=== PATIENT | female | born 1945 | race Caucasian/White ===

== ENCOUNTER 2019-11-26 12:44 | Outpatient (CLI) | payer MEDICARE, SELFPAY ==
[2019-11-26 12:55] LABS: Basophils Absolute Auto 0.02 K/mm3 (0.00-0.10); Basophils Percent Auto 0.5 % (0.0-1.0); Eosinophils Absolute Auto 0.19 K/mm3 (0.02-0.50); Eosinophils Percent Auto 4.6 % (1.0-6.0); Hemoglobin 10.9 g/dL (11.7-13.8); Immature Granulocyte Absolute 0.02 K/mm3 (0.00-0.00); Immature Granulocyte Percent A 0.5 % (0.0-0.0); Lymphocytes Absolute Auto 0.89 K/mm3 (1.10-4.50); Lymphocytes Percent Auto 21.4 % (18.0-42.0); Mean Corpuscular HGB Conc 30.3 g/dL (32.0-36.0); Mean Corpuscular Hemoglobin 26.6 pg (27.0-31.0); Mean Corpuscular Volume 87.8 fL (78.0-102.0); Mean Platelet Volume 9.8 fl (9.2-11.8); Monocytes Absolute Auto 0.41 K/mm3 (0.10-0.90); Monocytes Percent Auto 9.9 % (2.0-11.0); Neutrophils Absolute Auto 2.6 K/mm3 (1.7-7.2); Neutrophils Percent Auto 63.1 % (50.0-70.0); Platelet Count Result 186 K/mm3 (150-420); Red Cell Distribution Width 14.7 % (11.6-14.4); White Blood Count 4.2 K/mm3 (4.8-10.8)
[2019-11-26 13:52] LABS: Alanine Aminotransferase 17 U/L (14-59); Albumin Level 3.4 g/dL (3.4-5.0); Alkaline Phosphatase 107 U/L (46-116); Anion Gap 10.3 mmol/L (7-16); Aspartate Amino Transferase 23 U/L (15-37); Bilirubin,Total 0.3 mg/dL (0.00-1.00); Blood Urea Nitrogen 14 mg/dL (7-18); Calcium 8.9 mg/dL (8.5-10.1); Carbon Dioxide 30 mmol/L (21-32); Chloride 105 mmol/L (98-108); Estimated Glomerular Filt Rate 42; Glucose 80 mg/dL (70-99); Osmolality Calculated 291 mOsm/kg (285-295); Potassium 4.3 mmol/L (3.5-5.1); Sodium 141 mmol/L (136-145); Thyroid Stimulating Hormone 0.48 uIU/mL (0.36-3.74); Total Protein 5.9 g/dL (6.4-8.2)
[2019-11-30 11:15] LABS: Ferritin 8 ng/mL (8-252); Iron 54 ug/dL (50-170); Percent Iron Saturation 14 % (12-57)
== END 2019-11-26 12:45 | disposition home or self-care (01) ==
LOC: CHSLAB 12:46
PROVIDERS: PCP Family Medicine; Visit Provider Family Medicine
DX: E03.8 Other specified hypothyroidism (principal); I10 Essential (primary) hypertension; D64.9 Anemia, unspecified
CPT/HCPCS: 36415; 80053; 82728; 83540; 83550; 84443; 85025

== ENCOUNTER 2019-12-31 14:04 | Outpatient (CLI) | payer MEDICARE, SELFPAY ==
[2019-12-31 14:46] LABS: Cholesterol 155 mg/dL (0-200); HDL Direct 61 mg/dL (40-60); LDL Cholesterol Calculated 78 mg/dL (<130); Triglycerides 81 mg/dL (0-150)
== END 2019-12-31 14:05 | disposition home or self-care (01) ==
LOC: CHSLAB 14:07
PROVIDERS: PCP Family Medicine; Visit Provider Internal Medicine Cardiovascular Disease
DX: I10 Essential (primary) hypertension (principal)
CPT/HCPCS: 36415; 80061

== ENCOUNTER 2020-01-08 13:42 | Outpatient (CLI) | payer MEDICARE, SELFPAY ==
[2020-01-08 13:58] LABS: Basophils Absolute Auto 0.03 K/mm3 (0.00-0.10); Basophils Percent Auto 0.7 % (0.0-1.0); Eosinophils Absolute Auto 0.17 K/mm3 (0.02-0.50); Eosinophils Percent Auto 4.2 % (1.0-6.0); Hematocrit 35.9 % (35.0-42.0); Hemoglobin 10.9 g/dL (11.7-13.8); Immature Granulocyte Absolute 0.01 K/mm3 (0.00-0.00); Immature Granulocyte Percent A 0.2 % (0.0-0.0); Lymphocytes Absolute Auto 1.28 K/mm3 (1.10-4.50); Lymphocytes Percent Auto 31.8 % (18.0-42.0); Mean Corpuscular HGB Conc 30.4 g/dL (32.0-36.0); Mean Corpuscular Volume 88.9 fL (78.0-102.0); Monocytes Absolute Auto 0.24 K/mm3 (0.10-0.90); Neutrophils Absolute Auto 2.3 K/mm3 (1.7-7.2); Neutrophils Percent Auto 57.1 % (50.0-70.0); Platelet Count Result 205 K/mm3 (150-420); Red Blood Count 4.04 M/mm3 (4.20-5.40); Red Cell Distribution Width 14.1 % (11.6-14.4)
[2020-01-09 12:41] LABS: Ferritin 7 ng/mL (8-252); Iron 33 ug/dL (50-170); Percent Iron Saturation 10 % (12-57)
== END 2020-01-08 13:43 | disposition home or self-care (01) ==
LOC: CHSLAB 13:44
PROVIDERS: PCP Family Medicine; Visit Provider Family Medicine
DX: D64.9 Anemia, unspecified (principal)
CPT/HCPCS: 36415; 82728; 83540; 83550; 85025

== ENCOUNTER 2020-02-26 13:03 | Outpatient (CLI) | payer MEDICARE, SELFPAY ==
[2020-02-26 16:13] LABS: Basophils Absolute Auto 0.03 K/mm3 (0.00-0.10); Basophils Percent Auto 0.7 % (0.0-1.0); Eosinophils Absolute Auto 0.16 K/mm3 (0.02-0.50); Eosinophils Percent Auto 3.6 % (1.0-6.0); Hematocrit 37.4 % (35.0-42.0); Hemoglobin 11.2 g/dL (11.7-13.8); Lymphocytes Absolute Auto 1.39 K/mm3 (1.10-4.50); Lymphocytes Percent Auto 31.1 % (18.0-42.0); Mean Corpuscular HGB Conc 29.9 g/dL (32.0-36.0); Mean Corpuscular Hemoglobin 26.7 pg (27.0-31.0); Mean Platelet Volume 10.6 fl (9.2-11.8); Monocytes Absolute Auto 0.34 K/mm3 (0.10-0.90); Monocytes Percent Auto 7.6 % (2.0-11.0); Neutrophils Absolute Auto 2.6 K/mm3 (1.7-7.2); Platelet Count Result 226 K/mm3 (150-420); Red Cell Distribution Width 13.7 % (11.6-14.4); White Blood Count 4.5 K/mm3 (4.8-10.8)
[2020-02-26 16:21] LABS: Creatinine Urine 38.31 mg/dL (40-278); MALB Creatinine Ratio 33.9 mg/g (0-30); Microalbumin Urine Random < 13.0 mg/L
[2020-02-26 16:28] LABS: Alanine Aminotransferase 18 U/L (14-59); Albumin Level 3.7 g/dL (3.4-5.0); Alkaline Phosphatase 106 U/L (46-116); Anion Gap 7 mmol/L (8-16); Aspartate Amino Transferase 16 U/L (15-37); Bilirubin,Total 0.4 mg/dL (0.00-1.00); Blood Urea Nitrogen 12 mg/dL (7-18); Calcium 9.3 mg/dL (8.5-10.1); Carbon Dioxide 29 mmol/L (21-32); Chloride 104 mmol/L (98-108); Estimated Glomerular Filt Rate 44; Glucose 97 mg/dL (70-99); Osmolality Calculated 289 mOsm/kg (285-295); Potassium 4.3 mmol/L (3.5-5.1); Sodium 140 mmol/L (136-145); Total Protein 6.3 g/dL (6.4-8.2)
[2020-02-26 16:48] LABS: Thyroid Stimulating Hormone 0.38 uIU/mL (0.36-3.74)
[2020-02-26 17:36] LABS: Immature Reticulocyte Fraction 13.2 % (2.0-16.52); Reticulocyte Hemoglobin Conten 28.8 pg (28.0-35.0); Reticulocyte Percent 1.05 % (0.50-1.50); Reticulocytes Absolute 0.04 M/mm3 (0.02-0.1)
[2020-02-26 18:57] LABS: Iron 47 ug/dL (50-170); Percent Iron Saturation 13 % (12-57)
== END 2020-02-26 13:04 | disposition home or self-care (01) ==
LOC: CHSLAB 13:05
PROVIDERS: PCP Family Medicine; Visit Provider Family Medicine
DX: E03.8 Other specified hypothyroidism (principal); I10 Essential (primary) hypertension; D64.9 Anemia, unspecified
CPT/HCPCS: 36415; 80053; 82043; 83540; 83550; 84443; 85025; 85046

== ENCOUNTER 2020-03-05 01:12 | Outpatient (CLI) | payer MEDICARE, SELFPAY ==
[2020-03-05 18:29] LABS: SARS-CoV-2 RNA PCR Negative
== END 2020-03-05 01:13 | disposition home or self-care (01) ==
LOC: ANHCOVIDDT 01:13
PROVIDERS: PCP Family Medicine; Visit Provider Internal Medicine Gastroenterology
DX: Z01.812 Encounter for preprocedural laboratory examination (principal); Z11.59 Encounter for screening for other viral diseases
CPT/HCPCS: 87635; C9803; U0003

== ENCOUNTER 2020-03-07 03:53 | Day surgery (SDC) | payer MEDICARE, SELFPAY ==
[2020-03-03 14:36] VITALS: BMI 29.3
[2020-03-07 09:45] VITALS: BP 138/58; PULSE 64; RESP 22; O2SAT 100; BMI 30.2
[2020-03-07] MEDS: LACTATED RINGERS 1,000 ML 150 ML IV CONT (09:53)
--- NOTE | 2020-03-07 10:24 | PM.HPGS ---
History of Present Illness History of Present Illness Consent: Risks, benefits, and alternatives have been discussed and questions answered. Patient agrees to proceed with procedure. Chief complaint: Peptic Ulcer Disease Narrative: Catie Painter is a 74 year old female for has been found to have blood in her stools. She does take Excedrin regularly for migraine headaches. She has a history of ulcers. She had had a gastric bypass several years ago and had an anastomotic ulcer about 5 years ago. [facility] Past Medical History Medical History Acute upper respiratory infections of unspecified site (10/07/16) CKD (chronic kidney disease) stage 3, GFR 30-59 ml/min Cough (10/07/16) Depression (09/02/15) Dizziness (11/23/16) Dysuria (03/05/16) Essential hypertension GERD (gastroesophageal reflux disease) (09/02/15) FLACO on CPAP Type 2 diabetes mellitus (05/18/16) Surgical History Surgical History History of cholecystectomy History of gastric bypass History of hysterectomy Family History Family History Mother Carcinoma of colon Family history of Alzheimer's disease Sibling Carcinoma of colon Family history of malignant neoplasm of uterus Father Patient's father is Other Diabetes mellitus Family history of malignant neoplasm Family history of sleep apnea Family history of thyroid disease Hypertension Social History Social History Smoking status: Former smoker Smoking end date: 06/20/86 Alcohol intake: current Living arrangements: with family Meds Home Medications and Allergies Home Medications Medication Instructions Recorded Confirmed Type gufxzsc-lxsftnseiahqa-tkdypomi 250 1 tablet PO Q4-6H PRN 06/28/19 12/31/19 History mg-250 mg-65 mg tablet cyanocobalamin (vitamin B-12) 100 mcg SUB-Q MONTHLY 06/28/19 12/31/19 History 1,000 mcg/mL injection kit cyclobenzaprine 10 mg tablet 10 mg PO DAILY tablet 06/28/19 12/31/19 History duloxetine 30 mg capsule,delayed 30 mg PO DAILY 06/28/19 12/31/19 History release gabapentin 600 mg tablet 600 mg PO DAILY 06/28/19 12/31/19 History levothyroxine 50 mcg capsule 50 mcg PO DAILY 06/28/19 12/31/19 History omeprazole 20 mg tablet,delayed 20 mg PO DAILY 06/28/19 12/31/19 History release trazodone 50 mg tablet 50 mg PO DAILY tablet 06/28/19 12/31/19 History sumatriptan succinate 100 mg tablet 100 mg PO ONCE PRN 07/02/19 12/31/19 History metoprolol succinate 25 mg 25 mg PO DAILY #30 tablet 12/07/19 12/31/19 Rx tablet,extended release 24 hr cyanocobalamin (vitamin B-12) 03/03/20 History divalproex PO 03/03/20 History Allergies Allergy/AdvReac Type Severity Reaction Status Date / Time acetaminophen [Percocet] Allergy Intermediate Unknown Verified 03/07/20 09:43 oxycodone [Percocet] Allergy Intermediate Unknown Verified 03/07/20 09:43 butorphanol Allergy Unknown Dizziness Verified 03/07/20 09:43 BUTORPHANOL TARTRATE Allergy Unknown PARANOIA Uncoded 03/07/20 09:43 Vital Signs Vital Signs - 24 hr 03/07/20 09:45 Pulse Rate 64 Respiratory Rate 22 H Blood Pressure 138/58 L Pulse Oximetry 100 Exam Const: General: alert Orientation/consciousness: patient oriented x3 Resp: Auscultation: clear to auscultation bilaterally Cardio: Rhythm: regular rhythm GI: GI Palp: Yes Soft to palpation and No Tenderness to palpation present (GI) Neuro: General: patient oriented x3 Assessment and Plan Assessment and plan (1) Blood in stool: Code(s): K92.1 - Melena Status: Acute Assessment and Plan: EGD with possible biopsy or dilatation or cautery.
--- NOTE | 2020-03-07 10:27 | WPDANESEPPF ---
Anes - Initial Pre Proc Eval Procedure: Operation Date: 03/07/20 11:00 Proposed Procedures p Esophagogastroduodenoscopy - Sharath Cortes MD Date/Time: 03/07/20 10:27 Surgeon: Sharath Cortes MD Pre Op Diagnosis: Peptic Ulcer Disease Patient Data Age: 74 Gender: F Height: 5 ft 5 in Weight: 82.4 kg Last Vital Signs Pulse 64 03/07/20 09:45 Resp 22 H 03/07/20 09:45 BP 138/58 L 03/07/20 09:45 Pulse Ox 100 03/07/20 09:45 Allergies Allergy/AdvReac Type Severity Reaction Status Date / Time acetaminophen [Percocet] Allergy Intermediate Unknown Verified 03/07/20 09:43 oxycodone [Percocet] Allergy Intermediate Unknown Verified 03/07/20 09:43 butorphanol Allergy Unknown Dizziness Verified 03/07/20 09:43 BUTORPHANOL TARTRATE Allergy Unknown PARANOIA Uncoded 03/07/20 09:43 Home Medications Medication Instructions Recorded Confirmed Type yujpque-clsvvijboiydh-aoirgexb 250 1 tablet PO Q4-6H PRN 06/28/19 12/31/19 History mg-250 mg-65 mg tablet cyanocobalamin (vitamin B-12) 100 mcg SUB-Q MONTHLY 06/28/19 12/31/19 History 1,000 mcg/mL injection kit cyclobenzaprine 10 mg tablet 10 mg PO DAILY tablet 06/28/19 12/31/19 History duloxetine 30 mg capsule,delayed 30 mg PO DAILY 06/28/19 12/31/19 History release gabapentin 600 mg tablet 600 mg PO DAILY 06/28/19 12/31/19 History levothyroxine 50 mcg capsule 50 mcg PO DAILY 06/28/19 12/31/19 History omeprazole 20 mg tablet,delayed 20 mg PO DAILY 06/28/19 12/31/19 History release trazodone 50 mg tablet 50 mg PO DAILY tablet 06/28/19 12/31/19 History sumatriptan succinate 100 mg tablet 100 mg PO ONCE PRN 07/02/19 12/31/19 History metoprolol succinate 25 mg 25 mg PO DAILY #30 tablet 12/07/19 12/31/19 Rx tablet,extended release 24 hr cyanocobalamin (vitamin B-12) 03/03/20 History divalproex PO 03/03/20 History Patient hx anesthesia problems: none Family hx anesthesia problems: none PMFSH Past Medical History Medical History Acute upper respiratory infections of unspecified site (10/07/16) CKD (chronic kidney disease) stage 3, GFR 30-59 ml/min Cough (10/07/16) Depression (09/02/15) Dizziness (11/23/16) Dysuria (03/05/16) Essential hypertension GERD (gastroesophageal reflux disease) (09/02/15) FLACO on CPAP Type 2 diabetes mellitus (05/18/16) Surgical History Surgical History History of cholecystectomy History of gastric bypass History of hysterectomy Family History Family History Mother Carcinoma of colon Family history of Alzheimer's disease Sibling Carcinoma of colon Family history of malignant neoplasm of uterus Father Patient's father is Other Diabetes mellitus Family history of malignant neoplasm Family history of sleep apnea Family history of thyroid disease Hypertension Social History Social History Smoking status: Former smoker Smoking end date: 06/20/86 Alcohol intake: current Living arrangements: with family Diamond Curtis Final PreProcedure Day of Procedure 03/07/20 10:27 Patient weight: overweight Heart: regular rate and rhythm Lungs: clear to auscultation Airway: Mallampati scale class II Neurological: alert and oriented Last oral intake: >/= 8 hours ASA classification: III Emergent: no Anesthetic plan: proceed Anesthesia type and monitoring: general GIVS and standard monitoring Informed Consent: The patient's anesthetic plan and its attendant risks and benefits were discussed with the patient/family/POA. Questions were solicited and answers provided to the satisfaction of the patient/family/POA.
[2020-03-07 11:11] VITALS: BP 124/55; PULSE 67; RESP 22; O2SAT 98
[2020-03-07 11:21] VITALS: BP 114/59; PULSE 64; RESP 18; O2SAT 99
[2020-03-07 11:31] VITALS: BP 124/68; PULSE 66; RESP 20; O2SAT 100
== END 2020-03-07 11:49 | disposition home or self-care (01) ==
PROVIDERS: PCP Family Medicine; Visit Provider Internal Medicine Gastroenterology
PROC: 0DJ08ZZ Inspection of Upper Intestinal Tract, Via Natural or Artificial Opening Endoscopic (ICD-10-PCS; CPT 43235; principal; 2020-03-07 11:00)
DX: K22.2 Esophageal obstruction (principal); Z98.84 Bariatric surgery status; K92.1 Melena; K21.9 Gastro-esophageal reflux disease without esophagitis; Z87.11 Personal history of peptic ulcer disease; I12.9 Hypertensive chronic kidney disease with stage 1 through stage 4 chronic kidney disease, or unspecified chronic kidney disease; E11.22 Type 2 diabetes mellitus with diabetic chronic kidney disease; N18.3 Chronic kidney disease, stage 3 (moderate); G47.33 Obstructive sleep apnea (adult) (pediatric); F32.9 Major depressive disorder, single episode, unspecified; Z87.891 Personal history of nicotine dependence
CPT/HCPCS: 43249; 88305; C1726; J2704; J7120

== ENCOUNTER 2020-07-22 11:01 | Outpatient (CLI) | payer MEDICARE, SELFPAY ==
--- NOTE | ~2020-07-22 | XR_ITS ---
XR thoracic spine 3V DATE: 07/22/2020 11:32 INDICATION: Generalized back pain. Radiculopathy. No injury. TECHNIQUE: AP, lateral, swimmer views COMPARISON: None FINDINGS: Diffuse osteopenia. There is multilevel degenerative disease of the cervical spine. No fracture or dislocation of the thoracic spine. No bone destruction is evident. The thoracic pedicl es are intact. No paraspinal soft tissue thickening. There is degenerative spurring of the thoracic spine. IMPRESSION: Diffuse osteopenia Degenerative changes of the cervical and thoracic spine Reviewed, dictated and finalized at location A. FINISHER APPRENTICE
--- NOTE | ~2020-07-22 | XR_ITS ---
XR lumbar spine 2-3V DATE: 07/22/2020 11:32 INDICATION: Generalized back pain. Radiculopathy. TECHNIQUE: AP, lateral, coned lateral lumbosacral views COMPARISON: 01/24/2018 MRI lumbar spine FINDINGS: Diffuse osteopenia. There is moderately severe degenerative disc disease at L1-2 and L2-3 and L4-5. There is associated m inimal retrolisthesis at L2-3 and L4-5. No fracture or bone destruction is evident. The included lower thoracic and lumbar pedicles are intac t. The sacroiliac joints appear normal. There is extensive calcification of the abdominal aorta, without evidence of aneurysm. IMPRESSION: Diffuse osteopenia Multilevel degenerative disc disease, with associated minimal retrolisthesis at L2-3 and L4-5 Reviewed, dictated and finalized at location A. MILL OPERATOR
== END 2020-07-22 11:02 | disposition home or self-care (01) ==
LOC: CHSIMG 11:02
PROVIDERS: PCP Family Medicine; Visit Provider Family Medicine
DX: R25.1 Tremor, unspecified (principal); M54.16 Radiculopathy, lumbar region
CPT/HCPCS: 72072; 72100

== ENCOUNTER 2020-07-26 08:40 | Outpatient (CLI) | payer MEDICARE, SELFPAY ==
--- NOTE | ~2020-07-26 | MR_ITS ---
EXAMINATION: MR brain/brain stem wo/w con DATE: 07/26/2020 10:15 INDICATION: Tremor. TECHNIQUE: Magnetic resonance imaging (MRI) of the brain and brainstem was performed without and with 10 mL MultiHance intravenous contrast. Sequences included sagittal and axial T1-weighted FSE, axial diffusion-weighted FS EPI, axial T2*-weighted GRE, axial T2-weighted FLAIR Propeller, and axial T2-we ighted Propeller. Postcontrast sequences included axial and coronal T1-weighted FSE. Apparent diffusi on coefficient (ADC) maps were created. COMPARISON: Brain MRI 12/31/2015, head CT 05/04/2019 FINDINGS: There are scattered areas of nonspecific increased T2-weighted signal intensity in the cere bral white matter with worsening from 12/31/2015, which is within normal limits for the patient's age. There is no intracranial hemorrhage, acute infarction, or abnormal intracranial mass lesion. The danuta tricles are normal in size. There is mucosal thickening in the paranasal sinuses. There are likely ch anges of ocular lens replacement surgeries. The mastoid air cells are normal. IMPRESSION: 1. Normal aging brain. Reviewed, dictated and finalized at location A. LESOFT FUNCTIONAL ANALYST IMPRESSION: 1. Normal aging brain.
== END 2020-07-26 08:41 | disposition home or self-care (01) ==
LOC: CHSIMG 08:41
PROVIDERS: PCP Family Medicine; Visit Provider Family Medicine
DX: R25.1 Tremor, unspecified (principal); M54.16 Radiculopathy, lumbar region
CPT/HCPCS: 70553; A9577

== ENCOUNTER → 2020-10-07 10:15 | Outpatient (CLI) | payer MEDICARE, SELFPAY ==
--- NOTE | ~2020-10-07 | XR_ITS ---
EXAMINATION: XR knee RT min 4V DATE: 10/07/2020 10:43 INDICATION: Right knee pain. TECHNIQUE: 4 views of right knee were obtained. COMPARISON: Right knee radiographs 09/17/2015 FINDINGS: Bone alignment is normal. No fracture. There is moderate osteoarthritis of medial and miller lofemoral compartments and mild osteoarthritis of lateral compartment. No knee joint effusion. IMPRESSION: 1. Moderate right knee osteoarthritis. Reviewed, dictated and finalized at location B.
== END ==
PROVIDERS: PCP Family Medicine; Visit Provider Nurse Practitioner Adult Health
DX: M54.16 Radiculopathy, lumbar region (principal); M17.11 Unilateral primary osteoarthritis, right knee
CPT/HCPCS: 73564

== ENCOUNTER 2020-10-09 09:00 | Outpatient (RCR) | payer MEDICARE, SELFPAY | END 2020-10-16 13:52 | disposition home or self-care (01) | LOC: CHSPT 09:00 | PROVIDERS: Visit Provider Nurse Practitioner Adult Health | DX: M54.16 Radiculopathy, lumbar region (principal); M54.5 Low back pain; M25.562 Pain in left knee | CPT/HCPCS: 97014; 97110; 97161; G0283 ==

== ENCOUNTER 2021-01-23 09:02 | Outpatient (CLI) | payer MEDICARE, SELFPAY ==
--- NOTE | ~2021-01-23 | XR_ITS ---
XR knee RT 3V DATE: 01/23/2021 09:56 INDICATION: Chronic right knee pain. No injury. TECHNIQUE: [place] and weightbearing AP and lateral views COMPARISON: 10/07/2020 right knee FINDINGS: There is diffuse osteopenia. There is prominent periarticular spurring of the patellofemoral joint and particularly spurring at th e medial compartment. Probable old healed proximal fibular shaft fracture. No recent fracture, dislocation or joint effusio n. No periosteal reaction or bone destruction. No radiopaque intra-articular loose body or chondrocal cinosis is detected. IMPRESSION: Osteopenia Osteoarthritis involving particularly the patellofemoral and medial compartments Probable old healed proximal fibular shaft fracture Reviewed, dictated and finalized at location B. IMPRESSION: Osteopenia Osteoarthritis involving particularly the patellofemoral and medial compartment s Probable old healed proximal fibular shaft fracture
--- NOTE | ~2021-01-23 | XR_ITS ---
EXAMINATION: XR barium swallow modified DATE: 01/23/2021 09:54 INDICATION: Dysphagia. TECHNIQUE: The patient was given barium-containing material of multiple consistencies to swallow by jason hernandez speech pathologist while I performed fluoroscopy. Dose-area product was 1.19 Gy-cm2. 1.9 minutes fluoroscopy time FINDINGS: Oral Stage: Within functional limits Pharyngeal Phase: Reduced laryngeal elevation with liquids Follicular residue with all consistencies Laryngeal penetration with thin liquids No aspiration Cervical/Esophageal Stage: Within functional limits IMPRESSION: Modified esophagram findings as above. Please refer to the speech therapy report for spec ific recommendations. Reviewed, dictated and finalized at Location A. Reviewed, dictated and finalized at location B. IMPRESSION: Modified esophagram findings as above. Please refer to the speech t herapy report for specific recommendations.
--- NOTE | 2021-01-23 10:20 | STOPEVAL ---
Thank you for referring Catie Painter to [facility] [place] This was an evaluation only. Please review, sign, date and return this plan of care RANDY. I agree with and certify that the following plan of care is medically necessary. Referring Physician Date Admitting Provider: Attending Provider: Davonte Stock MD Referring Provider: PATRICIA Outpatient Evaluation Start: 01/23/21 09:51 Freq: Status: Active Protocol: Document 01/23/21 09:10 MJB (Rec: 01/23/21 10:20 THAD [id number]) Therapy Assessment Status Assessment Status Assessment Status Evaluation Outpatient Past Medical History Past Medical History Source of Past Medical History Patient Other Source of Past Medical History Patient reports she has had difficulty swallowing for 2-3 years Neurological History Hx Neurological Disorders No Significant History Cardiovascular History Hx Cardiomyopathy Yes: HOCM Hx Hypertension Yes Respiratory History Hx Sleep Apnea Yes Gastrointestinal History Hx Cholecystectomy Yes Hx Gastric Bypass Surgery Yes Hx Gastroesophageal Reflux Disease Yes Genitourinary History Hx Other Genitourinary Disorders Yes: CKD Musculoskeletal History Hx Arthritis Yes Hematological History Hx Hematological Disorders No Significant History Endocrine History Hx Hypothyroidism Yes Hx Other Endocrine Disorders Yes: H/O LOW BLOOD SUGAR AFTER GASTRIC BYPASS HEENT History Hx Cataracts Yes: REMOVED Integumentary History Hx Skin Disorders No Significant History Reproductive History Hx Hysterectomy Yes Psychosocial History Hx Depression Yes Anesthesia History Hx Anesthesia Reactions No Significant History Pain Assessment Timing of Pain Assessment Timing of Pain Assessment Assessment Self Report Self Report Pain Level 0 Pain Score Pain Score 0: Self Report Modified Barium Swallow Evaluation Recent Swallowing History Reports Dysphagia Yes Onset of Dysphagia 2-3 years ago History of Dysphagia Yes Duration of Dysphagia 2-3 years ongoing, choking episode at least 1x per day Other Related History GERD, sleep apnea, chronic congestion/drainage History of Pneumonia No Reported Difficult Consistencies Solids Intake Method Prior to Swallow Oral Evaluation Diet Prior to Swallow Evaluation Soft and Bite Size, Level 6 Liquid Consistency Prior to Swallow Thin (0) Evaluation Orthodontic/Dental Appliances
== END 2021-01-23 09:03 | disposition home or self-care (01) ==
PROVIDERS: PCP Family Medicine; Visit Provider Family Medicine
DX: R13.11 Dysphagia, oral phase (principal); M25.561 Pain in right knee
CPT/HCPCS: 73562; 92611

== ENCOUNTER 2021-04-07 12:54 | Outpatient (CLI) | payer MEDICARE, SELFPAY ==
[2021-04-07 14:26] LABS: SARS-CoV-2 RNA PCR Negative (Negative)
== END 2021-04-07 12:55 | disposition home or self-care (01) ==
LOC: CHSLAB 12:58
PROVIDERS: PCP Family Medicine; Visit Provider Nurse Practitioner Family
DX: R19.7 Diarrhea, unspecified (principal); R52 Pain, unspecified
CPT/HCPCS: C9803; U0003; U0005

== ENCOUNTER 2021-04-07 15:19 | Observation (INO) | payer MEDICARE, SELFPAY ==
[2021-04-07] VITALS (35 sets, daily range): BP systolic 100–139; BP diastolic 52–85; PULSE 82–141; RESP 11–24; TEMP 36.2–36.4; O2SAT 95–100; BMI 26.1
--- NOTE | ~2021-04-07 | CT_ITS ---
EXAMINATION: CT abdomen pelvis w con INDICATION: Diffuse abdominal pain TECHNIQUE: Computed tomographic images of the abdomen and pelvis were obtained after the administrati on of 100 cc of Omnipaque 350 intravenous contrast. The dose-length product (DLP) was 517.53 mGy-cm. Automated exposure control and iterative reconstruction technique were employed. COMPARISON: 06/17/2017 FINDINGS: Minimal dependent atelectasis is present in the lung bases. The heart size is normal. There is a small sliding hiatal hernia. Surgical changes are noted at the gastroesophageal junction. The g allbladder is surgically absent. There is chronic intrahepatic and extrahepatic biliary dilatation as well as dilation of the pancreatic duct. The liver, spleen, pancreas, and adrenal glands are normal. There is question of mild inflammatory change in the pancreaticoduodenal groove. There is a 6 mm cys t of the right kidney. The left kidney is unremarkable. There is calcified atherosclerosis of the aor ta and many of the other arteries. No pathologically enlarged abdominal or pelvic lymph nodes are isela ntified. There is no free intraperitoneal gas or evidence of bowel obstruction. There is moderate lum bar spondylosis. IMPRESSION: 1. Possible inflammatory change near the head of the pancreas. Recommend evaluation for right upper q uadrant tenderness and consider correlation with lipase. Reviewed, dictated and finalized at location A. IMPRESSION: 1. Possible inflammatory change near the head of the pancreas. Recommend evalua tion for right upper quadrant tenderness and consider correlation with lipase.
[2021-04-07 15:43] LABS: Basophils Percent Auto 0.3 % (0.2-1.2); Eosinophils Percent Auto 0.1 % (0-4.4); Hematocrit 35.7 % (37.0-47.0); Hemoglobin 11.3 g/dL (12.0-15.0); Immature Granulocyte Absolute 0.03 K/mm3 (0.00-0.031); Immature Granulocyte Percent A 0.3 % (0-0.5); Lymphocytes Absolute Auto 1.08 K/mm3 (0.9-3.2); Lymphocytes Percent Auto 12.3 % (18.3-44.2); Mean Corpuscular HGB Conc 31.7 g/dl (32-36); Mean Corpuscular Hemoglobin 30.2 pg (26-34); Mean Corpuscular Volume 95.5 fl (80-100); Mean Platelet Volume 9.7 fl (7.4-10.4); Monocytes Absolute Auto 0.4 K/mm3 (0.1-0.6); Monocytes Percent Auto 4.9 % (2.6-8.5); Neutrophils Absolute Auto 7.2 K/mm3 (1.3-6.7); Neutrophils Percent Auto 82.1 % (45.5-73.1); Platelet Count Result 192 k/mm3 (150-375); Red Blood Count 3.74 M/mm3 (4.2-5.4); Red Cell Distribution Width 13.4 % (11.5-14.5); White Blood Count 8.8 K/mm3 (4.5-10.0)
[2021-04-07 15:52] LABS: Prothrombin Time 13.5 Seconds (11.1-14.7)
[2021-04-07 15:53] LABS: Partial Thromboplastin Time 26.9 SECONDS (22.3-36.8)
[2021-04-07 15:55] LABS: Alanine Aminotransferase 12 U/L (4-35); Albumin Level 3.4 g/dL (3.5-5.1); Alkaline Phosphatase 56 U/L (38-126); Anion Gap 8 mmol/L (8-16); Aspartate Amino Transferase 19 U/L (14-36); Bilirubin,Total 0.5 mg/dL (0.2-1.3); Blood Urea Nitrogen 36 mg/dL (7-17); Calcium 9.2 mg/dL (8.4-10.2); Carbon Dioxide 25 mmol/L (22-30); Chloride 106 mmol/L (98-107); Estimated CRCL calculation 43 ml/min; Estimated Glomerular Filt Rate 54; Glucose 132 mg/dL (65-110); Potassium 4.5 mmol/L (3.4-5.0); Sodium 139 mmol/L (137-145)
[2021-04-07] MEDS: SODIUM CHLORIDE 0.9% IV 1,000 ML 999 ML IV CONT ×2 (18:55→20:38)
[2021-04-07] MEDS: PANTOPRAZOLE SODIUM IV 40 MG VIAL 80 MG IV PUSH (19:21)
--- NOTE | 2021-04-07 19:40 | ED.GIBLEED ---
HPI - GI Bleed General Chief complaint: GI Bleed Stated complaint: GI bleeding Time Seen by Provider: 04/07/21 17:20 History of Present Illness HPI Narrative: Patient is a 75-year-old female who presents to the ER with reports of hematemesis and bloody stools. Ongoing over the last day. Head to bloody stools this morning and one this evening. Reports weakness and dizziness. No loss of consciousness. She is not on blood thinners. She does take ibuprofen regularly for headaches. Has history of gastric bypass surgery. No history of GI bleeding. Related Data Home Medications Medication Instructions Recorded Confirmed icttrrv-nmopptftzyfty-smbjzbpw 250 1 tablet PO Q4-6H PRN 06/28/19 01/05/21 mg-250 mg-65 mg tablet cyanocobalamin (vitamin B-12) 100 mcg SUB-Q MONTHLY 06/28/19 01/05/21 1,000 mcg/mL injection kit cyclobenzaprine 10 mg tablet 10 mg PO DAILY tablet 06/28/19 01/05/21 duloxetine 30 mg capsule,delayed 30 mg PO DAILY 06/28/19 01/05/21 release gabapentin 600 mg tablet 600 mg PO DAILY 06/28/19 01/05/21 levothyroxine 50 mcg capsule 50 mcg PO DAILY 06/28/19 01/05/21 omeprazole 20 mg tablet,delayed 20 mg PO DAILY 06/28/19 01/05/21 release trazodone 50 mg tablet 50 mg PO DAILY tablet 06/28/19 01/05/21 sumatriptan succinate 100 mg tablet 100 mg PO ONCE PRN 07/02/19 01/05/21 cyanocobalamin (vitamin B-12) 03/03/20 01/05/21 divalproex PO 03/03/20 01/05/21 Allergies Allergy/AdvReac Type Severity Reaction Status Date / Time oxycodone [Percocet] Allergy Intermediate Unknown Verified 04/07/21 15:25 butorphanol Allergy Unknown Dizziness Verified 04/07/21 15:25 BUTORPHANOL TARTRATE Allergy Unknown PARANOIA Uncoded 04/07/21 15:25 Review of Systems Review of Systems: All systems reviewed & are unremarkable except as noted in HPI and below Constitutional: Constitutional: Denies chills, Reports fatigue, Denies fever(s) and Reports weakness ENT: Denies nasal congestion and Denies sore throat Cardiovascular: Cardiovascular: Denies chest pain, Denies rapid heart rate and Denies radiating jaw, neck or arm pain Respiratory: Respiratory: Denies cough, Denies dyspnea and Denies wheezing Gastrointestinal: Gastrointestinal: Denies abdominal pain, Reports diarrhea, Reports nausea and Reports vomiting Comments: Melena in stool and hematemesis reported Musculoskeletal: Musculoskeletal: Denies back pain and Denies muscle cramps Neurologic: Reports dizziness PMFSH Past Medical History Medical History (Updated 04/07/21 @ 20:41 by Isaak Gordon MD) Acute upper respiratory infections of unspecified site (10/07/16) CKD (chronic kidney disease) stage 3, GFR 30-59 ml/min Cough (10/07/16) Depression (09/02/15) Dizziness (11/23/16) Dysuria (03/05/16) Essential hypertension GERD (gastroesophageal reflux disease) (09/02/15) FLACO on CPAP Type 2 diabetes mellitus (05/18/16) Surgical History Surgical History History of cholecystectomy History of gastric bypass History of hysterectomy Family History Family History Mother Carcinoma of colon Family history of Alzheimer's disease Sibling Carcinoma of colon Family history of malignant neoplasm of uterus Father Patient's father is Other Diabetes mellitus Family history of malignant neoplasm Family history of sleep apnea Family history of thyroid disease Hypertension Social History Social History Smoking status: Former smoker Smoking end date: 06/20/86 Alcohol intake: current Exam Narrative: GENERAL: Unwell-appearing, well-nourished, and in no acute distress. HEAD: Normocephalic, atraumatic. EYES: PERRL and EOMI. CHEST: Clear to auscultation. No respiratory distress. HEART: Tachycardic and regular. Normal peripheral pulses. ABDOMEN: Soft, nontender, nondistended, nor
--- NOTE | 2021-04-07 19:45 | ECG_ITS ---
Measurements Intervals [place] Rate: 96 P: 75 [place]: 154 QRS: 43 QRSD: 86 T: -5 QT: 325 QTc: 411 Interpretive Statements SINUS RHYTHM BORDERLINE ST-T WAVE ABNORMALITY- ANTEROLAT/INF LEADS BASELINE ARTIFACT- I, II, AVR, V1-V6 BORDERLINE ECG Electronically Signed On 04-08-2021 6:45:28 CDT by Cristi Chao D.O.
[2021-04-07] MEDS: fentaNYL CITRATE INJ (*CRX) 100 MCG/2 ML VIAL 50 MCG IV PUSH (20:39)
[2021-04-07 21:10] LABS: Lipase 33 U/L (23-300)
--- NOTE | 2021-04-07 22:08 | PM.IMHP ---
H&P: HPI History of Present Illness Date/Time: 04/07/21 22:08 Chief Complaint: Hematemesis hematochezia Narrative: This is 75-year-old female who presents to the ER with reports of hematemesis and bloody stools that started since this morning. She reports that he has not been feeling well since past few days. She has been feeling tired nauseated now has also been having loose stools the past 3 days this morning he threw up dark blood around 11:00 a.m. she has not thrown up she does not. However she has been having dark blood mixed with fresh blood in her bowels. She also reports pain in her lower quadrant left side since past few days. Her appetite is down. She denies any fever or chills she reports weakness and dizziness no loss of consciousness. She denies being on any blood thinners however she does take Excedrin migraine for headache about 2-3 times every week. No prior history of GI bleed however she does have history of gastric bypass surgery done about 20 years ago. In the ER for evaluation she was normotensive however while sitting up her heart rate jumped to 140s. She received some fluid in the ER which improved this. Her hemoglobin came back stable at 11.3 which is very comparable to her previous levels. She has not had any bloody stool or hematemesis since this morning. She is admitted for further evaluation and management. Review of Systems Review of Systems: - CONSTITUTIONAL: Denies weight loss, fever and chills. Reports generalized weakness - HEENT: Denies changes in vision and hearing - RESPIRATORY: Denies SOB and cough. - CV: Denies palpitations and CP. - GI: Reports abdominal pain, nausea, vomiting and diarrhea. - : Denies dysuria and urinary frequency. - MSK: Denies myalgia and joint pain. - SKIN: Denies rash and pruritus. - NEUROLOGICAL: Denies headache and syncope. - PSYCHIATRIC: Denies recent changes in mood. Denies anxiety and depression. All systems reviewed & are unremarkable except as noted in HPI and below Constitutional: Constitutional: Reports fatigue and Reports weakness Neurologic: Reports weakness Endocrine: Endocrine: Reports fatigue PMFSH Past Medical History Medical History (Updated 04/07/21 @ 20:41 by Isaak Gordon MD) Acute upper respiratory infections of unspecified site (10/07/16) CKD (chronic kidney disease) stage 3, GFR 30-59 ml/min Cough (10/07/16) Depression (09/02/15) Dizziness (11/23/16) Dysuria (03/05/16) Essential hypertension GERD (gastroesophageal reflux disease) (09/02/15) FLACO on CPAP Type 2 diabetes mellitus (05/18/16) Surgical History Surgical History History of cholecystectomy History of gastric bypass History of hysterectomy Family History Family History Mother Carcinoma of colon Family history of Alzheimer's disease Sibling Carcinoma of colon Family history of malignant neoplasm of uterus Father Patient's father is Other Diabetes mellitus Family history of malignant neoplasm Family history of sleep apnea Family history of thyroid disease Hypertension Social History Social History Smoking status: Never smoker Smoking end date: 06/20/86 Alcohol intake: never Substance use: never Substance use type: does not use Spiritual care concerns: No Meds Home Medications and Allergies Home Medications Medication Instructions Recorded Confirmed Type hxiammp-xcstlvvflxdyg-lnosnmkc 250 1 tablet PO Q4-6H PRN 06/28/19 01/05/21 History mg-250 mg-65 mg tablet cyanocobalamin (vitamin B-12) 100 mcg SUB-Q MONTHLY 06/28/19 01/05/21 History 1,000 mcg/mL injection kit cyclobenzaprine 10 mg tablet 10 mg PO DAILY tablet 06/28/19 01/05/21 History duloxetine 30 mg capsule,delayed 30 mg PO DAILY 06/28/19 01/05/21 History release
[2021-04-07] MEDS: SODIUM CHLORIDE 0.9% IV 1,000 ML 125 ML IV CONT (22:19)
--- NOTE | 2021-04-07 23:31 | ADMGEN ---
This patient, Catie Painter, was admitted to IMU Room 203-01. Patient/family oriented to hospital policies and general routines including ID bracelet, bed and alarms, visiting hours, pain management, procedures, bathroom and other care routines, personal items, smoking policy, room service/diet, and visiting hours. Information on how to activate the Rapid Response Team has been discussed. Patient/Family are encouraged to report perceived risks to care and to ask questions if they do not understand what they are told or what they should do.
[2021-04-07 23:56] LABS: Lipase 22 U/L (23-300)
[2021-04-08] VITALS (26 sets, daily range): BP systolic 120–196; BP diastolic 46–112; PULSE 65–108; RESP 13–24; TEMP 35.7–36.5; O2SAT 93–100; BMI 27.3
[2021-04-08 00:25] LABS: Hematocrit 27.6 % (37.0-47.0); Hemoglobin 8.6 g/dL (12.0-15.0)
[2021-04-08] MEDS: SODIUM CHLORIDE 0.9% IV 250 ML 30 ML IV CONT (03:45)
--- NOTE | 2021-04-08 06:28 | WPDGICN ---
Assessment and Plan Assessment and plan (1) Acute upper GI bleed: Code(s): K92.2 - Gastrointestinal hemorrhage, unspecified Status: Acute Assessment and Plan: I suspect ulcer disease due to use of NSAIDs. I will schedule her for an EGD to be done today. I do not think this is a lower gastrointestinal bleed but if the endoscopy is negative we would then need to consider colonoscopy. Because of her elevated BUN I suspect this is upper GI bleed (2) CKD (chronic kidney disease) stage 3, GFR 30-59 ml/min: Code(s): N18.3 - Chronic kidney disease, stage 3 (moderate) Status: Acute Assessment and Plan: she is stage III BUN was 12 last year in is over 30 now although her creatinine actually has not increased (3) Dizziness: Onset Date: 11/23/16 Code(s): R42 - Dizziness and giddiness Status: Acute Assessment and Plan: she states that she will know if she is dizzy until she tries to get out of bed. If the symptoms persist we need to investigate. (4) FLACO on CPAP: Code(s): G47.33 - Obstructive sleep apnea (adult) (pediatric); Z99.89 - Dependence on other enabling machines and devices Status: Acute Assessment and Plan: She was using her CPAP as I interviewed her. She denies any increased shortness of breath. GI Consult Note Consult date/time: 04/08/21 06:28 HPI: Catie Painter is a 75 year old female who came to the emergency room yesterday because she had an episode of hematemesis of red blood and also was passing dark blood per rectum. She began feeling ill about 3 days ago having gotten dizzy and could not get out of bed without becoming while bleed and nauseated. She had not eaten much to last few days. She thought she may have COVID and went to get a test done which was negative. Was not having fever chills or cough. She had been using some anti-inflammatories, mostly ibuprofen lately for headaches and other symptoms. She has history of an esophageal stricture that I dilated last year. She also has had a previous gastric bypass. A colonoscopy 2 years ago for a family history of colon cancer was negative, though she has had some polyps removed in the past. She has lost about 20 lb in last few months because she simply feels that she cannot eat or does not feel like eating. Until yesterday however she had not been vomiting in the emergency room she was found have a elevation of her heart rate when she sat up. Her hemoglobin was 11.3 yesterday but now is 8.6. She has had no stools during the night. Review of Systems Review of Systems: All systems reviewed & are unremarkable except as noted in HPI and below PMFSH Past Medical History Medical History Acute upper respiratory infections of unspecified site (10/07/16) CKD (chronic kidney disease) stage 3, GFR 30-59 ml/min Cough (10/07/16) Depression (09/02/15) Dizziness (11/23/16) Dysuria (03/05/16) Essential hypertension GERD (gastroesophageal reflux disease) (09/02/15) FLACO on CPAP Type 2 diabetes mellitus (05/18/16) Surgical History Surgical History History of cholecystectomy History of gastric bypass History of hysterectomy Family History Family History Mother Carcinoma of colon Family history of Alzheimer's disease Sibling Carcinoma of colon Family history of malignant neoplasm of uterus Father Patient's father is Other Diabetes mellitus Family history of malignant neoplasm Family history of sleep apnea Family history of thyroid disease Hypertension Social History Social History Smoking status: Never smoker Smoking end date: 06/20/86 Alcohol intake: never Substance use: never Substance use type: does not use Spiritual care co
--- NOTE | 2021-04-08 08:06 | PM.IMPN ---
Progress Note: A&P Assessment and Plan (1) Acute upper GI bleed: Code(s): K92.2 - Gastrointestinal hemorrhage, unspecified Status: Acute Assessment and Plan: Acute GI bleed with hematochezia/hematemesis. Hemoglobin and hematocrit 10.1/32 and 11.4/34.4 respectively. There is no indication for a blood transfusion. Currently the patient is hemodynamically stable with the following vital signs blood pressure 153/72, pulse 74, respiration 24, temperature 90? 7.4598, saturation 100% on room air. She has experienced elevated blood pressure in the [address]89 systolic earlier. We will resume home blood pressure medications. The EGD report reads nonideal was E reflux disease, previous gastric surgery, intestinal ulcers. A biopsy was taken from the body for a rapid urease test. (2) Blood in stool: Code(s): K92.1 - Melena Status: Acute Assessment and Plan: Her likely related to a single crater ulcer measuring 30 mm that was visualized in the proximal jejunum. The ulcer was oozing blood. An injection of 5 mL of epinephrine was administered to control the bleeding successfully. The lesion was cauterized. (3) CKD (chronic kidney disease) stage 3, GFR 30-59 ml/min: Code(s): N18.3 - Chronic kidney disease, stage 3 (moderate) Status: Acute Assessment and Plan: An unknown baseline kidney function. Elevated BUN on admission at 36 likely reflecting GI bleeding. Creatinine has improved from 1-0.9. This likely represents her baseline. (4) Dizziness: Onset Date: 11/23/16 Code(s): R42 - Dizziness and giddiness Status: Acute Assessment and Plan: Likely related to GI bleed. Maintain fall precautions. Will monitor serial vital signs. Patient will be monitored on telemetry. (5) HOCM (hypertrophic obstructive cardiomyopathy): Code(s): I42.1 - Obstructive hypertrophic cardiomyopathy Status: Acute Assessment and Plan: History of HOCM no LVOT obstruction (6) FLACO on CPAP: Code(s): G47.33 - Obstructive sleep apnea (adult) (pediatric); Z99.89 - Dependence on other enabling machines and devices Status: Acute Assessment and Plan: CONTINUE BIPAP (7) Essential hypertension: Code(s): I10 - Essential (primary) hypertension Status: Acute Assessment and Plan: RESUME HOME BLOOD PRESSURE medications NEXT METOPROLOL SUCCINATE 25 MG P.O. DAILY. Additional Plan # DVT prophylaxis SCDs Subjective Date/time seen: Narrative: This is 75-year-old female who presents to the ER with reports of hematemesis and bloody stools that started since this on 04/07/2021. She has been having dark blood mixed with fresh blood in her bowels. She also reports pain in her lower quadrant left side since past few days. No prior history of GI bleed however she does have history of gastric bypass surgery done about 20 years ago. In the ER for evaluation she was normotensive however while sitting up her heart rate jumped to 140s. She received some fluid in the ER which improved this. Her hemoglobin came back stable at 11.3 which is very comparable to her previous levels. She has not had any bloody stool or hematemesis since this morning. She is admitted for further evaluation and management 04/08/21 08:06 S: Patient is examined at the bedside. She reports chronic back pain and fatigue. Review of Systems Review of Systems: All systems reviewed & are unremarkable except as noted in HPI and below Constitutional: Constitutional: Reports fatigue and Reports weakness Neurologic: Reports weakness Endocrine: Endocrine: Reports fatigue Exam Const: General: comfortable and no acute distress HENMT: Mouth: Yes moist mucous membranes Eyes: Sclera: sclerae normal Pupils: Equal, round and reactive pupils present EOM: EOMs intact bilaterally Neck: Neck: no JVD Resp: Effort & Inspection: normal respiratory effort Auscultation: clear to auscul
[2021-04-08 08:35] LABS: Hemoglobin 10.1 g/dL (12.0-15.0); Mean Corpuscular HGB Conc 31.6 g/dl (32-36); Mean Platelet Volume 9.7 fl (7.4-10.4); Platelet Count Result 151 k/mm3 (150-375); Red Blood Count 3.37 M/mm3 (4.2-5.4); White Blood Count 5.1 K/mm3 (4.5-10.0)
--- NOTE | 2021-04-08 09:21 | WPDANESEPPF ---
Anes - Initial Pre Proc Eval Procedure: Operation Date: 04/08/21 13:30 Proposed Procedures p Esophagogastroduodenoscopy - Sharath Cortes MD Date/Time: 04/08/21 09:21 Surgeon: Morales Rodgers MD Pre Op Diagnosis: Upper Gi Bleed Patient Data Age: 75 Gender: F Height: 1.65 m Weight: 74.5 kg Last Vital Signs Temp 36.1 C L 04/08/21 07:00 Pulse 94 04/08/21 07:00 Resp 20 04/08/21 07:00 BP 120/60 04/08/21 07:00 Pulse Ox 98 04/08/21 07:00 Allergies Allergy/AdvReac Type Severity Reaction Status Date / Time oxycodone [Percocet] Allergy Intermediate Unknown Verified 04/08/21 10:55 butorphanol Allergy Unknown Dizziness Verified 04/08/21 10:55 BUTORPHANOL TARTRATE Allergy Unknown PARANOIA Uncoded 04/08/21 10:55 Home Medications Medication Instructions Recorded Confirmed Type duloxetine 30 mg capsule,delayed 30 mg PO BID 06/28/19 04/08/21 History release gabapentin 600 mg tablet 600 mg PO DAILY 06/28/19 04/08/21 History levothyroxine 50 mcg capsule 50 mcg PO DAILY 06/28/19 04/08/21 History omeprazole 20 mg tablet,delayed 20 mg PO DAILY 06/28/19 04/08/21 History release trazodone 50 mg tablet 50 mg PO DAILY tablet 06/28/19 04/08/21 History divalproex 250 mg PO BID 03/03/20 04/08/21 History metoprolol succinate 25 mg PO DAILY 04/08/21 04/08/21 History Laboratory Tests 04/07/21 04/07/21 04/07/21 15:31 15:32 15:32 WBC 8.8 K/mm3 K/mm3 (4.5-10.0) RBC 3.74 M/mm3 L M/mm3 (4.2-5.4) Hgb 11.3 g/dL L g/dL (12.0-15.0) Hct 35.7 % L % (37.0-47.0) MCV 95.5 fl fl (80-100) MCH 30.2 pg pg (26-34) MCHC 31.7 g/dl L g/dl (32-36) RDW 13.4 % % (11.5-14.5) Plt Count 192 k/mm3 k/mm3 (150-375) MPV 9.7 fl fl (7.4-10.4) Immature Gran % (Auto) 0.3 % % (0-0.5) Neut % (Auto) 82.1 % H % (45.5-73.1) Lymph % (Auto) 12.3 % L % (18.3-44.2) Dixie % (Auto) 4.9 % % (2.6-8.5) Eos % (Auto) 0.1 % % (0-4.4) Baso % (Auto) 0.3 % % (0.2-1.2) Lymph # (Auto) 1.08 K/mm3 K/mm3 (0.9-3.2) Dixie # (Auto) 0.4 K/mm3 K/mm3 (0.1-0.6) Eos # (Auto) 0.0 K/mm3 K/mm3 (0-0.3) Baso # (Auto) 0.0 K/mm3 K/mm3 (0.0-0.1) Abs Immat Gran (auto) 0.03 K/mm3 K/mm3 (0.00-0.031) Absolute Neuts (auto) 7.2 K/mm3 H K/mm3 (1.3-6.7) Absolute Nucleated RBC 0.0 K/mm3 K/mm3 (0.0-0.012) Nucleated RBC % 0.0 % % (0.0-0.2) PT 13.5 Seconds Seconds (11.1-14.7) INR 1.0 APTT 26.9 SECONDS SECONDS (22.3-36.8) Sodium Potassium Chloride Carbon Dioxide Anion Gap BUN Creatinine Estim Creat Clear Calc Estimated GFR Glucose Calcium Total Bilirubin AST ALT Alkaline Phosphatase Total Protein Albumin Lipase 33 U/L U/L (23-300) Blood Type Antibody Screen Crossmatch 04/07/21 04/07/21 04/07/21 15:32 15:34 23:37 WBC RBC Hgb 8.6 g/dL L g/dL (12.0-15.0) Hct 27.6 % L % (37.0-47.0) MCV MCH MCHC RDW Plt Count MPV Immature Gran % (Auto) Neut % (Auto) Lymph % (Auto) Dixie % (Auto) Eos % (Auto) Baso % (Auto) Lymph # (Auto) Dixie # (Auto) Eos # (Auto) Baso # (Auto) Abs Immat Gran (auto) Absolute Neuts (auto) Absolute Nucleated RBC Nucleated RBC % PT INR APTT Sodium 139 mmol/L mmol/L
[2021-04-08 09:49] LABS: Anion Gap 6 mmol/L (8-16); Blood Urea Nitrogen 23 mg/dL (7-17); Calcium 8.3 mg/dL (8.4-10.2); Carbon Dioxide 23 mmol/L (22-30); Chloride 111 mmol/L (98-107); Estimated CRCL calculation 48 ml/min; Estimated Glomerular Filt Rate > 60; Glucose 92 mg/dL (65-110); Potassium 3.8 mmol/L (3.4-5.0); Sodium 140 mmol/L (137-145)
[2021-04-08] MEDS: TUBING, BLOOD PLUM PUMP TUBING 1 EACH XX (09:54)
[2021-04-08] MEDS: SODIUM CHLORIDE 0.9% IV 250 ML 30 ML (09:55)
[2021-04-08] MEDS: EPINEPHrine INJ 1 MG/10 ML SYRINGE XX (11:50)
[2021-04-08] MEDS: LACTATED RINGERS 1,000 ML 150 ML IV CONT (11:55)
--- NOTE | 2021-04-08 12:08 | SUR.OPER ---
Gold Probe Lot: [id number] Exp: 2023-01-01
[2021-04-08] MEDS: fentaNYL CITRATE INJ (*CRX) 100 MCG/2 ML VIAL 50 MCG IV PUSH ×2 (12:59→20:08)
[2021-04-08 14:40] LABS: Hematocrit 34.4 % (37.0-47.0); Hemoglobin 11.4 g/dL (12.0-15.0)
[2021-04-08] MEDS: SODIUM CHLORIDE 0.9% IV 1,000 ML 125 ML IV CONT ×2 (14:45→23:04)
[2021-04-08 17:18] LABS: Hematocrit 33.1 % (37.0-47.0); Hemoglobin 10.9 g/dL (12.0-15.0)
[2021-04-08] MEDS: METOPROLOL SUCCINATE EXT REL 25 MG TABCR PO (17:28)
[2021-04-08] MEDS: DULoxetine HCL 30 MG CAPSULE.DR PO (17:28)
[2021-04-08] MEDS: DIVALPROEX SODIUM DR 250 MG TABEC PO (20:08)
[2021-04-08] MEDS: PANTOPRAZOLE 40 MG TABLET PO (20:08)
[2021-04-09] VITALS (12 sets, daily range): BP systolic 119–147; BP diastolic 56–62; PULSE 56–66; RESP 16–20; TEMP 36.5–36.8; O2SAT 97–100
[2021-04-09 05:06] LABS: Hematocrit 31.2 % (37.0-47.0); Hemoglobin 10.2 g/dL (12.0-15.0); Mean Corpuscular HGB Conc 32.7 g/dl (32-36); Mean Corpuscular Hemoglobin 30.4 pg (26-34); Mean Corpuscular Volume 93.1 fl (80-100); Mean Platelet Volume 9.9 fl (7.4-10.4); Platelet Count Result 123 k/mm3 (150-375); Red Blood Count 3.35 M/mm3 (4.2-5.4); Red Cell Distribution Width 14.6 % (11.5-14.5); White Blood Count 3.9 K/mm3 (4.5-10.0)
[2021-04-09 05:39] LABS: Anion Gap 6 mmol/L (8-16); Blood Urea Nitrogen 14 mg/dL (7-17); Calcium 8.2 mg/dL (8.4-10.2); Carbon Dioxide 23 mmol/L (22-30); Chloride 110 mmol/L (98-107); Estimated CRCL calculation 48 ml/min; Estimated Glomerular Filt Rate > 60; Glucose 85 mg/dL (65-110); Potassium 3.9 mmol/L (3.4-5.0); Sodium 139 mmol/L (137-145)
[2021-04-09] MEDS: SODIUM CHLORIDE 0.9% IV 1,000 ML 125 ML IV CONT (05:45)
[2021-04-09] MEDS: LEVOTHYROXINE SODIUM 50 MCG TABLET PO (05:51)
--- NOTE | 2021-04-09 06:55 | WPDGIPROGNO ---
Progress Note: A&P Assessment and Plan (1) Acute upper GI bleed: Code(s): K92.2 - Gastrointestinal hemorrhage, unspecified Status: Acute Assessment and Plan: 04/08 I suspect ulcer disease due to use of NSAIDs. I will schedule her for an EGD to be done today. I do not think this is a lower gastrointestinal bleed but if the endoscopy is negative we would then need to consider colonoscopy. Because of her elevated BUN I suspect this is upper GI bleed 04/09 I discussed with her the size of her ulcer. She has been using quite a bit of ibuprofen and Excedrin lately for her migraine headaches. The medication her primary care physician has ordered is not sufficient. I told her that she needs to stay away from NSAIDs completely. The location of her ulcer and prior subtotal gastrectomy would make any surgical revision nearly impossible. The plan is we will have her on pantoprazole 40 mg daily and sucralfate 1 g 4 times a day until I performed repeat EGD in 8 weeks. I told her that the type of ulcer she has, and anastomotic ulcer, often take much longer to heal. H&H is stable. If she tolerates eating then from my perspective she can be discharged today (2) CKD (chronic kidney disease) stage 3, GFR 30-59 ml/min: Code(s): N18.3 - Chronic kidney disease, stage 3 (moderate) Status: Acute Assessment and Plan: she is stage III BUN was 12 last year in is over 30 now although her creatinine actually has not increased (3) Dizziness: Onset Date: 11/23/16 Code(s): R42 - Dizziness and giddiness Status: Acute Assessment and Plan: he states that she will know if she is dizzy until she tries to get out of bed. If the symptoms persist we need to investigate. 04/09 Today she does not feel dizzy has she had been (4) FLACO on CPAP: Code(s): G47.33 - Obstructive sleep apnea (adult) (pediatric); Z99.89 - Dependence on other enabling machines and devices Status: Acute Assessment and Plan: She was using her CPAP as I interviewed her. She denies any increased shortness of breath. Subjective Date/time seen: 04/09/21 06:55 She had a fair bit of pain after her procedure yesterday, most likely due to the injection of epinephrine and cautery used to deal with her bleeding ulcer. Today she has no significant pain. She is hungry. No bowel movements during the night Review of Systems Review of Systems: All systems reviewed & are unremarkable except as noted in HPI and below Exam Const: General: alert Orientation/consciousness: patient oriented x3 Resp: Auscultation: clear to auscultation bilaterally Cardio: Rhythm: regular rhythm GI: GI Palp: Yes Soft to palpation and No Tenderness to palpation present (GI) Auscultation: normal bowel sounds Neuro: General: patient oriented x3 Objective Data Vital Signs Vital Signs: Vital Signs - 24 hr 04/08/21 07:00 04/08/21 08:00 04/08/21 09:39 Temperature 36.1 C L 36.3 C L 35.9 C L Pulse Rate 94 84 83 Respiratory Rate 20 24 H 18 Blood Pressure 120/60 128/84 139/46 L Pulse Oximetry 98 95 99 04/08/21 09:54 04/08/21 10:00 04/08/21 10:57 Temperature 35.7 C L 36.2 C L Pulse Rate 70 85 85 Respiratory Rate 16 18 Blood Pressure 139/52 L 139/72 Pulse Oximetry 99 04/08/21 11:57 04/08/21 12:07 04/08/21 12:17 Temperature Pulse Rate 90 84 73 Respiratory Rate 19 23 H 19 Blood Pressure 196/97 H 195/112 H 188/90 H Pulse Oximetry 96 100 100 04/08/21 13:00 04/08/21 14:00 04/08/21 16:00 Temperature 36.3 C L 36.4 C Pulse Rate 74 72 86 Respiratory Rate 24 H 20 Blood Pressure 153/72 H 150/67 H Pulse Oximetry 100 100 04/08/21 17:28 04/08/21 18:00 04/08/21 20:00 Temperature Pulse Rate 94 72 66 Respiratory Rate 18 Blood Pressure Pulse Oximetry 100 04/08/21 20:58 04/08/21 22:00 04/08/21 22:35 Temperature 36.5 C Pulse Rate 88 68 Respiratory Rate 18 Blood Pressure 142/61 H Pul
[2021-04-09] MEDS: DULoxetine HCL 30 MG CAPSULE.DR PO (08:19)
[2021-04-09] MEDS: DIVALPROEX SODIUM DR 250 MG TABEC PO (08:19)
[2021-04-09] MEDS: GABAPENTIN 300 MG CAPSULE 600 MG PO (08:19)
[2021-04-09] MEDS: PANTOPRAZOLE 40 MG TABLET PO (08:19)
[2021-04-09] MEDS: METOPROLOL SUCCINATE EXT REL 25 MG TABCR PO (08:19)
[2021-04-09] MEDS: traZODone HCL 50 MG TABLET PO (08:19)
[2021-04-09] MEDS: SUCRALFATE 1 GM TABLET PO ×2 (08:24→12:04)
--- NOTE | 2021-04-09 08:59 | WPDANESPN ---
Anes - Prog Note Post-Op Date/Time: 04/09/21 08:59 Cardiovascular status: normal Respiratory status: normal Airway patency: baseline Mental status: baseline Post-Op hydration status: normal Vital Signs: Last Vital Signs Temp 98.3 F 04/09/21 07:30 Pulse 56 L 04/09/21 08:19 Resp 16 04/09/21 07:30 BP 147/62 H 04/09/21 07:30 Pulse Ox 100 04/09/21 07:30 Pain Score (VAS): 0/10 I/O: Intake & Output 04/08/21 04/09/21 04/09/21 23:59 07:59 15:59 Intake Total 1400 1000 344.7 Output Total 1300 700 Balance 100 300 344.7 Laboratory Tests 04/09/21 04:23 04/09/21 04:23 04/07/21 04/08/21 04/08/21 15:34 08:20 14:24 WBC RBC Hgb 11.4 L Hct 34.4 L MCV MCH MCHC RDW Plt Count MPV Sodium 140 Potassium 3.8 Chloride 111 H Carbon Dioxide 23 Anion Gap 6 L BUN 23 H D Creatinine 0.90 Estim Creat Clear Calc 48 Estimated GFR > 60 Glucose 92 Calcium 8.3 L Blood Type O Positive Antibody Screen Negative Crossmatch See Detail 04/08/21 04/09/21 04/09/21 16:47 04:23 04:23 WBC 3.9 L RBC 3.35 L Hgb 10.9 L 10.2 L Hct 33.1 L 31.2 L MCV 93.1 MCH 30.4 MCHC 32.7 RDW 14.6 H Plt Count 123 L MPV 9.9 Sodium 139 Potassium 3.9 Chloride 110 H Carbon Dioxide 23 Anion Gap 6 L BUN 14 D Creatinine 0.80 Estim Creat Clear Calc 48 Estimated GFR > 60 Glucose 85 Calcium 8.2 L Blood Type Antibody Screen Crossmatch Post-procedural complaints: none Patient Feedback: Patient satisfied with anesthetic care.
--- NOTE | 2021-04-09 09:31 | PM.IMPN ---
Progress Note: A&P Assessment and Plan (1) Acute upper GI bleed: Code(s): K92.2 - Gastrointestinal hemorrhage, unspecified Status: Acute Assessment and Plan: Acute GI bleed with hematochezia/hematemesis. Hemoglobin and hematocrit stable at 10.2/31.2 today. There is no indication for a blood transfusion. Currently the patient is hemodynamically stable with the following vital signs blood pressure 147/62, pulse 56, respiration 16, temperature 98.3F, saturation 97-100% on room air. She has experienced elevated blood pressure in the 125/56 systolic earlier. We will continue home blood pressure medications. The EGD report reads nonideal was E reflux disease, previous gastric surgery, intestinal ulcers. A biopsy was taken from the body for a rapid urease test. Discharge today after food is tolerated. (2) Blood in stool: Code(s): K92.1 - Melena Status: Acute Assessment and Plan: Her likely related to a single crater ulcer measuring 30 mm that was visualized in the proximal jejunum. The ulcer was oozing blood. An injection of 5 mL of epinephrine was administered to control the bleeding successfully. The lesion was cauterized. (3) CKD (chronic kidney disease) stage 3, GFR 30-59 ml/min: Code(s): N18.3 - Chronic kidney disease, stage 3 (moderate) Status: Acute Assessment and Plan: An unknown baseline kidney function. Elevated BUN on admission at 36 likely reflecting GI bleeding. Creatinine has improved from 1-0.9. This likely represents her baseline. (4) Dizziness: Onset Date: 11/23/16 Code(s): R42 - Dizziness and giddiness Status: Acute Assessment and Plan: Likely related to GI bleed. Maintain fall precautions. Will monitor serial vital signs. Patient will be monitored on telemetry. (5) HOCM (hypertrophic obstructive cardiomyopathy): Code(s): I42.1 - Obstructive hypertrophic cardiomyopathy Status: Acute Assessment and Plan: History of HOCM no LVOT obstruction (6) FLACO on CPAP: Code(s): G47.33 - Obstructive sleep apnea (adult) (pediatric); Z99.89 - Dependence on other enabling machines and devices Status: Acute Assessment and Plan: CONTINUE BIPAP (7) Essential hypertension: Code(s): I10 - Essential (primary) hypertension Status: Acute Assessment and Plan: RESUME HOME BLOOD PRESSURE medications NEXT METOPROLOL SUCCINATE 25 MG P.O. DAILY. Additional Plan # DVT prophylaxis SCDs Subjective Date/time seen: 04/09/21 09:31 S: Patient is examined at the bedside. She reports recurrent falls. No other compplaints. Review of Systems Review of Systems: All systems reviewed & are unremarkable except as noted in HPI and below Constitutional: Constitutional: Reports fatigue and Reports weakness Neurologic: Reports weakness Endocrine: Endocrine: Reports fatigue Exam Narrative: GENERAL: No acute distress. HEAD: Normocephalic, atraumatic. EYES: PERRL and EOMI. CHEST: Clear to auscultation. No respiratory distress. HEART: Mildly tachycardic and regular. Normal peripheral pulses. ABDOMEN: Soft, nontender, nondistended, normal active bowel sounds. EXTREMITIES: Normal range of motion. No edema. SKIN: Warm, dry, pale, no rash. NEURO: Alert and oriented x3. PSYCH: Normal mood and affect. Const: General: comfortable and no acute distress HENMT: Mouth: Yes moist mucous membranes Eyes: Sclera: sclerae normal Pupils: Equal, round and reactive pupils present EOM: EOMs intact bilaterally Neck: Neck: no JVD Resp: Effort & Inspection: normal respiratory effort Auscultation: clear to auscultation bilaterally Cardio: Rate: regular rate Rhythm: regular rhythm Heart sounds: no gallops, no murmurs and no rubs GI: Inspection: non-distended Skin: General skin exam: normal color and no rashes or lesions noted Neuro: Cranial nerves: Yes Equal, round and reactive pupils present [employer]ognit
--- NOTE | 2021-04-09 11:05 | PCDIET ---
Nutrition Follow-Up Complete: Nutrition Diagnosis: Inadequate oral intake related to GI bleed as evidenced by NPO status. Nutrition Goal: Patient to meet estimated nutritional needs. Goal not met. Patient has advanced to regular diet with recorded intake of 50%. Ate about 1/2 of breakfast or less (tray in room) but patient sleeping soundly and did not awaken to verbal cues on my entry into room. Recommend adding Ensure Compact (220kcal, 9g protein) BID. Last recorded weight is 73.2 kg which is down from last review, despite +I/O. Bowel Motility: Small BM documented on 04/08/21. Labs Reviewed: WBC (3.9), RBC (3.35), Hgb (10.2), Hct (31.2), Ca (8.2) Meds Noted: Depakote, Synthroid, Toprol XL, Protonix, Carafate Additional Notes: No documented skin breakdown. Will continue to monitor with same goal. Nutrition Monitoring and Evaluation: Follow up every 5 days.
--- NOTE | 2021-04-09 11:30 | PC.NURSE ---
On 04/09/21, the student, [Mady Schwarz], provided care and completed [facility] documentation on this patient. I have reviewed the student's documentation and agree with the findings.
--- NOTE | 2021-04-09 15:32 | PCPTNOTE ---
On 04/09/21, the student, Jamie Cameron, provided care and completed [facility] documentation on this patient. I have reviewed the student's documentation and agree with the findings.
--- NOTE | 2021-04-09 18:59 | PM.DS ---
DS: Admitting Diagnosis Discharge Date 04/09/21 Admitting Diagnosis # Acute GI bleed with hematochezia/hematemesis DS: Discharge Diagnosis Discharge Diagnosis (1) Acute upper GI bleed: Code(s): K92.2 - Gastrointestinal hemorrhage, unspecified Status: Acute Assessment and Plan: Acute GI bleed with hematochezia/hematemesis. Hemoglobin and hematocrit stable at 10.2/31.2 today. There is no indication for a blood transfusion. Currently the patient is hemodynamically stable with the following vital signs blood pressure 147/62, pulse 56, respiration 16, temperature 98.3F, saturation 97-100% on room air. She has experienced elevated blood pressure in the 125/56 systolic earlier. We will continue home blood pressure medications. The EGD report reads nonideal was E reflux disease, previous gastric surgery, intestinal ulcers. A biopsy was taken from the body for a rapid urease test. Discharge today after food is tolerated. (2) Blood in stool: Code(s): K92.1 - Melena Status: Acute Assessment and Plan: Her likely related to a single crater ulcer measuring 30 mm that was visualized in the proximal jejunum. The ulcer was oozing blood. An injection of 5 mL of epinephrine was administered to control the bleeding successfully. The lesion was cauterized. (3) CKD (chronic kidney disease) stage 3, GFR 30-59 ml/min: Code(s): N18.3 - Chronic kidney disease, stage 3 (moderate) Status: Acute Assessment and Plan: An unknown baseline kidney function. Elevated BUN on admission at 36 likely reflecting GI bleeding. Creatinine has improved from 1-0.9. This likely represents her baseline. (4) Dizziness: Onset Date: 11/23/16 Code(s): R42 - Dizziness and giddiness Status: Acute Assessment and Plan: Likely related to GI bleed. Maintain fall precautions. Will monitor serial vital signs. Patient will be monitored on telemetry. (5) HOCM (hypertrophic obstructive cardiomyopathy): Code(s): I42.1 - Obstructive hypertrophic cardiomyopathy Status: Acute Assessment and Plan: History of HOCM no LVOT obstruction (6) FLACO on CPAP: Code(s): G47.33 - Obstructive sleep apnea (adult) (pediatric); Z99.89 - Dependence on other enabling machines and devices Status: Acute Assessment and Plan: CONTINUE BIPAP (7) Essential hypertension: Code(s): I10 - Essential (primary) hypertension Status: Acute Assessment and Plan: RESUME HOME BLOOD PRESSURE medications NEXT METOPROLOL SUCCINATE 25 MG P.O. DAILY. DS: Summary Hospital Course Reason for hospitalization: hematemesis, hematochezia Hospital Course: This is a 75-year-old female who presents to the ER with reports of hematemesis and bloody stools that started since this morning of admission. She reports that he has not been feeling well since past few days. She has been feeling tired nauseated now has also been having loose stools the past 3 days this morning he threw up dark blood around 11:00 a.m. she has not thrown up she does not. However she has been having dark blood mixed with fresh blood in her bowels. She also reports pain in her lower quadrant left side since past few days. Her appetite is down. She denies any fever or chills she reports weakness and dizziness no loss of consciousness. She denies being on any blood thinners however she does take Excedrin migraine for headache about 2-3 times every week. No prior history of GI bleed however she does have history of gastric bypass surgery done about 20 years ago. In the ER on evaluation she was normotensive however while sitting up her heart rate jumped to 140s. She received some fluid in the ER which improved this. Her hemoglobin came back stable at 11.3 which is very comparable to her previous levels. She has not had any bloody stool or hematemesis since this morning. She is admitted for further evaluation and management.
== END 2021-04-09 16:23 | disposition home or self-care (01) ==
LOC: ANHED 20:41 → ANHIMU 04-08 07:31
PROVIDERS: Internal Medicine Gastroenterology; Admitting Provider Internal Medicine; Emergency Provider Emergency Medicine; PCP Family Medicine; Visit Provider Internal Medicine
PROC: 0DJ08ZZ Inspection of Upper Intestinal Tract, Via Natural or Artificial Opening Endoscopic (ICD-10-PCS; CPT 43235; principal; 2021-04-08 13:30)
DX: K92.2 Gastrointestinal hemorrhage, unspecified (principal); K63.3 Ulcer of intestine; K92.0 Hematemesis; K92.1 Melena; I12.9 Hypertensive chronic kidney disease with stage 1 through stage 4 chronic kidney disease, or unspecified chronic kidney disease; E11.22 Type 2 diabetes mellitus with diabetic chronic kidney disease; N18.30 Chronic kidney disease, stage 3 unspecified; R42 Dizziness and giddiness; I42.1 Obstructive hypertrophic cardiomyopathy; G47.33 Obstructive sleep apnea (adult) (pediatric); Z98.84 Bariatric surgery status; Z99.89 Dependence on other enabling machines and devices; Z79.82 Long term (current) use of aspirin
CPT/HCPCS: 43239; 43236; 36415; 36430; 74177; 80048; 80053; 83690; 85014; 85018; 85025; 85027; 85610; 85730; 86850; 86900; 86901; 86920; 87081; 93005; 94660; 96361; 96374; 96375; 96376; 97161; 99285; A9270; C9113; G0378; J0171; J2704; J3010; J7030; J7050; J7060; J7120; P9016; Q9967

== ENCOUNTER 2021-04-22 18:10 | Emergency (ER) | payer MEDICARE, SELFPAY ==
[2021-04-22 18:47] VITALS: BP 156/64; PULSE 70; RESP 16; TEMP 36.5; O2SAT 100
--- NOTE | 2021-04-22 22:01 | PC.NURSE ---
pt called to go to room. No answer x 1. patient not in waiting room
== END 2021-04-22 22:01 | disposition left against medical advice (07) ==
PROVIDERS: PCP Family Medicine
DX: Z53.21 Procedure and treatment not carried out due to patient leaving prior to being seen by health care provider (principal)
CPT/HCPCS: 99199

== ENCOUNTER 2021-05-18 15:20 | Outpatient (CLI) | payer MEDICARE, SELFPAY ==
[2021-05-18 16:06] LABS: Basophils Percent Auto 0.5 % (0.2-1.2); Eosinophils Absolute Auto 0.1 K/mm3 (0-0.3); Eosinophils Percent Auto 2.5 % (0-4.4); Hemoglobin 10.9 g/dL (12.0-15.0); Immature Granulocyte Absolute 0.01 K/mm3 (0.00-0.031); Immature Granulocyte Percent A 0.2 % (0-0.5); Lymphocytes Percent Auto 31.9 % (18.3-44.2); Mean Corpuscular HGB Conc 31.1 g/dl (32-36); Mean Corpuscular Hemoglobin 29.9 pg (26-34); Mean Corpuscular Volume 95.9 fl (80-100); Mean Platelet Volume 9.9 fl (7.4-10.4); Monocytes Absolute Auto 0.4 K/mm3 (0.1-0.6); Monocytes Percent Auto 10.5 % (2.6-8.5); Neutrophils Absolute Auto 2.2 K/mm3 (1.3-6.7); Neutrophils Percent Auto 54.4 % (45.5-73.1); Platelet Count Result 153 k/mm3 (150-375); Red Blood Count 3.65 M/mm3 (4.2-5.4); Red Cell Distribution Width 13.3 % (11.5-14.5); White Blood Count 4.1 K/mm3 (4.5-10.0)
== END 2021-05-18 15:21 | disposition home or self-care (01) ==
PROVIDERS: PCP Family Medicine; Visit Provider Internal Medicine Gastroenterology
DX: D50.0 Iron deficiency anemia secondary to blood loss (chronic) (principal)
CPT/HCPCS: 36415; 85025

== ENCOUNTER 2021-05-22 13:30 | Outpatient (CLI) | payer MEDICARE, SELFPAY ==
--- NOTE | 2021-05-22 13:39 | ECHO_ITS ---
Patient Info Name: Catie Painter Age: 75 years : 1945 Gender: Female Ht: 65 in Wt: 155 lbs BSA: 1.81 m2 HR: 52 bpm BP: 123 / 49 mmHg Exam Date: 05/22/2021 2:29 PM Exam Location: [facility] Patient Status: Outpatient Admit Date: 05/22/2021 Staff Ordering Physician: Cristi Chao DO Clinical Administrative Coordinator: Ivette Narvaez Attending Provider: Cristi Chao DO Referring Physician: Jeremie CHOW; Exam Type: CA echo doppler color flow Study Info Indications I42.1 - Obstructive hypertrophic cardiomyopathy Complete two-dimensional, color flow and Doppler transthoracic echocardiogram is performed. Strain analysis performed. History/Risk Factors Congenital Heart Disease (CHD): No Peripheral Arterial Disease (PAD): No Myocardial Infarction (CO): No Chronic Lung Disease: No Obesity: No Renal Disease: No Congestive Heart Failure (CHF): No Cardiomyopathy/LV Systolic Dysfunction: Yes Diabetes Mellitus: No COPD: No Tobacco Use: Never Cerebrovascular Disease: No Family History: Diabetes Mellitus Deep Vein Thrombosis (DVT): None Frailty Scale (CSHA): 3: Managing Well Cardiac Arrest: No Prior Interventions Pacemaker: No PCI: No CABG: No Valve Surgery: No ICD: No Heart Transplant: No Summary 1. Complete two-dimensional, color flow and Doppler transthoracic echocardiogram is performed. 2. Left ventricular chamber dimension is normal. 3. Left ventricular systolic function is normal, estimated at 60-65%. 4. No obvious sigmoid septum. No LVOT obstruction. 5. The left ventricular diastolic function is grade I diastolic dysfunction. 6. E/e' 13 is mildly elevated. 7. Global longitudinal strain is normal at -18.2%. 8. There is mild aortic valve regurgitation. 9. The mitral valve has moderately calcified annulus. 10. There is mild mitral valve regurgitation. 11. No pulmonary hypertension, estimated pulmonary arterial systolic pressure is 33 mmHg. 12. Dilated inferior vena cava with >50% collapse upon inspiration consistent with elevated right atrial pressure, 10 mmHg. Left Ventricle E/e' 13 is mildly elevated. Global longitudinal strain is normal at -18.2%. No obvious sigmoid septum. No LVOT obstruction. Left ventricular chamber dimension is normal. Left ventricular systolic function is normal, estimated at 60-65%. The left ventricular diastolic function is grade I diastolic dysfunction. Right Ventricle Right ventricular chamber dimension is normal. Right ventricular systolic function is normal. Left Atria Left atrial chamber dimension is normal. Right Atria Right atrial chamber dimension is normal. Aortic Valve The aortic valve is trileaflet. There is no aortic valve stenosis. There is mild aortic valve regurgitation. Pulmonic Valve There is no pulmonic regurgitation. Mitral Valve The mitral valve has moderately calcified annulus. There is no mitral valve stenosis. There is mild mitral valve regurgitation. Tricuspid Valve There is no tricuspid valve regurgitation. No pulmonary hypertension, estimated pulmonary arterial systolic pressure is 33 mmHg. Pericardium/Pleural There is no pericardial effusion. Inferior Vena Cava Dilated inferior vena cava with >50% collapse upon inspiration consistent with elevated right atrial pressure, 10 mmHg. Aorta The aortic root size at the sinus of Valsalva is normal. Left Ventricular Outf
== END 2021-05-22 13:31 | disposition home or self-care (01) ==
LOC: CHSIMG 13:31
PROVIDERS: PCP Family Medicine; Visit Provider Internal Medicine Cardiovascular Disease
DX: I42.1 Obstructive hypertrophic cardiomyopathy (principal)
CPT/HCPCS: 93306

== ENCOUNTER 2021-06-08 16:31 | Outpatient (CLI) | payer MEDICARE, SELFPAY ==
[2021-06-08 18:01] LABS: SARS-CoV-2 RNA PCR Negative (Negative)
== END 2021-06-08 16:32 | disposition home or self-care (01) ==
LOC: CHSLAB 16:33
PROVIDERS: PCP Family Medicine; Visit Provider Nurse Practitioner Family
DX: Z20.822 Contact with and (suspected) exposure to COVID-19 (principal)
CPT/HCPCS: C9803; U0003; U0005

== ENCOUNTER 2021-07-17 12:30 | Emergency (ER) | payer MEDICARE, SELFPAY ==
[2021-07-17 12:41] VITALS: BP 142/63; PULSE 61; RESP 16; TEMP 36.8; O2SAT 100
[2021-07-17] MEDS: BELLADONNA ALK/PHENOB ELIX 10 ML, MAG HYDROX/ALUMINUM HYD/SIMETH 30 ML, LIDOCAINE HCL 2... PO (15:10)
[2021-07-17 15:15] LABS: Basophils Percent Auto 0.6 % (0.2-1.2); Eosinophils Absolute Auto 0.1 K/mm3 (0-0.3); Eosinophils Percent Auto 2.1 % (0-4.4); Hematocrit 35.3 % (37.0-47.0); Hemoglobin 11.2 g/dL (12.0-15.0); Lymphocytes Absolute Auto 1.19 K/mm3 (0.9-3.2); Lymphocytes Percent Auto 35.1 % (18.3-44.2); Mean Corpuscular HGB Conc 31.7 g/dl (32-36); Mean Corpuscular Hemoglobin 28.9 pg (26-34); Mean Corpuscular Volume 91.2 fl (80-100); Mean Platelet Volume 9.7 fl (7.4-10.4); Monocytes Absolute Auto 0.3 K/mm3 (0.1-0.6); Monocytes Percent Auto 9.4 % (2.6-8.5); Neutrophils Absolute Auto 1.8 K/mm3 (1.3-6.7); Neutrophils Percent Auto 52.8 % (45.5-73.1); Platelet Count Result 133 k/mm3 (150-375); Red Blood Count 3.87 M/mm3 (4.2-5.4); Red Cell Distribution Width 14.4 % (11.5-14.5); White Blood Count 3.4 K/mm3 (4.5-10.0)
[2021-07-17 15:25] LABS: Alanine Aminotransferase 16 U/L (4-35); Albumin Level 3.3 g/dL (3.5-5.1); Alkaline Phosphatase 59 U/L (38-126); Anion Gap 1 mmol/L (8-16); Aspartate Amino Transferase 24 U/L (14-36); Bilirubin,Total 0.5 mg/dL (0.2-1.3); Blood Urea Nitrogen 15 mg/dL (7-17); Calcium 8.8 mg/dL (8.4-10.2); Carbon Dioxide 31 mmol/L (22-30); Chloride 107 mmol/L (98-107); Estimated Glomerular Filt Rate > 60; Glucose 101 mg/dL (65-110); Lipase 65 U/L (23-300); Potassium 3.3 mmol/L (3.4-5.0); Sodium 139 mmol/L (137-145)
[2021-07-17 16:58] LABS: Add Urine Microscopic? YES; Appearance Urine Clear (Clear); Bilirubin Urine Negative (Negative); Blood Urine Negative (Negative); Color Urine Amber (Yellow); Glucose Urine UA Negative (Negative); Ketones Urine Trace mg/dL (Negative); Leukocyte Esterase Ur 3+ LEU/UL (Negative); Mucus Urine Few /lpf; Nitrate Urine Negative (Negative); Protein Urine 1+ mg/dL (Negative); Specific Grav Ur 1.023 (1.001-1.035); Squamous Epithelial Cell Urine Many /hpf (Few); WBC Urine 31-50 /hpf
--- NOTE | 2021-07-17 17:42 | ED.GENADULT ---
HPI - General Adult General Chief complaint: Abdominal Pain Stated complaint: Abdominal pain Time Seen by Provider: 07/17/21 14:43 History of Present Illness HPI narrative: Patient is a 76-year-old female who presents ER with epigastric pain. Has history of bleeding ulcers that required epinephrine injection. She was discharged with Protonix as well as sucralfate. She has been taking Protonix. Denies taking any anti-inflammatories. No blood in stool or dark black stools. No vomitus. Reports symptoms feel similar to her previous hospitalization. Pain is worsened with eating. Related Data Home Medications Medication Instructions Recorded Confirmed duloxetine 30 mg capsule,delayed 30 mg PO BID 06/28/19 05/18/21 release gabapentin 600 mg tablet 600 mg PO DAILY 06/28/19 05/18/21 levothyroxine 50 mcg capsule 50 mcg PO DAILY 06/28/19 05/18/21 trazodone 50 mg tablet 50 mg PO DAILY tablet 06/28/19 05/18/21 divalproex 250 mg PO BID 03/03/20 05/18/21 metoprolol succinate 25 mg PO DAILY 04/08/21 05/18/21 donepezil 10 mg tablet 10 mg PO QHS 05/18/21 05/18/21 sulfamethoxazole 200 5 ml PO DAILY 05/18/21 05/18/21 mg-trimethoprim 40 mg/5 mL oral suspension Allergies Allergy/AdvReac Type Severity Reaction Status Date / Time oxycodone [Percocet] Allergy Intermediate Unknown Verified 05/18/21 14:32 butorphanol Allergy Unknown Dizziness, Verified 07/17/21 14:59 Paranoia Review of Systems Review of Systems: All systems reviewed & are unremarkable except as noted in HPI and below Constitutional: Constitutional: Denies chills, Denies fever(s) and Denies weakness ENT: Denies nasal congestion and Denies sore throat Cardiovascular: Cardiovascular: Denies chest pain, Denies rapid heart rate and Denies radiating jaw, neck or arm pain Respiratory: Respiratory: Denies cough, Denies dyspnea and Denies wheezing Gastrointestinal: Gastrointestinal: Reports abdominal pain, Reports heartburn, Denies nausea and Denies vomiting Genitourinary: Genitourinary: Denies nocturia, Denies dysuria and Denies flank pain PMFSH Past Medical History Medical History Acute upper respiratory infections of unspecified site (10/07/16) CKD (chronic kidney disease) stage 3, GFR 30-59 ml/min Cough (10/07/16) Depression (09/02/15) Dizziness (11/23/16) Dysuria (03/05/16) Essential hypertension GERD (gastroesophageal reflux disease) (09/02/15) HOCM (hypertrophic obstructive cardiomyopathy) FLACO on CPAP Type 2 diabetes mellitus (05/18/16) Surgical History Surgical History History of cholecystectomy History of gastric bypass History of hysterectomy Family History Family History Mother Carcinoma of colon Family history of Alzheimer's disease Sibling Carcinoma of colon Family history of malignant neoplasm of uterus Father Patient's father is Other Diabetes mellitus Family history of malignant neoplasm Family history of sleep apnea Family history of thyroid disease Hypertension Social History Social History Smoking status: Never smoker Smoking end date: 06/20/86 Alcohol intake: never Substance use: never Substance use type: does not use Spiritual care concerns: No Exam Narrative: GENERAL: Well-appearing, well-nourished, and in no acute distress. HEAD: Normocephalic, atraumatic. EYES: PERRL and EOMI. CHEST: Clear to auscultation. No respiratory distress. HEART: Regular rate and rhythm. Normal peripheral pulses. ABDOMEN: Soft, mild epigastric discomfort without guarding, nondistended. EXTREMITIES: Normal range of motion. No edema. SKIN: Warm, dry, no rash. NEURO: Alert and oriented x3. PSYCH: Normal mood and affect. Course Course Emergency Course: Patient in x3 but does have m
[2021-07-17 18:03] VITALS: BP 124/56; PULSE 55; RESP 16; O2SAT 100
== END 2021-07-17 18:05 | disposition home or self-care (01) ==
PROVIDERS: Emergency Provider Emergency Medicine; PCP Family Medicine
DX: N39.0 Urinary tract infection, site not specified (principal); K21.9 Gastro-esophageal reflux disease without esophagitis; R10.13 Epigastric pain; E11.22 Type 2 diabetes mellitus with diabetic chronic kidney disease; I12.9 Hypertensive chronic kidney disease with stage 1 through stage 4 chronic kidney disease, or unspecified chronic kidney disease; N18.30 Chronic kidney disease, stage 3 unspecified; I42.1 Obstructive hypertrophic cardiomyopathy; G47.33 Obstructive sleep apnea (adult) (pediatric); F32.A Depression, unspecified; Z98.84 Bariatric surgery status
CPT/HCPCS: 36415; 80053; 81001; 83690; 85025; 87086; 87088; 99283; A9270

== ENCOUNTER 2021-08-07 10:00 | Outpatient (CLI) | payer MEDICARE, SELFPAY ==
[2021-08-07 10:22] LABS: Basophils Absolute Auto 0.02 K/mm3 (0.00-0.10); Basophils Percent Auto 0.5 % (0.0-1.0); Eosinophils Absolute Auto 0.12 K/mm3 (0.02-0.50); Eosinophils Percent Auto 2.8 % (1.0-6.0); Hematocrit 38.4 % (35.0-42.0); Hemoglobin 11.5 g/dL (11.7-13.8); Immature Granulocyte Absolute 0.01 K/mm3 (0.00-0.00); Immature Granulocyte Percent A 0.2 % (0.0-0.0); Lymphocytes Absolute Auto 0.82 K/mm3 (1.10-4.50); Lymphocytes Percent Auto 19.3 % (18.0-42.0); Mean Corpuscular HGB Conc 29.9 g/dL (32.0-36.0); Mean Corpuscular Hemoglobin 28.3 pg (27.0-31.0); Mean Corpuscular Volume 94.3 fL (78.0-102.0); Mean Platelet Volume 9.4 fl (9.2-11.8); Monocytes Absolute Auto 0.39 K/mm3 (0.10-0.90); Monocytes Percent Auto 9.2 % (2.0-11.0); Neutrophils Absolute Auto 2.9 K/mm3 (1.7-7.2); Platelet Count Result 119 K/mm3 (150-420); Red Blood Count 4.07 M/mm3 (4.20-5.40); Red Cell Distribution Width 14.6 % (11.6-14.4); White Blood Count 4.3 K/mm3 (4.8-10.8)
[2021-08-07 10:49] LABS: Alanine Aminotransferase 17 U/L (14-59); Albumin Level 2.9 g/dL (3.4-5.0); Alkaline Phosphatase 65 U/L (46-116); Anion Gap 7 mmol/L (8-16); Aspartate Amino Transferase 16 U/L (15-37); Bilirubin,Total 0.5 mg/dL (0.00-1.00); Blood Urea Nitrogen 12 mg/dL (7-18); Calcium 8.5 mg/dL (8.5-10.1); Carbon Dioxide 30 mmol/L (21-32); Chloride 104 mmol/L (98-108); Estimated Glomerular Filt Rate > 60; Glucose 81 mg/dL (70-99); Osmolality Calculated 290 mOsm/kg (285-295); Sodium 141 mmol/L (136-145); Total Protein 5.7 g/dL (6.4-8.2)
[2021-08-07 10:50] LABS: SARS-CoV-2 RNA PCR Negative (Negative)
== END 2021-08-07 10:01 | disposition home or self-care (01) ==
LOC: CHSLAB 10:01
PROVIDERS: PCP Family Medicine; Visit Provider Family Medicine
DX: R05.1 Acute cough (principal); I10 Essential (primary) hypertension; Z20.822 Contact with and (suspected) exposure to COVID-19; D61.818 Other pancytopenia
CPT/HCPCS: 36415; 80053; 85025; C9803; U0003; U0005

== ENCOUNTER 2021-08-27 09:46 | Outpatient (CLI) | payer MEDICARE, SELFPAY ==
--- NOTE | ~2021-08-27 | US_ITS ---
EXAMINATION: US abdomen complete EXAM DATE: 08/27/2021 10:51 INDICATION: Chronic anemia. TECHNIQUE: Multiple grayscale and Doppler images of the complete abdomen were obtained (by a technolo gist who performed the scan) and subsequently reviewed. Comparison is made to prior examination from 10/03/2014. FINDINGS: The abdominal aorta is normal in caliber with scattered mild arteriosclerosis. Visualized portion I VC is patent. The pancreatic head and body are normal in appearance. The pancreatic tail is not vi sualized. The liver has normal echogenicity and contour. There are no focal liver lesions identified. There is no evidence of intrahepatic biliary duct dilation. Portal venous flow was seen in the hepatopedal , normal direction and has normal Doppler waveform. Common bile duct measures 12 mm which is dilated but that is common following cholecystectomy. The ga llbladder fossa is unremarkable. Right kidney: There is normal contour and echogenicity. It measures 9.7 x 4.8 x 5.1 centimeters. T here are no focal renal lesions identified. There is no hydronephrosis. Left kidney: There is normal contour and echogenicity. It measures 10.1 x 5.0 x 4.9 centimeters. T here are no focal renal lesions identified. There is no hydronephrosis. The spleen measures 2.3 centimeters and is morphologically normal. IMPRESSION: Unremarkable complete abdominal ultrasound exam. Reviewed, dictated and finalized at [facility]
== END 2021-08-27 09:47 | disposition home or self-care (01) ==
PROVIDERS: PCP Family Medicine; Visit Provider Internal Medicine Hematology & Oncology
DX: D64.9 Anemia, unspecified (principal)
CPT/HCPCS: 76700

== ENCOUNTER 2021-09-14 01:22 | Day surgery (SDC) | payer MEDICARE, SELFPAY ==
[2021-09-07 13:13] VITALS: BMI 22.8
--- NOTE | 2021-09-13 14:26 | PM.HPGS ---
History of Present Illness History of Present Illness Consent: Risks, benefits, and alternatives have been discussed and questions answered. Patient agrees to proceed with procedure. Chief complaint: gastric ulcer Narrative: Catie Painter is a 76 year old female who last March was hospitalized with hematemesis and found to have a large, 3 cm diameter ulcer at the gastrojejunostomy. The bleeding was controlled and she was discharged on sucralfate and pantoprazole. I had seen her in follow-up in late April. At some point after that she apparently got off of her pantoprazole and sucralfate. She was in the emergency room a few weeks ago complaining of epigastric pain that began a couple weeks ago. It seems to be present most of the time but is worse after a meal. She denies vomiting. Her appetite is not good. Her added that she only eats about once a day. Consequently, she was only taking the Carafate once a day because the instructions were for her to take it before meals Review of Systems Review of Systems: All systems reviewed & are unremarkable except as noted in HPI and below PMFSH Past Medical History Medical History Acute upper respiratory infections of unspecified site (10/07/16) CKD (chronic kidney disease) stage 3, GFR 30-59 ml/min Cough (10/07/16) Depression (09/02/15) Dizziness (11/23/16) Dysuria (03/05/16) Essential hypertension GERD (gastroesophageal reflux disease) (09/02/15) HOCM (hypertrophic obstructive cardiomyopathy) FLACO on CPAP Type 2 diabetes mellitus (05/18/16) Surgical History Surgical History History of cholecystectomy History of gastric bypass History of hysterectomy Family History Family History Mother Carcinoma of colon Family history of Alzheimer's disease Sibling Carcinoma of colon Family history of malignant neoplasm of uterus Father Patient's father is Other Diabetes mellitus Family history of malignant neoplasm Family history of sleep apnea Family history of thyroid disease Hypertension Social History Social History Smoking packs per day: 0.5 Smoking cigarettes per day: 10.0 Years smoked: 15 Smoking pack-years: 7.50 Smoking status: Former smoker Tobacco type: cigarettes Smoking end date: 06/20/86 Alcohol intake: current Alcohol use details: has not been drinking lately due to abdominal pain Substance use: never Substance use type: does not use Living arrangements: with family Spiritual care concerns: No Meds Home Medications and Allergies Home Medications Medication Instructions Recorded Confirmed Type duloxetine 30 mg capsule,delayed 30 mg PO BID 06/28/19 09/14/21 History release gabapentin 600 mg tablet 600 mg PO DAILY 06/28/19 09/14/21 History levothyroxine 50 mcg capsule 50 mcg PO DAILY 06/28/19 09/14/21 History trazodone 50 mg tablet 50 mg PO DAILY tablet 06/28/19 09/14/21 History divalproex 250 mg PO BID 03/03/20 09/14/21 History donepezil 10 mg tablet 10 mg PO QHS 05/18/21 09/14/21 History sucralfate 1 g PO AC #30 tablet 07/17/21 09/14/21 Rx pantoprazole 40 mg tablet,delayed 40 mg PO DAILY #30 tablet 07/21/21 09/14/21 Rx release metoprolol succinate 25 mg 12.5 mg PO DAILY #30 tablet 07/24/21 09/14/21 Rx tablet,extended release 24 hr loperamide 2 mg PO Q4H PRN 09/07/21 09/14/21 History Allergies Allergy/AdvReac Type Severity Reaction Status Date / Time butorphanol Allergy Intermediate Dizziness, Verified 09/14/21 08:03 Paranoia oxycodone [Percocet] Allergy Intermediate Itching Verified 09/14/21 08:03 Exam Resp: Auscultation: clear to auscultation bilaterally Cardio: Rate: regular rate Rhythm: regular rhythm GI: GI Palp: Yes Soft to palpation
[2021-09-14 07:55] VITALS: BMI 22.5
[2021-09-14 08:07] VITALS: BP 133/55; PULSE 63; RESP 16; TEMP 36.7; O2SAT 100
[2021-09-14] MEDS: LACTATED RINGERS 1,000 ML 150 ML IV CONT (08:18)
--- NOTE | 2021-09-14 08:34 | WPDANESEPPF ---
Anes - Initial Pre Proc Eval Procedure: Operation Date: 09/14/21 09:00 Proposed Procedures p Esophagogastroduodenoscopy - Sharath Cortes MD Date/Time: 09/14/21 08:34 Surgeon: Sharath Cortes MD Pre Op Diagnosis: gastric ulcer Patient Data Age: 76 Gender: F Height: 1.65 m Weight: 61.5 kg Last Vital Signs Temp 36.7 C 09/14/21 08:07 Pulse 63 09/14/21 08:07 Resp 16 09/14/21 08:07 BP 133/55 L 09/14/21 08:07 Pulse Ox 100 09/14/21 08:07 Allergies Allergy/AdvReac Type Severity Reaction Status Date / Time butorphanol Allergy Intermediate Dizziness, Verified 09/14/21 08:03 Paranoia oxycodone [Percocet] Allergy Intermediate Itching Verified 09/14/21 08:03 Home Medications Medication Instructions Recorded Confirmed Type duloxetine 30 mg capsule,delayed 30 mg PO BID 06/28/19 09/14/21 History release gabapentin 600 mg tablet 600 mg PO DAILY 06/28/19 09/14/21 History levothyroxine 50 mcg capsule 50 mcg PO DAILY 06/28/19 09/14/21 History trazodone 50 mg tablet 50 mg PO DAILY tablet 06/28/19 09/14/21 History divalproex 250 mg PO BID 03/03/20 09/14/21 History donepezil 10 mg tablet 10 mg PO QHS 05/18/21 09/14/21 History sucralfate 1 g PO AC #30 tablet 07/17/21 09/14/21 Rx pantoprazole 40 mg tablet,delayed 40 mg PO DAILY #30 tablet 07/21/21 09/14/21 Rx release metoprolol succinate 25 mg 12.5 mg PO DAILY #30 tablet 07/24/21 09/14/21 Rx tablet,extended release 24 hr loperamide 2 mg PO Q4H PRN 09/07/21 09/14/21 History Patient hx anesthesia problems: none Family hx anesthesia problems: none Results Review: All pre-operative results and documents have been reviewed as part of the pre-operative evaluation. [facility] Past Medical History Medical History Acute upper respiratory infections of unspecified site (10/07/16) CKD (chronic kidney disease) stage 3, GFR 30-59 ml/min Cough (10/07/16) Depression (09/02/15) Dizziness (11/23/16) Dysuria (03/05/16) Essential hypertension GERD (gastroesophageal reflux disease) (09/02/15) HOCM (hypertrophic obstructive cardiomyopathy) FLACO on CPAP Type 2 diabetes mellitus (05/18/16) Surgical History Surgical History History of cholecystectomy History of gastric bypass History of hysterectomy Family History Family History Mother Carcinoma of colon Family history of Alzheimer's disease Sibling Carcinoma of colon Family history of malignant neoplasm of uterus Father Patient's father is Other Diabetes mellitus Family history of malignant neoplasm Family history of sleep apnea Family history of thyroid disease Hypertension Social History Social History Smoking packs per day: 0.5 Smoking cigarettes per day: 10.0 Years smoked: 15 Smoking pack-years: 7.50 Smoking status: Former smoker Tobacco type: cigarettes Smoking end date: 06/20/86 Alcohol intake: current Alcohol use details: has not been drinking lately due to abdominal pain Substance use: never Substance use type: does not use Living arrangements: with family Spiritual care concerns: No Anes - Eval Final PreProcedure Day of Procedure 09/14/21 08:34 Patient weight: normal Heart: regular rate and rhythm Lungs: clear to auscultation and normal air movement Airway: Mallampati scale class II Neurological: alert and oriented Last oral intake: >/= 8 hours ASA classification: III Emergent: no Anesthetic plan: proceed Anesthesia type and monitoring: general GIVS Results Review: All pre-operative results and documents have been reviewed as part of the pre-operative evaluation. Informed Consent: The patient's anesthetic plan and its attendant risks and benefits were discussed with the patient/family/POA. Questions were s
[2021-09-14] MEDS: SIMETHICONE ORAL SUSPENSION 20 MG/0.3 ML 30 ML BOTTLE 0.6 ML IRRIGATION (08:53)
[2021-09-14 08:56] VITALS: BP 155/71; PULSE 62; RESP 23; O2SAT 100
[2021-09-14 09:06] VITALS: BP 133/62; PULSE 63; RESP 18; O2SAT 99
[2021-09-14 09:16] VITALS: BP 140/71; PULSE 61; RESP 22; O2SAT 100
== END 2021-09-14 09:32 | disposition home or self-care (01) ==
PROVIDERS: PCP Family Medicine; Visit Provider Internal Medicine Gastroenterology
PROC: 0DJ08ZZ Inspection of Upper Intestinal Tract, Via Natural or Artificial Opening Endoscopic (ICD-10-PCS; CPT 43235; principal; 2021-09-14 09:00)
DX: R10.13 Epigastric pain (principal); K63.3 Ulcer of intestine; K31.89 Other diseases of stomach and duodenum; Z87.891 Personal history of nicotine dependence; Z90.49 Acquired absence of other specified parts of digestive tract; K21.9 Gastro-esophageal reflux disease without esophagitis; R30.0 Dysuria; F32.9 Major depressive disorder, single episode, unspecified; I12.9 Hypertensive chronic kidney disease with stage 1 through stage 4 chronic kidney disease, or unspecified chronic kidney disease; N18.30 Chronic kidney disease, stage 3 unspecified; E11.22 Type 2 diabetes mellitus with diabetic chronic kidney disease; G47.33 Obstructive sleep apnea (adult) (pediatric); Z98.84 Bariatric surgery status; I42.1 Obstructive hypertrophic cardiomyopathy
CPT/HCPCS: 43235; 87081; J2704; J7120

== ENCOUNTER 2021-09-15 09:38 | Observation (INO) | payer MEDICARE, SELFPAY ==
[2021-09-15] VITALS (39 sets, daily range): BP systolic 142–195; BP diastolic 58–185; PULSE 59–80; RESP 13–96; TEMP 36.4; O2SAT 93–100
--- NOTE | ~2021-09-15 | CT_ITS ---
EXAMINATION: CT abdomen pelvis w con DATE: 09/15/2021 13:33 INDICATION: Low abdominal pain. Blood in stool. TECHNIQUE: Computed tomography (CT) of the abdomen and pelvis was performed with 100 mL Omnipaque 350 intravenous contrast. Automated exposure control and iterative reconstruction technique were employe d. The dose-length product was 337.99 mGy-cm. COMPARISON: CT abdomen and pelvis 04/07/2021, 10/21/14, 04/22/15 FINDINGS: The visualized portions of the lung bases demonstrate mild atelectasis. Calcified bilateral pulmonary nodules are consistent with old granulomatous disease. There is a small left pleural effus ion. The heart size is normal. No pericardial effusion. There is a small sliding hiatal hernia. There are surgical changes of the stomach. There is chronic mild intrahepatic biliary duct dilatation. The re are changes of cholecystectomy. The spleen is normal. The pancreatic duct is dilated to 10 mm in t he head of the pancreas, stable from 10/21/14, consistent with chronic pancreatitis. The adrenal glands are normal. There is cortical thinning of the kidneys. The appendix is not visualized. There are no pathologically enlarged lymph nodes. There is trace pelvic ascites. There is moderate lumbar spondylo sis. There is a chronic compression fracture of L1. IMPRESSION: 1. Small left pleural effusion. Reviewed, dictated and finalized at location A.
[2021-09-15 10:28] LABS: Basophils Percent Auto 0.2 % (0.2-1.2); Eosinophils Percent Auto 0.3 % (0-4.4); Hemoglobin 11.5 g/dL (12.0-15.0); Immature Granulocyte Absolute 0.03 K/mm3 (0.00-0.031); Immature Granulocyte Percent A 0.5 % (0-0.5); Lymphocytes Absolute Auto 1.22 K/mm3 (0.9-3.2); Mean Corpuscular HGB Conc 31.9 g/dl (32-36); Mean Corpuscular Hemoglobin 29.3 pg (26-34); Mean Corpuscular Volume 91.6 fl (80-100); Mean Platelet Volume 9.9 fl (7.4-10.4); Monocytes Absolute Auto 0.4 K/mm3 (0.1-0.6); Monocytes Percent Auto 6.4 % (2.6-8.5); Neutrophils Absolute Auto 4.2 K/mm3 (1.3-6.7); Neutrophils Percent Auto 71.6 % (45.5-73.1); Platelet Count Result 154 k/mm3 (150-375); Red Blood Count 3.93 M/mm3 (4.2-5.4); White Blood Count 5.8 K/mm3 (4.5-10.0)
[2021-09-15 10:37] LABS: Alanine Aminotransferase 12 U/L (4-35); Albumin Level 3.4 g/dL (3.5-5.1); Alkaline Phosphatase 53 U/L (38-126); Anion Gap 6 mmol/L (8-16); Aspartate Amino Transferase 23 U/L (14-36); Bilirubin,Total 0.8 mg/dL (0.2-1.3); Blood Urea Nitrogen 26 mg/dL (7-17); Calcium 8.7 mg/dL (8.4-10.2); Carbon Dioxide 27 mmol/L (22-30); Chloride 105 mmol/L (98-107); Estimated CRCL calculation 47 ml/min; Estimated Glomerular Filt Rate > 60; Glucose 110 mg/dL (65-110); Potassium 3.9 mmol/L (3.4-5.0); Sodium 138 mmol/L (137-145)
[2021-09-15 10:38] LABS: INR 1.1; Prothrombin Time 14.1 Seconds (11.1-14.7)
[2021-09-15 10:39] LABS: Partial Thromboplastin Time 30.3 SECONDS (22.3-36.8)
--- NOTE | 2021-09-15 11:46 | ED.GIBLEED ---
HPI - GI Bleed General Chief complaint: GI Bleed Stated complaint: rectal bleeding post EGD yesterday Time Seen by Provider: 09/15/21 11:45 Source: patient Mode of arrival: ambulatory Limitations: no limitations History of Present Illness HPI Narrative: Patient is a 76-year-old female complaining of black tarry stools accompanied by mid abdominal pain, 6 out of 10, dull, nonradiating, that started yesterday after having an EGD procedure done by Dr. Cortes. Patient was diagnosed with gastric and intestinal ulcer. Patient denies any hematemesis, hemoptysis, or hematochezia. Patient denies any chest pain, shortness of breath, nausea, vomiting, diarrhea, fever or chills. Related Data Home Medications Medication Instructions Recorded Confirmed duloxetine 30 mg capsule,delayed 30 mg PO BID 06/28/19 09/14/21 release gabapentin 600 mg tablet 600 mg PO DAILY 06/28/19 09/14/21 levothyroxine 50 mcg capsule 50 mcg PO DAILY 06/28/19 09/14/21 trazodone 50 mg tablet 50 mg PO DAILY tablet 06/28/19 09/14/21 divalproex 250 mg PO BID 03/03/20 09/14/21 donepezil 10 mg tablet 10 mg PO QHS 05/18/21 09/14/21 loperamide 2 mg PO Q4H PRN 09/07/21 09/14/21 Allergies Allergy/AdvReac Type Severity Reaction Status Date / Time butorphanol Allergy Intermediate Dizziness, Verified 09/14/21 08:03 Paranoia oxycodone [Percocet] Allergy Intermediate Itching Verified 09/14/21 08:03 Review of Systems Review of Systems: All systems reviewed & are unremarkable except as noted in HPI and below Constitutional: Constitutional: Denies body ache(s), Denies chills, Denies excessive sweating, Denies fatigue, Denies fever(s), Denies headache(s), Denies lethargy, Denies malaise, Denies weakness and Denies weight loss Eyes: Eyes: Denies blurry vision, Denies change in vision and Denies loss of vision ENT: Denies dizziness, Denies ear discharge, Denies headache(s), Denies lip swelling, Denies epistaxis, Denies nasal congestion, Denies neck pain, Denies throat swelling and Denies tongue swelling Cardiovascular: Cardiovascular: Denies chest pain, Denies chest pain at rest, Denies chest pain with activity, Denies diaphoresis, Denies rapid heart rate, Denies edema, Denies irregular heart rhythm, Denies lightheadedness, Denies palpitations, Denies dyspnea and Denies dyspnea on exertion Respiratory: Respiratory: Denies chest congestion, Denies cough, Denies hemoptysis, Denies dyspnea and Denies dyspnea on exertion Gastrointestinal: Gastrointestinal: Denies hematochezia, Denies diarrhea, Denies nausea, Denies vomiting and Denies hematemesis Musculoskeletal: Musculoskeletal: Denies abnormal gait, Denies deformity, Denies joint swelling, Denies limited range of motion, Denies neck pain and Denies numbness Neurologic: Denies Abnormal speech present, Denies abnormal gait, Denies confusion, Denies dizziness, Denies headache(s), Denies focal weakness, Denies loss of vision, Denies numbness, Denies Other visual disturbances, Denies Sensory deficit (Neuro) and Denies weakness Psychiatric: Psychiatric: Denies confusion, Denies depression, Denies auditory hallucinations, Denies homicidal ideation and Denies suicidal ideation Endocrine: Endocrine: Denies cold intolerance, Denies excessive sweating, Denies fatigue, Denies heat intolerance and Denies palpitations Hematologic/Lymphatic: Hematologic/Lymphatic: Denies easy bleeding and Denies easy bruising Allergic/Immunologic: Allergic/Immunologic: Denies lip swelling, Denies throat swelling and Denies tongue swelling PMFSH Past Medical History Medical History Acute upper respiratory infections of unspecified site (10/07/16) CKD (chronic kidney disease) stage 3, GFR 30-59 ml/min Cough (10/07/16) Depression (09/02/15) Dizziness (11/23/16) Dysuria (03/05/16) Essential hypertension GERD (gastroesophageal reflux disease) (09/02/15) HOCM (hypertrophic obstructive cardiomyopathy) FLACO on
[2021-09-15] MEDS: LACTATED RINGERS 1,000 ML 999 ML IV CONT (12:45)
[2021-09-15] MEDS: PANTOPRAZOLE SODIUM IV 40 MG VIAL 80 MG IV PUSH (13:20)
[2021-09-15 16:07] LABS: SARS-CoV-2 RNA PCR Negative
[2021-09-15] MEDS: HYDROmorphone HCL INJ (*CRX) 1 MG/ML SYR 0.5 MG IV PUSH (16:10)
--- NOTE | 2021-09-15 16:32 | WPDGICN ---
Assessment and Plan Assessment and plan (1) Jejunal ulcer: Code(s): K28.9 - Gastrojejunal ulcer, unspecified as acute or chronic, without hemorrhage or perforation Status: Acute Assessment and Plan: this is a basically chronic ulcer that has been present since last fall. Her forgetfulness to take her medication is probably a factor. This is a jejunal ulcer just beyond her gastroenterostomy which is the result of her gastric bypass. (2) Anemia due to blood loss: Code(s): D50.0 - Iron deficiency anemia secondary to blood loss (chronic) Status: Acute Assessment and Plan: she states that she began having dark stools yesterday afternoon and became somewhat sweaty as well. She will be admitted and blood counts followed. Transfusion if necessary. Endoscopy in the morning for control of bleeding (3) Epigastric pain: Code(s): R10.13 - Epigastric pain Status: Acute Assessment and Plan: she has had epigastric pain on and off since last fall and states that it is worse today, because of the bleeding GI Consult Note Consult date/time: 09/15/21 16:32 HPI: Catie Painter is a 76 year old female who is known to have chronic jejunal ulcer. She had a gastric bypass procedure which later had to be revised. Any rate she has a chronic jejunal ulcer just beyond the anastomosis. I had seen this about 5 years ago, but it was gone when she had an EGD for dysphagia about 18 months ago. When she had EGD i last March, when she was admitted with hematemesis, I found a 3 cm diameter ulcer. I then started her on Carafate 1 g 4 times a day. She had already been taking Omeprazole 20 mg per day. I then placed on pantoprazole and sucralfate . She went to the emergency room in June complaining of abdominal pain and they noted that she was not on either drug. She came in yesterday for follow-up EGD and unfortunately she has still the 3 cm diameter ulcer as well as another smaller ulcer across from it. I queried her about her Carafate. In the office she had told me that she did take it before eating but her then had interjected that she only eats once a day and therefore was only taking it once a day. I noted yesterday that she had had her refill for 30 tablets about 2 months ago. She clearly is taking less than 1 tablet per day. I suspect she gets confused with her medication. She is she is not taking any anti-inflammatory medication but does use Tylenol for her headaches. At the time of her endoscopy yesterday there was no evidence of any bleeding. Did take a gastric biopsy to check for H pylori. She states that later yesterday she began to feel lightheaded and has had many black stools since then. She added that she has not slept for 3 days. Master which 3 days she is talking about she said since yesterday evening I suspect that she is suffering from some mental status changes and confusion and consequently this may explain the reason that she has not been taking her medication as directed. Her hemoglobin here is 11.5 but I suspect that her counts will be lower after she is rehydrated. She had that she is having abdominal pain and she also said that she has not been able to eat anything because it will not go down, since her endoscopy. I am not sure how to interpret this. Review of Systems Review of Systems: All systems reviewed & are unremarkable except as noted in HPI and below PMFSH Past Medical History Medical History Acute upper respiratory infections of unspecified site (10/07/16) CKD (chronic kidney disease) stage 3, GFR 30-59 ml/min Cough (10/07/16) Depression (09/02/15) Dizziness (11/23/16) Dysuria (03/05/16) Essential hypertension GERD (gastroesophageal reflux disease) (09/02/15) HOCM (hypertrophic obstructive cardiomyopathy) FLACO on CPAP Type 2 diabetes mellitus (05/18/16) Surgical History Surgical
--- NOTE | 2021-09-15 18:51 | ADMGEN ---
This patient, Catie Painter, was admitted to [facility] Surg Room 307-01. Patient/family oriented to hospital policies and general routines including ID bracelet, bed and alarms, visiting hours, pain management, procedures, bathroom and other care routines, personal items, smoking policy, room service/diet, and visiting hours. Information on how to activate the Rapid Response Team has been discussed. Patient/Family are encouraged to report perceived risks to care and to ask questions if they do not understand what they are told or what they should do.
[2021-09-15] MEDS: LACTATED RINGERS 1,000 ML 90 ML IV CONT (20:11)
--- NOTE | 2021-09-15 20:49 | PM.IMHP ---
H&P: HPI History of Present Illness Date/Time: Patient was placed observation status for expected length of stay less than 23 hours for management, will plan to re-evaluate tomorrow for improvement. 09/15/21 20:49 Chief Complaint: Dark stools Narrative: Ms. Painter is a 76-year-old female who presented to the emergency room with complaints of dark tarry stools. Patient underwent EGD yesterday by Dr. Cortes. Patient had undergone EGD for hematemesis. After her EGD patient was placed on pantoprazole and Carafate. Patient states that she went home and was feeling fine and then began having dark diarrhea stools and had a total of 5 of them. Patient states she has been nauseated but had no vomiting. Patient states she is able to sip on water. Patient denies any chest pain, shortness a breath, lightheadedness or dizziness. Patient states she did have some mild sweating at 1 point. Patient states she does have abdominal pain in the umbilical area. Patient denies any further hematemesis. Per Gastroenterology patient does have a history of noncompliance and forgetfulness with her ulcer medication. Patient does have a known history of a gastrojejunal ulcer just beyond her gastroenterostomy which is a result of her gastric bypass. Patient also has a known history of obstructive sleep apnea with CPAP usage, hypertension, chronic kidney disease, diabetes mellitus, and per previous medical records patient does have a history of HOCM. Review of Systems Review of Systems: A 12 point review of systems was completed patient all pertinent positive and negative per HPI the remainder are unremarkable. [facility] Past Medical History Medical History Acute upper respiratory infections of unspecified site (10/07/16) CKD (chronic kidney disease) stage 3, GFR 30-59 ml/min Cough (10/07/16) Depression (09/02/15) Dizziness (11/23/16) Dysuria (03/05/16) Essential hypertension GERD (gastroesophageal reflux disease) (09/02/15) HOCM (hypertrophic obstructive cardiomyopathy) FLACO on CPAP Type 2 diabetes mellitus (05/18/16) Surgical History Surgical History History of cholecystectomy History of gastric bypass History of hysterectomy Family History Family History Mother Carcinoma of colon Family history of Alzheimer's disease Sibling Carcinoma of colon Family history of malignant neoplasm of uterus Father Patient's father is Other Diabetes mellitus Family history of malignant neoplasm Family history of sleep apnea Family history of thyroid disease Hypertension Social History Social History Smoking packs per day: 0.5 Smoking cigarettes per day: 10.0 Years smoked: 15 Smoking pack-years: 7.50 Smoking status: Former smoker Alcohol intake: never Alcohol use details: has not been drinking lately due to abdominal pain Substance use: never Substance use type: does not use Spiritual care concerns: No Meds Home Medications and Allergies Home Medications Medication Instructions Recorded Confirmed Type duloxetine 30 mg capsule,delayed 30 mg PO BID 06/28/19 09/15/21 History release gabapentin 600 mg tablet 600 mg PO HS 06/28/19 09/15/21 History levothyroxine 50 mcg capsule 50 mcg PO DAILY 06/28/19 09/15/21 History trazodone 50 mg tablet 50 mg PO HS tablet 06/28/19 09/15/21 History divalproex 500 mg PO BID 03/03/20 09/15/21 History donepezil 10 mg tablet 10 mg PO QHS 05/18/21 09/15/21 History metoprolol succinate 25 mg 12.5 mg PO DAILY #30 tablet 07/24/21 09/15/21 Rx tablet,extended release 24 hr sucralfate 1 gram tablet 1 g PO ACHS #120 tablet 09/14/21 09/15/21 Rx metformin 500 mg PO DAILY 09/15/21 09/15/21 History pantoprazole 40 mg PO DAILY 09/15/21 09/15/21 History Allergies
[2021-09-15 21:26] LABS: Hematocrit 31.1 % (37.0-47.0); Hemoglobin 9.9 g/dL (12.0-15.0)
[2021-09-15] MEDS: DIVALPROEX SODIUM DR 250 MG TABEC 500 MG PO (23:06)
[2021-09-15] MEDS: SUCRALFATE 1 GM TABLET PO (23:07)
[2021-09-15] MEDS: traZODone HCL 50 MG TABLET PO (23:07)
[2021-09-15] MEDS: GABAPENTIN 300 MG CAPSULE 600 MG PO (23:07)
[2021-09-15] MEDS: DONEPEZIL HCL 10 MG TABLET PO (23:07)
[2021-09-15] MEDS: DULoxetine HCL 30 MG CAPSULE.DR PO (23:07)
[2021-09-16] VITALS (12 sets, daily range): BP systolic 119–199; BP diastolic 48–97; PULSE 76–100; RESP 13–26; TEMP 36.1–36.5; O2SAT 94–100; BMI 22.4
--- NOTE | 2021-09-16 06:42 | PC.NURSE ---
x5 small blackish liquid stools tonight.
[2021-09-16] MEDS: LEVOTHYROXINE SODIUM 50 MCG TABLET PO (06:45)
[2021-09-16 06:48] LABS: Alanine Aminotransferase 9 U/L (4-35); Albumin Level 2.9 g/dL (3.5-5.1); Alkaline Phosphatase 44 U/L (38-126); Anion Gap 4 mmol/L (8-16); Aspartate Amino Transferase 16 U/L (14-36); Bilirubin,Total 0.6 mg/dL (0.2-1.3); Blood Urea Nitrogen 29 mg/dL (7-17); Calcium 8.4 mg/dL (8.4-10.2); Carbon Dioxide 26 mmol/L (22-30); Chloride 105 mmol/L (98-107); Estimated CRCL calculation 47 ml/min; Estimated Glomerular Filt Rate > 60; Glucose 95 mg/dL (65-110); Potassium 3.6 mmol/L (3.4-5.0); Sodium 135 mmol/L (137-145)
[2021-09-16 06:51] LABS: Hematocrit 30.1 % (37.0-47.0); Hemoglobin 9.6 g/dL (12.0-15.0)
[2021-09-16] MEDS: LACTATED RINGERS 1,000 ML 90 ML IV CONT ×2 (07:04→21:02)
--- NOTE | 2021-09-16 10:40 | WPDANESEPPF ---
Anes - Initial Pre Proc Eval Procedure: Operation Date: 09/16/21 14:15 Proposed Procedures p Esophagogastroduodenoscopy - Sharath Cortes MD Date/Time: 09/16/21 10:40 Surgeon: Bryanna Haines PA-C Pre Op Diagnosis: Upper GI Bleed Patient Data Age: 76 Gender: F Height: 1.65 m Weight: 61.3 kg Last Vital Signs Temp 36.2 C L 09/16/21 05:45 Pulse 85 09/16/21 05:45 Resp 18 09/16/21 05:45 BP 119/63 09/16/21 05:50 Pulse Ox 94 09/16/21 08:49 Allergies Allergy/AdvReac Type Severity Reaction Status Date / Time butorphanol Allergy Intermediate Dizziness, Verified 09/15/21 18:54 Paranoia oxycodone [Percocet] Allergy Intermediate Itching Verified 09/15/21 18:54 Home Medications Medication Instructions Recorded Confirmed Type duloxetine 30 mg capsule,delayed 30 mg PO BID 06/28/19 09/15/21 History release gabapentin 600 mg tablet 600 mg PO HS 06/28/19 09/15/21 History levothyroxine 50 mcg capsule 50 mcg PO DAILY 06/28/19 09/15/21 History trazodone 50 mg tablet 50 mg PO HS tablet 06/28/19 09/15/21 History divalproex 500 mg PO BID 03/03/20 09/15/21 History donepezil 10 mg tablet 10 mg PO QHS 05/18/21 09/15/21 History metoprolol succinate 25 mg 12.5 mg PO DAILY #30 tablet 07/24/21 09/15/21 Rx tablet,extended release 24 hr sucralfate 1 gram tablet 1 g PO ACHS #120 tablet 09/14/21 09/15/21 Rx metformin 500 mg PO DAILY 09/15/21 09/15/21 History pantoprazole 40 mg PO DAILY 09/15/21 09/15/21 History Laboratory Tests 09/15/21 09/15/21 09/15/21 10:19 10:19 15:24 Hgb Hct PT 14.1 Seconds Seconds (11.1-14.7) INR 1.1 APTT 30.3 SECONDS SECONDS (22.3-36.8) Sodium Potassium Chloride Carbon Dioxide Anion Gap BUN Creatinine Estim Creat Clear Calc Estimated GFR Glucose Calcium Total Bilirubin AST ALT Alkaline Phosphatase Total Protein Albumin SARS-CoV-2 RNA (RT-PCR) Negative Blood Type O Positive Antibody Screen Negative 09/15/21 09/16/21 09/16/21 20:55 06:11 06:11 Hgb 9.9 g/dL L g/dL 9.6 g/dL L g/dL (12.0-15.0) (12.0-15.0) Hct 31.1 % L % 30.1 % L % (37.0-47.0) (37.0-47.0) PT INR APTT Sodium 135 mmol/L L mmol/L (137-145) Potassium 3.6 mmol/L mmol/L (3.4-5.0) Chloride 105 mmol/L mmol/L (98-107) Carbon Dioxide 26 mmol/L mmol/L (22-30) Anion Gap 4 mmol/L L mmol/L (8-16) BUN 29 mg/dL H mg/dL (7-17) Creatinine 0.80 mg/dL mg/dL (0.7-1.0) Estim Creat Clear Calc 47 ml/min ml/min Estimated GFR > 60 (59 - ) Glucose 95 mg/dL mg/dL (65-110) Calcium 8.4 mg/dL mg/dL (8.4-10.2) Total Bilirubin 0.6 mg/dL mg/dL (0.2-1.3) AST 16 U/L U/L (14-36) ALT 9 U/L U/L (4-35) Alkaline Phosphatase 44 U/L U/L (38-126) Total Protein 5.0 g/dL L g/dL (6.3-8.2) Albumin 2.9 g/dL L g/dL (3.5-5.1) SARS-CoV-2 RNA (RT-PCR) Blood Type Antibody Screen Patient hx anesthesia problems: none Family hx anesthesia problems: none Results Review: All pre-operative results and documents have been reviewed as part of the pre-operative evaluation. [facility] Past Medical History Medical History Acute upper respiratory infections of unspecified site (10/07/16) CKD (chronic kidney disease) stage 3, GFR 30-59 ml/min Cough (10/07/16) Depression (09/02/15) Dizziness (11/23/16) Dysuria (03/05/16) Essential hypertension GERD (gastroesophageal reflux disease) (09/02/15) HOCM (hypertrophic obstruct
--- NOTE | 2021-09-16 10:57 | PM.IMPN ---
Progress Note: A&P Assessment and Plan (1) Acute upper gastrointestinal bleeding: Code(s): K92.2 - Gastrointestinal hemorrhage, unspecified <Bryanna Haines PA-C - Last Filed: 09/16/21 16:39> Status: Acute <Bryanna Krissy AKIRA Haines - Last Filed: 09/16/21 16:39> Assessment and Plan: Patient is currently hemodynamically stable. She states she continues to have black stools today per patient report. EGD today showed gastritis without mucosal bleeding, and a single cratered chronic ulcer 35mm in the proximal jejunum. Ulcer dale a visible non bleeding vessel. Lesion was cauterized and 3ml of epinephrine was administered. . Orthostatic BP was within normal limits. Hgb has been downtrending from 11.5-> 9.9 -> 9.6 as of 0500 this AM - H&H- every 6 hrs. - advance to full liquid diet - Start pantoprazole <Bryanna Haines PA-C - Last Filed: 09/16/21 16:39> (2) Anemia due to blood loss: Code(s): D50.0 - Iron deficiency anemia secondary to blood loss (chronic) <Bryanna Haines PA-C - Last Filed: 09/16/21 16:39> Status: Acute <Bryanna Haines PA-C - Last Filed: 09/16/21 16:39> Assessment and Plan: Patient reports 5 black stools at home. Patient is currently hemodynamically stable. EGD today showed gastritis without mucosal bleeding, and a single cratered chronic ulcer 35mm in the proximal jejunum. Ulcer had a visible non bleeding vessel. Lesion was cauterized and 3ml of epinephrine was administered. GI advised to continue current meds, proceed to full liquid diet. Orthostatic BP was normal. Hgb has been downtrending from 11.5-> 9.9 -> 9.6 -> 8.9 as of 14:48. - H&H- every 6 hrs - Transfuse 2 units PRBC for hgb below 7. - EGD today, will follow for GI recs. - Liquid diet. <Bryanna Haines PA-C - Last Filed: 09/16/21 16:39> (3) Jejunal ulcer: Code(s): K28.9 - Gastrojejunal ulcer, unspecified as acute or chronic, without hemorrhage or perforation <MUKESH Menjivar-C - Last Filed: 09/16/21 16:39> Status: Acute <Bryanna Haines PA-C - Last Filed: 09/16/21 16:39> Assessment and Plan: 09/14 EGD visualized a 3cm jejunal ulcer with no active bleeding at the time. Patient was prescribed carafate 4x daily, to which patient admitted taking only 1 x daily. She appears to be in poor compliance with her medications due to confusion and mental status changes. EGD today showed gastritis without mucosal bleeding, and a single cratered chronic ulcer 35mm in the proximal jejunum. Ulcer dale a visible non bleeding vessel. Lesion was cauterized and 3ml of epinephrine was administered. GI advised to continue current meds, proceed to full liquid diet. <MARY MenjivarC - Last Filed: 09/16/21 16:39> (4) HOCM (hypertrophic obstructive cardiomyopathy): Code(s): I42.1 - Obstructive hypertrophic cardiomyopathy <Bryanna Haines PA-C - Last Filed: 09/16/21 16:39> Status: Acute <MUKESH Menjivar-C - Last Filed: 09/16/21 16:39> Assessment and Plan: Patient has history of HOCM, stable, and murmur appreciated on physical exam today. - Will continue to monitor for any hemodynamic instability. <MARY MenjivarC - Last Filed: 09/16/21 16:39> (5) CKD (chronic kidney disease) stage 3, GFR 30-59 ml/min: Qualifiers: Chronic kidney disease stage 3 subtype: unspecified whether 3a or 3b Qualified Code(s): N18.30 - Chronic kidney disease, stage 3 unspecified <MUKESH Menjivar-C - Last Filed: 09/16/21 16:39> Code(s): N18.3 - Chronic kidney disease, stage 3 (moderate) <MUKESH Menjivar-C - Last Filed: 09/16/21 16:39> Status: Acute <MUKESH Menjivar-C - Last Filed: 09/16/21 16:39> Assessment and Plan: Patient has been stable with Cr of 0.80 during this admission. - Continue to monitor. <Bryanna Haines PA-C - Last Filed: 09/16/21 16:39> (6) FLACO on CPAP: Code(s):
[2021-09-16] MEDS: LACTATED RINGERS 1,000 ML 150 ML IV CONT (11:08)
[2021-09-16] MEDS: EPINEPHrine INJ 1 MG/10 ML SYRINGE 0.25 MG XX (12:40)
--- NOTE | 2021-09-16 12:47 | SUR.OPER ---
Report given to Petra SARMIENTO on medical floor.
[2021-09-16] MEDS: fentaNYL CITRATE INJ (*CRX) 100 MCG/2 ML VIAL 25 MCG IV PUSH (13:11)
[2021-09-16 14:58] LABS: Hematocrit 28.4 % (37.0-47.0); Hemoglobin 8.9 g/dL (12.0-15.0)
[2021-09-16] MEDS: DULoxetine HCL 30 MG CAPSULE.DR PO ×2 (17:33→20:54)
[2021-09-16] MEDS: SUCRALFATE 1 GM TABLET PO ×2 (17:34→20:55)
[2021-09-16] MEDS: METOPROLOL SUCCINATE EXT REL 12.5 MG TABCR PO (17:34)
[2021-09-16] MEDS: DIVALPROEX SODIUM DR 250 MG TABEC 500 MG PO (17:35)
[2021-09-16] MEDS: GABAPENTIN 300 MG CAPSULE 600 MG PO (20:54)
[2021-09-16] MEDS: traZODone HCL 50 MG TABLET PO (20:55)
[2021-09-16] MEDS: DONEPEZIL HCL 10 MG TABLET PO (20:55)
[2021-09-16] MEDS: PANTOPRAZOLE 40 MG TABLET PO (20:55)
[2021-09-17 00:42] VITALS: O2SAT 94
[2021-09-17] MEDS: SUCRALFATE 1 GM TABLET PO ×2 (05:55→11:43)
[2021-09-17] MEDS: LEVOTHYROXINE SODIUM 50 MCG TABLET PO (05:55)
[2021-09-17 06:00] VITALS: BP 120/48; PULSE 105; RESP 16; TEMP 36.4; O2SAT 100
--- NOTE | 2021-09-17 06:52 | WPDGIPROGNO ---
Progress Note: A&P Assessment and Plan (1) Jejunal ulcer: Code(s): K28.9 - Gastrojejunal ulcer, unspecified as acute or chronic, without hemorrhage or perforation Status: Acute Assessment and Plan: this is a basically chronic ulcer that has been present since last fall. Her forgetfulness to take her medication is probably a factor. This is a jejunal ulcer just beyond her gastroenterostomy which is the result of her gastric bypass. EGD yesterday revealed no change in appearance of the ulcer. There was a protruding black spot in the distal end of the larger also were consistent with a visible vessel. I injected this with epinephrine and cauterized it with the gold probe. There was no active bleeding. The site where had taken a gastric biopsy for H pylori was erythematous. There was a tiny droplet of blood in the crease there which I then cauterized with the gold probe. 09/17 Patient her and daughter and I had a long discussion about how important it is for her to take her medication daily. Although she had claimed she was taking at least 1 Carafate a day, I saw that the last prescription was from emergency room physician in June for 30 tablets. That was over 2 months ago, and she apparently still has some left. Her daughter is going to take over management of her medications, as the patient denying her had discussed this several times in the past, the fact that she must take her Carafate 3 or 4 times a day . PPI will not be necessary because she only has her gastric cardia fundus, none of the parietal cell bearing portion of her stomach remains (2) Anemia due to blood loss: Code(s): D50.0 - Iron deficiency anemia secondary to blood loss (chronic) Status: Acute Assessment and Plan: she states that she began having dark stools yesterday afternoon and became somewhat sweaty as well. She will be admitted and blood counts followed. Transfusion if necessary. Endoscopy in the morning for control of bleeding 09/17 If no significant drop during this morning's H&H, she could be discharged. (3) Epigastric pain: Code(s): R10.13 - Epigastric pain Status: Acute Assessment and Plan: she has had epigastric pain on and off since last fall and states that it is worse today, because of the bleeding Subjective Date/time seen: 09/17/21 06:52 the patient states that she has not had any stools during the night. The pain that she had following endoscopy has subsided. She is hoping to go home today. Review of Systems Review of Systems: All systems reviewed & are unremarkable except as noted in HPI and below Exam Const: General: alert and tired appearing Orientation/consciousness: patient oriented x3 Resp: Auscultation: clear to auscultation bilaterally Cardio: Rhythm: regular rhythm GI: Inspection: scar ( post surgery) Neuro: General: patient oriented x3 Objective Data Vital Signs Vital Signs: Vital Signs - 24 hr 09/16/21 08:00 09/16/21 08:49 09/16/21 11:05 Temperature 36.1 C L Pulse Rate 76 84 Respiratory Rate 23 H 18 Blood Pressure 146/65 H Pulse Oximetry 100 94 100 09/16/21 12:42 09/16/21 12:52 09/16/21 13:02 Temperature Pulse Rate 88 86 76 Respiratory Rate 13 26 H 23 H Blood Pressure 157/77 H 199/97 H 189/92 H Pulse Oximetry 100 100 100 09/16/21 14:00 09/16/21 22:00 09/17/21 00:42 Temperature 36.5 C 36.3 C L Pulse Rate 79 100 Respiratory Rate 14 16 Blood Pressure 142/51 H 147/48 H Pulse Oximetry 99 100 94 09/17/21 06:00 Temperature 36.4 C Pulse Rate 105 H Respiratory Rate 16 Blood Pressure 120/48 L Pulse Oximetry 100 Intake/Output Intake/Output: Intake & Output 09/14/21 09/15/21 09/16/21 09/17/21 23:59 23:59 23:59 23:59 Intake Total 1265 3455 Balance 1265 3455 Meds/Results Medications: Active Medications Generic Name Dose Route Start Last Admin Trade Name Freq PRN Reason Stop Dose Admin
[2021-09-17 08:00] VITALS: PULSE 101; RESP 18; O2SAT 98
[2021-09-17] MEDS: DIVALPROEX SODIUM DR 250 MG TABEC 500 MG PO (08:18)
[2021-09-17 09:47] LABS: Hemoglobin 8.2 g/dL (12.0-15.0)
--- NOTE | 2021-09-17 10:30 | WPDANESPN ---
Anes - Prog Note Post-Op Date/Time: 09/17/21 10:30 Cardiovascular status: normal Respiratory status: normal Airway patency: baseline Mental status: baseline Post-Op hydration status: normal Vital Signs: Last Vital Signs Temp 97.6 F 09/17/21 06:00 Pulse 105 H 09/17/21 06:00 Resp 16 09/17/21 06:00 BP 120/48 L 09/17/21 06:00 Pulse Ox 100 09/17/21 06:00 Pain Score (VAS): 06/29 I/O: Intake & Output 09/16/21 09/17/21 09/17/21 23:59 07:59 15:59 Intake Total 1855 50 Balance 1855 50 Laboratory Tests 09/17/21 09:39 09/16/21 06:11 09/16/21 09/16/21 09/17/21 06:09 14:48 09:39 Hgb 8.9 L 8.2 L Hct 28.4 L 26.0 L Vitamin B12 845.0 Folate 5.0 Post-procedural complaints: none Patient Feedback: Patient satisfied with anesthetic care.
[2021-09-17 11:40] VITALS: PULSE 83
[2021-09-17] MEDS: METOPROLOL SUCCINATE EXT REL 12.5 MG TABCR PO (11:40)
[2021-09-17] MEDS: DULoxetine HCL 30 MG CAPSULE.DR PO (11:43)
[2021-09-17] MEDS: PANTOPRAZOLE 40 MG TABLET PO (11:43)
[2021-09-17 13:04] LABS: Hematocrit 26.2 % (37.0-47.0); Hemoglobin 8.2 g/dL (12.0-15.0)
--- NOTE | 2021-09-17 14:03 | PM.DS ---
DS: Admitting Diagnosis Discharge Date 09/17/21 Admitting Diagnosis Dark stools DS: Discharge Diagnosis Discharge Diagnosis (1) Acute upper gastrointestinal bleeding: Code(s): K92.2 - Gastrointestinal hemorrhage, unspecified Status: Acute Assessment and Plan: Patient had a recent EGD showing intestinal ulcer. She developed dark stools after the EGD prompting this admission. She was seen by GI and appreciate their input. Repeat EGD showed gastritis without mucosal bleeding, and a single cratered chronic ulcer 35mm in the proximal jejunum. Ulcer has a visible non bleeding vessel. Lesion was cauterized and 3ml of epinephrine was administered. Hgb was 11.5 but dropped to 8.2 before stabilizing. Diet started and advanced as tolerated. Plan discharge home. Discussed with GI. (2) Anemia due to blood loss: Code(s): D50.0 - Iron deficiency anemia secondary to blood loss (chronic) Status: Acute Assessment and Plan: Hgb 11.5 but dropped to 8.2. The etiology of the blood loss is known ans was treated. Hgb on repeat showing stability. Some of this drop may be related to dilution from the IV fluids. She is not on ASA or anticoagulation. (3) Jejunal ulcer: Code(s): K28.9 - Gastrojejunal ulcer, unspecified as acute or chronic, without hemorrhage or perforation Status: Acute Assessment and Plan: 09/14 EGD visualized a 3cm jejunal ulcer with no active bleeding at the time. Patient was prescribed carafate 4x daily but she admitted to taking only 1 x daily. She appears to be in poor compliance with her medications due to confusion and mental status changes and family is agreeable to help manage her medications. EGD 09/16 showing gastritis without mucosal bleeding, and a single cratered chronic ulcer 35mm in the proximal jejunum. Ulcer has a visible non bleeding vessel. Lesion was cauterized and injected. Advance diet as toelrated (4) HOCM (hypertrophic obstructive cardiomyopathy): Code(s): I42.1 - Obstructive hypertrophic cardiomyopathy Status: Acute Assessment and Plan: Patient has history of HOCM. Murmur appreciated on exam and probably more prominent related to the blood loss. (5) CKD (chronic kidney disease) stage 3, GFR 30-59 ml/min: Qualifiers: Chronic kidney disease stage 3 subtype: unspecified whether 3a or 3b Qualified Code(s): N18.30 - Chronic kidney disease, stage 3 unspecified Code(s): N18.3 - Chronic kidney disease, stage 3 (moderate) Status: Acute Assessment and Plan: Patient with presumed CKD. Creatinine normal on admission and remained normal with estimated GFR greater than 60. (6) FLACO on CPAP: Code(s): G47.33 - Obstructive sleep apnea (adult) (pediatric); Z99.89 - Dependence on other enabling machines and devices Status: Acute Assessment and Plan: Encouraged CPAP use as tolerated (7) Essential hypertension: Code(s): I10 - Essential (primary) hypertension Status: Acute Assessment and Plan: Blood pressure was elevated at times. We resumed her metoprolol and other medications. Blood pressure has become better controlled. DS: Summary Hospital Course Reason for hospitalization: 76yo female with hx of gastric bypass, FLACO, HTN, DM and CKD here for dark stools. Please see H&P for details Hospital Course: Please see above for details hospital course. Status at Discharge Cognitive/behavioral status at discharge: Stable Time Spent with Patient Time attestation: Total time spent providing and/or coordinating discharge services: 38 minutes Time spent: Greater than 30 minutes Exam Narrative: AF 97.6 120/48 83 16 100% ra Gen - NARD Chest -few basilar crackles otherwise clear. CV - RRR S1/S2 with a II/ systolic murmur heard loudest along sternal border. Abd - Soft, NT/ND, Positive BS Ext - No pedal edema Psych - Nml mood and affect Skin - Warm and
[2021-09-17 14:17] VITALS: BP 133/52; PULSE 101; RESP 18; TEMP 36.7; O2SAT 98
[2021-09-17] MEDS: ACETAMINOPHEN 325 MG TABLET 650 MG PO (14:35)
== END 2021-09-17 16:26 | disposition home or self-care (01) ==
LOC: ANHED 14:06 → ANH3MEDSUR 09-16 06:45
PROVIDERS: Internal Medicine; Internal Medicine Gastroenterology; Nurse Practitioner Adult Health; Admitting Provider Internal Medicine; Emergency Provider Emergency Medicine; PCP Family Medicine; Visit Provider Student in an Organized Health Care Education/Training Program
PROC: 0DJ08ZZ Inspection of Upper Intestinal Tract, Via Natural or Artificial Opening Endoscopic (ICD-10-PCS; CPT 43235; principal; 2021-09-16 14:15)
DX: K29.70 Gastritis, unspecified, without bleeding (principal); K28.9 Gastrojejunal ulcer, unspecified as acute or chronic, without hemorrhage or perforation; K92.1 Melena; K92.0 Hematemesis; R10.9 Unspecified abdominal pain; D50.0 Iron deficiency anemia secondary to blood loss (chronic); E11.22 Type 2 diabetes mellitus with diabetic chronic kidney disease; G47.33 Obstructive sleep apnea (adult) (pediatric); I42.1 Obstructive hypertrophic cardiomyopathy; I12.9 Hypertensive chronic kidney disease with stage 1 through stage 4 chronic kidney disease, or unspecified chronic kidney disease; N18.30 Chronic kidney disease, stage 3 unspecified; K21.9 Gastro-esophageal reflux disease without esophagitis; Z98.84 Bariatric surgery status; Z99.89 Dependence on other enabling machines and devices; Z90.49 Acquired absence of other specified parts of digestive tract; Z90.710 Acquired absence of both cervix and uterus; Z87.891 Personal history of nicotine dependence; Z20.822 Contact with and (suspected) exposure to COVID-19; Z91.14 Patient's other noncompliance with medication regimen; Z79.84 Long term (current) use of oral hypoglycemic drugs
CPT/HCPCS: 43255; 36415; 74177; 80053; 82607; 82746; 85014; 85018; 85025; 85610; 85730; 86850; 86900; 86901; 94660; 96361; 96365; 96366; 96375; 96376; 97161; 97165; 99285; A9270; C9113; C9803; G0378; J0131; J0171; J1170; J2704; J3010; J7060; J7120; Q9967; U0003; U0005

== ENCOUNTER 2021-09-24 11:06 | Outpatient (CLI) | payer MEDICARE, SELFPAY ==
[2021-09-24 11:36] LABS: Basophils Absolute Auto 0.01 K/mm3 (0.00-0.10); Basophils Percent Auto 0.3 % (0.0-1.0); Eosinophils Absolute Auto 0.06 K/mm3 (0.02-0.50); Eosinophils Percent Auto 1.8 % (1.0-6.0); Hematocrit 28.1 % (35.0-42.0); Hemoglobin 8.6 g/dL (11.7-13.8); Immature Granulocyte Absolute 0.01 K/mm3 (0.00-0.00); Immature Granulocyte Percent A 0.3 % (0.0-0.0); Lymphocytes Absolute Auto 1.18 K/mm3 (1.10-4.50); Lymphocytes Percent Auto 34.9 % (18.0-42.0); Mean Corpuscular HGB Conc 30.6 g/dL (32.0-36.0); Mean Corpuscular Hemoglobin 29.4 pg (27.0-31.0); Mean Corpuscular Volume 95.9 fL (78.0-102.0); Mean Platelet Volume 9.4 fl (9.2-11.8); Monocytes Absolute Auto 0.39 K/mm3 (0.10-0.90); Monocytes Percent Auto 11.5 % (2.0-11.0); Neutrophils Absolute Auto 1.7 K/mm3 (1.7-7.2); Neutrophils Percent Auto 51.2 % (50.0-70.0); Platelet Count Result 220 K/mm3 (150-420); Red Blood Count 2.93 M/mm3 (4.20-5.40); Red Cell Distribution Width 14.1 % (11.6-14.4); White Blood Count 3.4 K/mm3 (4.8-10.8)
[2021-09-24 12:12] LABS: Anion Gap 6 mmol/L (8-16); Blood Urea Nitrogen 15 mg/dL (7-18); Calcium 8.3 mg/dL (8.5-10.1); Carbon Dioxide 30 mmol/L (21-32); Chloride 106 mmol/L (98-108); Estimated Glomerular Filt Rate > 60; Ferritin 28 ng/mL (8-252); Glucose 81 mg/dL (70-99); Iron 21 ug/dL (50-170); Osmolality Calculated 293 mOsm/kg (285-295); Percent Iron Saturation 9 % (12-57); Potassium 3.4 mmol/L (3.5-5.1); Sodium 142 mmol/L (136-145)
== END 2021-09-24 11:07 | disposition home or self-care (01) ==
LOC: CHSLAB 11:08
PROVIDERS: PCP Family Medicine; Visit Provider Family Medicine
DX: K28.9 Gastrojejunal ulcer, unspecified as acute or chronic, without hemorrhage or perforation (principal); D64.9 Anemia, unspecified; D72.819 Decreased white blood cell count, unspecified
CPT/HCPCS: 36415; 80048; 82728; 83540; 83550; 85025

== ENCOUNTER 2021-10-30 13:57 | Outpatient (CLI) | payer MEDICARE, SELFPAY ==
[2021-10-30 14:58] LABS: Hematocrit 27.5 % (35.0-42.0); Hemoglobin 8.1 g/dL (11.7-13.8); Immature Reticulocyte Fraction 13.3 % (2.0-16.52); Mean Corpuscular HGB Conc 29.5 g/dL (32.0-36.0); Mean Corpuscular Hemoglobin 26.9 pg (27.0-31.0); Mean Corpuscular Volume 91.4 fL (78.0-102.0); Mean Platelet Volume 10.4 fl (9.2-11.8); Platelet Count Result 167 K/mm3 (150-420); Red Blood Count 3.01 M/mm3 (4.20-5.40); Red Cell Distribution Width 13.7 % (11.6-14.4); Reticulocyte Hemoglobin Conten 21.5 pg (28.0-35.0); Reticulocyte Percent 1.25 % (0.50-1.50); Reticulocytes Absolute 0.04 M/mm3 (0.02-0.1); White Blood Count 3.3 K/mm3 (4.8-10.8)
[2021-10-30 15:48] LABS: Band Neutrophils Percent 0 % (0-6); Basophils Percent Manual 0 % (0-1); Eosinophils Absolute Manual 0.06 K/mm3 (0.02-0.5); Eosinophils Percent Manual 2 % (1-6); Lymphocytes Absolute Manual 1.08 K/mm3 (1.1-4.5); Lymphocytes Percent Manual 33 % (18-44); Monocytes Absolute Manual 0.09 K/mm3 (0.1-0.90); Monocytes Percent Manual 3 % (3-9); Neutrophils Absolute Manual 2.04 K/mm3 (1.7-7.2); Neutrophils Percent Manual 62 % (46-73); Total Cells Counted 100
[2021-10-30 15:49] LABS: Platelet Estimate Adequate (Adequate)
[2021-10-30 16:11] LABS: Albumin Level 2.9 g/dL (3.4-5.0); Alkaline Phosphatase 59 U/L (46-116); Anion Gap 4 mmol/L (8-16); Aspartate Amino Transferase 13 U/L (15-37); Bilirubin,Total 0.3 mg/dL (0.00-1.00); Blood Urea Nitrogen 19 mg/dL (7-18); Calcium 8.1 mg/dL (8.5-10.1); Carbon Dioxide 30 mmol/L (21-32); Chloride 109 mmol/L (98-108); Estimated Glomerular Filt Rate 55; Ferritin 8 ng/mL (8-252); Iron 32 ug/dL (50-170); Osmolality Calculated 295 mOsm/kg (285-295); Percent Iron Saturation 11 % (12-57); Sodium 143 mmol/L (136-145); Thyroid Stimulating Hormone 0.65 uIU/mL (0.36-3.74); Total Protein 5.1 g/dL (6.4-8.2)
[2021-10-30 16:16] LABS: Alanine Aminotransferase < 6 U/L (14-59); Glucose 48 mg/dL (70-99)
[2021-11-02 07:41] LABS: Insulin Level Total 1.4 uIU/mL (<=19.6)
[2021-11-03 23:59] LABS: Gastrin 86 pg/mL (<=100)
== END 2021-10-30 13:58 | disposition home or self-care (01) ==
LOC: CHSLAB 13:59
PROVIDERS: PCP Family Medicine; Visit Provider Family Medicine
DX: D64.9 Anemia, unspecified (principal); E16.2 Hypoglycemia, unspecified; R60.9 Edema, unspecified
CPT/HCPCS: 36415; 80053; 82728; 82941; 83525; 83540; 83550; 84443; 85025; 85046

== ENCOUNTER 2021-11-05 11:41 | Outpatient (CLI) | payer MEDICARE, SELFPAY ==
[2021-11-05 12:05] LABS: Hematocrit 30.6 % (35.0-42.0); Hemoglobin 9.1 g/dL (11.7-13.8); Mean Corpuscular HGB Conc 29.7 g/dL (32.0-36.0); Mean Corpuscular Hemoglobin 26.3 pg (27.0-31.0); Mean Corpuscular Volume 88.4 fL (78.0-102.0); Mean Platelet Volume 9.3 fl (9.2-11.8); Platelet Count Result 156 K/mm3 (150-420); Red Blood Count 3.46 M/mm3 (4.20-5.40); Red Cell Distribution Width 13.7 % (11.6-14.4); White Blood Count 3.4 K/mm3 (4.8-10.8)
[2021-11-05 12:35] LABS: Neutrophils Percent Manual 55 % (46-73); Total Cells Counted 100
[2021-11-05 12:36] LABS: Band Neutrophils Percent 0 % (0-6); Basophils Absolute Manual 0.03 K/mm3 (0-0.1); Basophils Percent Manual 1 % (0-1); Eosinophils Absolute Manual 0.03 K/mm3 (0.02-0.5); Eosinophils Percent Manual 1 % (1-6); Lymphocytes Absolute Manual 1.32 K/mm3 (1.1-4.5); Lymphocytes Percent Manual 39 % (18-44); Monocytes Absolute Manual 0.17 K/mm3 (0.1-0.90); Monocytes Percent Manual 5 % (3-9); Neutrophils Absolute Manual 1.87 K/mm3 (1.7-7.2)
[2021-11-05 12:37] LABS: Hyperchromasia 1+ (NORMAL); Platelet Estimate Adequate (Adequate)
[2021-11-06 19:34] LABS: Alanine Aminotransferase 14 U/L (14-59); Alkaline Phosphatase 63 U/L (46-116); Anion Gap 5 mmol/L (8-16); Aspartate Amino Transferase 14 U/L (15-37); Bilirubin,Total 0.4 mg/dL (0.00-1.00); Blood Urea Nitrogen 16 mg/dL (7-18); Calcium 8.5 mg/dL (8.5-10.1); Carbon Dioxide 30 mmol/L (21-32); Chloride 103 mmol/L (98-108); Estimated Glomerular Filt Rate 53; Glucose 70 mg/dL (70-99); Osmolality Calculated 285 mOsm/kg (285-295); Potassium 4.1 mmol/L (3.5-5.1); Sodium 138 mmol/L (136-145)
== END 2021-11-05 11:42 | disposition home or self-care (01) ==
LOC: CHSLAB 11:43
PROVIDERS: PCP Family Medicine; Visit Provider Family Medicine
DX: R60.9 Edema, unspecified (principal); D72.819 Decreased white blood cell count, unspecified
CPT/HCPCS: 36415; 80053; 85025

== ENCOUNTER 2021-11-26 11:22 | Emergency (ER) | payer MEDICARE, SELFPAY ==
[2021-11-26 11:30] VITALS: BP 149/68; PULSE 64; RESP 18; TEMP 36.2; O2SAT 99
--- NOTE | 2021-11-26 11:33 | ED.ABDPAIN ---
HPI - Abdominal Pain General Chief Complaint: Abdominal Pain Stated Complaint: SEVERE STOMACH PAINS Time Seen by Provider: 11/26/21 11:33 Source: patient Mode of arrival: ambulatory History of Present Illness HPI narrative: 36-year-old female with a history of Alzheimer's dementia, diabetes mellitus, hypothyroidism, depression / anxiety, hypertension, HOCM, FLACO, status post gastric bypass with gastric ulcers, jejunal ulcer, upper GI bleeding presents to the ER with a 3 day history of -- abdominal pain. She has chronic epigastric pain off and on since last year. She has nausea without any vomiting or diarrhea. No hematemesis or melena. She was admitted last month in [facility] for upper GI bleeding secondary to a jejunal ulcer which was cauterized. The patient has black stools. She is oral iron supplementation -- depression with suicidal ideation. Her was placed in Hospice last week. MD elicited complaint: abdominal pain Pertinent past history: gastritis and gastrointestinal bleeding Onset (ago): day(s) ( pain has been present for the past 3 days) Location: epigastric Severity: moderate Quality: aching Radiation: none Migration to: no migration Exacerbating factors: nothing Relieving factors: nothing Associated symptoms: nausea Treatments prior to arrival: other ( Carafate, Protonix) Related Data Home Medications Medication Instructions Recorded Confirmed duloxetine 30 mg capsule,delayed 30 mg PO BID 06/28/19 11/26/21 release gabapentin 600 mg tablet 600 mg PO HS 06/28/19 11/26/21 levothyroxine 50 mcg capsule 50 mcg PO DAILY 06/28/19 11/26/21 (Tirosint) trazodone 50 mg tablet 50 mg PO HS 06/28/19 11/26/21 divalproex 250 mg tablet,delayed 500 mg PO BID 03/03/20 11/26/21 release donepezil 10 mg tablet 10 mg PO QHS 05/18/21 11/26/21 metformin 500 mg tablet 500 mg PO DAILY 09/15/21 11/26/21 pantoprazole 40 mg tablet,delayed 40 mg PO DAILY 09/15/21 11/26/21 release Allergies Allergy/AdvReac Type Severity Reaction Status Date / Time butorphanol Allergy Intermediate Dizziness, Verified 11/26/21 11:43 Paranoia oxycodone [Percocet] Allergy Intermediate Itching Verified 11/26/21 11:43 Review of Systems Review of Systems: All systems reviewed & are unremarkable except as noted in HPI and below Constitutional: Constitutional: Reports as per HPI and Reports no additional constitutional complaints Eyes: Eyes: Reports as per HPI and Reports no additional eye complaints ENT: Reports system reviewed and no additional complaints, except as documented and Reports as per HPI Cardiovascular: Cardiovascular: Reports as per HPI and Reports no additional cardiovascular complaints Respiratory: Respiratory: Reports as per HPI and Reports no additional respiratory complaints Gastrointestinal: Gastrointestinal: Reports as per HPI, Reports abdominal pain and Reports nausea Genitourinary: Genitourinary: Reports no additional female genitourinary complaints and Reports as per HPI Musculoskeletal: Musculoskeletal: Reports no additional musculoskeletal complaints and Reports as per HPI Integumentary/Breasts: Skin/Breast: Reports system reviewed and no additional complaints, except as docu and Reports as per HPI Neurologic: Reports system reviewed and no additional complaints, except as documented and Reports as per HPI Psychiatric: Psychiatric: Reports no additional psychiatric complaints and Reports as per HPI Endocrine: Endocrine: Reports no additional endocrine complaints and Reports as per HPI Hematologic/Lymphatic: Hematologic/Lymphatic: Reports no additional hematologic/lymphatic complaints and Reports as per HPI Allergic/Immunologic: Allergic/Immunologic: Reports no additional allergic/immunologic complaints and Reports as per HPI [facility] Past Medical History Medical History Acute upper respiratory infections of unspecified site (10/07/16)
--- NOTE | 2021-11-26 11:52 | ECG_ITS ---
Measurements Intervals [place] Rate: 51 P: 58 TN: 126 QRS: 63 QRSD: 86 T: 50 QT: 478 QTc: 442 Interpretive Statements SINUS BRADYCARDIA LEFT VENTRICULAR HYPERTROPHY AND ST-T CHANGE [VOLTAGE CRITERIA PLUS ST/T ABNORMALITY] COMPARED TO ECG 04/07/2021 20:48:55 SINUS BRADYCARDIA NOW PRESENT LEFT VENTRICULAR HYPERTROPHY NOW PRESENT THERE IS ALSO A U WAVE PRESENT; CONSIDER HYPOKALEMIA Electronically Signed On 11-26-2021 20:30:50 CDT by Leandra Ewing M.D.
[2021-11-26 12:14] LABS: Hematocrit 28.7 % (35.0-42.0); Hemoglobin 8.7 g/dL (11.7-13.8); Mean Corpuscular HGB Conc 30.3 g/dL (32.0-36.0); Mean Corpuscular Hemoglobin 25.7 pg (27.0-31.0); Mean Corpuscular Volume 84.7 fL (78.0-102.0); Mean Platelet Volume 10.3 fl (9.2-11.8); Platelet Count Result 184 K/mm3 (150-420); Red Blood Count 3.39 M/mm3 (4.20-5.40); Red Cell Distribution Width 14.5 % (11.6-14.4); White Blood Count 3.5 K/mm3 (4.8-10.8)
[2021-11-26 12:20] LABS: Appearance Urine Clear (Clear); Bilirubin Urine Negative (Negative); Color Urine Yellow (Yellow); Glucose Urine UA Negative (Negative); Ketones Urine Trace (Negative); Leukocyte Esterase Ur Trace (Negative); Nitrate Urine Negative (Negative); Protein Urine Negative (Negative); pH Urine 6.5 (5.0-8.0)
[2021-11-26 12:29] LABS: Partial Thromboplastin Time 24.5 SEC (23.90-30.70); Prothrombin Time 10.9 Seconds (9.50-12.10)
[2021-11-26 12:31] LABS: Amphetamine Screen Urine Negative (Negative); Barbiturate Screen Urine Negative (Negative); Benzodiazepines Screen Urine Positive (Negative); Cannabinoid Screen Urine Negative (Negative); Cocaine Screen Urine Negative (Negative); Methadone Screen Urine Negative (Negative); Opiate Screen Urine Negative (Negative); Phencyclidine Screen Urine Negative (Negative)
[2021-11-26 12:33] LABS: Add Urine Microscopic? YES; Bacteria Urine Trace /hpf; Blood Urine Trace-Intact (Negative); RBC Urine 0-2 /hpf (0-2); Squamous Epithelial Cell Urine Few /hpf (Few); WBC Urine 0-3 /hpf (0-3)
[2021-11-26 12:36] LABS: Band Neutrophils Percent 0 % (0-6); Eosinophils Absolute Manual 0.07 K/mm3 (0.02-0.5); Eosinophils Percent Manual 2 % (1-6); Lymphocytes Percent Manual 23 % (18-44); Monocytes Absolute Manual 0.28 K/mm3 (0.1-0.90); Monocytes Percent Manual 8 % (3-9); Neutrophils Absolute Manual 2.34 K/mm3 (1.7-7.2); Neutrophils Percent Manual 67 % (46-73); Platelet Estimate Adequate (Adequate); Total Cells Counted 100
[2021-11-26 12:37] LABS: SARS-CoV-2 Ag Negative (Negative)
[2021-11-26 12:38] LABS: Lactic Acid Reflex 0.5 mmol/L (0.4-2.0)
[2021-11-26 12:46] LABS: Acetaminophen 2 ug/mL (10-30); Alanine Aminotransferase 15 U/L (14-59); Albumin Level 2.7 g/dL (3.4-5.0); Alkaline Phosphatase 69 U/L (46-116); Anion Gap 8 mmol/L (8-16); Aspartate Amino Transferase 17 U/L (15-37); Bilirubin,Total 0.5 mg/dL (0.00-1.00); Blood Urea Nitrogen 12 mg/dL (7-18); Calcium 8.5 mg/dL (8.5-10.1); Carbon Dioxide 31 mmol/L (21-32); Chloride 105 mmol/L (98-108); Estimated CRCL calculation 52 ml/min; Estimated Glomerular Filt Rate > 60; Glucose 93 mg/dL (70-99); Lipase 49 U/L (73-393); NT Pro B Type Natriuretic Pept 1446 pg/mL (0-450); Osmolality Calculated 297 mOsm/kg (285-295); Salicylate 0.7 mg/dL (2.8-20.0); Sodium 144 mmol/L (136-145); Thyroid Stimulating Hormone 2.19 uIU/mL (0.36-3.74); Total Protein 5.8 g/dL (6.4-8.2); Troponin I 11.1 ng/L (0.00-60.4)
[2021-11-26 12:47] LABS: Ethanol < 3 mg/dL (0-6)
[2021-11-26 13:00] VITALS: BP 168/58; PULSE 83; O2SAT 97
--- NOTE | 2021-11-26 13:23 | PC.NURSE ---
charity ohara contacted to come evaluate pt for suicidal ideation. erp at bedside discussing care plan with pt and daughter.
[2021-11-26] MEDS: POTASSIUM CHLORIDE 20 MEQ TABLET PO (13:34)
[2021-11-26 14:30] VITALS: BP 132/60; PULSE 72; RESP 16; TEMP 36.2; O2SAT 98
== END 2021-11-26 14:52 | disposition home or self-care (01) ==
PROVIDERS: Emergency Provider Internal Medicine Critical Care Medicine; PCP Family Medicine
DX: D64.9 Anemia, unspecified (principal); D70.9 Neutropenia, unspecified; K27.9 Peptic ulcer, site unspecified, unspecified as acute or chronic, without hemorrhage or perforation; R10.13 Epigastric pain; F32.A Depression, unspecified; R45.851 Suicidal ideations; E11.9 Type 2 diabetes mellitus without complications; E03.9 Hypothyroidism, unspecified; I10 Essential (primary) hypertension; F41.9 Anxiety disorder, unspecified; Z20.822 Contact with and (suspected) exposure to COVID-19; Z79.899 Other long term (current) drug therapy
CPT/HCPCS: 36415; 80053; 80307; 81001; 83605; 83690; 83880; 84443; 84484; 85025; 85610; 85730; 87426; 93005; 99284; A9270; C9803

== ENCOUNTER 2021-12-04 12:09 | Outpatient (CLI) | payer MEDICARE, SELFPAY ==
[2021-12-04 12:34] LABS: Hematocrit 27.5 % (35.0-42.0); Mean Corpuscular HGB Conc 29.1 g/dL (32.0-36.0); Mean Corpuscular Hemoglobin 24.8 pg (27.0-31.0); Mean Corpuscular Volume 85.4 fL (78.0-102.0); Mean Platelet Volume 9.1 fl (9.2-11.8); Platelet Count Result 209 K/mm3 (150-420); Red Blood Count 3.22 M/mm3 (4.20-5.40); Red Cell Distribution Width 14.5 % (11.6-14.4); White Blood Count 3.2 K/mm3 (4.8-10.8)
[2021-12-04 12:52] LABS: Alanine Aminotransferase 16 U/L (14-59); Albumin Level 2.9 g/dL (3.4-5.0); Alkaline Phosphatase 98 U/L (46-116); Anion Gap 4 mmol/L (8-16); Aspartate Amino Transferase 14 U/L (15-37); Bilirubin,Total 0.3 mg/dL (0.00-1.00); Blood Urea Nitrogen 14 mg/dL (7-18); Calcium 8.5 mg/dL (8.5-10.1); Carbon Dioxide 31 mmol/L (21-32); Chloride 104 mmol/L (98-108); Estimated Glomerular Filt Rate 60; Glucose 73 mg/dL (70-99); Osmolality Calculated 287 mOsm/kg (285-295); Potassium 3.7 mmol/L (3.5-5.1); Sodium 139 mmol/L (136-145); Total Protein 5.9 g/dL (6.4-8.2)
[2021-12-04 13:28] LABS: Total Cells Counted 100
[2021-12-04 13:29] LABS: Band Neutrophils Percent 0 % (0-6); Basophils Absolute Manual 0.03 K/mm3 (0-0.1); Basophils Percent Manual 1 % (0-1); Eosinophils Absolute Manual 0.03 K/mm3 (0.02-0.5); Eosinophils Percent Manual 1 % (1-6); Lymphocytes Absolute Manual 1.15 K/mm3 (1.1-4.5); Lymphocytes Percent Manual 36 % (18-44); Monocytes Absolute Manual 0.19 K/mm3 (0.1-0.90); Monocytes Percent Manual 6 % (3-9); Neutrophils Absolute Manual 1.79 K/mm3 (1.7-7.2); Neutrophils Percent Manual 56 % (46-73)
[2021-12-04 13:30] LABS: Hypochromasia 1+ (NORMAL); Platelet Estimate Adequate (Adequate)
== END 2021-12-04 12:10 | disposition home or self-care (01) ==
LOC: CHSLAB 12:12
PROVIDERS: PCP Family Medicine; Visit Provider Family Medicine
DX: E87.6 Hypokalemia (principal)
CPT/HCPCS: 36415; 80053; 85025

== ENCOUNTER 2021-12-09 11:26 | Emergency (ER) | payer MEDICARE, SELFPAY ==
--- NOTE | ~2021-12-09 | CT_ITS ---
EXAMINATION: CT abdomen pelvis w con DATE: 12/09/2021 13:01 INDICATION: Abdominal pain. TECHNIQUE: Computed tomography (CT) of the abdomen and pelvis was performed without intravenous contr ast. Automated exposure control and iterative reconstruction technique were employed. The dose-length product was 263.97 mGy-cm. COMPARISON: CT dated 09/15/2021, and MRI/MRCP dated 04/23/2015 FINDINGS: Multiple calcified nodules in the bilateral lower lungs and calcified left hilar lymph nodes consiste nt with old granulomatous disease. Small left pleural effusion. Heart size is normal. Atherosclerotic coronary artery calcification and mitral annular calcific location. No pericardial effusion. Small s liding-type hiatal hernia unchanged of prior Matthias-en-Y gastric bypass procedure with anastomoses in t he left upper quadrant. Interval progression of now moderate chronic intrahepatic biliary ductal dila tion. There is also dilation of the common bile duct which measures up to 1.6 similar right main panc reatic duct which measures up to 1.4 cm in the pancreatic duct extending into the uncinate process wh ich measures up to 8 mm, all of which also appear mildly increased when compared with the prior study . No evident obstructing stones or masses. Gallbladder is not visualized and likely surgically absent . Spleen and bilateral adrenal glands are normal. Mild bilateral hydronephrosis, right greater than l eft. Bladder is normal. No bowel obstruction. The appendix is not visualized. No pericecal inflammato ry change to suggest acute appendicitis. The uterus is not identified and has likely been surgically resected. Small amount of ascites in the deep pelvis. Moderate to severe lumbar spondylosis. Small ri ght acetabular bone island. Chronic L1 compression fractures with slight depression of the right side of the superior endplate. IMPRESSION: 1. Moderate intra and extra hepatic biliary ductal dilation more prominent than on the most recent pr ior study but relatively similar in degree to an earlier MRI dated 04/23/2015 without evident obstruct ing stone or mass. Correlate with liver function tests and could consider further evaluation with [facility] P as clinically indicated. 2. Small left pleural effusion and small amount of ascites in the cul-de-sac. 3. Mild bilateral hydronephrosis without evident obstructing stone or mass most likely related to chr onic outlet obstruction or neurogenic bladder. 4. Small sliding-type hiatal hernia with change of Matthias-en-Y gastric bypass procedure. Reviewed, dictated and finalized at location B. IMPRESSION: 1. Moderate intra and extra hepatic biliary ductal dilation more prominent than on the most recent prior study but relatively similar in degree to an earlier MRI dated 04/23/2015 without evident obstructing stone or mass. Correlate with l iver function tests and could consider further evaluation with MRCP as clinical ly indicated. 2. Small left pleural effusion and small amount of ascites in the cul-de-sac. 3. Mild bilateral hydronephrosis without evident obstructing stone or mass most likely related to chronic outlet obstruction or neurogenic bladder. 4. Small sliding-type hiatal hernia with change of Matthias-en-Y gastric bypass pro cedure.
[2021-12-09 11:36] VITALS: BP 157/55; PULSE 58; RESP 24; TEMP 36.8; O2SAT 100
--- NOTE | 2021-12-09 11:48 | ED.ABDPAIN ---
HPI - Abdominal Pain General Chief Complaint: Abdominal Pain Stated Complaint: ABD Pain, from GI Doctor Office Time Seen by Provider: 12/09/21 11:48 History of Present Illness HPI narrative: Patient is a 76-year-old female with a history of stomach ulcerations, history of GI bleeding, presenting to the emergency department for evaluation of abdominal pain referred by nurse practitioner Dr. Cortes's office today. Patient has reported a 2-week history of worsening upper abdominal pain, nausea and vomiting. Patient has had difficulty tolerating oral intake. She denies any constipation or diarrhea. No dysuria, hematuria. She denies significant abdominal distention. Patient reports decreased oral intake secondary to her symptoms and in the past has been diagnosed with hypokalemia in the setting of dehydration. Patient reports aching pain in the upper part of her central abdomen without radiation to the chest, back, flank. No ripping or tearing sensation to the pain. Related Data Home Medications Medication Instructions Recorded Confirmed duloxetine 30 mg capsule,delayed 30 mg PO BID 06/28/19 12/09/21 release gabapentin 600 mg tablet 600 mg PO HS 06/28/19 12/09/21 levothyroxine 50 mcg capsule 50 mcg PO DAILY 06/28/19 12/09/21 (Tirosint) trazodone 50 mg tablet 50 mg PO HS 06/28/19 12/09/21 divalproex 250 mg tablet,delayed 500 mg PO BID 03/03/20 12/09/21 release donepezil 10 mg tablet 10 mg PO QHS 05/18/21 12/09/21 metformin 500 mg tablet 500 mg PO DAILY 09/15/21 12/09/21 pantoprazole 40 mg tablet,delayed 40 mg PO DAILY 09/15/21 12/09/21 release Allergies Allergy/AdvReac Type Severity Reaction Status Date / Time butorphanol Allergy Intermediate Dizziness, Verified 12/09/21 11:40 Paranoia oxycodone [Percocet] Allergy Intermediate Itching Verified 12/09/21 11:40 Review of Systems Review of Systems: CONSTITUTIONAL: Denies fever, chills, or sweats. EYES: Denies visual changes, redness, or discharge. ENT: Denies rhinorrhea, congestion, sore throat, or otalgia. CARDIOVASCULAR: Denies chest pain, palpitations, or edema. RESPIRATORY: Denies cough or dyspnea. GASTROINTESTINAL: Reports abdominal pain, nausea, vomiting GENITOURINARY: Denies dysuria or hematuria. SKIN: Denies rash or itching. MUSCULOSKELETAL: Denies back pain, joint pain, or myalgia. NEUROLOGIC: Denies headache, numbness, or weakness. [facility] Past Medical History Medical History Acute upper respiratory infections of unspecified site (10/07/16) CKD (chronic kidney disease) stage 3, GFR 30-59 ml/min Cough (10/07/16) Depression (09/02/15) Dizziness (11/23/16) Dysuria (03/05/16) Essential hypertension GERD (gastroesophageal reflux disease) (09/02/15) HOCM (hypertrophic obstructive cardiomyopathy) FLACO on CPAP Type 2 diabetes mellitus (05/18/16) Surgical History Surgical History History of cholecystectomy History of gastric bypass History of hysterectomy Family History Family History Mother Carcinoma of colon Family history of Alzheimer's disease Sibling Carcinoma of colon Family history of malignant neoplasm of uterus Father Patient's father is Other Diabetes mellitus Family history of malignant neoplasm Family history of sleep apnea Family history of thyroid disease Hypertension Social History Social History Smoking packs per day: 0.5 Smoking cigarettes per day: 10.0 Years smoked: 15 Smoking pack-years: 7.50 Smoking status: Former smoker Alcohol intake: never Alcohol use details: has not been drinking lately due to abdominal pain Substance use: never Substance use type: does not use Spiritual care concerns: No Exam Narrative: GENERAL: Awake, alert, conversant HEAD
[2021-12-09 11:53] LABS: Basophils Percent Auto 0.2 % (0.2-1.2); Eosinophils Percent Auto 0.9 % (0-4.4); Hematocrit 28.8 % (37.0-47.0); Hemoglobin 8.4 g/dL (12.0-15.0); Immature Granulocyte Absolute 0.01 K/mm3 (0.00-0.031); Immature Granulocyte Percent A 0.2 % (0-0.5); Lymphocytes Absolute Auto 1.02 K/mm3 (0.9-3.2); Lymphocytes Percent Auto 23.8 % (18.3-44.2); Mean Corpuscular HGB Conc 29.2 g/dl (32-36); Mean Corpuscular Volume 85.7 fl (80-100); Mean Platelet Volume 9.5 fl (7.4-10.4); Monocytes Absolute Auto 0.3 K/mm3 (0.1-0.6); Neutrophils Absolute Auto 2.9 K/mm3 (1.3-6.7); Neutrophils Percent Auto 67.9 % (45.5-73.1); Platelet Count Result 236 k/mm3 (150-375); Red Blood Count 3.36 M/mm3 (4.2-5.4); Red Cell Distribution Width 14.6 % (11.5-14.5); White Blood Count 4.3 K/mm3 (4.5-10.0)
[2021-12-09 12:05] LABS: Alanine Aminotransferase 10 U/L (6-35); Albumin Level 3.3 g/dL (3.5-5.1); Alkaline Phosphatase 80 U/L (38-126); Anion Gap 1 mmol/L (8-16); Aspartate Amino Transferase 23 U/L (14-36); Bilirubin,Total 0.3 mg/dL (0.2-1.3); Blood Urea Nitrogen 11 mg/dL (7-17); Calcium 8.4 mg/dL (8.4-10.2); Carbon Dioxide 29 mmol/L (22-30); Chloride 104 mmol/L (98-107); Estimated CRCL calculation 53 ml/min; Estimated Glomerular Filt Rate > 60; Glucose 83 mg/dL (65-110); Hypochromasia 1+ (NORMAL); Lipase 63 U/L (23-300); Platelet Estimate Adequate (Adequate); Potassium 4.4 mmol/L (3.4-5.0); Sodium 134 mmol/L (137-145)
[2021-12-09 12:06] LABS: Ovalocytes 1+ (NORMAL)
[2021-12-09] MEDS: MORPHINE SULFATE (*CRX) 4 MG/ML INJ IV PUSH (12:07)
[2021-12-09] MEDS: DICYCLOMINE HCL INJ 20 MG/2 ML VIAL IM (12:07)
[2021-12-09] MEDS: ONDANSETRON INJ 4 MG/2 ML VIAL IV PUSH (12:07)
[2021-12-09] MEDS: SODIUM CHLORIDE 0.9% IV 1,000 ML 999 ML IV CONT (12:08)
[2021-12-09 12:12] LABS: Appearance Urine Clear (Clear); Bilirubin Urine Negative (Negative); Blood Urine Negative (Negative); Color Urine Yellow (Yellow); Glucose Urine UA Negative (Negative); Ketones Urine Negative (Negative); Leukocyte Esterase Ur Negative LEU/UL (Negative); Nitrate Urine Negative (Negative); Protein Urine Negative (Negative); Specific Grav Ur 1.015 (1.001-1.035); Urobilinogen Urine 0.2 mg/dL (<2.0); pH Urine 8.5 (5.0-9.0)
[2021-12-09 12:20] LABS: Add Urine Microscopic? NO
[2021-12-09 13:30] VITALS: BP 157/61; PULSE 65
== END 2021-12-09 14:58 | disposition home or self-care (01) ==
PROVIDERS: Emergency Provider Emergency Medicine; PCP Family Medicine
DX: R10.10 Upper abdominal pain, unspecified (principal); I12.9 Hypertensive chronic kidney disease with stage 1 through stage 4 chronic kidney disease, or unspecified chronic kidney disease; E11.22 Type 2 diabetes mellitus with diabetic chronic kidney disease; N18.30 Chronic kidney disease, stage 3 unspecified; Z79.84 Long term (current) use of oral hypoglycemic drugs; K21.9 Gastro-esophageal reflux disease without esophagitis; G47.30 Sleep apnea, unspecified
CPT/HCPCS: 36415; 51701; 74177; 80053; 81003; 83690; 85025; 96365; 96372; 96375; 99284; J0131; J0500; J2270; J2405; J7030; Q9967

== ENCOUNTER 2021-12-18 12:48 | Outpatient (CLI) | payer MEDICARE, SELFPAY ==
--- NOTE | 2021-12-18 13:07 | PC.NURSE ---
Pt to room 227 amb. A&Ox3. Plan of care explained. Pt has no question or concerns. Oriented to room. Call colin in reach. Reminded to call with needs.
[2021-12-18] MEDS: IRON SUCROSE COMPLEX 200 MG in SODIUM CHLORIDE 0.9% IV 250 ML 250 MG IVPB (13:16)
[2021-12-18 13:20] VITALS: BP 99/44; PULSE 56; RESP 20; TEMP 35.9; O2SAT 99
--- NOTE | 2021-12-18 14:23 | PC.NURSE ---
Venofer infused as ordered. Pt tolerated well. Has no complaints. Discharged to home amb. per self.
== END 2021-12-18 12:49 | disposition home or self-care (01) ==
LOC: CHSTREATRM 12:51
PROVIDERS: PCP Family Medicine; Visit Provider Family Medicine
DX: E61.1 Iron deficiency (principal)
CPT/HCPCS: 96365; J1756; J7050

== ENCOUNTER 2022-01-13 11:31 | Outpatient (CLI) | payer MEDICARE, SELFPAY ==
--- NOTE | ~2022-01-13 | XR_ITS ---
XR thoracic spine 3V DATE: 01/13/2022 11:58 INDICATION: Mid to upper thoracic spine pain after a fall last year TECHNIQUE: AP, lateral, swimmer views COMPARISON: None FINDINGS: Osteopenia. Degenerative disc disease of the mid and lower cervical spine. No thoracic spine fracture or bone destruction is evident. The thoracic pedicles are intact. No viola ellen soft tissue thickening. There is mild to moderate degenerative spurring of the thoracic spine. IMPRESSION: Osteopenia Degenerative changes of the thoracic and lumbar spine Reviewed, dictated and finalized at location A.
[2022-01-13 11:51] LABS: Basophils Absolute Auto 0.01 K/mm3 (0.00-0.10); Basophils Percent Auto 0.2 % (0.0-1.0); Eosinophils Absolute Auto 0.02 K/mm3 (0.02-0.50); Eosinophils Percent Auto 0.5 % (1.0-6.0); Hematocrit 35.1 % (35.0-42.0); Hemoglobin 10.4 g/dL (11.7-13.8); Immature Granulocyte Absolute 0.01 K/mm3 (0.00-0.00); Immature Granulocyte Percent A 0.2 % (0.0-0.0); Immature Reticulocyte Fraction 11.5 % (2.0-16.52); Lymphocytes Absolute Auto 1.24 K/mm3 (1.10-4.50); Lymphocytes Percent Auto 29.5 % (18.0-42.0); Mean Corpuscular HGB Conc 29.6 g/dL (32.0-36.0); Mean Corpuscular Hemoglobin 24.8 pg (27.0-31.0); Mean Corpuscular Volume 83.6 fL (78.0-102.0); Mean Platelet Volume 8.9 fl (9.2-11.8); Monocytes Absolute Auto 0.29 K/mm3 (0.10-0.90); Monocytes Percent Auto 6.9 % (2.0-11.0); Neutrophils Absolute Auto 2.6 K/mm3 (1.7-7.2); Neutrophils Percent Auto 62.7 % (50.0-70.0); Platelet Count Result 273 K/mm3 (150-420); Red Cell Distribution Width 17.6 % (11.6-14.4); Reticulocyte Hemoglobin Conten 28.5 pg (28.0-35.0); Reticulocyte Percent 0.95 % (0.50-1.50); Reticulocytes Absolute 0.04 M/mm3 (0.02-0.1); White Blood Count 4.2 K/mm3 (4.8-10.8)
[2022-01-13 12:28] LABS: Ferritin 26 ng/mL (8-252); Iron 28 ug/dL (50-170); Percent Iron Saturation 10 % (12-57)
== END 2022-01-13 11:32 | disposition home or self-care (01) ==
LOC: CHSLAB 11:34
PROVIDERS: PCP Family Medicine; Visit Provider Family Medicine
DX: D50.0 Iron deficiency anemia secondary to blood loss (chronic) (principal); M54.9 Dorsalgia, unspecified
CPT/HCPCS: 36415; 72072; 82728; 83540; 83550; 85025; 85046

== ENCOUNTER 2022-01-26 09:26 | Outpatient (CLI) | payer MEDICARE, SELFPAY ==
--- NOTE | 2022-01-26 09:35 | PC.NURSE ---
Pt to room 202 amb per self. A&Ox3. Has no questions or concerns. Oriented to room. Call colin in reach. Reminded to call with needs.
[2022-01-26] MEDS: IRON SUCROSE COMPLEX 200 MG in SODIUM CHLORIDE 0.9% IV 250 ML 250 MG IVPB (09:53)
--- NOTE | 2022-01-26 09:54 | PC.NURSE ---
Medication would not scan due to wrinkle in the labor.
--- NOTE | 2022-01-26 11:01 | PC.NURSE ---
Medication infused. Pt tolerated well. Has no complaints. Discharged to home amb per self.
== END 2022-01-26 09:27 | disposition home or self-care (01) ==
LOC: CHSTREATRM 09:29
PROVIDERS: PCP Family Medicine; Visit Provider Family Medicine
DX: D50.9 Iron deficiency anemia, unspecified (principal)
CPT/HCPCS: 96365; J1756; J7050

== ENCOUNTER 2022-01-30 08:36 | Emergency (ER) | payer MEDICARE, SELFPAY ==
[2022-01-30 09:12] VITALS: BP 94/76; PULSE 85; RESP 16; TEMP 36.9; O2SAT 100
--- NOTE | 2022-01-30 09:20 | ED.ANIMALBIT ---
HPI - Animal Bite General Chief Complaint: Animal Bite Stated Complaint: dog bite on L hand Source: patient Mode of arrival: ambulatory Limitations: no limitations History of Present Illness HPI narrative: 76 year old female presents to the Emergency Department with a dog bite to the dorsal left hand. Patient states her dog bit her hand 01/26/22. States wound is getting worse. Has been keeping clean with soap and water. Dog has just had his immunizations. Patient does not know when her last tetanus was given but states more than 5 years. No fever, nausea, vomiting, numbness or tingling. MD complaint: animal bite (patient's dog) Onset (ago): day(s) (4) Animal: dog Description of animal: household pet Mechanism: bite Location: other (left hand) Location - Extremities: Left: hand Pain description: dull Context: unprovoked Associated symptoms: erythema Treatments prior to arrival: other (keeping clean with soap and water) Related Data Patient tetanus UTD: No Home Medications Medication Instructions Recorded Confirmed duloxetine 30 mg capsule,delayed 30 mg PO BID 06/28/19 12/09/21 release gabapentin 600 mg tablet 600 mg PO HS 06/28/19 12/09/21 levothyroxine 50 mcg capsule 50 mcg PO DAILY 06/28/19 12/09/21 (Tirosint) trazodone 50 mg tablet 50 mg PO HS 06/28/19 12/09/21 divalproex 250 mg tablet,delayed 500 mg PO BID 03/03/20 12/09/21 release donepezil 10 mg tablet 10 mg PO QHS 05/18/21 12/09/21 metformin 500 mg tablet 500 mg PO DAILY 09/15/21 12/09/21 pantoprazole 40 mg tablet,delayed 40 mg PO DAILY 09/15/21 12/09/21 release Allergies Allergy/AdvReac Type Severity Reaction Status Date / Time butorphanol Allergy Intermediate Dizziness, Verified 01/30/22 09:11 Paranoia oxycodone [Percocet] Allergy Intermediate Itching Verified 01/30/22 09:11 Review of Systems Review of Systems: All systems reviewed & are unremarkable except as noted in HPI and below Constitutional: Constitutional: Reports as per HPI, Reports no additional constitutional complaints, Denies chills, Denies fever(s), Denies malaise and Denies weakness Eyes: Eyes: Reports no additional eye complaints ENT: Reports system reviewed and no additional complaints, except as documented Cardiovascular: Cardiovascular: Reports no additional cardiovascular complaints Respiratory: Respiratory: Reports no additional respiratory complaints Gastrointestinal: Gastrointestinal: Reports no additional gastrointestinal complaints, Denies diarrhea, Denies nausea and Denies vomiting Genitourinary: Genitourinary: Reports no additional female genitourinary complaints Musculoskeletal: Musculoskeletal: Reports no additional musculoskeletal complaints, Reports as per HPI, Denies muscle weakness, Denies numbness and Denies tingling Integumentary/Breasts: Skin/Breast: Reports system reviewed and no additional complaints, except as docu, Reports as per HPI, Reports swelling and Reports erythema Neurologic: Reports system reviewed and no additional complaints, except as documented, Denies numbness and Denies tingling Psychiatric: Psychiatric: Reports no additional psychiatric complaints Endocrine: Endocrine: Reports no additional endocrine complaints Hematologic/Lymphatic: Hematologic/Lymphatic: Reports no additional hematologic/lymphatic complaints Allergic/Immunologic: Allergic/Immunologic: Reports no additional allergic/immunologic complaints PMFSH Past Medical History Medical History Acute upper respiratory infections of unspecified site (10/07/16) CKD (chronic kidney disease) stage 3, GFR 30-59 ml/min Cough (10/07/16) Depression (09/02/15) Dizziness (11/23/16) Dysuria (03/05/16) Essential hypertension GERD (gastroesophageal reflux disease) (09/02/15) HOCM (hypertrophic obstructive cardiomyopathy) FLACO on CPAP Type 2 diabetes mellitus (05/18/16) Surgical History Surgical History (Reviewed
[2022-01-30] MEDS: AMOXICILLIN/CLAVULANATE K 875-125 MG TAB 1 TABLET PO (09:52)
--- NOTE | 2022-01-30 10:16 | PC.NURSE ---
unable to give patient dt due to not available. Attempted to call [facility] and they did not have them available. Pt informed to follow up with PMD for tetanus. Pt verbalized understanding.
--- NOTE | 2022-01-30 10:18 | PC.NURSE ---
Rabied form completed and faxed to [facility] [employer].
== END 2022-01-30 10:18 | disposition home or self-care (01) ==
PROVIDERS: Emergency Provider Emergency Medicine; PCP Family Medicine
DX: S61.452A Open bite of left hand, initial encounter (principal); W54.0XXA Bitten by dog, initial encounter
CPT/HCPCS: 99283; A9270; J1670

== ENCOUNTER 2022-02-04 00:46 | Day surgery (SDC) | payer MEDICARE, SELFPAY ==
[2022-02-02 09:11] VITALS: BMI 20.2
--- NOTE | 2022-02-03 12:39 | PM.HPGS ---
History of Present Illness History of Present Illness Consent: Risks, benefits, and alternatives have been discussed and questions answered. Patient agrees to proceed with procedure. Chief complaint: gastric ulcer Narrative: Catie Painter is a 76 year old female With a chronic gastrojejunal ulcer, just beyond the anastomosis, which resulted in a gastrointestinal bleed 6 months ago. She apparently had for gotten to continue her medication, pantoprazole. She returns now for follow-up to assess healing Review of Systems Review of Systems: All systems reviewed & are unremarkable except as noted in HPI and below PMFSH Past Medical History Medical History Acute upper respiratory infections of unspecified site (10/07/16) CKD (chronic kidney disease) stage 3, GFR 30-59 ml/min Cough (10/07/16) Depression (09/02/15) Dizziness (11/23/16) Dysuria (03/05/16) Essential hypertension GERD (gastroesophageal reflux disease) (09/02/15) HOCM (hypertrophic obstructive cardiomyopathy) FLACO on CPAP Type 2 diabetes mellitus (05/18/16) Surgical History Surgical History History of cholecystectomy History of gastric bypass History of hysterectomy Family History Family History Mother Carcinoma of colon Family history of Alzheimer's disease Sibling Carcinoma of colon Family history of malignant neoplasm of uterus Father Patient's father is Other Diabetes mellitus Family history of malignant neoplasm Family history of sleep apnea Family history of thyroid disease Hypertension Social History Social History Smoking packs per day: 0.5 Smoking cigarettes per day: 10.0 Years smoked: 15 Smoking pack-years: 7.50 Smoking status: Former smoker Alcohol intake: never Alcohol use details: has not been drinking lately due to abdominal pain Substance use: never Substance use type: does not use Living arrangements: alone Spiritual care concerns: No Meds Home Medications and Allergies Home Medications Medication Instructions Recorded Confirmed Type duloxetine 30 mg capsule,delayed 30 mg PO BID 06/28/19 02/04/22 History release gabapentin 600 mg tablet 600 mg PO HS 06/28/19 02/04/22 History levothyroxine 50 mcg capsule 50 mcg PO DAILY 06/28/19 02/04/22 History (Tirosint) trazodone 50 mg tablet 50 mg PO HS 06/28/19 02/04/22 History divalproex 250 mg tablet,delayed 500 mg PO BID 03/03/20 02/04/22 History release donepezil 10 mg tablet 10 mg PO QHS 05/18/21 02/04/22 History metoprolol succinate 25 mg 12.5 mg PO DAILY #30 tabs 07/24/21 02/04/22 Rx tablet,extended release 24 hr metformin 500 mg tablet 500 mg PO DAILY 09/15/21 02/04/22 History pantoprazole 40 mg tablet,delayed 40 mg PO DAILY 09/15/21 02/04/22 History release dicyclomine 10 mg capsule 10 mg PO TID 5 days #15 caps 12/09/21 02/04/22 Rx sucralfate 1 gram tablet 1 g PO ACHS #120 tabs 12/09/21 02/04/22 Rx amoxicillin 875 mg-potassium 1 tablet PO Q12H dog bite #14 tabs 01/30/22 02/04/22 Rx clavulanate 125 mg tablet cyanocobalamin (vitamin B-12) 1,000 mcg IM MONTHLY 02/02/22 02/04/22 History 1,000 mcg/mL injection solution escitalopram oxalate 5 mg tablet 5 mg PO DAILY 02/02/22 02/04/22 History sumatriptan succinate 50 mg tablet 50 mg PO PRN PRN Migraine Headache 02/02/22 02/04/22 History Allergies Allergy/AdvReac Type Severity Reaction Status Date / Time butorphanol Allergy Severe Dizziness, Verified 02/04/22 06:22 Paranoia oxycodone [Percocet] Allergy Intermediate Itching Verified 02/04/22 06:22 Exam Const: General: alert Orientation/consciousness: patient oriented x3 Resp: Auscultation: clear to auscultation bilaterally Cardio: Rhythm: regular rhythm GI: GI Palp: Yes Soft t
[2022-02-04 06:25] VITALS: BP 145/47; PULSE 65; RESP 18; TEMP 36.6; O2SAT 99; BMI 20.6
[2022-02-04 06:34] LABS: Glucose Point of Care 48 mg/dl (65-105)
[2022-02-04] MEDS: LACTATED RINGERS 1,000 ML 150 ML IV CONT (06:43)
[2022-02-04] MEDS: DEXTROSE 50% 25 GM/50 ML SYRINGE IV PUSH (06:43)
[2022-02-04 07:10] LABS: Glucose Point of Care 98 mg/dl (65-105)
--- NOTE | 2022-02-04 07:20 | WPDANESEPPF ---
Anes - Initial Pre Proc Eval Procedure: Operation Date: 02/04/22 07:30 Proposed Procedures p Esophagogastroduodenoscopy - Sharath Cortes MD Date/Time: 02/04/22 07:20 Surgeon: Sharath Cortes MD Pre Op Diagnosis: gastric ulcer Patient Data Age: 76 Gender: F Height: 1.65 m Weight: 56.2 kg Last Vital Signs Temp 97.9 F 02/04/22 06:25 Pulse 65 02/04/22 06:25 Resp 18 02/04/22 06:25 BP 145/47 H 02/04/22 06:25 Pulse Ox 99 02/04/22 06:25 O2 Del Method Room Air 02/04/22 06:25 Allergies Allergy/AdvReac Type Severity Reaction Status Date / Time butorphanol Allergy Severe Dizziness, Verified 02/04/22 06:22 Paranoia oxycodone [Percocet] Allergy Intermediate Itching Verified 02/04/22 06:22 Home Medications Medication Instructions Recorded Confirmed Type duloxetine 30 mg capsule,delayed 30 mg PO BID 06/28/19 02/04/22 History release gabapentin 600 mg tablet 600 mg PO HS 06/28/19 02/04/22 History levothyroxine 50 mcg capsule 50 mcg PO DAILY 06/28/19 02/04/22 History (Tirosint) trazodone 50 mg tablet 50 mg PO HS 06/28/19 02/04/22 History divalproex 250 mg tablet,delayed 500 mg PO BID 03/03/20 02/04/22 History release donepezil 10 mg tablet 10 mg PO QHS 05/18/21 02/04/22 History metoprolol succinate 25 mg 12.5 mg PO DAILY #30 tabs 07/24/21 02/04/22 Rx tablet,extended release 24 hr metformin 500 mg tablet 500 mg PO DAILY 09/15/21 02/04/22 History pantoprazole 40 mg tablet,delayed 40 mg PO DAILY 09/15/21 02/04/22 History release dicyclomine 10 mg capsule 10 mg PO TID 5 days #15 caps 12/09/21 02/04/22 Rx sucralfate 1 gram tablet 1 g PO ACHS #120 tabs 12/09/21 02/04/22 Rx amoxicillin 875 mg-potassium 1 tablet PO Q12H dog bite #14 tabs 01/30/22 02/04/22 Rx clavulanate 125 mg tablet cyanocobalamin (vitamin B-12) 1,000 mcg IM MONTHLY 02/02/22 02/04/22 History 1,000 mcg/mL injection solution escitalopram oxalate 5 mg tablet 5 mg PO DAILY 02/02/22 02/04/22 History sumatriptan succinate 50 mg tablet 50 mg PO PRN PRN Migraine Headache 02/02/22 02/04/22 History Laboratory Tests 02/04/22 02/04/22 06:30 07:09 POC Capillary Glucose 48 mg/dl L* mg/dl 98 mg/dl mg/dl (65-105) (65-105) Patient hx anesthesia problems: none Family hx anesthesia problems: none Results Review: All pre-operative results and documents have been reviewed as part of the pre-operative evaluation. [facility] Past Medical History Medical History Acute upper respiratory infections of unspecified site (10/07/16) CKD (chronic kidney disease) stage 3, GFR 30-59 ml/min Cough (10/07/16) Depression (09/02/15) Dizziness (11/23/16) Dysuria (03/05/16) Essential hypertension GERD (gastroesophageal reflux disease) (09/02/15) HOCM (hypertrophic obstructive cardiomyopathy) FLACO on CPAP Type 2 diabetes mellitus (05/18/16) Surgical History Surgical History History of cholecystectomy History of gastric bypass History of hysterectomy Family History Family History Mother Carcinoma of colon Family history of Alzheimer's disease Sibling Carcinoma of colon Family history of malignant neoplasm of uterus Father Patient's father is Other Diabetes mellitus Family history of malignant neoplasm Family history of sleep apnea Family history of thyroid disease Hypertension Social History Social History Smoking packs per day: 0.5 Smoking cigarettes per day: 10.0 Years smoked: 15 Smoking pack-years: 7.50 Smoking status: Former smoker Alcohol intake: never Alcohol use details: has not been drinking lately due to abdominal pain Substance use: never Substance use type: does not use Living arrangements: alone Spiritual care concerns:
[2022-02-04 07:41] VITALS: BP 136/52; PULSE 59; RESP 28; O2SAT 100
[2022-02-04 07:51] VITALS: BP 139/54; PULSE 62; RESP 24; O2SAT 100
[2022-02-04 08:01] VITALS: BP 137/62; PULSE 64; RESP 19; O2SAT 100
== END 2022-02-04 08:08 | disposition home or self-care (01) ==
PROVIDERS: PCP Family Medicine; Visit Provider Internal Medicine Gastroenterology
PROC: 0DJ08ZZ Inspection of Upper Intestinal Tract, Via Natural or Artificial Opening Endoscopic (ICD-10-PCS; CPT 43235; principal; 2022-02-04 07:30)
DX: Z09 Encounter for follow-up examination after completed treatment for conditions other than malignant neoplasm (principal); K63.3 Ulcer of intestine; I12.9 Hypertensive chronic kidney disease with stage 1 through stage 4 chronic kidney disease, or unspecified chronic kidney disease; G47.33 Obstructive sleep apnea (adult) (pediatric); E11.22 Type 2 diabetes mellitus with diabetic chronic kidney disease; N18.30 Chronic kidney disease, stage 3 unspecified; T85.898A Other specified complication of other internal prosthetic devices, implants and grafts, initial encounter; K21.9 Gastro-esophageal reflux disease without esophagitis; Z90.49 Acquired absence of other specified parts of digestive tract; Z87.891 Personal history of nicotine dependence; E03.9 Hypothyroidism, unspecified; Z79.84 Long term (current) use of oral hypoglycemic drugs
CPT/HCPCS: 43235; 82948; J2704; J7120

== ENCOUNTER 2022-02-08 08:49 | Outpatient (RCR) | payer MEDICARE, SELFPAY ==
--- NOTE | 2022-02-08 10:13 | PTOPEVAL ---
Thank you for referring Catie Painter to [facility].? The patient is scheduled to be seen for therapy? 1-2x/week for 8 visits. Please review, sign, date and return this plan of care RANDY. I agree with and certify that the following plan of care is medically necessary. Referring Physician Date Admitting Provider: Attending Provider: Davonte Stock MD Referring Provider: *PT Outpatient Evaluation Start: 02/08/22 08:30 Freq: Status: Active Protocol: Document 02/08/22 08:56 [facility] (Rec: 02/08/22 10:12 [facility] [id number]) Therapy Assessment Status Assessment Status Assessment Status Evaluation Outpatient Past Medical History Neurological History Hx Migraine Yes Cardiovascular History Hx Cardiomyopathy Yes: echo done every 2 years/ sees Dr. Chao Hx Hypertension Yes Respiratory History Hx Sleep Apnea Yes: has CPAP but not currently using it Gastrointestinal History Hx Cholecystectomy Yes Hx Gastric Bypass Surgery Yes: 1999 Hx Gastroesophageal Reflux Disease Yes Hx Ulcer Yes: was hospitalized in April,, GASTRIC ULCER- 08/2021 Genitourinary History Hx Urinary Tract Infection Yes Hx Other Genitourinary Disorders Yes: CKD Musculoskeletal History Hx Arthritis Yes Hematological History Hx Hematological Disorders No Significant History Endocrine History Hx Hypothyroidism Yes Hx Other Endocrine Disorders Yes: hypoglycemia at times since gastric bypass HEENT History Hx Cataracts Yes: hx cataract surgeries Integumentary History Hx Other Skin Disorders Yes: dog bite on l- hand 01/26, infected now on antibiotics Reproductive History Hx Post Menopausal Yes Psychosocial History Hx Depression Yes: RECENTLY Pain History History of Any Previous or Ongoing No Significant History Instance of Pain Anesthesia History Hx Anesthesia Reactions No Significant History Evaluation Information Problem Diagnosis Back pain Onset 01/14/22 Subjective Information Pt reports thoracic-region Query Text:As Reported By Patient/ back pain over the last 2-3 Family years. She first noticed pain after she fell and hit her shoulder a few years ago and pain has generally not changed since then. Pain is really
== END 2022-02-25 16:44 | disposition home or self-care (01) ==
LOC: CHSPT 08:49
PROVIDERS: PCP Family Medicine; Visit Provider Family Medicine
DX: M54.9 Dorsalgia, unspecified (principal)
CPT/HCPCS: 97110; 97140; 97161

== ENCOUNTER 2022-02-16 08:29 | Outpatient (CLI) | payer MEDICARE, SELFPAY ==
--- NOTE | ~2022-02-16 | MR_ITS ---
EXAMINATION: MR thoracic spine wo con DATE: 02/16/2022 09:22 INDICATION: Mid back pain. TECHNIQUE: Magnetic resonance imaging (MRI) of the thoracic spine was performed without intravenous c ontrast. Sagittal localizer T1-weighted FSE of the cervical spine was obtained. Thoracic spine sequen jose luis included sagittal T2-weighted FSE, sagittal T1-weighted FSE, sagittal T2-weighted FS FSE, and axi al T2-weighted FSE. COMPARISON: Thoracic spine radiographs 01/13/2022 FINDINGS: There is 3 degrees dextrocurvature of thoracic spine. There is moderate cervical spondylosi s. There is a Schmorl's node of inferior endplate of T11. There is a benign bone island in T8 vertebr al body. In the thoracic spine, intervertebral disc heights are normal. There is multilevel facet remdeios nt osteoarthritis, severe at a few levels. On the left, there is mild neural foraminal stenosis at T9 -T10. At T11-T12, there is a right central protrusion with mild central canal stenosis. The spinal co rd signal intensity is normal. The conus medullaris is at T12-L1. IMPRESSION: 1. Mild thoracic spondylosis. Reviewed, dictated and finalized at location A.
[2022-02-16 09:37] VITALS: BMI 20.5
[2022-02-16] MEDS: IRON SUCROSE COMPLEX 200 MG in SODIUM CHLORIDE 0.9% IV 250 ML 250 MG IVPB (09:40)
[2022-02-16 10:13] VITALS: BP 140/64; PULSE 72; RESP 14; TEMP 36.4; O2SAT 98
--- NOTE | 2022-02-16 11:12 | PC.NURSE ---
Patient here for IV Venofer. Education given. Only concerns was last time hurt at the IV site. Will run it over 90 minutes instead of 60 minutes. IV Venofer administered. SEE MAR. Tolerated well. Safe exit hospital.
== END 2022-02-16 08:30 | disposition home or self-care (01) ==
PROVIDERS: PCP Family Medicine; Visit Provider Family Medicine
DX: D50.0 Iron deficiency anemia secondary to blood loss (chronic) (principal); M54.6 Pain in thoracic spine
CPT/HCPCS: 72146; 96365; 96366; J1756; J7050

== ENCOUNTER 2022-03-16 09:09 | Emergency (ER) | payer MEDICARE, SELFPAY ==
[2022-03-16] VITALS (8 sets, daily range): BP systolic 123–194; BP diastolic 83–108; PULSE 75–87; RESP 12–22; TEMP 36.4; O2SAT 95–100
--- NOTE | ~2022-03-16 | CT_ITS ---
EXAMINATION: CT abdomen pelvis w con DATE: 03/16/2022 10:09 INDICATION: Abdomen pain. History of hysterectomy. TECHNIQUE: Computed tomography (CT) of the abdomen and pelvis was performed with 100 cc Omnipaque 350 intravenous contrast. The dose-length product was 208.67 mGy-cm. Automated exposure control and iter ative reconstruction technique were employed. COMPARISON: CT dated 12/09/2021 FINDINGS: There are calcified granulomas in the lower lobes. Otherwise, the lung bases are unremarkab le. Heart size normal. There is a hiatal hernia with surgical changes of the stomach. There is improv ed intra and extrahepatic biliary dilatation. No obstructing stone or mass identified. There is per p ersistent pancreatic ductal dilation, also improved. The spleen, adrenal glands and left kidney are u nremarkable. There is a small subcentimeter cyst of the right kidney posteriorly. Nonobstructive deo l gas pattern. Bladder is decompressed. Colonic diverticulosis without evidence for diverticulitis. G allbladder not identified, likely surgically absent. No free air or free fluid. Moderate lumbar spond ylosis. There is atherosclerosis of the aorta without aneurysm. No lymphadenopathy. IMPRESSION: 1. Improved biliary and pancreatic ductal dilation. No obstructing stone or mass identified. 2: Small sliding hiatal hernia with gastric bypass surgical changes. Reviewed, dictated and finalized at location B. IMPRESSION: 1. Improved biliary and pancreatic ductal dilation. No obstructing stone or mas s identified. 2: Small sliding hiatal hernia with gastric bypass surgical changes.
[2022-03-16 09:29] LABS: Basophils Percent Auto 0.3 % (0.2-1.2); Eosinophils Percent Auto 0.3 % (0-4.4); Hematocrit 43.3 % (37.0-47.0); Hemoglobin 13.3 g/dL (12.0-15.0); Immature Granulocyte Absolute 0.03 K/mm3 (0.00-0.031); Immature Granulocyte Percent A 0.4 % (0-0.5); Lymphocytes Percent Auto 13.1 % (18.3-44.2); Mean Corpuscular HGB Conc 30.7 g/dl (32-36); Mean Corpuscular Hemoglobin 26.3 pg (26-34); Mean Corpuscular Volume 85.7 fl (80-100); Mean Platelet Volume 9.5 fl (7.4-10.4); Monocytes Absolute Auto 0.4 K/mm3 (0.1-0.6); Monocytes Percent Auto 5.4 % (2.6-8.5); Neutrophils Absolute Auto 6.2 K/mm3 (1.3-6.7); Neutrophils Percent Auto 80.5 % (45.5-73.1); Platelet Count Result 322 k/mm3 (150-375); Red Blood Count 5.05 M/mm3 (4.2-5.4); Red Cell Distribution Width 16.6 % (11.5-14.5); White Blood Count 7.7 K/mm3 (4.5-10.0)
[2022-03-16 09:38] LABS: Alanine Aminotransferase 21 U/L (6-35); Albumin Level 4.6 g/dL (3.5-5.1); Alkaline Phosphatase 114 U/L (38-126); Anion Gap 15 mmol/L (8-16); Aspartate Amino Transferase 29 U/L (14-36); Bilirubin,Total 0.7 mg/dL (0.2-1.3); Blood Urea Nitrogen 31 mg/dL (7-17); Calcium 10.4 mg/dL (8.4-10.2); Carbon Dioxide 30 mmol/L (22-30); Chloride 94 mmol/L (98-107); Estimated Glomerular Filt Rate > 60; Glucose 124 mg/dL (65-110); Lipase 72 U/L (23-300); Potassium 4.4 mmol/L (3.4-5.0); Sodium 139 mmol/L (137-145)
--- NOTE | 2022-03-16 09:51 | ED.ABDPAIN ---
HPI - Abdominal Pain General Chief Complaint: Abdominal Pain Stated Complaint: abd pain x 3-4 days, decrease po intake Time Seen by Provider: 03/16/22 09:32 History of Present Illness HPI narrative: 76-year-old female history of chronic gastrojejunal ulceration and recent GI bleed 6 months ago, who presents to the emergency room for evaluation of lower abdominal pain. Patient states the pain has been present for 3 days and describes it as a dull aching pain. States the pain does not radiate. Is associated with 1 episode of nonmelanotic diarrhea this morning. Patient denies any nausea or vomiting or fever. Patient admits to decreased p.o. intake since onset of her symptoms. Related Data Home Medications Medication Instructions Recorded Confirmed duloxetine 30 mg capsule,delayed 30 mg PO BID 06/28/19 02/16/22 release gabapentin 600 mg tablet 600 mg PO HS 06/28/19 02/16/22 levothyroxine 50 mcg capsule 50 mcg PO DAILY 06/28/19 02/16/22 (Tirosint) trazodone 50 mg tablet 50 mg PO HS 06/28/19 02/16/22 divalproex 250 mg tablet,delayed 500 mg PO BID 03/03/20 02/16/22 release donepezil 10 mg tablet 10 mg PO QHS 05/18/21 02/16/22 metformin 500 mg tablet 500 mg PO DAILY 09/15/21 02/16/22 pantoprazole 40 mg tablet,delayed 40 mg PO DAILY 09/15/21 02/16/22 release cyanocobalamin (vitamin B-12) 1,000 mcg IM MONTHLY 02/02/22 02/16/22 1,000 mcg/mL injection solution escitalopram oxalate 5 mg tablet 5 mg PO DAILY 02/02/22 02/16/22 sumatriptan succinate 50 mg tablet 50 mg PO PRN PRN Migraine Headache 02/02/22 02/16/22 Allergies Allergy/AdvReac Type Severity Reaction Status Date / Time butorphanol Allergy Severe Dizziness, Verified 03/16/22 09:17 Paranoia oxycodone [Percocet] Allergy Intermediate Itching Verified 03/16/22 09:17 Review of Systems Review of Systems: CONSTITUTIONAL: Denies fever, chills, or sweats. EYES: Denies visual changes, redness, or discharge. ENT: Denies rhinorrhea, congestion, sore throat, or otalgia. CARDIOVASCULAR: Denies chest pain, palpitations, or edema. RESPIRATORY: Denies cough or dyspnea. GASTROINTESTINAL: Reports abdominal pain, diarrhea GENITOURINARY: Denies dysuria or hematuria. SKIN: Denies rash or itching. MUSCULOSKELETAL: Denies back pain, joint pain, or myalgia. NEUROLOGIC: Denies headache, numbness, dizziness, or weakness. PSYCHIATRIC: Denies anxiety or depression. [facility] Past Medical History Medical History Acute upper respiratory infections of unspecified site (10/07/16) CKD (chronic kidney disease) stage 3, GFR 30-59 ml/min Cough (10/07/16) Depression (09/02/15) Dizziness (11/23/16) Dysuria (03/05/16) Essential hypertension GERD (gastroesophageal reflux disease) (09/02/15) HOCM (hypertrophic obstructive cardiomyopathy) FLACO on CPAP Type 2 diabetes mellitus (05/18/16) Surgical History Surgical History History of cholecystectomy History of gastric bypass History of hysterectomy Family History Family History Mother Carcinoma of colon Family history of Alzheimer's disease Sibling Carcinoma of colon Family history of malignant neoplasm of uterus Father Patient's father is Other Diabetes mellitus Family history of malignant neoplasm Family history of sleep apnea Family history of thyroid disease Hypertension Social History Social History Smoking packs per day: 0.5 Smoking cigarettes per day: 10.0 Years smoked: 15 Smoking pack-years: 7.50 Smoking status: Former smoker Alcohol intake: never Alcohol use details: has not been drinking lately due to abdominal pain Substance use: never Substance use type: does not use Spiritual care concerns: No Exam Narrative: GENERAL: Well-appearing, well-nourish
--- NOTE | 2022-03-16 09:58 | PC.NURSE ---
pt. to CT
[2022-03-16] MEDS: SODIUM CHLORIDE 0.9% IV 1,000 ML 999 ML IV CONT (10:28)
[2022-03-16] MEDS: ONDANSETRON INJ 4 MG/2 ML VIAL IV PUSH (10:28)
[2022-03-16] MEDS: MORPHINE SULFATE (*CRX) 2 MG/ML INJ IV PUSH (10:29)
[2022-03-16 11:06] LABS: Appearance Urine Clear (Clear); Bilirubin Urine Negative (Negative); Blood Urine 1+ (Negative); Color Urine Yellow (Yellow); Glucose Urine UA Negative (Negative); Ketones Urine 1+ mg/dL (Negative); Leukocyte Esterase Ur Negative LEU/UL (Negative); Nitrate Urine Negative (Negative); Protein Urine Negative (Negative); Urobilinogen Urine 0.2 mg/dL (<2.0)
[2022-03-16 11:11] LABS: Mucus Urine Rare /lpf; Squamous Epithelial Cell Urine Few /hpf (Few); WBC Urine 0-3 /hpf
[2022-03-16 11:23] LABS: Add Urine Microscopic? YES
== END 2022-03-16 12:10 | disposition home or self-care (01) ==
PROVIDERS: Emergency Medicine; Emergency Provider Nurse Practitioner Family; PCP Family Medicine
DX: R10.30 Lower abdominal pain, unspecified (principal); E11.22 Type 2 diabetes mellitus with diabetic chronic kidney disease; I12.9 Hypertensive chronic kidney disease with stage 1 through stage 4 chronic kidney disease, or unspecified chronic kidney disease; N18.30 Chronic kidney disease, stage 3 unspecified; G47.33 Obstructive sleep apnea (adult) (pediatric); K21.9 Gastro-esophageal reflux disease without esophagitis; F32.A Depression, unspecified; Z98.84 Bariatric surgery status; Z90.710 Acquired absence of both cervix and uterus; Z87.891 Personal history of nicotine dependence; Z79.84 Long term (current) use of oral hypoglycemic drugs; K44.9 Diaphragmatic hernia without obstruction or gangrene
CPT/HCPCS: 36415; 74177; 80053; 81001; 83690; 85025; 96361; 96374; 96375; 99284; J2270; J2405; J7030; Q9967

== ENCOUNTER 2022-03-18 08:36 | Observation (INO) | payer MEDICARE, SELFPAY ==
--- NOTE | ~2022-03-18 | XR_ITS ---
EXAMINATION: XR chest 2V DATE: 03/18/2022 09:27 INDICATION: Syncope TECHNIQUE: AP and lateral views of the chest are obtained. COMPARISON: 05/03/2019 FINDINGS: The lungs are free of acute opacities. No pleural effusion or pneumothorax. The cardiomedia stinal silhouette is normal. There is mild thoracic spondylosis. Calcified pulmonary nodules are cons istent with old granulomatous disease. IMPRESSION: 1. No acute cardiopulmonary abnormality. Reviewed, dictated and finalized at location A.
--- NOTE | ~2022-03-18 | CT_ITS ---
EXAMINATION: CT abdomen pelvis w con DATE: 03/18/2022 10:10 INDICATION: Epigastric abdominal pain. Gastrointestinal hemorrhage. TECHNIQUE: Computed tomography (CT) of the abdomen and pelvis was performed with 100 mL Omnipaque 350 intravenous contrast. Automated exposure control and iterative reconstruction technique were employe d. The dose-length product was 197.47 mGy-cm. COMPARISON: CT abdomen and pelvis 03/16/2022, 10/21/14 FINDINGS: The visualized portions of the lung bases demonstrate minimal atelectasis. Calcified pulmon claribel nodules and calcified left hilar lymph nodes are consistent with old granulomatous disease. No pl eural effusion. There is a small sliding hiatal hernia. There are changes of gastric bypass procedure . The heart size is normal. No pericardial effusion. There is mild intrahepatic biliary duct dilatati on, likely secondary to cholecystectomy. The spleen is normal. The pancreatic duct is dilated to 8 mm in the head of the pancreas, stable from 10/21/14, consistent with chronic pancreatitis. The adrenal g lands are normal. There is cortical thinning of the kidneys. There is 11 mm cyst in right kidney. The re is diverticulosis of the colon without evidence of diverticulitis. The appendix is not visualized. There are no pathologically enlarged lymph nodes. There is no free intraperitoneal fluid. There is m oderate lumbar spondylosis. IMPRESSION: 1. Small sliding hiatal hernia with changes of gastric bypass procedure. Reviewed, dictated and finalized at location A.
[2022-03-18 08:37] VITALS: BP 132/65; PULSE 75; RESP 20; TEMP 36.4; O2SAT 100
--- NOTE | 2022-03-18 08:47 | ECG_ITS ---
Measurements Intervals [place] Rate: 75 P: 55 VA: 116 QRS: 43 QRSD: 77 T: -23 QT: 359 QTc: 401 Interpretive Statements SINUS RHYTHM WITH SHORT VA INTERVAL LEFT VENTRICULAR HYPERTROPHY WITH ST-T CHANGE ST-T WAVE ABNORMALITY IN ANT/INF LEADS- CONSIDER ISCHEMIA BASELINE WANDER- II, III ABNORMAL ECG COMPARED TO ECG 11/26/2021 12:13:59 HEART RATE HAS INCREASED ST-T WAVE ABNORMALITY IN ANT/INF LEADS- CONSIDER ISCHEMIA NNOW PRESENT Electronically Signed On 03-18-2022 9:45:30 CDT by Cristi Chao D.O.
[2022-03-18 09:02] LABS: Basophils Percent Auto 0.4 % (0.2-1.2); Eosinophils Absolute Auto 0.1 K/mm3 (0-0.3); Eosinophils Percent Auto 1.7 % (0-4.4); Hematocrit 35.7 % (37.0-47.0); Hemoglobin 10.7 g/dL (12.0-15.0); Immature Granulocyte Absolute 0.01 K/mm3 (0.00-0.031); Immature Granulocyte Percent A 0.2 % (0-0.5); Lymphocytes Absolute Auto 0.59 K/mm3 (0.9-3.2); Lymphocytes Percent Auto 12.2 % (18.3-44.2); Mean Corpuscular Hemoglobin 26.7 pg (26-34); Mean Platelet Volume 9.4 fl (7.4-10.4); Monocytes Absolute Auto 0.3 K/mm3 (0.1-0.6); Monocytes Percent Auto 6.2 % (2.6-8.5); Neutrophils Absolute Auto 3.8 K/mm3 (1.3-6.7); Neutrophils Percent Auto 79.3 % (45.5-73.1); Platelet Count Result 244 k/mm3 (150-375); Red Blood Count 4.01 M/mm3 (4.2-5.4); Red Cell Distribution Width 16.1 % (11.5-14.5); White Blood Count 4.8 K/mm3 (4.5-10.0)
[2022-03-18 09:13] LABS: Alanine Aminotransferase 14 U/L (6-35); Albumin Level 3.5 g/dL (3.5-5.1); Alkaline Phosphatase 87 U/L (38-126); Anion Gap 13 mmol/L (8-16); Aspartate Amino Transferase 20 U/L (14-36); Bilirubin,Total 0.3 mg/dL (0.2-1.3); Blood Urea Nitrogen 21 mg/dL (7-17); Carbon Dioxide 27 mmol/L (22-30); Chloride 99 mmol/L (98-107); Estimated CRCL calculation 46 ml/min; Estimated Glomerular Filt Rate > 60; Glucose 125 mg/dL (65-110); Potassium 3.9 mmol/L (3.4-5.0); Sodium 139 mmol/L (137-145)
[2022-03-18 09:38] LABS: Lipase 118 U/L (23-300)
--- NOTE | 2022-03-18 09:46 | ED.SYNCOPE ---
HPI - Syncope General Chief Complaint: Syncope <Caroline June PA-C - Last Filed: 03/18/22 11:27> Stated Complaint: SYNCOPAL AFTER BM <Caroline June PA-C - Last Filed: 03/18/22 11:27> Time Seen by Provider: 03/18/22 09:13 <Caroline June PA-C - Last Filed: 03/18/22 11:27> Source: patient and family <Caroline June PA-C - Last Filed: 03/18/22 11:27> Mode of arrival: EMS <AKIRA Corbin Last Filed: 03/18/22 11:27> Limitations: dementia <AKIRA Corbin Last Filed: 03/18/22 11:27> History of Present Illness HPI narrative: This is a 76 year old female that presents to the ER for a syncopal episode today. History given by her grand daughter. Reports she was having a bowel movement. She told her grand daughter she thought she was going to faint. She then lost consciousness. She did not fall. She was able to be lowered to the floor. She was not responding for a couple of minutes. She then became responsive again as the state highway police officer arrived. Patient has been experiencing epigastric abdominal pain over the last couple of days. Reports this morning she started to have dark stools. Denies fever, chest pain, shortness of breath, or vomiting. <Caroline June PA-C - Last Filed: 03/18/22 11:27> Related Data Home Medications: Home Medications Medication Instructions Recorded Confirmed duloxetine 30 mg capsule,delayed 30 mg PO BID 06/28/19 02/16/22 release gabapentin 600 mg tablet 600 mg PO HS 06/28/19 02/16/22 levothyroxine 50 mcg capsule 50 mcg PO DAILY 06/28/19 02/16/22 (Tirosint) trazodone 50 mg tablet 50 mg PO HS 06/28/19 02/16/22 divalproex 250 mg tablet,delayed 500 mg PO BID 03/03/20 02/16/22 release donepezil 10 mg tablet 10 mg PO QHS 05/18/21 02/16/22 metformin 500 mg tablet 500 mg PO DAILY 09/15/21 02/16/22 pantoprazole 40 mg tablet,delayed 40 mg PO DAILY 09/15/21 02/16/22 release cyanocobalamin (vitamin B-12) 1,000 mcg IM MONTHLY 02/02/22 02/16/22 1,000 mcg/mL injection solution escitalopram oxalate 5 mg tablet 5 mg PO DAILY 02/02/22 02/16/22 sumatriptan succinate 50 mg tablet 50 mg PO PRN PRN Migraine Headache 02/02/22 02/16/22 <Caroline June PA-C - Last Filed: 03/18/22 11:27> Allergies/Adverse Reactions: Allergies Allergy/AdvReac Type Severity Reaction Status Date / Time butorphanol Allergy Severe Dizziness, Verified 03/16/22 09:17 Paranoia oxycodone [Percocet] Allergy Intermediate Itching Verified 03/16/22 09:17 <Caroline June PA-C - Last Filed: 03/18/22 11:27> Review of Systems Review of Systems: CONSTITUTIONAL: Denies fever CARDIOVASCULAR: Denies chest pain, or edema. RESPIRATORY: Denies dyspnea. GASTROINTESTINAL: Reports abdominal pain, nausea, and diarrhea. GENITOURINARY: Denies dysuria <AKIRA Corbin Last Filed: 03/18/22 11:27> All systems reviewed & are unremarkable except as noted in HPI and below <Caroline June PA-C - Last Filed: 03/18/22 11:27> [facility] Past Medical History Medical History: Medical History Acute upper respiratory infections of unspecified site (10/07/16) CKD (chronic kidney disease) stage 3, GFR 30-59 ml/min Cough (10/07/16) Depression (09/02/15) Dizziness (11/23/16) Dysuria (03/05/16) Essential hypertension GERD (gastroesophageal reflux disease) (09/02/15) HOCM (hypertrophic obstructive cardiomyopathy) FLACO on CPAP Type 2 diabetes mellitus (05/18/16) <AKIRA Corbin Last Filed: 03/18/22 11:27> Surgical History Surgical History: Surgical History History of cholecystectomy History of gastric bypass History of hysterectomy <Caroline June PA-C - Last Filed: 03/18/22 11:27> Family History Family History: Family History Mother Carcinoma of colon Family history of Alzheimer's
[2022-03-18] MEDS: PANTOPRAZOLE SODIUM IV 40 MG VIAL IV PUSH ×2 (09:51→21:38)
[2022-03-18] MEDS: ONDANSETRON INJ 4 MG/2 ML VIAL IV PUSH (09:51)
[2022-03-18] MEDS: SODIUM CHLORIDE 0.9% IV 1,000 ML 999 ML IV CONT (09:52)
[2022-03-18 10:10] LABS: Troponin I < 0.012 ng/mL (0.000-0.034)
[2022-03-18 11:10] LABS: Appearance Urine Clear (Clear); Bilirubin Urine 1+ (Negative); Blood Urine Trace-intact (Negative); Color Urine Dark Yellow (Yellow); Glucose Urine UA Negative (Negative); Ketones Urine 1+ mg/dL (Negative); Leukocyte Esterase Ur Negative LEU/UL (Negative); Nitrate Urine Negative (Negative); Protein Urine 2+ mg/dL (Negative); Specific Grav Ur 1.015 (1.001-1.035)
[2022-03-18 11:14] LABS: INR 1.1; Prothrombin Time 13.9 Seconds (11.1-14.7)
[2022-03-18 11:15] LABS: Partial Thromboplastin Time 32.2 SECONDS (22.3-36.8)
[2022-03-18 11:19] LABS: Mucus Urine Few /lpf; Squamous Epithelial Cell Urine Occasional /hpf (Few); WBC Urine 0-3 /hpf
[2022-03-18 11:22] LABS: Add Urine Microscopic? YES
--- NOTE | 2022-03-18 12:16 | ADMGEN ---
This patient, Catie Painter, was admitted to [facility] Surg Room 317-01. Patient/family oriented to hospital policies and general routines including ID bracelet, bed and alarms, visiting hours, pain management, procedures, bathroom and other care routines, personal items, smoking policy, room service/diet, and visiting hours. Information on how to activate the Rapid Response Team has been discussed. Patient/Family are encouraged to report perceived risks to care and to ask questions if they do not understand what they are told or what they should do.
[2022-03-18 12:26] VITALS: BMI 20.5
[2022-03-18 12:30] VITALS: BP 114/64; PULSE 83; RESP 16; TEMP 36.3; O2SAT 100
[2022-03-18 14:00] VITALS: BP 129/66; PULSE 73; RESP 12; TEMP 35.9; O2SAT 100
--- NOTE | 2022-03-18 14:04 | WPDGICN ---
Assessment and Plan Assessment and plan (1) Epigastric pain: Code(s): R10.13 - Epigastric pain Status: Acute Assessment and Plan: almost certainly this is due to the persistent ulcer (2) Acute GI bleeding: Code(s): K92.2 - Gastrointestinal hemorrhage, unspecified Status: Acute Assessment and Plan: stools were black this morning. Her hemoglobin is lower than it was 2 days ago, though actually higher than her usual baseline. I will check Hemoccult. We will consider EGD tomorrow morning if she has any further drop in her blood counts or any further black stools (3) Jejunal ulcer: Code(s): K28.9 - Gastrojejunal ulcer, unspecified as acute or chronic, without hemorrhage or perforation Status: Acute (4) Anastomotic ulcer S/P gastric bypass: Code(s): T85.898A - Other specified complication of other internal prosthetic devices, implants and grafts, initial encounter; K28.9 - Gastrojejunal ulcer, unspecified as acute or chronic, without hemorrhage or perforation Status: Acute Assessment and Plan: this also has been chronic. She was bleeding in August and required therapeutic measures including injection of epinephrine and cautery. When she had a follow-up outpatient exam 2 months ago the ulceration was much smaller, relatively shallow, and with no stigmata of bleeding. I had reinforce her the need to continue taking Carafate 4 times a day, and her family has ensured that she is doing so. We may consider referral to surgeon, bariatric specialist, for possible revision due to the chronic ulcer GI Consult Note Consult date/time: 03/18/22 14:04 HPI: Catie Painter is a 76 year old female with a known chronic gastrojejunal ulcer, status post bariatric surgery with subtotal gastrectomy and gastrojejunostomy. She had had gastrointestinal bleeding from that ulcer in spring of this year. A follow-up in November showed that the ulceration was much smaller and shallow. She states that over the past couple of weeks she has had more discomfort in the epigastric area and became much worse over the past 4 days. Also, she was having loose stools. She actually came to the emergency room the night before last because of pain. At that time she had not had melena and her hemoglobin was 13.3. She usually runs around 10 and in fact going back almost 3 years she has not had a hemoglobin close to that. Today her hemoglobin is 10.7 which is better than it was in December when it was 10.4 and in November when it was 8.0. Nevertheless, she is having pain and now melena based on her description of the stool. She denies using NSAIDs. She does occasionally take Tylenol. She is now being more consistent taking her Carafate, as a family member arranges her medications for her each day. Weight has been stable. Review of Systems Review of Systems: All systems reviewed & are unremarkable except as noted in HPI and below PMFSH Past Medical History Medical History Acute upper respiratory infections of unspecified site (10/07/16) CKD (chronic kidney disease) stage 3, GFR 30-59 ml/min Cough (10/07/16) Depression (09/02/15) Dizziness (11/23/16) Dysuria (03/05/16) Essential hypertension GERD (gastroesophageal reflux disease) (09/02/15) HOCM (hypertrophic obstructive cardiomyopathy) FLACO on CPAP Type 2 diabetes mellitus (05/18/16) Surgical History Surgical History History of cholecystectomy History of gastric bypass History of hysterectomy Family History Family History Mother Carcinoma of colon Family history of Alzheimer's disease Sibling Carcinoma of colon Family history of malignant neoplasm of uterus Father Patient's father is Other Diabetes mellitus Family history of malignant neoplasm Family history of s
[2022-03-18 16:00] VITALS: PULSE 90
[2022-03-18 16:54] LABS: IFOB Positive Control Positive; Immunochemical Fecal Occult Bl Positive (N)
[2022-03-18] MEDS: ACETAMINOPHEN 325 MG TABLET 650 MG PO (17:43)
--- NOTE | 2022-03-18 17:49 | PM.IMHP ---
H&P: HPI History of Present Illness Date/Time: 03/18/22 17:49 Chief Complaint: Syncope Narrative: This is a 76-year-old female patient who resides with her granddaughter. The patient has a history of peptic ulcer disease and the peptic ulcer had been healing. The patient came to the emergency room today because of a syncopal episode. The granddaughter was giving the information earlier but has since left. The patient stated that she did feel very well today and then felt like she needed to have a bowel movement. The patient went to the bathroom and sat on the toilet and passed out. It took a few minutes for the patient to respond. The patient was responsive when the police academy program coordinator arrived. The patient was complaining of some epigastric pain over last couple days. This morning she started having darker stools. She denied any fever chills or shortness of breath. Patient's H&H is 10.7 and 35.7. It dropped from 13.3 and 43.3 in the last 2 days. The patient the patient was found to be positive for occult blood. Her GI specialist Dr. Mccoy was consulted. Dr. Mccoy has already seen the patient. She denies any NSAIDs. The patient had been on care if a and it is unclear if she has continued with that. The patient was started on Protonix, Zofran and IV fluids. The patient is being admitted to observation status on the date of service of 03/18/2022. Review of Systems Review of Systems: All systems reviewed & are unremarkable except as noted in HPI and below Constitutional: Constitutional: Reports as per HPI and Reports no additional constitutional complaints Eyes: Eyes: Reports as per HPI and Reports no additional eye complaints ENT: Reports system reviewed and no additional complaints, except as documented and Reports Normal hearing present Cardiovascular: Cardiovascular: Reports no additional cardiovascular complaints Respiratory: Respiratory: Reports no additional respiratory complaints and Reports no additional respiratory complaints Gastrointestinal: Gastrointestinal: Reports as per HPI and Reports no additional gastrointestinal complaints Musculoskeletal: Musculoskeletal: Reports no additional musculoskeletal complaints Integumentary/Breasts: Skin/Breast: Reports system reviewed and no additional complaints, except as docu and Reports as per HPI Neurologic: Reports system reviewed and no additional complaints, except as documented, Reports as per HPI and Reports Normal hearing present Psychiatric: Psychiatric: Reports no additional psychiatric complaints and Reports as per HPI Endocrine: Endocrine: Reports no additional endocrine complaints Hematologic/Lymphatic: Hematologic/Lymphatic: Reports no additional hematologic/lymphatic complaints Allergic/Immunologic: Allergic/Immunologic: Reports no additional allergic/immunologic complaints [facility] Past Medical History Medical History (Updated 03/18/22 @ 18:50 by Lee Ann Zimmerman NP) Acute upper respiratory infections of unspecified site (10/07/16) CKD (chronic kidney disease) stage 3, GFR 30-59 ml/min Cough (10/07/16) Dementia Depression (09/02/15) Dizziness (11/23/16) Dysuria (03/05/16) Essential hypertension GERD (gastroesophageal reflux disease) (09/02/15) HOCM (hypertrophic obstructive cardiomyopathy) FLACO on CPAP No longer uses a CPAP machine since she lost weight. Type 2 diabetes mellitus (05/18/16) Surgical History Surgical History History of cholecystectomy History of gastric bypass History of hysterectomy Family History Family History Mother Carcinoma of colon Family history of Alzheimer's disease Sibling Carcinoma of colon Family history of malignant neoplasm of uterus Father Patient's father is Other Diabetes mellitus Family history of malignant neoplasm Family history of sleep apnea Family history of thyroid di
[2022-03-18 20:01] VITALS: PULSE 98
[2022-03-18] MEDS: GABAPENTIN 300 MG CAPSULE 600 MG PO (21:38)
[2022-03-18] MEDS: DONEPEZIL HCL 10 MG TABLET PO (21:38)
[2022-03-18 21:51] VITALS: BP 134/61; PULSE 85; RESP 14; TEMP 36.1; O2SAT 98
[2022-03-18] MEDS: SUCRALFATE 1 GM TABLET PO (21:57)
[2022-03-18] MEDS: SUMAtriptan SUCCINATE 25 MG TABLET 50 MG PO (21:57)
[2022-03-18 22:03] LABS: Glucose Point of Care 92 mg/dl (65-105)
[2022-03-19] VITALS (15 sets, daily range): BP systolic 119–196; BP diastolic 53–95; PULSE 66–105; RESP 14–20; TEMP 35.8–37.1; O2SAT 97–100; BMI 20.5
--- NOTE | 2022-03-19 | ECHO_ITS ---
Patient Info Name: Catie Painter Age: 76 years : 1945 Gender: Female Ht: 65 in Wt: 123 lbs BSA: 1.60 m2 HR: 76 bpm BP: 156 / 65 mmHg Technical Quality: Fair Exam Date: 03/19/2022 1:28 PM Exam Location: [facility] Pulmonary Exam Room: [facility] Patient Status: Outpatient Admit Date: 03/18/2022 Staff Ordering Physician: Lee Ann Zimmerman NP Radiation Protection Specialist: Petra Vasquez RDCS Attending Provider: Mick Cervantes MD Referring Physician: Erasmo ROJO; Exam Type: CA echo doppler color flow Study Info Indications - murmur Complete two-dimensional, color flow and Doppler transthoracic echocardiogram is performed. History/Risk Factors Congenital Heart Disease (CHD): No Peripheral Arterial Disease (PAD): No Myocardial Infarction (DC): No Chronic Lung Disease: No Obesity: No Renal Disease: No Congestive Heart Failure (CHF): No Cardiomyopathy/LV Systolic Dysfunction: Yes Diabetes Mellitus: No COPD: No Tobacco Use: Never Cerebrovascular Disease: No Family History: Diabetes Mellitus Deep Vein Thrombosis (DVT): None Frailty Scale (CSHA): 3: Managing Well Cardiac Arrest: No Prior Interventions Pacemaker: No PCI: No CABG: No Valve Surgery: No ICD: No Heart Transplant: No Summary 1. Complete two-dimensional, color flow and Doppler transthoracic echocardiogram is performed. 2. Left ventricular chamber dimension is normal. 3. Left ventricular systolic function is normal, estimated at 65-70%. 4. The left ventricular diastolic function is grade I diastolic dysfunction. 5. E/e' 10 is mildly elevated. 6. There is mild aortic valve sclerosis. 7. There is mild aortic valve regurgitation. 8. The mitral valve has moderately calcified annulus. 9. There is trace mitral valve regurgitation. 10. Mild pulmonary hypertension, estimated pulmonary arterial systolic pressure is 40 mmHg. Left Ventricle E/e' 10 is mildly elevated. Left ventricular chamber dimension is normal. Left ventricular systolic function is normal, estimated at 65-70%. The left ventricular diastolic function is grade I diastolic dysfunction. Right Ventricle Right ventricular chamber dimension is normal. Right ventricular systolic function is normal. Left Atria Left atrial chamber dimension is normal. Right Atria Right atrial chamber dimension is normal. Aortic Valve The aortic valve is trileaflet. There is mild aortic valve sclerosis. There is no aortic valve stenosis. There is mild aortic valve regurgitation. Pulmonic Valve There is no pulmonic regurgitation. Mitral Valve The mitral valve has moderately calcified annulus. There is no mitral valve stenosis. There is trace mitral valve regurgitation. Tricuspid Valve There is no tricuspid valve regurgitation. Mild pulmonary hypertension, estimated pulmonary arterial systolic pressure is 40 mmHg. Pericardium/Pleural There is no pericardial effusion. Inferior Vena Cava Normal inferior vena cava with >50% collapse upon inspiration consistent with normal right atrial pressure, 5 mmHg. Aorta The aortic root size at the sinus of Valsalva is normal. Left Ventricular Outflow Tract Name Value Normal LVOT 2D
--- NOTE | 2022-03-19 04:08 | PC.NURSE ---
Pt has no complaints at this time. Pt states that she is here for an ulcer flare up. Pt had headache at the beginning of shift. Pt was given imitrex for headache. Pt stated that the medication worked and headache was relieved. Will continue to monitor pt.
[2022-03-19 06:41] LABS: Basophils Percent Auto 0.8 % (0.2-1.2); Eosinophils Absolute Auto 0.1 K/mm3 (0-0.3); Eosinophils Percent Auto 3.6 % (0-4.4); Hematocrit 33.4 % (37.0-47.0); Immature Granulocyte Absolute 0.01 K/mm3 (0.00-0.031); Immature Granulocyte Percent A 0.4 % (0-0.5); Lymphocytes Percent Auto 27.9 % (18.3-44.2); Mean Corpuscular HGB Conc 29.9 g/dl (32-36); Mean Corpuscular Hemoglobin 26.8 pg (26-34); Mean Corpuscular Volume 89.5 fl (80-100); Mean Platelet Volume 9.4 fl (7.4-10.4); Monocytes Absolute Auto 0.2 K/mm3 (0.1-0.6); Monocytes Percent Auto 9.2 % (2.6-8.5); Neutrophils Absolute Auto 1.5 K/mm3 (1.3-6.7); Neutrophils Percent Auto 58.1 % (45.5-73.1); Platelet Count Result 226 k/mm3 (150-375); Red Blood Count 3.73 M/mm3 (4.2-5.4); Red Cell Distribution Width 16.1 % (11.5-14.5); White Blood Count 2.5 K/mm3 (4.5-10.0)
[2022-03-19 06:50] LABS: Hemoglobin A1C 4.7 % (<5.7)
[2022-03-19 07:09] LABS: Alanine Aminotransferase 13 U/L (6-35); Albumin Level 3.1 g/dL (3.5-5.1); Alkaline Phosphatase 82 U/L (38-126); Anion Gap 8 mmol/L (8-16); Aspartate Amino Transferase 21 U/L (14-36); Bilirubin,Total 0.2 mg/dL (0.2-1.3); Blood Urea Nitrogen 11 mg/dL (7-17); CRP 2.6 mg/dL (<1.0); Calcium 8.9 mg/dL (8.4-10.2); Carbon Dioxide 31 mmol/L (22-30); Chloride 103 mmol/L (98-107); Estimated CRCL calculation 46 ml/min; Estimated Glomerular Filt Rate > 60; Glucose 100 mg/dL (65-110); Magnesium 1.9 mg/dL (1.6-2.3); Potassium 4.2 mmol/L (3.4-5.0); Sodium 142 mmol/L (137-145)
[2022-03-19 07:44] LABS: Glucose Point of Care 84 mg/dl (65-105)
[2022-03-19 11:58] LABS: Glucose Point of Care 86 mg/dl (65-105)
[2022-03-19] MEDS: LACTATED RINGERS 1,000 ML 150 ML IV CONT (14:02)
--- NOTE | 2022-03-19 14:10 | WPDANESEPPF ---
Anes - Initial Pre Proc Eval Procedure: Operation Date: 03/19/22 14:45 Proposed Procedures p Esophagogastroduodenoscopy - Sharath Cortes MD Date/Time: 03/19/22 14:10 Surgeon: Mick Cervantes MD Pre Op Diagnosis: syncope,gi bleed Patient Data Age: 76 Gender: F Height: 1.65 m Weight: 56 kg Last Vital Signs Temp 97.5 F L 03/19/22 13:55 Pulse 72 03/19/22 13:55 Resp 20 03/19/22 13:55 BP 127/69 03/19/22 13:55 Pulse Ox 100 03/19/22 13:55 O2 Del Method Room Air 03/19/22 13:55 Allergies Allergy/AdvReac Type Severity Reaction Status Date / Time butorphanol Allergy Severe Dizziness, Verified 03/16/22 09:17 Paranoia oxycodone [Percocet] Allergy Intermediate Itching Verified 03/16/22 09:17 Home Medications Medication Instructions Recorded Confirmed Type duloxetine 30 mg capsule,delayed 30 mg PO BID 06/28/19 03/18/22 History release gabapentin 600 mg tablet 600 mg PO HS 06/28/19 03/18/22 History trazodone 50 mg tablet 50 mg PO HS 06/28/19 03/19/22 History donepezil 10 mg tablet 10 mg PO QHS 05/18/21 03/18/22 History metoprolol succinate 25 mg 12.5 mg PO DAILY #30 tabs 07/24/21 03/18/22 Rx tablet,extended release 24 hr metformin 500 mg tablet 500 mg PO DAILY 09/15/21 03/18/22 History pantoprazole 40 mg tablet,delayed 40 mg PO DAILY 09/15/21 03/18/22 History release dicyclomine 10 mg capsule 10 mg PO TID 5 days #15 caps 12/09/21 03/18/22 Rx sucralfate 1 gram tablet 1 g PO ACHS #120 tabs 12/09/21 03/18/22 Rx cyanocobalamin (vitamin B-12) 1,000 mcg IM MONTHLY 02/02/22 03/18/22 History 1,000 mcg/mL injection solution sumatriptan succinate 50 mg tablet 50 mg PO PRN PRN Migraine Headache 02/02/22 03/18/22 History divalproex 500 mg tablet,delayed 500 mg PO BID 03/18/22 03/18/22 History release escitalopram oxalate 10 mg tablet 10 mg PO DAILY 03/18/22 03/18/22 History loperamide 2 mg capsule 2 mg PO PRN PRN Diarrhea 03/18/22 03/18/22 History ondansetron 4 mg disintegrating 4 mg PO Q8H 03/18/22 03/18/22 History tablet Laboratory Tests 03/18/22 03/18/22 03/19/22 16:18 21:35 06:25 WBC RBC Hgb Hct MCV MCH MCHC RDW Plt Count MPV Immature Gran % (Auto) Neut % (Auto) Lymph % (Auto) [place] % (Auto) Eos % (Auto) Baso % (Auto) Lymph # (Auto) [place] # (Auto) Eos # (Auto) Baso # (Auto) Abs Immat Gran (auto) Absolute Neuts (auto) Absolute Nucleated RBC Nucleated RBC % Sodium Potassium Chloride Carbon Dioxide Anion Gap BUN Creatinine Estim Creat Clear Calc Estimated GFR Glucose POC Capillary Glucose 92 mg/dl mg/dl (65-105) Hemoglobin A1c 4.7 % % (<5.7) Calcium Magnesium Ferritin Total Bilirubin AST ALT Alkaline Phosphatase C-Reactive Protein Total Protein Albumin TSH (Reflex) Stl Occult Blood (IFOB) Positive H (N) 03/19/22 03/19/22 03/19/22 06:25 06:25 06:25 WBC 2.5 K/mm3 L K/mm3 (4.5-10.0) RBC 3.73 M/mm3 L M/mm3 (4.2-5.4) Hgb 10.0 g/dL L g/dL (12.0-15.0) Hct 33.4 % L % (37.0-47.0) MCV 89.5 fl fl (80-100) MCH 26.8 pg pg (26-34) MCHC 29.9 g/dl L g/dl (32-36) RDW 16.1 % H % (11.5-14.5) Plt Count 226 k/mm3 k/mm3 (150-375) MPV 9.4 fl fl (7.4-10.4) Immature Gran % (Auto) 0.4 % % (0-0.5) Neut % (Auto) 58.1 % % (45.5-73.1) Lymph % (Auto) 27.9 % %
[2022-03-19] MEDS: SIMETHICONE ORAL SUSPENSION 20 MG/0.3 ML 30 ML BOTTLE 0.6 ML PO (14:57)
--- NOTE | 2022-03-19 16:04 | PM.IMPN ---
Progress Note: A&P Assessment and Plan (1) Acute GI bleeding: Code(s): K92.2 - Gastrointestinal hemorrhage, unspecified Status: Acute Assessment and Plan: EGD today, appreciate GI consultation, report pending (2) Syncope: Qualifiers: Syncope type: unspecified Qualified Code(s): R55 - Syncope and collapse Code(s): R55 - Syncope and collapse Status: Acute Assessment and Plan: Resolved, echo pending (3) CKD (chronic kidney disease) stage 3, GFR 30-59 ml/min: Qualifiers: Chronic kidney disease stage 3 subtype: unspecified whether 3a or 3b Qualified Code(s): N18.30 - Chronic kidney disease, stage 3 unspecified Code(s): N18.3 - Chronic kidney disease, stage 3 (moderate) Status: Acute Assessment and Plan: Stable (4) Essential hypertension: Code(s): I10 - Essential (primary) hypertension Status: Acute Assessment and Plan: Stable (5) Type 2 diabetes mellitus: Onset Date: 05/18/16 Code(s): E11.9 - Type 2 diabetes mellitus without complications Status: Acute Assessment and Plan: Stable (6) Dementia: Code(s): F03.90 - Unspecified dementia without behavioral disturbance Status: Acute Assessment and Plan: Continue Aricept Plan DVT prophylaxis with SCDs GI prophylaxis with PPI Code status full code Subjective Date/time seen: 03/19/22 16:04 Interval history: No overnight events noted. No chest pain or shortness of breath. No nausea, vomiting or diarrhea. No fevers or chills. Review of Systems Review of Systems: 12 point review of systems was assessed and was negative except as noted in the HPI Exam Narrative: General: No acute distress, alert and oriented per baseline HEENT: Atraumatic, normocephalic, mucous membranes moist CV: Regular rate and rhythm, S1, S2 Lungs: Clear to auscultation bilaterally, no rales or crackles noted, no wheezes, good air entry Abdomen: Soft, nontender, nondistended Extremities: Normal to inspection Skin: No rashes noted, no lesions or wounds seen Psych: Euthymic, normal affect Objective Data Vital Signs Vital Signs: Vital Signs - 24 hr 03/18/22 21:51 03/18/22 21:38 03/18/22 20:01 Temperature 96.9 F L Pulse Rate 85 98 Respiratory Rate 14 Blood Pressure 134/61 Pulse Oximetry 98 Oxygen Delivery Room Air 03/19/22 00:03 03/19/22 04:01 03/19/22 06:00 Temperature 96.5 F L Pulse Rate 80 105 H 76 Respiratory Rate 14 Blood Pressure 156/65 H Pulse Oximetry 97 Oxygen Delivery 03/19/22 08:00 03/19/22 13:55 03/19/22 15:00 Temperature 97.5 F L Pulse Rate 72 75 Respiratory Rate 20 19 Blood Pressure 127/69 182/62 H Pulse Oximetry 100 100 Oxygen Delivery Room Air Room Air Room Air 03/19/22 15:10 03/19/22 15:20 03/19/22 08:00 Temperature Pulse Rate 77 66 83 Respiratory Rate 20 20 Blood Pressure 179/64 H 196/64 H Pulse Oximetry 100 100 Oxygen Delivery Room Air Room Air 03/19/22 12:00 Temperature Pulse Rate 74 Respiratory Rate Blood Pressure Pulse Oximetry Oxygen Delivery Intake/Output Intake/Output: Intake & Output 03/16/22 03/17/22 03/18/22 03/19/22 23:59 23:59 23:59 23:59 Intake Total 1710 1000 Output Total 50 1300 Balance 1660 -300 Meds/Results Medications: Active Medications Generic Name Dose Route Start Last Admin Trade Name Freq PRN Reason Stop Dose Admin Cyanocobalamin 1,000 mcg 04/03/22 09:00 Cyanocobalamin Inj 1,000 Mcg/Ml Vial IM MONTHLY MARISELA Dextrose 12.5 gm 03/18/22 18:49 Dextrose 50% 25 Gm/50 Ml Syringe IV PUSH PRN PRN Hypoglycemia Protocol Dicyclomine HCl 10 mg 03/19/22 09:00 03/19/22 12:01 Dicyclomine Hcl 10 Mg Capsule PO Not Given TID MARISELA Divalproex Sodium 500 mg 03/19/22 09:00 03/19/22 07:[address] 250 Mg Tabec PO Not Given BID MARISELA Donepezil HCl
[2022-03-19 16:30] LABS: Glucose Point of Care 68 mg/dl (65-105)
[2022-03-19] MEDS: DICYCLOMINE HCL 10 MG CAPSULE PO (16:35)
[2022-03-19] MEDS: DIVALPROEX SODIUM DR 250 MG TABEC 500 MG PO (16:35)
[2022-03-19] MEDS: SUMAtriptan SUCCINATE 25 MG TABLET 50 MG PO (16:35)
[2022-03-19] MEDS: SUCRALFATE 1 GM TABLET PO ×2 (16:35→20:03)
[2022-03-19] MEDS: GABAPENTIN 300 MG CAPSULE 600 MG PO (20:03)
[2022-03-19] MEDS: DONEPEZIL HCL 10 MG TABLET PO (20:03)
[2022-03-19] MEDS: PANTOPRAZOLE SODIUM IV 40 MG VIAL IV PUSH (20:03)
[2022-03-20] VITALS (9 sets, daily range): BP systolic 109–139; BP diastolic 63–75; PULSE 66–81; RESP 17–20; TEMP 36.1–37.1; O2SAT 100
[2022-03-20] MEDS: SUCRALFATE 1 GM TABLET PO ×2 (06:02→10:15)
[2022-03-20 07:42] LABS: Glucose Point of Care 82 mg/dl (65-105)
[2022-03-20] MEDS: PANTOPRAZOLE SODIUM IV 40 MG VIAL IV PUSH (10:13)
[2022-03-20] MEDS: ESCITALOPRAM OXALATE 10 MG TABLET PO (10:13)
[2022-03-20] MEDS: DIVALPROEX SODIUM DR 250 MG TABEC 500 MG PO (10:14)
[2022-03-20] MEDS: METOPROLOL SUCCINATE EXT REL 12.5 MG TABCR PO (10:14)
[2022-03-20] MEDS: DICYCLOMINE HCL 10 MG CAPSULE PO (10:16)
--- NOTE | 2022-03-20 10:21 | PM.IMPN ---
Progress Note: A&P Assessment and Plan (1) Acute GI bleeding: Code(s): K92.2 - Gastrointestinal hemorrhage, unspecified Status: Acute Assessment and Plan: Appreciate GI consultation, EGD yesterday showed multiple cratered ulcers in the proximal jejunum, 1 of which required cauterization Plan is to discuss extensive disease with GI at tertiary care facility, further management pending (2) Syncope: Qualifiers: Syncope type: unspecified Qualified Code(s): R55 - Syncope and collapse Code(s): R55 - Syncope and collapse Status: Acute Assessment and Plan: Resolved, echo pending (3) CKD (chronic kidney disease) stage 3, GFR 30-59 ml/min: Qualifiers: Chronic kidney disease stage 3 subtype: unspecified whether 3a or 3b Qualified Code(s): N18.30 - Chronic kidney disease, stage 3 unspecified Code(s): N18.3 - Chronic kidney disease, stage 3 (moderate) Status: Acute Assessment and Plan: Stable (4) Essential hypertension: Code(s): I10 - Essential (primary) hypertension Status: Acute Assessment and Plan: Stable (5) Type 2 diabetes mellitus: Onset Date: 05/18/16 Code(s): E11.9 - Type 2 diabetes mellitus without complications Status: Acute Assessment and Plan: Stable (6) Dementia: Code(s): F03.90 - Unspecified dementia, unspecified severity, without behavioral disturbance, psychotic disturbance, mood disturbance, and anxiety Status: Acute Assessment and Plan: Continue Aricept Plan DVT prophylaxis with SCDs GI prophylaxis with PPI Code status full code Subjective Date/time seen: 03/20/22 10:21 Interval history: No overnight events noted. No chest pain or shortness of breath. No nausea, vomiting or diarrhea. No fevers or chills. Review of Systems Review of Systems: 12 point review of systems was assessed and was negative except as noted in the HPI Exam Narrative: General: No acute distress, alert and oriented per baseline HEENT: Atraumatic, normocephalic, mucous membranes moist CV: Regular rate and rhythm, S1, S2 Lungs: Clear to auscultation bilaterally, no rales or crackles noted, no wheezes, good air entry Abdomen: Soft, nontender, nondistended Extremities: Normal to inspection Skin: No rashes noted, no lesions or wounds seen Psych: Euthymic, normal affect Objective Data Vital Signs Vital Signs: Vital Signs - 24 hr 03/19/22 13:55 03/19/22 15:00 03/19/22 15:10 Temperature 97.5 F L Pulse Rate 72 75 77 Respiratory Rate 20 19 20 Blood Pressure 127/69 182/62 H 179/64 H Pulse Oximetry 100 100 100 Oxygen Delivery Room Air Room Air Room Air 03/19/22 15:20 03/19/22 12:00 03/19/22 16:30 Temperature 97.5 F L Pulse Rate 66 74 72 Respiratory Rate 20 16 Blood Pressure 196/64 H 178/69 H Pulse Oximetry 100 100 Oxygen Delivery Room Air 03/19/22 18:26 03/19/22 18:27 03/19/22 20:00 Temperature 98.3 F Pulse Rate 74 86 70 Respiratory Rate 18 Blood Pressure 139/69 156/95 H 141/57 H Pulse Oximetry 100 100 100 Oxygen Delivery 03/19/22 20:01 03/19/22 20:01 03/19/22 20:00 Temperature 98.2 F 98.4 F Pulse Rate 81 71 71 Respiratory Rate 17 16 Blood Pressure 119/63 134/53 L Pulse Oximetry 100 100 Oxygen Delivery 03/19/22 21:48 03/20/22 04:00 03/20/22 00:00 Temperature 98.8 F Pulse Rate 73 74 66 Respiratory Rate 18 Blood Pressure 125/68 Pulse Oximetry 99 Oxygen Delivery 03/20/22 06:00 03/20/22 08:00 Temperature 97.8 F Pulse Rate 72 81 Respiratory Rate 17 Blood Pressure 139/69 Pulse Oximetry 100 Oxygen Delivery Intake/Output Intake/Output: Intake & Output 03/17/22 03/18/22 03/19/22 03/20/22 23:59 23:59 23:59 23:59 Intake Total 1710 1720 Output Total 50 1300 900 Balance 1660 420 -900 Meds/Results Medications: Active Medications Generic Name Dose Route Start Last Admin Trade N
[2022-03-20 11:03] LABS: Basophils Percent Auto 0.8 % (0.2-1.2); Eosinophils Absolute Auto 0.1 K/mm3 (0-0.3); Eosinophils Percent Auto 2.3 % (0-4.4); Hemoglobin 9.6 g/dL (12.0-15.0); Immature Granulocyte Absolute 0.01 K/mm3 (0.00-0.031); Immature Granulocyte Percent A 0.4 % (0-0.5); Lymphocytes Absolute Auto 0.64 K/mm3 (0.9-3.2); Lymphocytes Percent Auto 24.9 % (18.3-44.2); Mean Corpuscular Volume 87.3 fl (80-100); Monocytes Absolute Auto 0.2 K/mm3 (0.1-0.6); Monocytes Percent Auto 9.3 % (2.6-8.5); Neutrophils Absolute Auto 1.6 K/mm3 (1.3-6.7); Neutrophils Percent Auto 62.3 % (45.5-73.1); Platelet Count Result 217 k/mm3 (150-375); Red Blood Count 3.55 M/mm3 (4.2-5.4); Red Cell Distribution Width 15.7 % (11.5-14.5); White Blood Count 2.6 K/mm3 (4.5-10.0)
[2022-03-20 11:22] LABS: Alanine Aminotransferase 15 U/L (6-35); Albumin Level 3.1 g/dL (3.5-5.1); Alkaline Phosphatase 81 U/L (38-126); Anion Gap 5 mmol/L (8-16); Aspartate Amino Transferase 22 U/L (14-36); Bilirubin,Total 0.2 mg/dL (0.2-1.3); Blood Urea Nitrogen 12 mg/dL (7-17); Calcium 8.4 mg/dL (8.4-10.2); Carbon Dioxide 29 mmol/L (22-30); Chloride 101 mmol/L (98-107); Estimated CRCL calculation 52 ml/min; Estimated Glomerular Filt Rate > 60; Glucose 112 mg/dL (65-110); Sodium 135 mmol/L (137-145)
[2022-03-20 11:48] LABS: Glucose Point of Care 197 mg/dl (65-105)
--- NOTE | 2022-03-20 13:04 | WPDGIPROGNO ---
Progress Note: A&P Assessment and Plan (1) Epigastric pain: Code(s): R10.13 - Epigastric pain Status: Acute Assessment and Plan: almost certainly this is due to the persistent ulcer (2) Acute GI bleeding: Code(s): K92.2 - Gastrointestinal hemorrhage, unspecified Status: Acute Assessment and Plan: stools were black this morning. Her hemoglobin is lower than it was 2 days ago, though actually higher than her usual baseline. I will check Hemoccult. We will consider EGD tomorrow morning if she has any further drop in her blood counts or any further black stools 03/20/2022 she had oozing of blood at the proximal surface of the largest of her jejunal ulcers. This ulcer had been down to about 1 cm size and rather shallow a few months ago. it Is now over 3 cm in diameter. (3) Jejunal ulcer: Code(s): K28.9 - Gastrojejunal ulcer, unspecified as acute or chronic, without hemorrhage or perforation Status: Acute Assessment and Plan: Because the ulcer has increased in size, and she has developed additional ulcerations, I told her that I am going to refer her to Dr. Rene Stauffer at [facility] for possible surgical revision (4) Anastomotic ulcer S/P gastric bypass: Code(s): T85.898A - Other specified complication of other internal prosthetic devices, implants and grafts, initial encounter; K28.9 - Gastrojejunal ulcer, unspecified as acute or chronic, without hemorrhage or perforation Status: Acute Assessment and Plan: this also has been chronic. She was bleeding in August and required therapeutic measures including injection of epinephrine and cautery. When she had a follow-up outpatient exam 2 months ago the ulceration was much smaller, relatively shallow, and with no stigmata of bleeding. I had reinforce her the need to continue taking Carafate 4 times a day, and her family has ensured that she is doing so. We may consider referral to surgeon, bariatric specialist, for possible revision due to the chronic ulcer I told her that my office will arrange for her to see Dr. Stauffer. Plan From my perspective, she can be discharged today on the same medications Subjective Date/time seen: 03/20/22 13:04 He feels good. No further sign of bleeding. She is tolerating her diet. Denies abdominal pain subsequent to cautery of her ulcer. Exam Const: General: alert Orientation/consciousness: patient oriented x3 Resp: Auscultation: clear to auscultation bilaterally Cardio: Rhythm: regular rhythm Skin: General skin exam: no ecchymosis and pallor Neuro: General: patient oriented x3 Objective Data Vital Signs Vital Signs: Vital Signs - 24 hr 03/19/22 13:55 03/19/22 15:00 03/19/22 15:10 Temperature 36.4 C L Pulse Rate 72 75 77 Respiratory Rate 20 19 20 Blood Pressure 127/69 182/62 H 179/64 H Pulse Oximetry 100 100 100 Oxygen Delivery Room Air Room Air Room Air 03/19/22 15:20 03/19/22 16:30 03/19/22 18:26 Temperature 36.4 C L Pulse Rate 66 72 74 Respiratory Rate 20 16 Blood Pressure 196/64 H 178/69 H 139/69 Pulse Oximetry 100 100 100 Oxygen Delivery Room Air 03/19/22 18:27 03/19/22 20:00 03/19/22 20:01 Temperature 36.8 C 36.8 C Pulse Rate 86 70 81 Respiratory Rate 18 17 Blood Pressure 156/95 H 141/57 H 119/63 Pulse Oximetry 100 100 100 Oxygen Delivery 03/19/22 20:01 03/19/22 20:00 03/19/22 21:48 Temperature 36.9 C 37.1 C Pulse Rate 71 71 73 Respiratory Rate 16 18 Blood Pressure 134/53 L 125/68 Pulse Oximetry 100 99 Oxygen Delivery 03/20/22 04:00 03/20/22 00:00 03/20/22 06:00 Temperature 36.6 C Pulse Rate 74 66 72 Respiratory Rate 17 Blood Pressure 139/69 Pulse Oximetry 100 Oxygen Delivery 03/20/22 08:00 03/20/22 10:14 03/20/22 08:00 Temperature 36.1 C L Pulse Rate 81 77 66 Respiratory Rate 20 Blood Pressure 138/75 Pulse Oximetry 100 Oxygen Delivery 03/20/22 11:06 03/20/22
--- NOTE | 2022-03-20 15:39 | PM.DS ---
DS: Admitting Diagnosis Discharge Date March 20, 2022 Admitting Diagnosis Syncope DS: Discharge Diagnosis Discharge Diagnosis (1) Acute GI bleeding: Code(s): K92.2 - Gastrointestinal hemorrhage, unspecified Status: Acute Assessment and Plan: Appreciate GI consultation, EGD yesterday showed multiple cratered ulcers in the proximal jejunum, 1 of which required cauterization Plan is to discuss extensive disease with GI at tertiary care facility, further management pending (2) Syncope: Qualifiers: Syncope type: unspecified Qualified Code(s): R55 - Syncope and collapse Code(s): R55 - Syncope and collapse Status: Acute Assessment and Plan: Resolved, echo pending (3) CKD (chronic kidney disease) stage 3, GFR 30-59 ml/min: Qualifiers: Chronic kidney disease stage 3 subtype: unspecified whether 3a or 3b Qualified Code(s): N18.30 - Chronic kidney disease, stage 3 unspecified Code(s): N18.3 - Chronic kidney disease, stage 3 (moderate) Status: Acute Assessment and Plan: Stable (4) Essential hypertension: Code(s): I10 - Essential (primary) hypertension Status: Acute Assessment and Plan: Stable (5) Type 2 diabetes mellitus: Onset Date: 05/18/16 Code(s): E11.9 - Type 2 diabetes mellitus without complications Status: Acute Assessment and Plan: Stable (6) Dementia: Code(s): F03.90 - Unspecified dementia, unspecified severity, without behavioral disturbance, psychotic disturbance, mood disturbance, and anxiety Status: Acute Assessment and Plan: Continue Aricept Plan DVT prophylaxis with SCDs GI prophylaxis with PPI Code status full code DS: Summary Hospital Course Hospital Course: 76-year-old female patient who resides with her granddaughter.? The patient has a history of peptic ulcer disease and the peptic ulcer had been healing.? The patient came to the emergency room today because of a syncopal episode.? The granddaughter was giving the information earlier but has since left.? The patient stated that she did feel very well today and then felt like she needed to have a bowel movement.? The patient went to the bathroom and sat on the toilet and passed out.? It took a few minutes for the patient to respond.? The patient was responsive when the police records clerk arrived.? The patient was complaining of some epigastric pain over last couple days.? This morning she started having darker stools.? She denied any fever chills or shortness of breath.? Patient's H&H is 10.7 and 35.7.? It dropped from 13.3 and 43.3 in the last 2 days.? The patient the patient was found to be positive for occult blood.? Her GI specialist Dr. Mccoy was consulted.? Dr. Mccoy has already seen the patient.? She denies any NSAIDs.? The patient had been on care if a and it is unclear if she has continued with that.? The patient was started on Protonix, Zofran and IV fluids. EGD was performed by GI showing increased in size ulcerations. These were cauterized. She will be referred to a bariatric surgeon for possible excision of these ulcerations due to recurrent bleeding. She was discharged in good condition with close outpatient follow-up by GI, bariatric surgery and should continue taking her Carafate. Time Spent with Patient Time attestation: Total time spent providing and/or coordinating discharge services: Exam Narrative: General: No acute distress, alert and oriented per baseline HEENT: Atraumatic, normocephalic, mucous membranes moist CV: Regular rate and rhythm, S1, S2 Lungs: Clear to auscultation bilaterally, no rales or crackles noted, no wheezes, good air entry Abdomen: Soft, nontender, nondistended Extremities: Normal to inspection Skin: No rashes noted, no lesions or wounds seen Psych: Euthymic, normal affect DS: Data Data Completed and Pending Labs on day of discharge: Labs from last 24 hours
== END 2022-03-20 16:26 | disposition home or self-care (01) ==
LOC: ANHED 11:20 → ANH3MEDSUR 12:20
PROVIDERS: Internal Medicine Gastroenterology; Nurse Practitioner; Physician Assistant; Admitting Provider Family Medicine; Emergency Provider Emergency Medicine; PCP Family Medicine; Visit Provider Student in an Organized Health Care Education/Training Program
PROC: 0DJ08ZZ Inspection of Upper Intestinal Tract, Via Natural or Artificial Opening Endoscopic (ICD-10-PCS; CPT 43235; principal; 2022-03-19 14:45)
DX: R55 Syncope and collapse (principal); K28.4 Chronic or unspecified gastrojejunal ulcer with hemorrhage; R10.13 Epigastric pain; T85.898A Other specified complication of other internal prosthetic devices, implants and grafts, initial encounter; N18.30 Chronic kidney disease, stage 3 unspecified; I12.9 Hypertensive chronic kidney disease with stage 1 through stage 4 chronic kidney disease, or unspecified chronic kidney disease; K21.9 Gastro-esophageal reflux disease without esophagitis; G47.33 Obstructive sleep apnea (adult) (pediatric); E11.22 Type 2 diabetes mellitus with diabetic chronic kidney disease; Z87.891 Personal history of nicotine dependence; F03.90 Unspecified dementia, unspecified severity, without behavioral disturbance, psychotic disturbance, mood disturbance, and anxiety; Z98.84 Bariatric surgery status
CPT/HCPCS: 43255; 36415; 51701; 71046; 74177; 80053; 81001; 82274; 82728; 82948; 83036; 83690; 83735; 84443; 84484; 85025; 85610; 85730; 86140; 93005; 93306; 96361; 96365; 96375; 96376; 99285; A9270; C9113; G0378; J0131; J2405; J2704; J7030; J7120; Q9967

== ENCOUNTER 2022-03-24 13:06 | Emergency (ER) | payer MEDICARE, SELFPAY ==
[2022-03-24 13:22] VITALS: BP 193/88; PULSE 69; RESP 20; TEMP 36.6; O2SAT 100
--- NOTE | 2022-03-24 13:51 | ED.ABDPAIN ---
HPI - Abdominal Pain General Chief Complaint: Abdominal Pain Stated Complaint: ulcer doctor referred Time Seen by Provider: 03/24/22 13:43 Source: patient Mode of arrival: ambulatory Limitations: no limitations History of Present Illness HPI narrative: 76-year-old female with dementia, hypertension, diabetes mellitus, CKD, FLACO 0 Kamari gastric bypass status post recurrent ulcers with the last endoscopy on 03/19/2022 which revealed multiple ulcers in the proximal jejunum with the bleeding of 1 of those ulcers which was cauterized. She was discharged from the hospital on 03/20/2022. --Today she went for a follow-up to her primary care physician when she developed acute abdominal pain after abdominal palpation. No nausea/ vomiting. No hematemesis or melena. She presents to the ER for the abdominal pain. Her pain has eased up a little. -- She was noted to have dysuria and urethral pain for the past few days MD elicited complaint: abdominal pain Pertinent past history: gastrointestinal bleeding Onset (ago): hour(s) ( pain started an hour ago) Pain Consistency: constant Location: epigastric Severity: moderate Quality: aching Radiation: none Exacerbating factors: nothing Relieving factors: nothing Associated symptoms: other ( dysuria) Related Data Home Medications Medication Instructions Recorded Confirmed duloxetine 30 mg capsule,delayed 30 mg PO BID 06/28/19 03/18/22 release gabapentin 600 mg tablet 600 mg PO HS 06/28/19 03/18/22 trazodone 50 mg tablet 50 mg PO HS 06/28/19 03/19/22 donepezil 10 mg tablet 10 mg PO QHS 05/18/21 03/18/22 metformin 500 mg tablet 500 mg PO DAILY 09/15/21 03/18/22 pantoprazole 40 mg tablet,delayed 40 mg PO DAILY 09/15/21 03/18/22 release cyanocobalamin (vitamin B-12) 1,000 mcg IM MONTHLY 02/02/22 03/18/22 1,000 mcg/mL injection solution sumatriptan succinate 50 mg tablet 50 mg PO PRN PRN Migraine Headache 02/02/22 03/18/22 divalproex 500 mg tablet,delayed 500 mg PO BID 03/18/22 03/18/22 release escitalopram oxalate 10 mg tablet 10 mg PO DAILY 03/18/22 03/18/22 loperamide 2 mg capsule 2 mg PO PRN PRN Diarrhea 03/18/22 03/18/22 ondansetron 4 mg disintegrating 4 mg PO Q8H 03/18/22 03/18/22 tablet Allergies Allergy/AdvReac Type Severity Reaction Status Date / Time butorphanol Allergy Severe Dizziness, Verified 03/16/22 09:17 Paranoia oxycodone [Percocet] Allergy Intermediate Itching Verified 03/16/22 09:17 Review of Systems Review of Systems: All systems reviewed & are unremarkable except as noted in HPI and below Constitutional: Constitutional: Reports as per HPI and Reports no additional constitutional complaints Eyes: Eyes: Reports as per HPI and Reports no additional eye complaints ENT: Reports system reviewed and no additional complaints, except as documented and Reports as per HPI Cardiovascular: Cardiovascular: Reports as per HPI and Reports no additional cardiovascular complaints Respiratory: Respiratory: Reports as per HPI and Reports no additional respiratory complaints Gastrointestinal: Gastrointestinal: Reports as per HPI, Reports no additional gastrointestinal complaints and Reports abdominal pain Genitourinary: Genitourinary: Reports dysuria Musculoskeletal: Musculoskeletal: Reports no additional musculoskeletal complaints and Reports as per HPI Integumentary/Breasts: Skin/Breast: Reports system reviewed and no additional complaints, except as docu Neurologic: Reports system reviewed and no additional complaints, except as documented and Reports as per HPI Psychiatric: Psychiatric: Reports no additional psychiatric complaints and Reports as per HPI Endocrine: Endocrine: Reports no additional endocrine complaints and Reports as per HPI Hematologic/Lymphatic: Hematologic/Lymphatic: Reports no additional hematologic/lymphatic complaints and Reports as per HPI Allergic/Immunologic: Allergic/Immunologic: Reports no additional allergic/immunologic compla
[2022-03-24 14:31] LABS: Hematocrit 34.8 % (35.0-42.0); Hemoglobin 10.4 g/dL (11.7-13.8); Mean Corpuscular HGB Conc 29.9 g/dL (32.0-36.0); Mean Corpuscular Hemoglobin 26.3 pg (27.0-31.0); Mean Corpuscular Volume 88.1 fL (78.0-102.0); Mean Platelet Volume 9.2 fl (9.2-11.8); Platelet Count Result 242 K/mm3 (150-420); Red Blood Count 3.95 M/mm3 (4.20-5.40); Red Cell Distribution Width 15.2 % (11.6-14.4); White Blood Count 3.9 K/mm3 (4.8-10.8)
[2022-03-24 14:45] LABS: Partial Thromboplastin Time 28.8 SEC (23.90-30.70); Prothrombin Time 11.3 Seconds (9.50-12.10)
[2022-03-24 14:48] LABS: Lactic Acid Reflex 1.2 mmol/L (0.4-2.0)
[2022-03-24 14:56] LABS: Band Neutrophils Percent 0 % (0-6); Basophils Percent Manual 0 % (0-1); Eosinophils Percent Manual 0 % (1-6); Lymphocytes Absolute Manual 1.63 K/mm3 (1.1-4.5); Lymphocytes Percent Manual 42 % (18-44); Monocytes Absolute Manual 0.46 K/mm3 (0.1-0.90); Monocytes Percent Manual 12 % (3-9); Neutrophils Absolute Manual 1.79 K/mm3 (1.7-7.2); Neutrophils Percent Manual 46 % (46-73); Platelet Estimate Adequate (Adequate); Total Cells Counted 100
[2022-03-24 14:58] LABS: Anion Gap 3 mmol/L (8-16); Blood Urea Nitrogen 16 mg/dL (7-18); Carbon Dioxide 32 mmol/L (21-32); Chloride 105 mmol/L (98-108); Potassium 4.2 mmol/L (3.5-5.1); Sodium 140 mmol/L (136-145)
[2022-03-24 14:59] LABS: Alanine Aminotransferase 13 U/L (14-59); Albumin Level 2.8 g/dL (3.4-5.0); Alkaline Phosphatase 91 U/L (46-116); Aspartate Amino Transferase 12 U/L (15-37); Bilirubin,Total 0.2 mg/dL (0.00-1.00); Calcium 8.6 mg/dL (8.5-10.1); Estimated CRCL calculation 39 ml/min; Estimated Glomerular Filt Rate > 60; Glucose 88 mg/dL (70-99); Lipase 140 U/L (73-393); Osmolality Calculated 290 mOsm/kg (285-295); Total Protein 6.1 g/dL (6.4-8.2); Troponin I 12.1 ng/L (0.00-60.4)
[2022-03-24 15:15] VITALS: BP 170/65; PULSE 64; RESP 20; O2SAT 100
[2022-03-24 16:05] LABS: Appearance Urine Clear (Clear); Bilirubin Urine Negative (Negative); Glucose Urine UA Negative (Negative); Ketones Urine Trace (Negative); Leukocyte Esterase Ur 3+ (Negative); Nitrate Urine Positive (Negative); Protein Urine Negative (Negative); Urobilinogen Urine 0.2 mg/dL (0.2-1.0)
[2022-03-24 16:10] LABS: Add Urine Microscopic? YES; Bacteria Urine 1+ /hpf; Blood Urine Trace-lysed (Negative); Color Urine Light Yellow (Yellow); Squamous Epithelial Cell Urine Few /hpf (Few)
[2022-03-24] MEDS: ACETAMINOPHEN 325 MG TABLET 650 MG PO (16:52)
[2022-03-24] MEDS: NITROFURANTOIN MONOHYD MACROCR 100 MG CAP (16:52)
[2022-03-24 17:10] VITALS: BP 153/71; PULSE 66; RESP 19; TEMP 36.8; O2SAT 99
--- NOTE | 2022-03-24 17:34 | PC.NURSE ---
On 03/24/22, the student, [SHIVANI TAVARES ], provided care and completed [facility] documentation on this patient. I have reviewed the student's documentation and agree with the findings.
== END 2022-03-24 17:20 | disposition home or self-care (01) ==
PROVIDERS: Emergency Provider Internal Medicine Critical Care Medicine; PCP Family Medicine
DX: N39.0 Urinary tract infection, site not specified (principal); R10.13 Epigastric pain; I12.9 Hypertensive chronic kidney disease with stage 1 through stage 4 chronic kidney disease, or unspecified chronic kidney disease; N18.30 Chronic kidney disease, stage 3 unspecified; K21.9 Gastro-esophageal reflux disease without esophagitis; E11.9 Type 2 diabetes mellitus without complications; Z87.891 Personal history of nicotine dependence
CPT/HCPCS: 36415; 80053; 81001; 83605; 83690; 84484; 85025; 85610; 85730; 99284; A9270

== ENCOUNTER 2022-03-25 13:43 | Outpatient (CLI) | payer MEDICARE, SELFPAY ==
[2022-03-25 14:00] LABS: Hematocrit 37.2 % (37.0-47.0); Hemoglobin 11.3 g/dL (12.0-15.0); Mean Corpuscular HGB Conc 30.4 g/dl (32-36); Mean Corpuscular Hemoglobin 26.3 pg (26-34); Mean Corpuscular Volume 86.5 fl (80-100); Mean Platelet Volume 9.1 fl (7.4-10.4); Platelet Count Result 278 k/mm3 (150-375); Red Cell Distribution Width 15.5 % (11.5-14.5); White Blood Count 5.3 K/mm3 (4.5-10.0)
[2022-03-25 14:18] LABS: Alanine Aminotransferase 13 U/L (6-35); Albumin Level 3.6 g/dL (3.5-5.1); Alkaline Phosphatase 96 U/L (38-126); Amylase 106 U/L (30-110); Anion Gap 9 mmol/L (8-16); Aspartate Amino Transferase 19 U/L (14-36); Bilirubin,Total 0.2 mg/dL (0.2-1.3); Blood Urea Nitrogen 14 mg/dL (7-17); Calcium 8.8 mg/dL (8.4-10.2); Carbon Dioxide 30 mmol/L (22-30); Chloride 101 mmol/L (98-107); Estimated Glomerular Filt Rate > 60; Glucose 102 mg/dL (65-110); Lipase 82 U/L (23-300); Potassium 4.2 mmol/L (3.4-5.0); Sodium 140 mmol/L (137-145)
== END 2022-03-25 13:44 | disposition home or self-care (01) ==
LOC: ANHLAB 13:45
PROVIDERS: PCP Family Medicine; Visit Provider Nurse Practitioner Family
DX: I10 Essential (primary) hypertension (principal); K28.9 Gastrojejunal ulcer, unspecified as acute or chronic, without hemorrhage or perforation; R10.9 Unspecified abdominal pain
CPT/HCPCS: 36415; 80053; 82150; 83690; 85027

== ENCOUNTER 2022-04-22 12:04 | Outpatient (CLI) | payer MEDICARE, SELFPAY ==
[2022-04-22 12:45] LABS: Hematocrit 37.9 % (37.0-47.0); Hemoglobin 11.5 g/dL (12.0-15.0); Mean Corpuscular HGB Conc 30.3 g/dl (32-36); Mean Corpuscular Hemoglobin 26.3 pg (26-34); Mean Corpuscular Volume 86.7 fl (80-100); Mean Platelet Volume 9.1 fl (7.4-10.4); Platelet Count Result 242 k/mm3 (150-375); Red Blood Count 4.37 M/mm3 (4.2-5.4); White Blood Count 4.6 K/mm3 (4.5-10.0)
[2022-04-22 13:13] LABS: Alanine Aminotransferase 14 U/L (6-35); Alkaline Phosphatase 75 U/L (38-126); Anion Gap 11 mmol/L (8-16); Aspartate Amino Transferase 24 U/L (14-36); Bilirubin,Total 0.5 mg/dL (0.2-1.3); Blood Urea Nitrogen 18 mg/dL (7-17); Carbon Dioxide 27 mmol/L (22-30); Chloride 98 mmol/L (98-107); Estimated Glomerular Filt Rate > 60; Glucose 78 mg/dL (65-110); Potassium 4.1 mmol/L (3.4-5.0); Sodium 136 mmol/L (137-145)
== END 2022-04-22 12:05 | disposition home or self-care (01) ==
PROVIDERS: PCP Family Medicine; Visit Provider Nurse Practitioner Family
DX: R42 Dizziness and giddiness (principal); K25.9 Gastric ulcer, unspecified as acute or chronic, without hemorrhage or perforation
CPT/HCPCS: 36415; 80053; 85027

== ENCOUNTER 2022-07-01 18:42 | Emergency (ER) | payer MEDICARE, SELFPAY ==
[2022-07-01 18:42] VITALS: BP 145/67; PULSE 99; RESP 16; TEMP 36.6; O2SAT 99
--- NOTE | 2022-07-01 19:08 | PC.NURSE ---
REPORT TO GUILLERMINA LOGAN
--- NOTE | 2022-07-01 19:23 | ED.WOUNDLAC ---
HPI - Wound/Laceration General Chief Complaint: Wound/Laceration Stated Complaint: cut on left leg Time Seen by Provider: 07/01/22 19:23 Source: patient and family Mode of arrival: ambulatory History of Present Illness HPI narrative: this is a 77-year-old female that presents after she cut her left lower leg causing laceration approximately 3cm in length mildly gaping with minimal discomfort and pain otherwise no numbness or tingling currently no bleeding. Onset (ago): hour(s) Location: other Extremity Location: Left: lower leg ( laceration) Place: home Patient tetanus UTD: Yes Context: accidental Associated symptoms: pain Related Data Home Medications Medication Instructions Recorded Confirmed duloxetine 30 mg capsule,delayed 30 mg PO BID 06/28/19 07/01/22 release gabapentin 600 mg tablet 600 mg PO HS 06/28/19 07/01/22 trazodone 50 mg tablet 50 mg PO HS 06/28/19 07/01/22 donepezil 10 mg tablet 10 mg PO QHS 05/18/21 07/01/22 cyanocobalamin (vitamin B-12) 1,000 mcg IM MONTHLY 02/02/22 07/01/22 1,000 mcg/mL injection solution sumatriptan succinate 50 mg tablet 50 mg PO PRN PRN Migraine Headache 02/02/22 07/01/22 divalproex 500 mg tablet,delayed 500 mg PO BID 03/18/22 07/01/22 release escitalopram oxalate 10 mg tablet 10 mg PO DAILY 03/18/22 07/01/22 loperamide 2 mg capsule 2 mg PO PRN PRN Diarrhea 03/18/22 07/01/22 potassium chloride 20 mEq 20 meq PO DAILY 07/01/22 07/01/22 tablet,extended release(part/cryst) Allergies Allergy/AdvReac Type Severity Reaction Status Date / Time butorphanol Allergy Severe Dizziness, Verified 07/01/22 18:48 Paranoia oxycodone [Percocet] Allergy Intermediate Itching Verified 07/01/22 18:48 Review of Systems Review of Systems: All systems reviewed & are unremarkable except as noted in HPI and below PMFSH Past Medical History Medical History Acute upper respiratory infections of unspecified site (10/07/16) CKD (chronic kidney disease) stage 3, GFR 30-59 ml/min Cough (10/07/16) Dementia Depression (09/02/15) Dizziness (11/23/16) Dysuria (03/05/16) Essential hypertension GERD (gastroesophageal reflux disease) (09/02/15) HOCM (hypertrophic obstructive cardiomyopathy) FLACO on CPAP No longer uses a CPAP machine since she lost weight. Type 2 diabetes mellitus (05/18/16) Surgical History Surgical History History of cholecystectomy History of gastric bypass History of hysterectomy Family History Family History Mother Carcinoma of colon Family history of Alzheimer's disease Sibling Carcinoma of colon Family history of malignant neoplasm of uterus Father Patient's father is Other Diabetes mellitus Family history of malignant neoplasm Family history of sleep apnea Family history of thyroid disease Hypertension Social History Social History Social History: The patient lives with her granddaughter. She has 3 children. Tamia Bianca her daughter is the durable power litigation attorney for healthcare. The patient is retired from bookkeeping/accounting. the patient is a former smoker. The patient does not drink any alcohol routinely but occasionally does if she goes out to eat. She is . She does not use any marijuana or illicit drugs. Code status full code Smoking packs per day: 0.5 Smoking cigarettes per day: 10.0 Years smoked: 15 Smoking pack-years: 7.50 Smoking status: Former smoker Tobacco type: cigarettes Alcohol intake: never Alcohol use details: has not been drinking lately due to abdominal pain Substance use: never Substance use type: does not use Spiritual care concerns: No Exam Const: General: healthy appearing Nutritional Appearance: well nourished Orientation/consciousnes
[2022-07-01] MEDS: LIDOCAINE HCL 1% LOCAL INJ 10 ML VIAL (19:37)
[2022-07-01 19:38] VITALS: BP 130/75; PULSE 80; RESP 18; TEMP 37.2; O2SAT 98
--- NOTE | 2022-07-01 19:41 | PC.NURSE ---
SUTURES & DERMABOND PER MD. AREA CLEANED AFTER SUTURES, NON-ADHERE DRSG, WRAPPED WITH COBAN. TOLERATED WELL
== END 2022-07-01 19:43 | disposition home or self-care (01) ==
LOC: CHSED 19:28
PROVIDERS: Emergency Provider Emergency Medicine; PCP Family Medicine
DX: S81.812A Laceration without foreign body, left lower leg, initial encounter (principal); X58.XXXA Exposure to other specified factors, initial encounter; I12.9 Hypertensive chronic kidney disease with stage 1 through stage 4 chronic kidney disease, or unspecified chronic kidney disease; E11.22 Type 2 diabetes mellitus with diabetic chronic kidney disease; N18.30 Chronic kidney disease, stage 3 unspecified; I42.1 Obstructive hypertrophic cardiomyopathy; F03.90 Unspecified dementia, unspecified severity, without behavioral disturbance, psychotic disturbance, mood disturbance, and anxiety; G47.33 Obstructive sleep apnea (adult) (pediatric); K21.9 Gastro-esophageal reflux disease without esophagitis; F32.A Depression, unspecified; Z98.84 Bariatric surgery status; Z87.891 Personal history of nicotine dependence
CPT/HCPCS: 12002; 99282

== ENCOUNTER 2022-07-29 10:33 | Outpatient (CLI) | payer MEDICARE, SELFPAY ==
--- NOTE | ~2022-07-29 | XR_ITS ---
EXAMINATION: XR abdomen obstructive series DATE: 07/29/2022 11:29 INDICATION: Left abdominal pain TECHNIQUE: Upright and supine views of the abdomen were obtained. COMPARISON: 10/03/2014 FINDINGS: There are surgical changes at the gastroesophageal junction and in the left upper quadrant. No dilated loops of bowel are identified. No free intraperitoneal gas is seen. Calcified nodules of the visualized lung bases are consistent with old granulomatous disease. There is mild osteoarthritis of the hips. IMPRESSION: 1. Nonobstructive bowel gas pattern. Reviewed, dictated and finalized at location L. TUNNEL TECHNICIAN
[2022-07-29 11:00] LABS: Basophils Absolute Auto 0.03 K/mm3 (0.00-0.10); Basophils Percent Auto 0.4 % (0.0-1.0); Eosinophils Absolute Auto 0.09 K/mm3 (0.02-0.50); Eosinophils Percent Auto 1.2 % (1.0-6.0); Immature Granulocyte Absolute 0.03 K/mm3 (0.00-0.00); Immature Granulocyte Percent A 0.4 % (0.0-0.0); Lymphocytes Absolute Auto 1.14 K/mm3 (1.10-4.50); Mean Corpuscular Hemoglobin 25.1 pg (27.0-31.0); Mean Corpuscular Volume 86.4 fL (78.0-102.0); Mean Platelet Volume 9.3 fl (9.2-11.8); Monocytes Absolute Auto 0.52 K/mm3 (0.10-0.90); Monocytes Percent Auto 6.9 % (2.0-11.0); Neutrophils Absolute Auto 5.8 K/mm3 (1.7-7.2); Neutrophils Percent Auto 76.1 % (50.0-70.0); Platelet Count Result 325 K/mm3 (150-420); Red Blood Count 2.43 M/mm3 (4.20-5.40); Red Cell Distribution Width 19.5 % (11.6-14.4); White Blood Count 7.6 K/mm3 (4.8-10.8)
[2022-07-29 11:01] LABS: Add Urine Microscopic? YES; Appearance Urine Clear (Clear); Bilirubin Urine Negative (Negative); Blood Urine Negative (Negative); Color Urine Light Yellow (Yellow); Glucose Urine UA Negative (Negative); Ketones Urine Negative (Negative); Leukocyte Esterase Ur Trace LEU/UL (Negative); Nitrate Urine Negative (Negative); Protein Urine Trace (Negative); Specific Grav Ur <= 1.005 (1.010-1.020); Urobilinogen Urine 0.2 mg/dL (0.2-1.0)
[2022-07-29 11:04] LABS: Hemoglobin 6.1 g/dL (11.7-13.8)
[2022-07-29 11:31] LABS: Alanine Aminotransferase 11 U/L (14-59); Albumin Level 2.9 g/dL (3.4-5.0); Alkaline Phosphatase 99 U/L (46-116); Amylase 76 U/L (25-115); Anion Gap 11 mmol/L (8-16); Aspartate Amino Transferase 11 U/L (15-37); Bilirubin,Total 0.3 mg/dL (0.00-1.00); Blood Urea Nitrogen 16 mg/dL (7-18); Calcium 8.2 mg/dL (8.5-10.1); Carbon Dioxide 26 mmol/L (21-32); Chloride 106 mmol/L (98-108); Estimated Glomerular Filt Rate 51; Glucose 116 mg/dL (70-99); Lipase 59 U/L (16-77); Osmolality Calculated 298 mOsm/kg (285-295); Potassium 4.2 mmol/L (3.5-5.1); RBC Urine None seen /hpf (0-2); Sodium 143 mmol/L (136-145); Squamous Epithelial Cell Urine Moderate /hpf (Few); Thyroid Stimulating Hormone 1.43 uIU/mL (0.36-3.74); WBC Urine 0-3 /hpf (0-3)
[2022-07-29 11:32] LABS: Bacteria Urine 1+ /hpf
== END 2022-07-29 10:34 | disposition home or self-care (01) ==
LOC: CHSLAB 10:37
PROVIDERS: PCP Family Medicine; Visit Provider Family Medicine
DX: R10.9 Unspecified abdominal pain (principal); R00.0 Tachycardia, unspecified
CPT/HCPCS: 36415; 74019; 80053; 81001; 82150; 83690; 84443; 85025

== ENCOUNTER 2022-07-29 11:56 | Inpatient (IN) | payer MEDICARE, SELFPAY ==
[2022-07-29] VITALS (21 sets, daily range): BP systolic 90–128; BP diastolic 46–59; PULSE 64–107; RESP 13–18; TEMP 36.3–36.8; O2SAT 97–100; BMI 22.0
--- NOTE | ~2022-07-29 | XR_ITS ---
EXAMINATION: XR chest 1V portable DATE: 07/29/2022 12:41 INDICATION: Cough. TECHNIQUE: A single frontal view of the chest was obtained. COMPARISON: Chest 2 views 03/18/2022 FINDINGS: Calcified pulmonary nodules and calcified hilar and mediastinal lymph nodes are consistent with old granulomatous disease. No pleural effusion or pneumothorax. The heart size is normal. IMPRESSION: 1. No acute cardiopulmonary disease. Reviewed, dictated and finalized at location A. R MACHINE OPERATOR
--- NOTE | ~2022-07-29 | CT_ITS ---
EXAMINATION: CT abdomen pelvis w con INDICATION: Bloody stool, anemia TECHNIQUE: Computed tomographic images of the abdomen and pelvis were obtained after the administrati on of 100 cc of Omnipaque 350 intravenous contrast. The dose-length product (DLP) was 390.59 mGy-cm. Automated exposure control and iterative reconstruction technique were employed. COMPARISON: 03/18/2022 FINDINGS: Minimal dependent atelectasis is present in the lung bases. The heart size is normal. There is a small sliding hernia. Surgical changes are present in the stomach. The gallbladder is surgicall y absent. There is mild enlargement of the common bile duct and central intrahepatic ducts which is l ikely due to post cholecystectomy state. The spleen and adrenal glands are normal. Again noted is mil d chronic dilation of the pancreatic duct in the head of the pancreas, consistent with chronic pancre atitis. Cysts of the kidneys measure up to 8 mm on the right. There is calcified atherosclerosis of t he aorta and many of the other arteries. No pathologically enlarged abdominal or pelvic lymph nodes a re identified. No free intraperitoneal gas or evidence of bowel obstruction. There is moderate Coloni c diverticulosis is present without evidence of diverticulitis. IMPRESSION: 1. No CT correlate for the patient's symptoms. Reviewed, dictated and finalized at location L. S SET UP
--- NOTE | 2022-07-29 12:27 | ED.GENADULT ---
HPI - General Adult General Chief complaint: Recheck/Abnormal Lab/Rx Stated complaint: abnormal labs Time Seen by Provider: 07/29/22 12:16 Source: RN notes reviewed History of Present Illness HPI narrative: Patient presents emergency department from PCPs office for low hemoglobin. Patient states that she has been feeling generally weak for the past week. States has been associated with abdominal pain in the upper abdomen patient also notes that she has been having some black stools for the past 2 days. The patient got her PCP today and had outpatient lab work done showing a hemoglobin of 6 and was sent to the ER for further evaluation. Patient states she does have a history of a gastric ulcer this been cauterized by Dr. Cortes states that she had been on stomach medicine however she had upper respiratory symptoms last week secondary to not feeling well and not been taking all of her medications she denies any fevers or chills chest pain states mild shortness of breath with ambulation denies any diarrhea Related Data Home Medications Medication Instructions Recorded Confirmed duloxetine 30 mg capsule,delayed 30 mg PO BID 06/28/19 07/01/22 release gabapentin 600 mg tablet 600 mg PO HS 06/28/19 07/01/22 trazodone 50 mg tablet 50 mg PO HS 06/28/19 07/01/22 donepezil 10 mg tablet 10 mg PO QHS 05/18/21 07/01/22 cyanocobalamin (vitamin B-12) 1,000 mcg IM MONTHLY 02/02/22 07/01/22 1,000 mcg/mL injection solution sumatriptan succinate 50 mg tablet 50 mg PO PRN PRN Migraine Headache 02/02/22 07/01/22 divalproex 500 mg tablet,delayed 500 mg PO BID 03/18/22 07/01/22 release escitalopram oxalate 10 mg tablet 10 mg PO DAILY 03/18/22 07/01/22 loperamide 2 mg capsule 2 mg PO PRN PRN Diarrhea 03/18/22 07/01/22 potassium chloride 20 mEq 20 meq PO DAILY 07/01/22 07/01/22 tablet,extended release(part/cryst) Allergies Allergy/AdvReac Type Severity Reaction Status Date / Time butorphanol Allergy Severe Dizziness, Verified 07/01/22 18:48 Paranoia oxycodone [Percocet] Allergy Intermediate Itching Verified 07/01/22 18:48 Review of Systems Review of Systems: Gen.: Denies fevers or chills ENT: Reports congestion last week Respiratory: Denies shortness of breath reports dry cough CV: Denies chest pain or palpitations GI: See HPI Musculoskeletal: Denies back pain or muscle pain Neuro: Reports generalized weakness Skin: Denies rash Except as documented, all other systems reviewed and negative [facility] Past Medical History Medical History Acute upper respiratory infections of unspecified site (10/07/16) CKD (chronic kidney disease) stage 3, GFR 30-59 ml/min Cough (10/07/16) Dementia Depression (09/02/15) Dizziness (11/23/16) Dysuria (03/05/16) Essential hypertension GERD (gastroesophageal reflux disease) (09/02/15) HOCM (hypertrophic obstructive cardiomyopathy) FLACO on CPAP No longer uses a CPAP machine since she lost weight. Type 2 diabetes mellitus (05/18/16) Surgical History Surgical History History of cholecystectomy History of gastric bypass History of hysterectomy Family History Family History Mother Carcinoma of colon Family history of Alzheimer's disease Sibling Carcinoma of colon Family history of malignant neoplasm of uterus Father Patient's father is Other Diabetes mellitus Family history of malignant neoplasm Family history of sleep apnea Family history of thyroid disease Hypertension Social History Social History Social History: The patient lives with her granddaughter. She has 3 children. Tamia Valenzuela her daughter is the durable power employee benefits attorney for healthcare. The patient is retired from bookkeeping/accounting. the patient is a former smoker. The patient
[2022-07-29 12:30] LABS: Basophils Percent Auto 0.2 % (0.2-1.2); Eosinophils Absolute Auto 0.1 K/mm3 (0-0.3); Eosinophils Percent Auto 0.7 % (0-4.4); Hematocrit 21.4 % (37.0-47.0); Immature Granulocyte Absolute 0.05 K/mm3 (0.00-0.031); Immature Granulocyte Percent A 0.6 % (0-0.5); Lymphocytes Percent Auto 14.4 % (18.3-44.2); Mean Corpuscular HGB Conc 29.4 g/dl (32-36); Mean Corpuscular Hemoglobin 25.5 pg (26-34); Mean Corpuscular Volume 86.6 fl (80-100); Mean Platelet Volume 9.4 fl (7.4-10.4); Monocytes Absolute Auto 0.5 K/mm3 (0.1-0.6); Monocytes Percent Auto 6.1 % (2.6-8.5); Neutrophils Absolute Auto 6.5 K/mm3 (1.3-6.7); Platelet Count Result 310 k/mm3 (150-375); Red Blood Count 2.47 M/mm3 (4.2-5.4); Red Cell Distribution Width 19.9 % (11.5-14.5); White Blood Count 8.4 K/mm3 (4.5-10.0)
[2022-07-29 12:33] LABS: Hemoglobin 6.3 g/dL (12.0-15.0)
[2022-07-29 12:43] LABS: Alanine Aminotransferase 13 U/L (6-35); Albumin Level 3.6 g/dL (3.5-5.1); Alkaline Phosphatase 100 U/L (38-126); Anion Gap 7 mmol/L (8-16); Aspartate Amino Transferase 24 U/L (14-36); Bilirubin,Total 0.5 mg/dL (0.2-1.3); Blood Urea Nitrogen 17 mg/dL (7-17); Calcium 8.2 mg/dL (8.4-10.2); Carbon Dioxide 25 mmol/L (22-30); Chloride 106 mmol/L (98-107); Estimated CRCL calculation 37 ml/min; Estimated Glomerular Filt Rate 54; Glucose 111 mg/dL (65-110); Potassium 4.1 mmol/L (3.4-5.0); Sodium 138 mmol/L (137-145)
[2022-07-29 12:44] LABS: INR 1.1; Partial Thromboplastin Time 27.7 SECONDS (22.3-36.8)
[2022-07-29] MEDS: PANTOPRAZOLE SODIUM IV 40 MG VIAL IV PUSH ×2 (12:44→17:16)
[2022-07-29 12:46] LABS: Lactic Acid Reflex 1.7 mmol/L (0.7-2.0)
[2022-07-29 12:53] LABS: Anisocytosis 3+ (NORMAL); Hypochromasia 2+ (NORMAL); Ovalocytes 1+ (NORMAL); Poikilocytosis 1+ (NORMAL)
[2022-07-29 12:54] LABS: Schistocytes None Seen (NORMAL)
[2022-07-29 13:20] LABS: Influenza A QL RT-PCR Negative (Negative); Influenza B QL RT-PCR Negative (Negative); SARS-CoV-2 RNA PCR Negative
[2022-07-29] MEDS: TUBING, BLOOD PLUM PUMP TUBING 1 EACH XX (14:08)
[2022-07-29] MEDS: SODIUM CHLORIDE 0.9% IV 250 ML 30 ML IV CONT (14:08)
--- NOTE | 2022-07-29 15:30 | PM.IMHP ---
H&P: HPI History of Present Illness Date/Time: 07/29/22 15:30 Chief Complaint: Low hemoglobin. 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 She has been seen by Dr. Cortes and was referred to Dr. Orlando at [place] for possible surgical intervention for these ulcers however she notes having an endoscopy at the beginning of June and she was told that her ulcer was healed at that time. She is supposed to take Protonix 40 mg b.i.d. and Carafate 4 times a day though she has not been taking that on a consistent basis for at least the past week or more because her stomach has been hurting. She describes a cramping discomfort throughout the upper abdomen associated with occasional bloating and belching. She has not had much of an appetite and she has had ongoing nausea and reports 1 episode of emesis last week. Over last couple of days she has become increasingly more weak and she has been getting short of breath with limited activity and has felt her heart racing. Today in the shower she felt extremely lightheaded and dizzy as though she may pass out but luckily she was able to get out and sit down before she lost consciousness. With further questioning she has noticed dark stools recently, though she has not had any bowel movement today. She denies NSAID use. No significant caffeine or alcohol use. She does admit to holding a lot of stress, more so since her passed last December. She made an appointment with her doctor today, had lab work, and was found to have a hemoglobin of 6.1 and she was directed to the ED. She is being admitted in this setting for blood transfusion and GI consultation. Review of Systems Review of Systems: Twelve systems were reviewed and are negative except for as per HPI. [facility] Past Medical History Medical History Acute upper respiratory infections of unspecified site (10/07/16) CKD (chronic kidney disease) stage 3, GFR 30-59 ml/min Cough (10/07/16) Dementia Depression (09/02/15) Dizziness (11/23/16) Dysuria (03/05/16) Essential hypertension GERD (gastroesophageal reflux disease) (09/02/15) HOCM (hypertrophic obstructive cardiomyopathy) Memory loss FLACO on CPAP No longer uses a CPAP machine since she lost weight. Type 2 diabetes mellitus (05/18/16) Surgical History Surgical History History of cholecystectomy History of gastric bypass History of hysterectomy Family History Family History Mother Family history of Alzheimer's disease Carcinoma of colon Diabetes mellitus Hypertension Sibling Carcinoma of colon Father Patient's father is Social History Social History Social History: The patient lives with her granddaughter. She has 3 children. Tamia Valenzuela her daughter is the durable power employment law attorney for healthcare. The patient is retired from bookkeeping/accounting. the patient is a former smoker. The patient does not drink any alcohol routinely but occasionally does if she goes out to eat. She is . She does not use any marijuana or illicit drugs. Code status full code Smoking packs per day: 0.5 Smoking cigarettes per day: 10.0 Years smoked: 15 Smoking pack-years: 7.50 Smoking status: Former smoker Tobacco type: cigarettes Alcohol intake: never Alcohol use details: has not been drinking lately due to abdominal pain Substance use: never Substance use type: does not use Lack of Transportation: No Lack of Food: Never True Current Housing: I Have Housing Concerned About Future Housing: No Difficul
--- NOTE | 2022-07-29 16:53 | ADMGEN ---
This patient, Catie Painter, was admitted to [facility] Surg Room 314-01. Patient/family oriented to hospital policies and general routines including ID bracelet, bed and alarms, visiting hours, pain management, procedures, bathroom and other care routines, personal items, smoking policy, room service/diet, and visiting hours. Information on how to activate the Rapid Response Team has been discussed. Patient/Family are encouraged to report perceived risks to care and to ask questions if they do not understand what they are told or what they should do. Report from Ayala
[2022-07-29] MEDS: TUBING, BLOOD PLUM PUMP TUBING 2 EACH XX (18:32)
[2022-07-29] MEDS: SUCRALFATE 1 GM TABLET PO (22:46)
[2022-07-29 23:44] LABS: Hematocrit 24.2 % (37.0-47.0); Hemoglobin 7.5 g/dL (12.0-15.0)
[2022-07-30] VITALS (11 sets, daily range): BP systolic 106–181; BP diastolic 43–65; PULSE 64–126; RESP 12–30; TEMP 36.4–36.6; O2SAT 98–100; BMI 21.7
[2022-07-30 00:13] LABS: Lipase 126 U/L (23-300)
[2022-07-30] MEDS: SUCRALFATE 1 GM TABLET PO ×3 (05:29→20:21)
[2022-07-30 06:26] LABS: Basophils Percent Auto 0.6 % (0.2-1.2); Eosinophils Absolute Auto 0.1 K/mm3 (0-0.3); Eosinophils Percent Auto 2.4 % (0-4.4); Hematocrit 25.5 % (37.0-47.0); Immature Granulocyte Absolute 0.02 K/mm3 (0.00-0.031); Immature Granulocyte Percent A 0.4 % (0-0.5); Lymphocytes Absolute Auto 0.81 K/mm3 (0.9-3.2); Lymphocytes Percent Auto 15.9 % (18.3-44.2); Mean Corpuscular HGB Conc 31.4 g/dl (32-36); Mean Corpuscular Hemoglobin 26.8 pg (26-34); Mean Corpuscular Volume 85.3 fl (80-100); Mean Platelet Volume 9.2 fl (7.4-10.4); Monocytes Absolute Auto 0.4 K/mm3 (0.1-0.6); Monocytes Percent Auto 8.6 % (2.6-8.5); Neutrophils Absolute Auto 3.7 K/mm3 (1.3-6.7); Neutrophils Percent Auto 72.1 % (45.5-73.1); Platelet Count Result 233 k/mm3 (150-375); Red Blood Count 2.99 M/mm3 (4.2-5.4); Red Cell Distribution Width 18.2 % (11.5-14.5); White Blood Count 5.1 K/mm3 (4.5-10.0)
[2022-07-30 06:40] LABS: Alanine Aminotransferase 10 U/L (6-35); Albumin Level 3.1 g/dL (3.5-5.1); Alkaline Phosphatase 84 U/L (38-126); Anion Gap 3 mmol/L (8-16); Aspartate Amino Transferase 20 U/L (14-36); Blood Urea Nitrogen 15 mg/dL (7-17); Calcium 7.9 mg/dL (8.4-10.2); Carbon Dioxide 27 mmol/L (22-30); Chloride 104 mmol/L (98-107); Estimated CRCL calculation 46 ml/min; Estimated Glomerular Filt Rate > 60; Glucose 90 mg/dL (65-110); Magnesium 2.2 mg/dL (1.6-2.3); Potassium 4.2 mmol/L (3.4-5.0); Sodium 134 mmol/L (137-145)
--- NOTE | 2022-07-30 06:56 | WPDGICN ---
Assessment and Plan Assessment and plan (1) GI bleed: Code(s): K92.2 - Gastrointestinal hemorrhage, unspecified Status: Acute Assessment and Plan: she began seeing black stools with what appeared to be blood about 7 days ago. She has been come gradually weaker. She has had several previous episodes of bleeding from a large anastomotic ulcer. Will plan on endoscopy today. (2) Symptomatic anemia: Code(s): D64.9 - Anemia, unspecified Status: Acute Assessment and Plan: She has received 2 units of blood so far. Hemoglobin has risen from 6.1-8.0. (3) Anastomotic ulcer S/P gastric bypass: Code(s): T85.898A - Other specified complication of other internal prosthetic devices, implants and grafts, initial encounter; K28.9 - Gastrojejunal ulcer, unspecified as acute or chronic, without hemorrhage or perforation Status: Acute Assessment and Plan: This is a chronic ulcer. She blood from this a few months ago. She recently saw a surgeon at [facility] with hope of revising her gastroenterostomy. The repeat an EGD at [place] and told her that the ulcer was no longer present. I am going to try to get the records from [facility] and may need to contact the surgeon myself to apprise him of the situation. (4) CKD (chronic kidney disease) stage 3, GFR 30-59 ml/min: Qualifiers: Chronic kidney disease stage 3 subtype: unspecified whether 3a or 3b Qualified Code(s): N18.30 - Chronic kidney disease, stage 3 unspecified Code(s): N18.3 - Chronic kidney disease, stage 3 (moderate) Status: Acute Assessment and Plan: Actually her BUN is good today 15 GI Consult Note Consult date/time: 07/30/22 06:56 HPI: Catie Painter is a 77 year old female Presented to emergency room with extreme weakness and black stools. The black stools began about a week ago. At times she actually saw was dark red blood in her bowel movements as well. She has history of a chronic ulcer, anastomotic ulcer at the site of her previous gastric bypass. She is maintained on Carafate 4 times a day also taking pantoprazole. She had been seen in the office a couple of months ago when because of increasing pain the pantoprazole was doubled. Because her ulcer is chronic and intermittently would bleeed, she was referred to at [facility] for possible revision. She saw him in the office and he arranged an EGD done by somebody over in [place] who told her that the ulcer was healed ; she has her no more since then from the surgeon's office. Now she presents emergency room with a hemoglobin of 6.4. Earlier in the day she had seen her primary care provider who did blood work and found virtually the same hemoglobin. She has been transfused in her blood count is now over 7. She is not having any abdominal pain at this time but still feels weak. Review of Systems Review of Systems: All systems reviewed & are unremarkable except as noted in HPI and below PMFSH Past Medical History Medical History Acute upper respiratory infections of unspecified site (10/07/16) CKD (chronic kidney disease) stage 3, GFR 30-59 ml/min Cough (10/07/16) Dementia Depression (09/02/15) Dizziness (11/23/16) Dysuria (03/05/16) Essential hypertension GERD (gastroesophageal reflux disease) (09/02/15) HOCM (hypertrophic obstructive cardiomyopathy) Memory loss FLACO on CPAP No longer uses a CPAP machine since she lost weight. Type 2 diabetes mellitus (05/18/16) Surgical History Surgical History History of cholecystectomy History of gastric bypass History of hysterectomy Family History Family History Mother Family history of Alzheimer's disease Carcinoma of colon Diabetes mellitus Hypertension Sibling Carcinoma of colon Fath
[2022-07-30] MEDS: PANTOPRAZOLE SODIUM IV 40 MG VIAL IV PUSH ×2 (08:21→18:48)
--- NOTE | 2022-07-30 10:13 | PM.IMPN ---
Progress Note: A&P Assessment and Plan (1) GI bleed: Code(s): K92.2 - Gastrointestinal hemorrhage, unspecified Status: Acute (2) Symptomatic anemia: Code(s): D64.9 - Anemia, unspecified Status: Acute (3) Memory loss: Code(s): R41.3 - Other amnesia Status: Acute Plan The patient presented to the emergency department for evaluation after she was found to have a low hemoglobin on outpatient labs which were done for evaluation of increasing weakness and shortness of breath over the past week or so. Her hemoglobin and hematocrit today were 6.3 and 21.4% respectively. Stool was Hemoccult positive in the emergency department and it is likely that she has another ulcer which has been bleeding. Will continue Protonix and Carafate and she was instructed on the importance of being compliant with these medications. Children at bedside indicate that she is forgetful and she was recently started on donepezil for possible dementia. She may very well need somebody to help administer her medications to her at home. She will be transfused to a stable hemoglobin. NPO after midnight for possible endoscopy tomorrow per Dr. Cortes. Vital signs were reviewed and they have been relatively stable. Antihypertensives currently on hold as her blood pressures were at the lower end of normal earlier. The rest of her home medications will be reviewed and resumed as appropriate. 07/30/2022 interval history: 77-year-old female status post bariatric surgery and and chronic bleeding from ulcers along anastomosis, presented with complaint of tired fatigued short of breath and dark stool upon arrival patient was found to have a hemoglobin of 6.4, patient was given 2 units of pack RBC her hemoglobin this morning is 8, and checking every 6 hours, is seen by GI and will have EGD today and further recommendation to follow, will do the iron profile patient may have iron deficiency anemia. Subjective Date/time seen: 07/30/22 10:13 Low hemoglobin. 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 She has been seen by Dr. Cortes and was referred to Dr. Orlando at [place] for possible surgical intervention for these ulcers however she notes having an endoscopy at the beginning of June and she was told that her ulcer was healed at that time. She is supposed to take Protonix 40 mg b.i.d. and Carafate 4 times a day though she has not been taking that on a consistent basis for at least the past week or more because her stomach has been hurting. He describes a cramping discomfort throughout the upper abdomen associated with occasional bloating and belching. She has not had much of an appetite and she has had ongoing nausea and reports 1 episode of emesis last week. Over last couple of days she has become increasingly more weak and she has been getting short of breath with limited activity and has felt her heart racing. Today in the shower she felt extremely lightheaded and dizzy as though she may pass out but luckily she was able to get out and sit down before she lost consciousness. With further questioning she has noticed dark stools recently, though she has not had any bowel movement today. She denies NSAID use. No significant caffeine or alcohol use. She does admit to holding a lot of stress, more so since her passed last December. She made appoint with her doctor today, had lab work, and was found to have a hemoglobin of 6.1 and she was directed to the ED. She is being admitted in this setting for blood transfusion and GI consultation. 07/30/2022 interval history: 77-year-old female status post bariatric surgery and and chronic bleeding from ulcers along anastomosis, presented with complaint of tired fatigued short of breath and dark stool upon arrival karma
[2022-07-30] MEDS: LACTATED RINGERS 1,000 ML 150 ML IV CONT (12:03)
--- NOTE | 2022-07-30 12:38 | WPDANESEPPF ---
Anes - Initial Pre Proc Eval Procedure: Operation Date: 07/30/22 13:00 Proposed Procedures p Esophagogastroduodenoscopy - Sharath Cortes MD Date/Time: 07/30/22 12:38 Surgeon: Morales Rodgers MD Pre Op Diagnosis: syptomatic anemia,gi bleed Patient Data Age: 77 Gender: F Height: 1.65 m Weight: 59.4 kg Last Vital Signs Temp 97.7 F 07/30/22 12:01 Pulse 73 07/30/22 12:01 Resp 18 07/30/22 12:01 BP 106/43 L 07/30/22 12:01 Pulse Ox 100 07/30/22 12:01 O2 Del Method Room Air 07/30/22 12:01 Allergies Allergy/AdvReac Type Severity Reaction Status Date / Time butorphanol Allergy Severe Itching Verified 07/29/22 17:09 oxycodone [Percocet] Allergy Intermediate Dizziness Verified 07/29/22 17:09 Home Medications Medication Instructions Recorded Confirmed Type duloxetine 30 mg capsule,delayed 30 mg PO BID 06/28/19 07/29/22 History release gabapentin 600 mg tablet 600 mg PO HS 06/28/19 07/29/22 History trazodone 50 mg tablet 50 mg PO HS 06/28/19 07/29/22 History donepezil 10 mg tablet 10 mg PO QHS 05/18/21 07/29/22 History sucralfate 1 gram tablet 1 g PO ACHS #120 tabs 12/09/21 07/29/22 Rx cyanocobalamin (vitamin B-12) 1,000 mcg IM MONTHLY 02/02/22 07/29/22 History 1,000 mcg/mL injection solution sumatriptan succinate 50 mg tablet 50 mg PO PRN PRN Migraine Headache 02/02/22 07/29/22 History divalproex 500 mg tablet,delayed 500 mg PO BID 03/18/22 07/29/22 History release escitalopram oxalate 10 mg tablet 10 mg PO DAILY 03/18/22 07/29/22 History loperamide 2 mg capsule 2 mg PO PRN PRN Diarrhea 03/18/22 07/29/22 History pantoprazole 40 mg tablet,delayed 40 mg PO BID 1 month #60 tabs 11/03/22 02/09/23 Rx release metoprolol succinate 25 mg 12.5 mg PO DAILY #45 tabs 06/26/22 07/29/22 Rx tablet,extended release 24 hr potassium chloride 20 mEq 20 meq PO DAILY 07/01/22 07/29/22 History tablet,extended release(part/cryst) Laboratory Tests 07/29/22 07/29/22 07/29/22 12:23 12:23 12:23 WBC RBC Hgb Hct MCV MCH MCHC RDW Plt Count MPV Immature Gran % (Auto) Neut % (Auto) Lymph % (Auto) [place] % (Auto) Eos % (Auto) Baso % (Auto) Lymph # (Auto) [place] # (Auto) Eos # (Auto) Baso # (Auto) Abs Immat Gran (auto) Absolute Neuts (auto) Absolute Nucleated RBC Nucleated RBC % Platelet Estimate Slightly increased (Adequate) Hypochromasia 2+ (NORMAL) Poikilocytosis 1+ (NORMAL) Anisocytosis 3+ (NORMAL) Ovalocytes 1+ (NORMAL) Schistocytes None seen (NORMAL) PT 14.0 Seconds Seconds (11.1-14.7) INR 1.1 APTT 27.7 SECONDS SECONDS (22.3-36.8) Sodium 138 mmol/L mmol/L (137-145) Potassium 4.1 mmol/L mmol/L (3.4-5.0) Chloride 106 mmol/L mmol/L (98-107) Carbon Dioxide 25 mmol/L mmol/L (22-30) Anion Gap 7 mmol/L L mmol/L (8-16) BUN 17 mg/dL mg/dL (7-17) Creatinine 1.00 mg/dL mg/dL (0.7-1.0) Estim Creat Clear Calc 37 ml/min ml/min Estimated GFR 54 L (59 - ) Glucose 111 mg/dL H mg/dL (65-110) Lactic Acid Calcium 8.2 mg/dL L mg/dL (8.4-10.2) Magnesium Total Bilirubin 0.5 mg/dL mg/dL (0.2-1.3) AST 24 U/L U/L (14-36) ALT 13 U/L U/L (6-35) Alkaline Phosphatase 100 U/L U/L (38-126) Total Protein 6.0 g/dL L g/dL (6.3-8.2) Albumin 3.6 g/dL g/dL (3.5-5.1) Lipase Influenza A (RT-PCR) Influenza B (RT-PCR) SARS-CoV-2 RNA (RT-PCR) Blood Type
[2022-07-30] MEDS: EPINEPHrine INJ 1 MG/10 ML SYRINGE 0.4 MG XX (13:12)
[2022-07-30] MEDS: ONDANSETRON INJ 4 MG/2 ML VIAL IV PUSH (13:35)
[2022-07-30] MEDS: fentaNYL CITRATE INJ (*CRX) 100 MCG/2 ML VIAL 25 MCG IV PUSH (13:41)
[2022-07-30] MEDS: MORPHINE SULFATE (*CRX) 2 MG/ML INJ IV PUSH ×3 (14:52→22:30)
[2022-07-30 16:16] LABS: Hematocrit 25.6 % (37.0-47.0)
[2022-07-30 16:37] LABS: Iron 11 ug/dL (37-170)
[2022-07-30 16:46] LABS: Percent Iron Saturation 3 % (20-50)
[2022-07-30 17:12] LABS: Ferritin 8.89 ng/mL (11.1-264)
[2022-07-30 17:44] LABS: Folic Acid > 20.0 ng/mL (2.76->20)
[2022-07-30 18:11] LABS: Hematocrit 27.6 % (37.0-47.0); Hemoglobin 8.5 g/dL (12.0-15.0)
[2022-07-31] VITALS (12 sets, daily range): BP systolic 110–155; BP diastolic 55–72; PULSE 68–117; RESP 13–16; TEMP 36.1–36.4; O2SAT 93–100
--- NOTE | 2022-07-31 00:38 | PC.NURSE ---
called MD Taylor r/t pt c/o pain pt had ulcer cauterized today, morphine 2 mg IV push last given 2229 medication is prn q4h inquiring about pain management for this patient
[2022-07-31 01:44] LABS: Hematocrit 24.6 % (37.0-47.0); Hemoglobin 7.7 g/dL (12.0-15.0)
[2022-07-31] MEDS: MORPHINE SULFATE (*CRX) 2 MG/ML INJ IV PUSH (02:00)
[2022-07-31] MEDS: SUCRALFATE 1 GM TABLET PO ×4 (05:55→20:52)
[2022-07-31 06:47] LABS: Hematocrit 24.8 % (37.0-47.0); Hemoglobin 7.6 g/dL (12.0-15.0); Mean Corpuscular HGB Conc 30.6 g/dl (32-36); Mean Corpuscular Hemoglobin 25.9 pg (26-34); Mean Corpuscular Volume 84.6 fl (80-100); Mean Platelet Volume 9.3 fl (7.4-10.4); Platelet Count Result 256 k/mm3 (150-375); Red Blood Count 2.93 M/mm3 (4.2-5.4); White Blood Count 5.1 K/mm3 (4.5-10.0)
[2022-07-31 06:55] LABS: Alanine Aminotransferase 11 U/L (6-35); Alkaline Phosphatase 81 U/L (38-126); Anion Gap 3 mmol/L (8-16); Aspartate Amino Transferase 22 U/L (14-36); Bilirubin,Total 0.7 mg/dL (0.2-1.3); Blood Urea Nitrogen 13 mg/dL (7-17); Carbon Dioxide 28 mmol/L (22-30); Chloride 102 mmol/L (98-107); Estimated CRCL calculation 46 ml/min; Estimated Glomerular Filt Rate > 60; Glucose 89 mg/dL (65-110); Magnesium 1.9 mg/dL (1.6-2.3); Potassium 3.8 mmol/L (3.4-5.0); Sodium 133 mmol/L (137-145)
--- NOTE | 2022-07-31 08:33 | WPDGIPROGNO ---
Progress Note: A&P Assessment and Plan (1) Anastomotic ulcer S/P gastric bypass: Code(s): T85.898A - Other specified complication of other internal prosthetic devices, implants and grafts, initial encounter; K28.9 - Gastrojejunal ulcer, unspecified as acute or chronic, without hemorrhage or perforation Status: Acute Assessment and Plan: Patient with anastomotic ulcer after previous gastric bypass surgery. This appeared to be oozing blood yesterday. Endoscopy required cautery and injection of epinephrine. Patient feels good this morning. Hemoglobin 7.6 appears stable. Plan to advance diet. Avoid NSAIDs. Continue pantoprazole which likely will be required long-term. Would watch her in the hospital another day preferably. (2) Anemia due to blood loss: Code(s): D50.0 - Iron deficiency anemia secondary to blood loss (chronic) Status: Acute Assessment and Plan: Anemia after bleeding from anastomotic ulcer appears to be stabilized. Plan to continue to monitor hemoglobin. Discharge in the morning if she remains stable on regular diet. Subjective Date/time seen: 07/31/22 08:33 Interval history: Patient alert comfortable this morning. Anxious to eat more. Denies any abdominal pain. Previous pain in left upper quadrant has resolved. Patient denies any obvious bleeding. No light headedness described. Review of Systems Review of Systems: Review of systems noncontributory. Exam Narrative: Physical exam reveals patient to be alert. Vital signs stable. HEENT exam is unremarkable. Patient is anicteric. Lungs are clear. Heart without murmur. Abdomen bowel sounds present soft nontender no organomegaly. Objective Data Vital Signs Vital Signs: Vital Signs - 24 hr 07/30/22 12:01 07/30/22 13:15 07/30/22 13:25 Temperature 97.7 F Pulse Rate 73 126 H 85 Respiratory Rate 18 30 H 25 H Blood Pressure 106/43 L 181/65 H 141/43 H Pulse Oximetry 100 98 100 Oxygen Delivery Room Air Room Air Room Air 07/30/22 13:35 07/30/22 19:59 07/30/22 20:00 Temperature Pulse Rate 76 76 75 Respiratory Rate 29 H 29 H Blood Pressure 159/53 H Pulse Oximetry 100 100 Oxygen Delivery Room Air Room Air 07/30/22 20:00 07/30/22 22:28 07/30/22 22:29 Temperature 97.6 F Pulse Rate 64 88 106 H Respiratory Rate 13 Blood Pressure 127/61 134/65 138/56 L Pulse Oximetry 99 98 100 Oxygen Delivery 07/31/22 00:00 07/31/22 04:00 07/31/22 05:49 Temperature 96.9 F L Pulse Rate 78 72 68 Respiratory Rate 14 Blood Pressure 125/55 L Pulse Oximetry 100 Oxygen Delivery 07/31/22 07:47 Temperature Pulse Rate Respiratory Rate Blood Pressure Pulse Oximetry Oxygen Delivery Room Air Intake/Output Intake/Output: Intake & Output 07/28/22 07/29/22 07/30/22 07/31/22 23:59 23:59 23:59 23:59 Intake Total 700 980 500 Output Total 850 1600 Balance 700 130 -1100 Meds/Results Medications: Active Medications Generic Name Dose Route Start Last Admin Trade Name Freq PRN Reason Stop Dose Admin Morphine Sulfate 2 mg 07/30/22 13:56 07/31/22 02:00 Morphine Sulfate (*Crx) 2 Mg/Ml Inj IV PUSH 2 mg Q4H PRN Administration Pain Rated 7-10 Pantoprazole Sodium 40 mg 07/29/22 17:00 07/30/22 18:48 Pantoprazole Sodium Iv 40 Mg Vial IV PUSH 40 mg BID MARISELA Administration Sucralfate 1 gm 07/29/22 22:35 07/31/22 05:55 Sucralfate 1 Gm Tablet PO 1 gm ACHS MARISELA Administration Radiology Results: ITS Impressions Chest X-Ray 07/29/22 12:46 IMPRESSION: 1. No acute cardiopulmonary disease. Abdomen/Pelvis CT 07/29/22 13:20 IMPRESSION: 1. No CT correlate for the patient's symptoms. Labs Labs: Laboratory Results - last 24 hr 07/30/22 07/30/22 07/30/22 15:59 15:59 15:59 WBC RBC Hgb 8.0 L Hct 25.6 L MCV MCH MCHC RDW Plt Count MPV Sodium Potassium Chloride Carbon Dioxide
[2022-07-31] MEDS: PANTOPRAZOLE SODIUM IV 40 MG VIAL IV PUSH ×2 (09:05→17:27)
--- NOTE | 2022-07-31 11:08 | PM.IMPN ---
Progress Note: A&P Assessment and Plan (1) Gastric ulcer: Code(s): K25.9 - Gastric ulcer, unspecified as acute or chronic, without hemorrhage or perforation Status: Acute Assessment and Plan: Patient had a bleeding ulcer that was cauterized on EGD 07/30/22 -patient is doing well and is no longer lightheaded or dizzy. -hemoglobin appears to be plateauing and repeat hemoglobin is due around noon -will advance diet as tolerated -per GI, will continue to monitor overnight and if she remains stable she can be discharged tomorrow (2) GI bleed: Code(s): K92.2 - Gastrointestinal hemorrhage, unspecified Status: Acute Assessment and Plan: As above (3) Symptomatic anemia: Code(s): D64.9 - Anemia, unspecified Status: Acute Assessment and Plan: As above (4) Memory loss: Code(s): R41.3 - Other amnesia Status: Acute Assessment and Plan: continue donepezil (5) Depression: Code(s): F32.A - Depression, unspecified Status: Acute Assessment and Plan: Confirmed with the patient she is on Lexapro, Depakote, and Cymbalta for mood. No history of seizures -continue with such Time Spent With Patient Time with patient: 25 - 35 minutes Subjective Date/time seen: 07/31/22 11:08 Interval history: Pt is a 77-year-old female here for gastric ulcer. Patient states she is feeling much better today. She denies lightheadedness, dizziness, chest pain, dyspnea on exertion or weakness. She worked with physical therapy and did well. She has tolerated clear liquids so far it is going to advance her diet. She states that she has not been taking her PPI as she should and she has been undergoing a lot of stress since her 's last December. Overall she has been supported home and is doing well. She has a known systolic murmur and sees Dr. Oliver for cardiomyopathy Review of Systems Review of Systems: All systems reviewed & are unremarkable except as noted in HPI and below Exam Narrative: General: Well developed well nourished patient in NAD HEENT: normocephalic Neck: supple Neuro: Alert and oriented x CV:RRR with systolic murmur Resp:CTA Abd: Soft, non distended. No pain to palpation. Positive bowel sounds Extremities: No swelling, erythema, or pain to palpation. Objective Data Vital Signs Vital Signs: Vital Signs - 24 hr 07/30/22 12:01 07/30/22 13:15 07/30/22 13:25 Temperature 97.7 F Pulse Rate 73 126 H 85 Respiratory Rate 18 30 H 25 H Blood Pressure 106/43 L 181/65 H 141/43 H Pulse Oximetry 100 98 100 Oxygen Delivery Room Air Room Air Room Air 07/30/22 13:35 07/30/22 19:59 07/30/22 20:00 Temperature Pulse Rate 76 76 75 Respiratory Rate 29 H 29 H Blood Pressure 159/53 H Pulse Oximetry 100 100 Oxygen Delivery Room Air Room Air 07/30/22 20:00 07/30/22 22:28 07/30/22 22:29 Temperature 97.6 F Pulse Rate 64 88 106 H Respiratory Rate 13 Blood Pressure 127/61 134/65 138/56 L Pulse Oximetry 99 98 100 Oxygen Delivery 07/31/22 00:00 07/31/22 04:00 07/31/22 05:49 Temperature 96.9 F L Pulse Rate 78 72 68 Respiratory Rate 14 Blood Pressure 125/55 L Pulse Oximetry 100 Oxygen Delivery 07/31/22 07:47 Temperature Pulse Rate Respiratory Rate Blood Pressure Pulse Oximetry Oxygen Delivery Room Air Intake/Output Intake/Output: Intake & Output 07/28/22 07/29/22 07/30/22 07/31/22 23:59 23:59 23:59 23:59 Intake Total 700 980 618 Output Total 850 1600 Balance 700 130 -982 Meds/Results Medications: Active Medications Generic Name Dose Route Start Last Admin Trade Name Freq PRN Reason Stop Dose Admin Morphine Sulfate 2 mg 07/30/22 13:56 07/31/22 02:00 Morphine Sulfate (*Crx) 2 Mg/Ml Inj IV PUSH 2 mg Q4H PRN Administration Pain Rated 7-10 Pantoprazole Sodium 40 mg 07/29/22 17:00 07/30/22 18:48 Pantoprazole Sodium
[2022-07-31 12:02] LABS: Hematocrit 25.1 % (37.0-47.0); Hemoglobin 7.8 g/dL (12.0-15.0)
[2022-07-31] MEDS: DIVALPROEX SODIUM DR 250 MG TABEC 500 MG PO ×2 (12:25→20:52)
[2022-07-31] MEDS: ESCITALOPRAM OXALATE 10 MG TABLET PO (12:25)
[2022-07-31] MEDS: DULoxetine HCL 30 MG CAPSULE.DR PO ×2 (12:25→20:53)
[2022-07-31] MEDS: DONEPEZIL HCL 10 MG TABLET PO (20:52)
[2022-07-31] MEDS: GABAPENTIN 300 MG CAPSULE 600 MG PO (20:53)
[2022-08-01] VITALS (14 sets, daily range): BP systolic 110–139; BP diastolic 55–79; PULSE 59–93; RESP 12–20; TEMP 36–36.5; O2SAT 96–100
[2022-08-01 06:25] LABS: Hematocrit 29.3 % (37.0-47.0); Mean Corpuscular HGB Conc 30.7 g/dl (32-36); Mean Corpuscular Hemoglobin 26.2 pg (26-34); Mean Corpuscular Volume 85.2 fl (80-100); Mean Platelet Volume 9.6 fl (7.4-10.4); Platelet Count Result 318 k/mm3 (150-375); Red Blood Count 3.44 M/mm3 (4.2-5.4); Red Cell Distribution Width 17.8 % (11.5-14.5); White Blood Count 4.2 K/mm3 (4.5-10.0)
--- NOTE | 2022-08-01 08:52 | WPDGIPROGNO ---
Progress Note: A&P Assessment and Plan (1) Anastomotic ulcer S/P gastric bypass: Code(s): T85.898A - Other specified complication of other internal prosthetic devices, implants and grafts, initial encounter; K28.9 - Gastrojejunal ulcer, unspecified as acute or chronic, without hemorrhage or perforation Status: Acute Assessment and Plan: Patient has a large gastric ulcer that is not healing at the gastro- intestinal anastomosis after gastric bypass. This was cauterized by Dr. de la garza recently. Apparently this is now followed by a surgeon at [facility] who was considering revising her anastomosis. Apparently had Dr. Kim? . Patient currently stable with a hemoglobin of 9. Patient close to being discharged. May be prudent to hold her till Tuesday until Dr. de la garza can be certain all arrangements are made for follow-up. Otherwise follow-up EGD should be considered within 2 months. (2) Anemia due to blood loss: Code(s): D50.0 - Iron deficiency anemia secondary to blood loss (chronic) Status: Acute Assessment and Plan: Hemoglobin stable no additional bleeding reported. Subjective Date/time seen: 08/01/22 08:52 Interval history: Patient feels better today has not really gotten out of bed much. Starting to use the bathroom in the room. No additional bleeding noted. Denies abdominal pain tolerating diet. Review of Systems Review of Systems: Review of systems noncontributory. Exam Narrative: Physical exam reveals patient be alert. Vital signs stable. HEENT exam reveals no icterus. Lungs are clear. Heart without murmur. Abdomen bowel sounds present soft nontender with no organomegaly. Objective Data Vital Signs Vital Signs: Vital Signs - 24 hr 07/31/22 11:57 07/31/22 11:57 07/31/22 14:00 Temperature 97.2 F L Pulse Rate 78 Respiratory Rate 16 Blood Pressure 126/72 155/57 H 133/65 Pulse Oximetry 100 07/31/22 12:00 07/31/22 16:00 07/31/22 20:00 Temperature 97.5 F L Pulse Rate 77 73 81 Respiratory Rate 13 Blood Pressure 135/56 L Pulse Oximetry 97 07/31/22 21:38 07/31/22 21:37 07/31/22 21:37 Temperature 97.5 F L Pulse Rate 81 107 H 117 H Respiratory Rate 13 Blood Pressure 135/56 L 110/60 120/58 L Pulse Oximetry 97 97 93 07/31/22 20:15 08/01/22 00:00 08/01/22 04:00 Temperature Pulse Rate 115 H 85 60 Respiratory Rate Blood Pressure Pulse Oximetry 08/01/22 05:39 Temperature 97.0 F L Pulse Rate 61 Respiratory Rate 14 Blood Pressure 122/57 L Pulse Oximetry 100 Intake/Output Intake/Output: Intake & Output 07/29/22 07/30/22 07/31/22 08/01/22 23:59 23:59 23:59 23:59 Intake Total 471 690 0647 750 Output Total 850 1600 Balance 700 130 -502 750 Meds/Results Medications: Active Medications Generic Name Dose Route Start Last Admin Trade Name Freq PRN Reason Stop Dose Admin Acetaminophen 650 mg 07/31/22 11:29 Acetaminophen 325 Mg Tablet PO Q6H PRN Pain Divalproex Sodium 500 mg 07/31/22 12:00 07/31/22 20:[address] 250 Mg Tabec PO 500 mg Q12HR MARISELA Administration Donepezil HCl 10 mg 07/31/22 21:00 07/31/22 20:52 Donepezil Hcl 10 Mg Tablet PO 10 mg QHS MARISELA Administration Duloxetine HCl 30 mg 07/31/22 12:00 07/31/22 20:53 Duloxetine Hcl 30 Mg Capsule.Dr PO 30 mg Q12HR MARISELA Administration Escitalopram Oxalate 10 mg 07/31/22 12:00 07/31/22 12:25 Escitalopram Oxalate 10 Mg Tablet PO 10 mg DAILY MARISELA Administration Gabapentin 600 mg 07/31/22 21:00 07/31/22 20:53 Gabapentin 300 Mg Capsule PO 600 mg HS MARISELA Administration Metoprolol Succinate 12.5 mg 08/01/22 09:00 Metoprolol Succinate Ext Rel 12.5 Mg Tabcr PO DAILY MARISELA Morphine Sulfate 1 mg 07/31/22 11:29 Morphine Sulfate (*Crx) 2 Mg/Ml Inj IV PUSH Q4H PRN uncontrolled pain Pantoprazole Sodium 40 mg 07/29/22 17:00 07/31/22 17:27 Pantoprazole Sodium
[2022-08-01] MEDS: SUCRALFATE 1 GM TABLET PO ×4 (09:35→20:13)
[2022-08-01] MEDS: METOPROLOL SUCCINATE EXT REL 12.5 MG TABCR PO (09:35)
[2022-08-01] MEDS: PANTOPRAZOLE SODIUM IV 40 MG VIAL IV PUSH ×2 (09:36→16:28)
[2022-08-01] MEDS: DIVALPROEX SODIUM DR 250 MG TABEC 500 MG PO ×2 (10:11→20:13)
[2022-08-01] MEDS: ESCITALOPRAM OXALATE 10 MG TABLET PO (10:12)
[2022-08-01] MEDS: DULoxetine HCL 30 MG CAPSULE.DR PO ×2 (10:12→20:13)
--- NOTE | 2022-08-01 11:28 | PM.IMPN ---
Progress Note: A&P Assessment and Plan (1) Gastric ulcer: Code(s): K25.9 - Gastric ulcer, unspecified as acute or chronic, without hemorrhage or perforation Status: Acute Assessment and Plan: Patient had a bleeding ulcer that was cauterized on EGD 07/30/22 -patient is doing well and is no longer lightheaded or dizzy. -hemoglobin appears to be stable but will continue to monitor, up to 9.0 today -tolerating diet without difficulty -GI Dr. Vargas recommends keeping pt overnight so that Dr. Cortes may ensure appropriate follow up is arranged upon discharge (2) GI bleed: Code(s): K92.2 - Gastrointestinal hemorrhage, unspecified Status: Acute Assessment and Plan: As above (3) Symptomatic anemia: Code(s): D64.9 - Anemia, unspecified Status: Acute Assessment and Plan: As above (4) Memory loss: Code(s): R41.3 - Other amnesia Status: Acute Assessment and Plan: continue donepezil (5) Depression: Code(s): F32.A - Depression, unspecified Status: Acute Assessment and Plan: Confirmed with the patient she is on Lexapro, Depakote, and Cymbalta for mood. 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 She is feeling good today. Tolerating her diet. No nausea, vomiting, abd pain. Has not had a bowel movement yet. Review of Systems Review of Systems: All systems reviewed & are unremarkable except as noted in HPI and below Exam Narrative: General: Well developed well nourished patient in NAD HEENT: normocephalic Neck: supple Neuro: Alert and oriented x3 CV:RRR with systolic murmur Resp:CTA Abd: Soft, non distended. No pain to palpation. Extremities: No edema Objective Data Vital Signs Vital Signs: Vital Signs - 24 hr 07/31/22 11:57 07/31/22 11:57 07/31/22 14:00 Temperature 97.2 F L Pulse Rate 78 Respiratory Rate 16 Blood Pressure 126/72 155/57 H 133/65 Pulse Oximetry 100 07/31/22 12:00 07/31/22 16:00 07/31/22 20:00 Temperature 97.5 F L Pulse Rate 77 73 81 Respiratory Rate 13 Blood Pressure 135/56 L Pulse Oximetry 97 07/31/22 21:38 07/31/22 21:37 07/31/22 21:37 Temperature 97.5 F L Pulse Rate 81 107 H 117 H Respiratory Rate 13 Blood Pressure 135/56 L 110/60 120/58 L Pulse Oximetry 97 97 93 07/31/22 20:15 08/01/22 00:00 08/01/22 04:00 Temperature Pulse Rate 115 H 85 60 Respiratory Rate Blood Pressure Pulse Oximetry 08/01/22 05:39 08/01/22 08:00 08/01/22 09:29 Temperature 97.0 F L 96.8 F L Pulse Rate 61 81 Respiratory Rate 14 12 Blood Pressure 122/57 L 139/79 136/72 Pulse Oximetry 100 100 08/01/22 09:30 08/01/22 09:35 Temperature Pulse Rate 82 Respiratory Rate Blood Pressure 112/71 Pulse Oximetry Intake/Output Intake/Output: Intake & Output 07/29/22 07/30/22 07/31/22 08/01/22 23:59 23:59 23:59 23:59 Intake Total 568 933 1678 1108 Output Total 850 1600 Balance 700 130 -502 1108 Meds/Results Medications: Active Medications Generic Name Dose Route Start Last Admin Trade Name Freq PRN Reason Stop Dose Admin Acetaminophen 650 mg 07/31/22 11:29 Acetaminophen 325 Mg Tablet PO Q6H PRN Pain Divalproex Sodium 500 mg 07/31/22 12:00 08/01/22 10:[address] 250 Mg Tabec PO 500 mg Q12HR MARISELA Administration Donepezil HCl 10 mg 07/31/22 21:00 07/31/22 20:52 Donepezil Hcl 10 Mg Tablet PO 10 mg QHS MARISELA Administration Duloxetine HCl 30 mg 07/31/22 12:00 08/01/22 10:12 Duloxetine Hcl 30 Mg Capsule.Dr PO 30 mg Q12HR MARISELA Administration Escitalopram Oxalate 10 mg 07/31/22 12:00 08/01/22 10:12 [place]
[2022-08-01] MEDS: GABAPENTIN 300 MG CAPSULE 600 MG PO (20:13)
[2022-08-01] MEDS: DONEPEZIL HCL 10 MG TABLET PO (20:13)
[2022-08-02] VITALS (8 sets, daily range): BP systolic 130–141; BP diastolic 57–87; PULSE 59–95; RESP 14–16; TEMP 36.3; O2SAT 91–100
[2022-08-02 05:51] LABS: Hematocrit 28.1 % (37.0-47.0); Hemoglobin 8.6 g/dL (12.0-15.0); Mean Corpuscular HGB Conc 30.6 g/dl (32-36); Mean Corpuscular Hemoglobin 26.8 pg (26-34); Mean Corpuscular Volume 87.5 fl (80-100); Mean Platelet Volume 8.9 fl (7.4-10.4); Platelet Count Result 294 k/mm3 (150-375); Red Blood Count 3.21 M/mm3 (4.2-5.4); Red Cell Distribution Width 17.6 % (11.5-14.5); White Blood Count 4.1 K/mm3 (4.5-10.0)
[2022-08-02] MEDS: SUCRALFATE 1 GM TABLET PO ×2 (06:03→11:40)
--- NOTE | 2022-08-02 07:10 | WPDGIPROGNO ---
Progress Note: A&P Assessment and Plan (1) Epigastric pain: Code(s): R10.13 - Epigastric pain Status: Acute Assessment and Plan: almost certainly this is due to the persistent ulcer (2) Acute GI bleeding: Code(s): K92.2 - Gastrointestinal hemorrhage, unspecified Status: Acute Assessment and Plan: ?she began seeing black stools with what appeared to be blood about 7 days ago.? She has been come gradually weaker.? She has had several previous episodes of bleeding from a large anastomotic ulcer. On Tuesday EGD revealed again, a large chronic anastomotic ulcer was 2 points of apparent recent bleeding at the edge of the ulcer. These were injected with epinephrine and cauterized with the gold probe. She has had no further evidence of bleeding and from my perspective could be discharged today (3) Jejunal ulcer: Code(s): K28.9 - Gastrojejunal ulcer, unspecified as acute or chronic, without hemorrhage or perforation Status: Acute Assessment and Plan: Because the ulcer has increased in size, and she has developed additional ulcerations, I told her that I am going to refer her back to Dr. Rene Stauffer at [facility] for possible surgical revision (4) Anastomotic ulcer S/P gastric bypass: Code(s): T85.898A - Other specified complication of other internal prosthetic devices, implants and grafts, initial encounter; K28.9 - Gastrojejunal ulcer, unspecified as acute or chronic, without hemorrhage or perforation Status: Acute Assessment and Plan: this also has been chronic. She was bleeding in August and required therapeutic measures including injection of epinephrine and cautery. When she had a follow-up outpatient exam 2 months ago the ulceration was much smaller, relatively shallow, and with no stigmata of bleeding. I had reinforce her the need to continue taking Carafate 4 times a day, and her family has ensured that she is doing so. We may consider referral to surgeon, bariatric specialist, for possible revision due to the chronic ulcer I told her that my office will arrange for her to see Dr. Stauffer. Plan From my perspective, she can be discharged today on the same medications I did emphasize to her that it is important that she take sucralfate 4 times a day. She had gotten off that over the last few weeks Subjective Date/time seen: 08/02/22 07:10 This shown no further evidence of bleeding. She is eating well but did not like the food last night because meat was burn. She has has no abdominal pain. She did have discomfort for several hours after the endoscopy and cauterization of the ulcer. She is going to get me the name of the physician who supposedly performed an EGD at [facility] last month and had told her that her ulcer was healed . Exam Narrative: Physical exam reveals patient be alert. Vital signs stable. HEENT exam reveals no icterus. Lungs are clear. Heart without murmur. Abdomen bowel sounds present soft nontender with no organomegaly. Const: General: alert and thin Nutritional Appearance: thin Orientation/consciousness: patient oriented x3 Resp: Auscultation: clear to auscultation bilaterally Cardio: Rhythm: regular rhythm GI: Inspection: normal to inspection Auscultation: normal bowel sounds Skin: General skin exam: pallor Neuro: General: patient oriented x3 Objective Data Vital Signs Vital Signs: Vital Signs - 24 hr 08/01/22 08:00 08/01/22 09:29 08/01/22 09:30 Temperature 36.0 C L Pulse Rate 81 Respiratory Rate 12 Blood Pressure 139/79 136/72 112/71 Pulse Oximetry 100 Oxygen Delivery 08/01/22 09:35 08/01/22 08:00 08/01/22 09:30 Temperature Pulse Rate 82 90 Respiratory Rate Blood Pressure Pulse Oximetry Oxygen Delivery Room Air 08/01/22 14:00 08/01/22 12:00 08/01/22 16:00 Temperature 36.5 C Pulse Rate 71 71 93 Respiratory Rate 20 Blood Pressure 119/61 Pulse Oximetry 100 Oxy
[2022-08-02] MEDS: DIVALPROEX SODIUM DR 250 MG TABEC 500 MG PO (08:37)
[2022-08-02] MEDS: DULoxetine HCL 30 MG CAPSULE.DR PO (08:37)
[2022-08-02] MEDS: METOPROLOL SUCCINATE EXT REL 12.5 MG TABCR PO (08:37)
[2022-08-02] MEDS: ESCITALOPRAM OXALATE 10 MG TABLET PO (08:37)
[2022-08-02] MEDS: PANTOPRAZOLE SODIUM IV 40 MG VIAL IV PUSH (08:38)
[2022-08-02 12:07] LABS: Hematocrit 26.4 % (37.0-47.0); Hemoglobin 8.1 g/dL (12.0-15.0)
--- NOTE | 2022-08-02 12:50 | PM.DS ---
DS: Admitting Diagnosis Discharge Date 08/02/2022 Admitting Diagnosis GI bleed DS: Discharge Diagnosis Discharge Diagnosis (1) GI bleed: Code(s): K92.2 - Gastrointestinal hemorrhage, unspecified Status: Acute Assessment and Plan: patient presented anemia evident on outpatient labs with complaints of increased weakness, shortness of breath, and dark stools - transfused 2 units packed RBCs on 07/29/2022 - underwent EGD on 07/30/2022 which revealed bleeding ulcer as described below - no ongoing bleeding and H&H remained stable - repeat H&H as an outpatient on , 08/05 to ensure remaining stable. Follow-up with PCP (2) Gastric ulcer: Code(s): K25.9 - Gastric ulcer, unspecified as acute or chronic, without hemorrhage or perforation Status: Acute Assessment and Plan: Patient had a bleeding anastomotic ulcer that was cauterized on EGD 07/30/22 - patient had symptomatic improvement following cauterization and H&H remained stable - diet was advanced and she was able to tolerate without difficulty - she will follow-up with GI as an outpatient and will be referred back to her bariatric surgeon for monitoring and possible surgical revision as ulcer is at site of anastomosis and has increased in size - continue Carafate 4 times a day - continue pantoprazole 40 mg b.i.d. (3) Symptomatic anemia: Code(s): D64.9 - Anemia, unspecified Status: Acute Assessment and Plan: secondary to above - H&H remained stable - repeat in 3 days as an outpatient (4) Memory loss: Code(s): R41.3 - Other amnesia Status: Chronic Assessment and Plan: chronic, no acute issues - continue donepezil (5) Depression: Code(s): F32.A - Depression, unspecified Status: Chronic Assessment and Plan: no acute issues - continue home regimen of Lexapro, Depakote, and Cymbalta DS: Summary Hospital Course Hospital Course: Date of admission: 07/29/2022 Date of discharge: 08/02/2022 Catie Painter is a 77-year-old female with a history of CKD, dementia, hypertension, GERD, memory loss, type 2 diabetes mellitus, gastric bypass, and gastric ulcer who presented to the emergency department on 07/29/2022 at the direction of her primary care provider after she was found to have low hemoglobin of 6.0 on outpatient labs. She reported black stools for 2 days prior. On presentation to the ED, she was mildly tachycardic with additional vital signs stable, found to be Hemoccult positive, hemoglobin 6.3, hematocrit 21.4, additional laboratory workup unremarkable, CXR with no acute findings and CT abdomen/pelvis with no correlate for symptoms. She was transfused 2 units of packed RBCs and admitted to the hospitalist service for further evaluation and management. She was seen in consultation by Gastroenterology. She underwent EGD on 07/30/2022 which revealed chronic bleeding ulcer which was cauterized. Patient will continue Protonix 40 mg b.i.d. and was started on Carafate 1 g 4 times a day. She will follow-up with her bariatric surgeon as an outpatient which was arranged per GI. Her hemoglobin and hematocrit remained stable following EGD and there is no evidence of ongoing bleeding. Patient was feeling back to her usual state of health. Given overall improvement, she was determined to no longer require inpatient care and was discharged in hemodynamically stable condition on 08/02/2022. She will repeat H&H in 3 days as an outpatient with results to her PCP. Discussed with the patient worrisome signs and symptoms for which to return and she was educated on her medications. Time Spent with Patient Time attestation: Total time spent providing and/or coordinating discharge services: 45 minutes Time spent: Greater than 30 minutes Exam Narrative: General: well-nourished, well-appearing 77-year-old female, sitting up in bed , comfortable, NARD Neuro: awake, alert,
== END 2022-08-02 15:30 | disposition home or self-care (01) | DRG 379 ==
LOC: ANHED 14:04 → ANH3MEDSUR 14:59
PROVIDERS: Emergency Medicine; Family Medicine; Internal Medicine Gastroenterology; Physician Assistant; Admitting Provider Internal Medicine; Emergency Provider Emergency Medicine; PCP Family Medicine; Visit Provider Physician Assistant
PROC: 0DJ08ZZ Inspection of Upper Intestinal Tract, Via Natural or Artificial Opening Endoscopic (ICD-10-PCS; CPT 43235; principal; 2022-07-30 13:00)
DX: K25.4 Chronic or unspecified gastric ulcer with hemorrhage (principal); D64.9 Anemia, unspecified; R41.3 Other amnesia; K21.9 Gastro-esophageal reflux disease without esophagitis; E11.9 Type 2 diabetes mellitus without complications; Z98.84 Bariatric surgery status; N18.30 Chronic kidney disease, stage 3 unspecified; F03.90 Unspecified dementia, unspecified severity, without behavioral disturbance, psychotic disturbance, mood disturbance, and anxiety; Z20.822 Contact with and (suspected) exposure to COVID-19; Z87.891 Personal history of nicotine dependence; Z79.899 Other long term (current) drug therapy; Z88.5 Allergy status to narcotic agent; Z83.3 Family history of diabetes mellitus; Z82.49 Family history of ischemic heart disease and other diseases of the circulatory system; Z80.0 Family history of malignant neoplasm of digestive organs
CPT/HCPCS: 36415; 36430; 71045; 74177; 80053; 82607; 82728; 82746; 83540; 83550; 83605; 83690; 83735; 85014; 85018; 85025; 85027; 85610; 85730; 86850; 86900; 86901; 86923; 87636; 96361; 96374; 96375; 96376; 97161; 97165; 99285; A9270; C9113; G0378; J0171; J2270; J2405; J2704; J3010; J7050; J7120; P9016; Q9967

== ENCOUNTER 2022-08-05 13:58 | Outpatient (CLI) | payer MEDICARE, SELFPAY ==
[2022-08-05 14:10] LABS: Hematocrit 27.5 % (35.0-42.0); Hemoglobin 8.1 g/dL (11.7-13.8)
== END 2022-08-05 13:59 | disposition home or self-care (01) ==
LOC: CHSLAB 14:01
PROVIDERS: PCP Family Medicine; Visit Provider Physician Assistant
DX: D64.9 Anemia, unspecified (principal)
CPT/HCPCS: 36415; 85014; 85018

== ENCOUNTER 2022-08-12 10:50 | Outpatient (CLI) | payer MEDICARE, SELFPAY ==
[2022-08-12 11:10] LABS: Basophils Absolute Auto 0.04 K/mm3 (0.00-0.10); Basophils Percent Auto 0.9 % (0.0-1.0); Eosinophils Absolute Auto 0.15 K/mm3 (0.02-0.50); Eosinophils Percent Auto 3.4 % (1.0-6.0); Hematocrit 27.3 % (35.0-42.0); Hemoglobin 8.2 g/dL (11.7-13.8); Immature Granulocyte Absolute 0.01 K/mm3 (0.00-0.00); Immature Granulocyte Percent A 0.2 % (0.0-0.0); Lymphocytes Absolute Auto 1.85 K/mm3 (1.10-4.50); Lymphocytes Percent Auto 42.3 % (18.0-42.0); Mean Corpuscular Hemoglobin 25.9 pg (27.0-31.0); Mean Corpuscular Volume 86.1 fL (78.0-102.0); Mean Platelet Volume 9.5 fl (9.2-11.8); Monocytes Absolute Auto 0.37 K/mm3 (0.10-0.90); Monocytes Percent Auto 8.5 % (2.0-11.0); Neutrophils Percent Auto 44.7 % (50.0-70.0); Platelet Count Result 251 K/mm3 (150-420); Red Blood Count 3.17 M/mm3 (4.20-5.40); Red Cell Distribution Width 16.8 % (11.6-14.4); White Blood Count 4.4 K/mm3 (4.8-10.8)
[2022-08-12 11:43] LABS: Anion Gap 7 mmol/L (8-16); Blood Urea Nitrogen 16 mg/dL (7-18); Calcium 8.5 mg/dL (8.5-10.1); Carbon Dioxide 29 mmol/L (21-32); Chloride 106 mmol/L (98-108); Estimated Glomerular Filt Rate > 60; Glucose 78 mg/dL (70-99); Osmolality Calculated 294 mOsm/kg (285-295); Potassium 4.3 mmol/L (3.5-5.1); Sodium 142 mmol/L (136-145)
== END 2022-08-12 10:51 | disposition home or self-care (01) ==
LOC: CHSLAB 10:52
PROVIDERS: PCP Family Medicine; Visit Provider Family Medicine
DX: K28.0 Acute gastrojejunal ulcer with hemorrhage (principal); I10 Essential (primary) hypertension
CPT/HCPCS: 36415; 80048; 85025

== ENCOUNTER 2022-08-24 09:35 | Outpatient (CLI) | payer MEDICARE, SELFPAY ==
[2022-08-24 09:54] VITALS: BMI 23.3
[2022-08-24 09:56] VITALS: BP 132/73; PULSE 88; RESP 14; TEMP 36.3; O2SAT 98
[2022-08-24] MEDS: IRON SUCROSE COMPLEX 200 MG in SODIUM CHLORIDE 0.9% IV 250 ML 250 MG IVPB (10:00)
--- NOTE | 2022-08-24 11:03 | PC.NURSE ---
Patient here for 1 x order of Venofer infusion. Patient reports had no problems in the past with Iron infusions. Education given. No concerns voiced. IV Venofer administered. SEE MAR. Tolerated well. Safe exit of hospital.
== END 2022-08-24 09:36 | disposition home or self-care (01) ==
LOC: CHSTREATRM 09:37
PROVIDERS: PCP Family Medicine; Visit Provider Family Medicine
DX: D50.0 Iron deficiency anemia secondary to blood loss (chronic) (principal)
CPT/HCPCS: 96365; J1756; J7050

== ENCOUNTER 2022-09-21 10:33 | Outpatient (CLI) | payer MEDICARE, SELFPAY ==
[2022-09-21 10:40] VITALS: BMI 23.3
[2022-09-21 10:49] VITALS: BP 135/72; PULSE 76; RESP 14; TEMP 36.4; O2SAT 99
[2022-09-21] MEDS: IRON SUCROSE COMPLEX 200 MG in SODIUM CHLORIDE 0.9% IV 250 ML 250 MG IVPB (11:00)
--- NOTE | 2022-09-21 12:12 | PC.NURSE ---
Patient here for IV Venofer infusions. Reports had no problems in past with all the iron infusions she has had. Education given. No concerns voiced. IV Venofer administered. SEE MAR. Tolerated well. Safe exit of hospital.
== END 2022-09-21 10:34 | disposition home or self-care (01) ==
PROVIDERS: PCP Family Medicine; Visit Provider Family Medicine
DX: D50.0 Iron deficiency anemia secondary to blood loss (chronic) (principal)
CPT/HCPCS: 96365; J1756; J7050

== ENCOUNTER 2023-03-01 09:57 | Outpatient (CLI) | payer MEDICARE, SELFPAY ==
[2023-03-01 10:10] VITALS: BP 130/67; PULSE 72; RESP 18; TEMP 36.2; O2SAT 95; BMI 23.1
--- NOTE | 2023-03-01 10:10 | PC.NURSE ---
Here for OP infusion of iron, taken to 203
[2023-03-01] MEDS: IRON SUCROSE COMPLEX 200 MG in SODIUM CHLORIDE 0.9% IV 250 ML 250 MG IVPB (10:23)
--- NOTE | 2023-03-01 11:35 | PC.NURSE ---
discharge to home, tolerated infusion well, saline lock dc intact, site clear
== END 2023-03-01 09:58 | disposition home or self-care (01) ==
LOC: CHSTREATRM 10:00
PROVIDERS: PCP Family Medicine; Visit Provider Family Medicine
DX: D50.0 Iron deficiency anemia secondary to blood loss (chronic) (principal)
CPT/HCPCS: 96365; J1756; J7050

== ENCOUNTER 2023-03-15 11:31 | Outpatient (CLI) | payer MEDICARE, SELFPAY ==
--- NOTE | ~2023-03-15 | XR_ITS ---
XR chest 2V 03/15/2023 12:01 Indication: Productive cough Procedure: 2 view chest Comparison: Comparison to multiple prior studies sequentially, with oldest reviewed study dated 04/20. Findings: Heart size normal. Prominent right nipple shadow. There is scattered calcified granulomas. No focal air space disease, pulmonary edema, pleural effusion or suspected pneumothorax. Mild thoraci c spondylosis. Center Impression: 1: No acute cardiopulmonary disease. Reviewed, dictated and finalized at location L. Impression: 1: No acute cardiopulmonary disease.
[2023-03-15 11:57] LABS: Basophils Absolute Auto 0.03 K/mm3 (0.00-0.10); Basophils Percent Auto 0.7 % (0.0-1.0); Eosinophils Absolute Auto 0.18 K/mm3 (0.02-0.50); Eosinophils Percent Auto 4.2 % (1.0-6.0); Hematocrit 35.9 % (35.0-42.0); Hemoglobin 10.8 g/dL (11.7-13.8); Immature Granulocyte Absolute 0.01 K/mm3 (0.00-0.00); Immature Granulocyte Percent A 0.2 % (0.0-0.0); Lymphocytes Absolute Auto 1.43 K/mm3 (1.10-4.50); Mean Corpuscular HGB Conc 30.1 g/dL (32.0-36.0); Mean Corpuscular Hemoglobin 24.8 pg (27.0-31.0); Mean Corpuscular Volume 82.3 fL (78.0-102.0); Mean Platelet Volume 9.7 fl (9.2-11.8); Monocytes Absolute Auto 0.32 K/mm3 (0.10-0.90); Monocytes Percent Auto 7.4 % (2.0-11.0); Neutrophils Absolute Auto 2.4 K/mm3 (1.7-7.2); Neutrophils Percent Auto 54.5 % (50.0-70.0); Platelet Count Result 199 K/mm3 (150-420); Red Blood Count 4.36 M/mm3 (4.20-5.40); Red Cell Distribution Width 17.9 % (11.6-14.4); White Blood Count 4.3 K/mm3 (4.8-10.8)
[2023-03-15 12:18] LABS: Alanine Aminotransferase 14 U/L (14-59); Albumin Level 2.9 g/dL (3.4-5.0); Alkaline Phosphatase 95 U/L (46-116); Anion Gap 7 mmol/L (8-16); Aspartate Amino Transferase 20 U/L (15-37); Bilirubin,Total 0.6 mg/dL (0.00-1.00); Blood Urea Nitrogen 14 mg/dL (7-18); Carbon Dioxide 28 mmol/L (21-32); Chloride 105 mmol/L (98-108); Estimated Glomerular Filt Rate 49; Glucose 83 mg/dL (70-99); Magnesium 1.8 mg/dL (1.8-2.4); Osmolality Calculated 289 mOsm/kg (285-295); Potassium 4.4 mmol/L (3.5-5.1); Sodium 140 mmol/L (136-145); Thyroid Stimulating Hormone 2.45 uIU/mL (0.36-3.74); Total Protein 5.8 g/dL (6.4-8.2)
== END 2023-03-15 11:32 | disposition home or self-care (01) ==
LOC: CHSLAB 11:33
PROVIDERS: PCP Family Medicine; Visit Provider Family Medicine
DX: E01.8 Other iodine-deficiency related thyroid disorders and allied conditions (principal); I10 Essential (primary) hypertension; R25.2 Cramp and spasm; J06.9 Acute upper respiratory infection, unspecified
CPT/HCPCS: 36415; 71046; 80053; 83735; 84443; 85025

== ENCOUNTER 2023-05-07 12:11 | Outpatient (CLI) | payer MEDICARE, SELFPAY ==
[2023-05-07 12:25] LABS: Basophils Absolute Auto 0.03 K/mm3 (0.00-0.10); Basophils Percent Auto 0.7 % (0.0-1.0); Eosinophils Absolute Auto 0.09 K/mm3 (0.02-0.50); Eosinophils Percent Auto 2.1 % (1.0-6.0); Hematocrit 38.8 % (35.0-42.0); Hemoglobin 11.4 g/dL (11.7-13.8); Immature Granulocyte Absolute 0.01 K/mm3 (0.00-0.00); Immature Granulocyte Percent A 0.2 % (0.0-0.0); Lymphocytes Absolute Auto 1.34 K/mm3 (1.10-4.50); Lymphocytes Percent Auto 31.2 % (18.0-42.0); Mean Corpuscular HGB Conc 29.4 g/dL (32.0-36.0); Mean Corpuscular Hemoglobin 25.5 pg (27.0-31.0); Mean Corpuscular Volume 86.8 fL (78.0-102.0); Mean Platelet Volume 10.3 fl (9.2-11.8); Monocytes Absolute Auto 0.36 K/mm3 (0.10-0.90); Monocytes Percent Auto 8.4 % (2.0-11.0); Neutrophils Absolute Auto 2.5 K/mm3 (1.7-7.2); Neutrophils Percent Auto 57.4 % (50.0-70.0); Platelet Count Result 205 K/mm3 (150-420); Red Blood Count 4.47 M/mm3 (4.20-5.40); Red Cell Distribution Width 17.1 % (11.6-14.4); White Blood Count 4.3 K/mm3 (4.8-10.8)
[2023-05-07 13:01] LABS: Iron 37 ug/dL (50-170); Percent Iron Saturation 10 % (12-57)
== END 2023-05-07 12:12 | disposition home or self-care (01) ==
LOC: CHSLAB 12:12
PROVIDERS: PCP Family Medicine; Visit Provider Family Medicine
DX: D64.9 Anemia, unspecified (principal); I10 Essential (primary) hypertension
CPT/HCPCS: 36415; 83540; 83550; 85025

== ENCOUNTER 2023-08-03 17:35 | Emergency (ER) | payer MEDICARE, SELFPAY ==
[2023-08-03 17:56] VITALS: BP 128/62; PULSE 97; RESP 16; TEMP 37.3; O2SAT 98
--- NOTE | 2023-08-03 18:45 | PC.NURSE ---
Patient daughter up to desk stating she is going to take her mom home and have her be seen tomorrow. She states her mom is tired and she just wants to take her home. Patient daughter stating that she is not upset due to the wait.
--- NOTE | 2023-08-03 18:53 | PC.NURSE ---
Patient wheeled out of ED by 2 family members and placed into POV.
== END 2023-08-03 19:02 | disposition left against medical advice (07) ==
LOC: ANHED 18:49
PROVIDERS: PCP Family Medicine
DX: R51.9 Headache, unspecified (principal)
CPT/HCPCS: 99199

== ENCOUNTER 2024-01-28 19:15 | Emergency (ER) | payer MEDICARE, SELFPAY ==
--- NOTE | ~2024-01-28 | CT_ITS ---
EXAMINATION: CT abdomen pelvis w con DATE: 01/28/2024 22:07 INDICATION: Abdominal pain. TECHNIQUE: Computed tomography (CT) of the abdomen and pelvis was performed with 100 mL Omnipaque 350 intravenous contrast. Automated exposure control and iterative reconstruction technique were employe d. The dose-length product was 238.87 mGy-cm. COMPARISON: CT abdomen and pelvis 07/29/2022 FINDINGS: The visualized portions of the lung bases demonstrate mild atelectasis. Calcified pulmonary nodules are consistent with old oedematous disease. No pleural effusion. The heart size is normal. N o pericardial effusion. There is a small sliding hiatal hernia. There are surgical changes in the sto mach. There is a small volume of free intraperitoneal gas, consistent with recent surgery. There is m ild intrahepatic biliary duct dilatation, likely secondary to cholecystectomy. The spleen is normal. The pancreatic duct is dilated to 10 mm in the head of the pancreas, which is chronic and likely seco ndary to chronic pancreatitis. The adrenal glands are normal. There is cortical thinning of the kidne ys. There are no dilated loops of bowel. The appendix is not visualized. There is fat stranding in le ft anterior abdominal wall, consistent with inflammation. There is calcified atherosclerosis of the a radha and many of the other arteries. There are no pathologically enlarged lymph nodes. There is no fr ee intraperitoneal fluid. There is a chronic compression fracture of L1. There is severe lumbar spond ylosis. IMPRESSION: 1. Fat stranding in left anterior abdominal wall, consistent with inflammation. Reviewed, dictated and finalized at location E.
[2024-01-28 19:19] VITALS: BP 142/85; PULSE 88; RESP 20; TEMP 36.4; O2SAT 100
[2024-01-28 19:40] LABS: Basophils Percent Auto 0.4 % (0.2-1.2); Eosinophils Absolute Auto 0.2 K/mm3 (0-0.3); Eosinophils Percent Auto 3.1 % (0-4.4); Hematocrit 39.4 % (37.0-47.0); Hemoglobin 12.7 g/dL (12.0-15.0); Immature Granulocyte Absolute 0.01 K/mm3 (0.00-0.031); Immature Granulocyte Percent A 0.2 % (0-0.5); Lymphocytes Absolute Auto 0.96 K/mm3 (0.9-3.2); Lymphocytes Percent Auto 18.6 % (18.3-44.2); Mean Corpuscular HGB Conc 32.2 g/dl (32-36); Mean Corpuscular Hemoglobin 28.7 pg (26-34); Mean Corpuscular Volume 88.9 fl (80-100); Mean Platelet Volume 10.4 fl (7.4-10.4); Monocytes Absolute Auto 0.4 K/mm3 (0.1-0.6); Monocytes Percent Auto 8.2 % (2.6-8.5); Neutrophils Absolute Auto 3.6 K/mm3 (1.3-6.7); Neutrophils Percent Auto 69.5 % (45.5-73.1); Platelet Count Result 209 k/mm3 (150-375); Red Blood Count 4.43 M/mm3 (4.2-5.4); Red Cell Distribution Width 15.5 % (11.5-14.5); White Blood Count 5.2 K/mm3 (4.5-10.0)
[2024-01-28 19:50] LABS: Alanine Aminotransferase 10 U/L (6-35); Albumin Level 3.4 g/dL (3.5-5.1); Alkaline Phosphatase 100 U/L (38-126); Anion Gap 11 mmol/L (4-12); Aspartate Amino Transferase 18 U/L (14-36); Bilirubin,Total 0.8 mg/dL (0.2-1.3); Blood Urea Nitrogen 11 mg/dL (7-17); Calcium 9.1 mg/dL (8.4-10.2); Carbon Dioxide 27 mmol/L (22-30); Chloride 97 mmol/L (98-107); Estimated Glomerular Filt Rate > 60; Glucose 103 mg/dL (65-110); Lipase 52 U/L (23-300); Potassium 3.5 mmol/L (3.4-5.0); Sodium 135 mmol/L (137-145)
[2024-01-28 20:37] LABS: Add Urine Microscopic? YES; Appearance Urine Cloudy (Clear); Bacteria Urine 4+ /hpf; Bilirubin Urine Negative (Negative); Blood Urine Negative (Negative); Color Urine Yellow (Yellow); Glucose Urine UA Negative (Negative); Ketones Urine 1+ mg/dL (Negative); Leukocyte Esterase Ur 2+ LEU/UL (Negative); Nitrate Urine Positive (Negative); Non Pathogenic Casts 0-2; Protein Urine Trace mg/dL (Negative); Specific Grav Ur 1.014 (1.001-1.035); Squamous Epithelial Cell Urine Occasional /hpf (Few); WBC Urine >100 /hpf (0-3)
[2024-01-28 21:04] VITALS: BP 196/72; PULSE 70; RESP 12; O2SAT 100
[2024-01-28] MEDS: LACTATED RINGERS 1,000 ML 999 ML IV CONT (21:23)
[2024-01-28] MEDS: FAMOTIDINE 20 MG/2 ML VIAL IV PUSH (21:24)
[2024-01-28] MEDS: MORPHINE SULFATE (*CRX) 4 MG/ML INJ IV PUSH (21:24)
[2024-01-28 23:19] VITALS: BP 140/56; PULSE 74; RESP 24; O2SAT 97
[2024-01-29 00:23] VITALS: BP 175/67; PULSE 70; RESP 17; O2SAT 99
[2024-01-29] MEDS: MORPHINE SULFATE (*CRX) 2 MG/ML INJ IV PUSH (01:04)
[2024-01-29] MEDS: amLODIPine BESYLATE 5 MG TABLET PO (01:04)
--- NOTE | 2024-01-29 03:58 | ED.ABDPAIN ---
HPI - Abdominal Pain General Chief Complaint: Abdominal Pain Stated Complaint: abd pain Time Seen by Provider: 01/28/24 19:58 History of Present Illness HPI narrative: Patient had been seen at outside hospital recently for stones in her duct requiring ERCP and removal, as well as an endoscopy with biopsies, and a laparoscopy surgery she can not recall. She is having left upper quadrant pain, nausea. Related Data Home Medications Medication Instructions Recorded Confirmed duloxetine 30 mg capsule,delayed 30 mg PO BID 06/28/19 03/01/23 release gabapentin 600 mg tablet 600 mg PO HS 06/28/19 03/01/23 trazodone 50 mg tablet 50 mg PO HS 06/28/19 03/01/23 donepezil 10 mg tablet 10 mg PO QHS 05/18/21 03/01/23 cyanocobalamin (vitamin B-12) 1,000 mcg IM MONTHLY 02/02/22 03/01/23 1,000 mcg/mL injection solution sumatriptan succinate 50 mg tablet 50 mg PO PRN PRN Migraine Headache 02/02/22 03/01/23 divalproex 500 mg tablet,delayed 500 mg PO BID 03/18/22 03/01/23 release escitalopram oxalate 10 mg tablet 10 mg PO DAILY 03/18/22 03/01/23 loperamide 2 mg capsule 2 mg PO PRN PRN Diarrhea 03/18/22 03/01/23 potassium chloride 20 mEq 20 meq PO DAILY 07/01/22 03/01/23 tablet,extended release(part/cryst) Allergies Allergy/AdvReac Type Severity Reaction Status Date / Time butorphanol Allergy Severe Itching Verified 02/07/23 15:09 oxycodone [Percocet] Allergy Intermediate Dizziness Verified 02/07/23 15:09 Review of Systems Review of Systems: All systems reviewed & are unremarkable except as noted in HPI and below PMFSH Past Medical History Medical History Acute upper respiratory infections of unspecified site (10/07/16) CKD (chronic kidney disease) stage 3, GFR 30-59 ml/min Cough (10/07/16) Dementia Depression (09/02/15) Dizziness (11/23/16) Dysuria (03/05/16) Essential hypertension GERD (gastroesophageal reflux disease) (09/02/15) HOCM (hypertrophic obstructive cardiomyopathy) Memory loss FLACO on CPAP No longer uses a CPAP machine since she lost weight. Type 2 diabetes mellitus (05/18/16) Surgical History Surgical History History of cholecystectomy History of gastric bypass History of hysterectomy Family History Family History Mother Family history of Alzheimer's disease Carcinoma of colon Diabetes mellitus Hypertension Sibling Carcinoma of colon Father Patient's father is Social History Social History Social History: The patient lives with her granddaughter. She has 3 children. Tamia Valenzuela her daughter is the durable power tax associate attorney for healthcare. The patient is retired from bookkeeping/accounting. the patient is a former smoker. The patient does not drink any alcohol routinely but occasionally does if she goes out to eat. She is . She does not use any marijuana or illicit drugs. Code status full code Smoking packs per day: 0.5 Smoking cigarettes per day: 10.0 Years smoked: 15 Smoking pack-years: 7.50 Smoking status: Former smoker Tobacco type: cigarettes Alcohol intake: never Alcohol use details: has not been drinking lately due to abdominal pain Substance use: never Substance use type: does not use Lack of Transportation: No Lack of Food: Never True Current Housing: I Have Housing Concerned About Future Housing: No Difficulty Paying Gas/Electric Bills: No Difficulty Paying for Meds: No Currently Unemployed: No Education: Don't Know Difficulty w/ Childcare or Family Care: No Living arrangements: alone Spiritual care concerns: No Exam Narrative: EXAMINATION OF ORGAN SYSTEMS/BODY AREAS: Constitutional: Vital signs per nursing GENERAL: Appears slightly uncomfortable HEAD: Normal with no si
== END 2024-01-29 01:09 | disposition home or self-care (01) ==
PROVIDERS: Emergency Provider Emergency Medicine; PCP Family Medicine
DX: R10.12 Left upper quadrant pain (principal); I12.9 Hypertensive chronic kidney disease with stage 1 through stage 4 chronic kidney disease, or unspecified chronic kidney disease; E11.22 Type 2 diabetes mellitus with diabetic chronic kidney disease; N18.30 Chronic kidney disease, stage 3 unspecified; F03.90 Unspecified dementia, unspecified severity, without behavioral disturbance, psychotic disturbance, mood disturbance, and anxiety; Z87.891 Personal history of nicotine dependence
CPT/HCPCS: 36415; 74177; 80053; 81001; 83690; 85025; 87077; 87086; 87088; 87186; 96365; 96375; 96376; 99284; A9270; J0696; J2270; J7120; Q9967

== ENCOUNTER 2024-02-06 09:58 | Outpatient (RCR) | payer MEDICARE, SELFPAY ==
--- NOTE | 2024-02-06 11:09 | PTOPEVAL1 ---
Assessment and note entered by Zack Chaparro Evaluation Information Assessment Status Evaluation Diagnosis R53.01 ICD-10 Condition Codes (PT) R26.9,Weakness R53.1 Onset 01/21/24 Subjective Information Pt. daughter is present. She states that he pt. had abdominal surgery on 01/21/24 to remove a gall stone. She states that since surgery she has not been active and doctor became concerned regarding her walking. She states that the pt. lives with her granddaughter, who is a ENSEMBLE MEMBER. She states that prior to the surgery she was driving and completing all IADL's without assistance. She states that since surgery she has become sedentary and has not driven. She states that she is having to have assistance from her granddaughter with dressing, grooming and bathing currently. She states that she cannot walk a significant distance due to fatigue and weakness. She states that her goal for therapy is to return to being able to walk normally. Reported Pain Level Pain Score 7: Self Report Assessment PT Clinical Summary Pt. is a 78 year old female who enters the clinic due to developed weakness. She presents as a high fall risk on this date, impaired gait, impaired balance, generalized u.e. and l.e. weakness and severe functional decline. Continued skilled PT is indicated in order to improve these areas to allow the pt. to be able to complete all IADL's with improved efficiency and independence. Plan of Care Interventions Electrical Stimulation,Gait Training,Manual Therapy,Neuro Re-education,Patient/Caregiver Educati,Therapeutic Activities,Therapeutic Exercise PT Services Indicated Yes Treatment Frequency and 2x/week x 10 visits Duration These treatments will address the objective and functional deficits as defined above. The patient will be advanced safely and appropriately in order for the patient to progress towards his/her prior level of function. Additional exercises will be introduced and as well as a comprehensive home exercise program upon discharge, if needed, ?to ensure carryover of functional gains achieved in the clinic. This treatment plan has been reviewed and agreement upon by the patient.
--- NOTE | 2024-02-06 11:10 | OPREHPOC ---
Outpatient Therapy Plan of Care This is a Multidisciplinary Plan of Care that may contain components documented by all disciplines (PT, OT, and ST.) PT Problem 1 PT Problem #1 Knowledge Deficit PT Goal 1 Goal / Goal Update Independent with a HEP addressing strength and endurance Target Visit 2 PT Problem 2 PT Problem #2 Impaired Balance PT Goal 1 Goal / Goal Update Improve tinetti score to 19 or greater indicating moderate fall risk. Target Visit 10 PT Problem 3 PT Problem #3 Impaired Gait PT Goal 1 Goal / Goal Update Complete the 6 minute walk test for a distance of 400' or greater indicating improve gait efficiency and improve endurance Pt. will be able to walk for duration of 10 minutes at home with family present in order to progress towards community navigation. Target Visit 10 PT Problem 4 PT Problem #4 Impaired Strength PT Goal 1 Goal / Goal Update Improve gross l.e. and u.e. strength to 4+/5 to assist with improved endurance and stability with standing activities Target Visit 10
--- NOTE | 2024-02-13 12:46 | PCPTNOTE ---
Patient called & cancelled scheduled appointment this date.
--- NOTE | 2024-03-21 10:42 | PCPTNOTE ---
Pt. did not show for her scheduled appointment on this date. Left a voicemail for pt. to contact the clinic.
--- NOTE | 2024-03-22 10:00 | PCPTNOTE ---
Patient called & cancelled scheduled appointment this date due to patient being sick. Pt is scheduled next week. -Larissa Win, PT
--- NOTE | 2024-04-05 11:02 | OPREHPOC ---
Outpatient Therapy Plan of Care This is a Multidisciplinary Plan of Care that may contain components documented by all disciplines (PT, OT, and ST.) PT Problem 1 PT Problem #1 Knowledge Deficit PT Goal 1 Goal / Goal Update Independent with a HEP addressing strength and endurance Target Visit 2 Progress Met PT Problem 2 PT Problem #2 Impaired Balance PT Goal 1 Goal / Goal Update Improve tinetti score to 19 or greater indicating moderate fall risk. Target Visit 10 Progress Met PT Problem 3 PT Problem #3 Impaired Gait PT Goal 1 Goal / Goal Update Complete the 6 minute walk test for a distance of 400' or greater indicating improve gait efficiency and improve endurance Pt. will be able to walk for duration of 10 minutes at home with family present in order to progress towards community navigation. Target Visit 10 Progress Met PT Problem 4 PT Problem #4 Impaired Strength PT Goal 1 Goal / Goal Update Improve gross l.e. and u.e. strength to 4+/5 to assist with improved endurance and stability with standing activities Target Visit 10 Progress Met
--- NOTE | 2024-04-05 11:04 | PTOPDC ---
Assessment and note entered by Larissa Win, PT Evaluation Information Assessment Status Discharge Diagnosis R53.01 ICD-10 Condition Codes (PT) R26.9,Weakness R53.1 Other ICD-10 Condition Codes ( R26.9, R53.1 PT) Onset 01/21/24 Subjective Information Catie Painter reports she is feeling stronger and is feeling good. She is no longer using a cane when she walks and is getting around without difficulty. She has also returned to driving and grocery shopping without difficulty. She has not had any falls and feels her balance is doing good. Reported Pain Level Pain Score 0: Self Report Assessment PT Clinical Summary Catie Painter has completed 10 skilled PT visits for weakness and difficulty walking since initiating PT. She is reporting improved strength and balance. She is no longer using a cane to walk and is able to drive and grocery shop again independently. She objectively demonstrates improved upper and lower extremity strength, improved gait, improved balance, and improved endurance. She is now a low fall risk per standard balance tests. She has met all goals and will be discharged to an independent [facility]. Plan of Care PT Services Indicated No
== END 2024-04-05 11:00 | disposition home or self-care (01) ==
LOC: CHSPT 09:58
PROVIDERS: Visit Provider Family Medicine
DX: R26.9 Unspecified abnormalities of gait and mobility (principal); R53.1 Weakness
CPT/HCPCS: 97110; 97112; 97162; 97530; 97750

== ENCOUNTER 2024-02-14 11:29 | Emergency (ER) | payer MEDICARE, SELFPAY ==
[2024-02-14] VITALS (9 sets, daily range): BP systolic 174–188; BP diastolic 72–91; PULSE 80; RESP 18; TEMP 36.6; O2SAT 97–100
--- NOTE | ~2024-02-14 | US_ITS ---
CT dated 01/28/2024 INDICATION: Right upper quadrant pain PROCEDURE: Realtime right upper abdominal ultrasound. COMPARISON: No prior studies for comparison. FINDINGS: The pancreas is normal without focal mass or pancreatic ductal dilation. Liver echotexture is normal without focal mass or intrahepatic biliary dilatation. There is normal directional flow i n the portal vein. Gallbladder is surgically absent Common bile duct measures 9 mm. IMPRESSION: 1: Status post cholecystectomy with expected prominence of the common duct. Reviewed, dictated and finalized at location B.
--- NOTE | ~2024-02-14 | CT_ITS ---
EXAMINATION: CT chest abdomen pelvis w con DATE: 02/14/2024 13:30 INDICATION: Nausea, constipation, weakness, fatigue and epigastric pain. TECHNIQUE: Computed tomography (CT) of the chest, abdomen, and pelvis was performed with 100 mL Omnip aque-350 intravenous contrast. Automated exposure control and iterative reconstruction technique were employed. The dose-length product was 327.81 mGy-cm. COMPARISON: CT abdomen and pelvis dated 01/28/2024 FINDINGS: CHEST CT: There are numerous scattered bilateral small calcified pulmonary nodules along with calcified bilater al hilar and mediastinal lymph nodes consistent with old granulomatous disease. Minimal right apical pleural-parenchymal scarring. No pneumonia, pulmonary edema or pleural effusion. Heart size is normal . No pericardial effusion. Atherosclerotic coronary artery calcifications. Thoracic aorta is normal i n caliber with no dissection. No pathologically enlarged thoracic lymphadenopathy. ABDOMEN/PELVIS CT: Small sliding-type hiatal hernia with change of prior gastric bypass procedure. Unchanged mild intra and extra hepatic biliary ductal dilation likely related to prior cholecystectomy. There is also unch anged dilation of the main pancreatic duct which to 9 mm in maximal diameter at the head of the pancr eas likely sequela of chronic pancreatitis. Spleen and bilateral adrenal glands are normal. Subcentim eter bilateral renal cysts the largest on the right measuring 9 mm. No dilated loops of bowel to sugg est obstruction. The appendix is not visualized. No pericecal inflammatory change to suggest acute ap pendicitis. Tract of scarring at the left anterior abdominal wall suggesting side of either a prior d rainage catheter or ostomy takedown. Bladder is normal. The uterus is not identified and has likely b een surgically resected. No free intraperitoneal gas or fluid. No pathologically enlarged abdominal o r pelvic lymphadenopathy. There is calcified atherosclerosis of the aorta and many of the other arter ies. Moderate to severe lumbar spondylosis. Chronic L1 compression fracture with mild right anterior vertebral body height loss. IMPRESSION: 1. No acute cardiopulmonary disease. 2. Stable appearance of chronic mild intra and extra hepatic ductal dilation and dilation of the main pancreatic duct likely related to prior cholecystectomy and chronic pancreatitis respectively. No ac figueroa intra-abdominal/pelvic process. 3. Small sliding-type hiatal hernia with change of prior gastric bypass procedure. Reviewed, dictated and finalized at location A. IMPRESSION: 1. No acute cardiopulmonary disease. 2. Stable appearance of chronic mild intra and extra hepatic ductal dilation an d dilation of the main pancreatic duct likely related to prior cholecystectomy and chronic pancreatitis respectively. No acute intra-abdominal/pelvic process. 3. Small sliding-type hiatal hernia with change of prior gastric bypass procedu re.
--- NOTE | 2024-02-14 11:40 | ED.ABDPAIN ---
HPI - Abdominal Pain General Chief Complaint: Abdominal Pain Stated Complaint: constipation, headache, sick x4 days Time Seen by Provider: 02/14/24 11:30 Source: patient Mode of arrival: ambulatory Limitations: no limitations History of Present Illness HPI narrative: Patient is a 78-year-old female with some right upper quadrant abdominal pain for the past 3 days. She had a gallstone removed a month ago by laparoscopic procedure. She did not have a gallbladder at that time. She is having some nausea and retching and vomiting recently as well. No chest pain or shortness of breath. She has a headache in the front of her head but her pressure has been elevated lately. MD elicited complaint: abdominal pain Pertinent past history: other ( Recent gallstone removal) Onset (ago): day(s) (3) Pain Consistency: constant Location: RUQ Severity: moderate Pain scale (0-10): 5 Quality: sharp Radiation: back Migration to: no migration Exacerbating factors: other ( palpation of the area) Relieving factors: nothing Context: confirms recent surgery/procedure Associated symptoms: nausea and vomiting Related Data Home Medications Medication Instructions Recorded Confirmed duloxetine 30 mg capsule,delayed 30 mg PO BID 06/28/19 02/14/24 release gabapentin 600 mg tablet 600 mg PO HS 06/28/19 02/14/24 donepezil 10 mg tablet 10 mg PO QHS 05/18/21 02/14/24 cyanocobalamin (vitamin B-12) 1,000 mcg IM MONTHLY 02/02/22 02/14/24 1,000 mcg/mL injection solution divalproex 500 mg tablet,delayed 500 mg PO BID 03/18/22 02/14/24 release escitalopram oxalate 10 mg tablet 10 mg PO DAILY 03/18/22 02/14/24 potassium chloride 20 mEq 20 meq PO DAILY 07/01/22 02/14/24 tablet,extended release(part/cryst) Allergies Allergy/AdvReac Type Severity Reaction Status Date / Time butorphanol Allergy Severe Itching Verified 02/14/24 11:36 oxycodone [Percocet] Allergy Intermediate Dizziness Verified 02/14/24 11:36 Review of Systems Review of Systems: All systems reviewed & are unremarkable except as noted in HPI and below Constitutional: Constitutional: Reports no additional constitutional complaints Eyes: Eyes: Reports no additional eye complaints ENT: Reports system reviewed and no additional complaints, except as documented Cardiovascular: Cardiovascular: Reports no additional cardiovascular complaints Respiratory: Respiratory: Reports no additional respiratory complaints Gastrointestinal: Gastrointestinal: Reports no additional gastrointestinal complaints Genitourinary: Genitourinary: Reports no additional female genitourinary complaints Musculoskeletal: Musculoskeletal: Reports no additional musculoskeletal complaints Integumentary/Breasts: Skin/Breast: Reports system reviewed and no additional complaints, except as docu Neurologic: Reports system reviewed and no additional complaints, except as documented Psychiatric: Psychiatric: Reports no additional psychiatric complaints Endocrine: Endocrine: Reports no additional endocrine complaints Hematologic/Lymphatic: Hematologic/Lymphatic: Reports no additional hematologic/lymphatic complaints Allergic/Immunologic: Allergic/Immunologic: Reports no additional allergic/immunologic complaints PMFSH Past Medical History Medical History Acute upper respiratory infections of unspecified site (10/07/16) CKD (chronic kidney disease) stage 3, GFR 30-59 ml/min Cough (10/07/16) Dementia Depression (09/02/15) Dizziness (11/23/16) Dysuria (03/05/16) Essential hypertension GERD (gastroesophageal reflux disease) (09/02/15) HOCM (hypertrophic obstructive cardiomyopathy) Memory loss FLACO on CPAP No longer uses a CPAP machine since she lost weight. Type 2 diabetes mellitus (05/18/16) Surgical History Surgical History History of cholecystectomy History of gastric bypass History of hysterec
--- NOTE | 2024-02-14 11:59 | ECG_ITS ---
Test Date: 2024-02-14 12:18:38 Measurements Intervals [place] Rate: 74 P: 65 MS: 134 QRS: 63 QRSD: 82 T: 93 QT: 395 QTc: 439 Interpretive Statements SINUS RHYTHM WITH SINUS ARRHYTHMIA LEFT VENTRICULAR HYPERTROPHY AND ST-T CHANGE [VOLTAGE CRITERIA PLUS ST/T ABNORMALITY] No previous ECG available for comparison Electronically Signed On 02-14-2024 15:47:31 CDT by Raeann Rutledge M.D.
[2024-02-14 12:21] LABS: Basophils Absolute Auto 0.02 K/mm3 (0.00-0.10); Basophils Percent Auto 0.3 % (0.0-1.0); Eosinophils Absolute Auto 0.03 K/mm3 (0.02-0.50); Eosinophils Percent Auto 0.4 % (1.0-6.0); Hematocrit 37.8 % (35.0-42.0); Hemoglobin 11.9 g/dL (11.7-13.8); Immature Granulocyte Absolute 0.02 K/mm3 (0.00-0.00); Immature Granulocyte Percent A 0.3 % (0.0-0.0); Lymphocytes Absolute Auto 1.28 K/mm3 (1.10-4.50); Lymphocytes Percent Auto 18.6 % (18.0-42.0); Mean Corpuscular HGB Conc 31.5 g/dL (32-36); Mean Corpuscular Hemoglobin 28.1 pg (27.0-31.0); Mean Corpuscular Volume 89.2 fL (78.0-102.0); Mean Platelet Volume 8.6 fl (9.2-11.8); Monocytes Absolute Auto 0.48 K/mm3 (0.10-0.90); Neutrophils Absolute Auto 5.07 K/mm3 (1.70-7.20); Neutrophils Percent Auto 73.4 % (50.0-70.0); Platelet Count Result 279 K/mm3 (150-420); Red Blood Count 4.24 M/mm3 (4.20-5.40); Red Cell Distribution Width 14.6 % (11.6-14.4); White Blood Count 6.9 K/mm3 (4.8-10.8)
[2024-02-14 12:39] LABS: Prothrombin Time 10.6 Seconds (9.64-11.0)
[2024-02-14 12:42] LABS: Alanine Aminotransferase 10 U/L (14-59); Albumin Level 2.5 g/dL (3.4-5.0); Alkaline Phosphatase 107 U/L (46-116); Anion Gap 8 mmol/L (4-12); Aspartate Amino Transferase 15 U/L (15-37); Bilirubin,Total 0.4 mg/dL (0.00-1.00); Blood Urea Nitrogen 18 mg/dL (7-18); Calcium 9.2 mg/dL (8.5-10.1); Carbon Dioxide 30 mmol/L (21-32); Chloride 99 mmol/L (98-108); Estimated CRCL calculation 41 ml/min; Estimated Glomerular Filt Rate > 60; Glucose 101 mg/dL (70-99); Lactic Acid Reflex 0.9 mmol/L (0.4-2.0); Lipase 35 U/L (16-77); Osmolality Calculated 285 mOsm/kg (285-295); Potassium 4.1 mmol/L (3.5-5.1); Sodium 137 mmol/L (136-145); Total Protein 6.4 g/dL (6.4-8.2)
[2024-02-14 12:44] LABS: Troponin I 7.9 ng/L (0.00-60.4)
[2024-02-14 12:46] LABS: Partial Thromboplastin Time 26.2 Sec (23.9-30.70)
--- NOTE | 2024-02-14 12:47 | PC.NURSE ---
PT IS RESTING ON STRETCHER WITH DAUGHTER AT BEDSIDE. PT IS AWAITING RESULTS AT THIS TIME. NAD NOTED. WILL CONTINUE TO MONITOR.
[2024-02-14 12:59] LABS: SARS-CoV-2 RNA PCR Negative (Negative)
[2024-02-14 13:00] LABS: Influenza A QL RT-PCR Negative (Negative); Influenza B QL RT-PCR Negative (Negative); RSV RNA, RT-PCR Negative (Negative)
--- NOTE | 2024-02-14 13:32 | PC.NURSE ---
PT IS AWAITING CT AT THIS TIME. WARM BLANKETS PROVIDED. PT IS AWAITING RESULTS. CONTINUES TO REPORT HEADACHE AND ABD PAIN. DAUGHTER AT BEDSIDE. ERP IS AWARE, NO ORDERS AT THIS TIME.
[2024-02-14 14:16] LABS: Add Urine Microscopic? NO; Appearance Urine Clear (Clear); Bilirubin Urine Negative (Negative); Blood Urine Negative (Negative); Color Urine Yellow (Yellow); Glucose Urine UA Negative (Negative); Ketones Urine Negative (Negative); Leukocyte Esterase Ur Negative LEU/UL (Negative); Nitrate Urine Negative (Negative); Protein Urine Negative (Negative); Urobilinogen Urine 0.2 mg/dL (0.2-1.0)
--- NOTE | 2024-02-14 14:25 | PC.NURSE ---
PT HAS BEEN TO RR PER WC AND TECH. UA OBTAINED AND SENT TO LAB. PT IS AWAITING RESULTS, SON AT BEDSIDE. WILL CONTINUE TO MONITOR.
[2024-02-17 07:19] LABS: Valproic Acid 69.3 mg/L (50.0-100.0)
== END 2024-02-14 15:20 | disposition home or self-care (01) ==
PROVIDERS: Emergency Provider Emergency Medicine; PCP Family Medicine
DX: R10.11 Right upper quadrant pain (principal); R51.9 Headache, unspecified; I12.9 Hypertensive chronic kidney disease with stage 1 through stage 4 chronic kidney disease, or unspecified chronic kidney disease; E11.22 Type 2 diabetes mellitus with diabetic chronic kidney disease; N18.30 Chronic kidney disease, stage 3 unspecified; Z87.891 Personal history of nicotine dependence; Z79.899 Other long term (current) drug therapy; Z20.822 Contact with and (suspected) exposure to COVID-19
CPT/HCPCS: 36415; 71260; 74177; 76705; 80053; 80164; 81003; 83605; 83690; 84484; 85025; 85610; 85730; 87637; 93005; 99284; Q9967

== ENCOUNTER 2024-03-11 05:14 | Emergency (ER) | payer MEDICARE, SELFPAY ==
--- NOTE | ~2024-03-11 | CT_ITS ---
EXAMINATION: CT abdomen pelvis w con DATE: 03/11/2024 06:25 INDICATION: Abdominal pain. TECHNIQUE: Computed tomography (CT) of the abdomen and pelvis was performed with 100 mL Omnipaque 350 intravenous contrast. Automated exposure control and iterative reconstruction technique were employe d. The dose-length product was 253.05 mGy-cm. COMPARISON: CT abdomen and pelvis 02/14/2024 FINDINGS: The visualized portions of the lung bases demonstrate small pleural effusions, first the ri ght. There is mild atelectasis bilaterally. Calcified pulmonary nodules and calcified mediastinal lym ph nodes are consistent with old granulomatous disease. The heart size is normal. No pericardial effu lopez. There are changes of gastric bypass procedure. There is an ulcer at the gastrojejunal anastomos is with surrounding fat stranding, consistent with inflammation. The liver demonstrates pneumobilia, likely secondary to cholecystectomy. The spleen and adrenal glands are normal. The pancreatic duct is dilated to 8 mm in the head of the pancreas, likely chronic pancreatitis. There is cortical thinning of the kidneys. There is a 12 mm cyst in right kidney. There is calcified atherosclerosis of the aor ta and many of the other arteries. There are no dilated loops of bowel. The appendix is not visualize d. There is trace pelvic ascites. There are no pathologically enlarged lymph nodes. There is severe l umbar spondylosis. There is a chronic compression fracture of L1. IMPRESSION: 1. Gastric bypass procedure with ulcer at the gastrojejunal anastomosis. Reviewed, dictated and finalized at location A.
[2024-03-11 05:19] VITALS: BP 192/78; PULSE 67; RESP 16; TEMP 36.1; O2SAT 99
[2024-03-11 05:42] LABS: Basophils Percent Auto 0.5 % (0.2-1.2); Eosinophils Percent Auto 0.5 % (0-4.4); Hematocrit 40.9 % (37.0-47.0); Hemoglobin 13.1 g/dL (12.0-15.0); Immature Granulocyte Absolute 0.01 K/mm3 (0.00-0.031); Immature Granulocyte Percent A 0.2 % (0-0.5); Lymphocytes Absolute Auto 1.23 K/mm3 (0.9-3.2); Lymphocytes Percent Auto 19.2 % (18.3-44.2); Mean Corpuscular Hemoglobin 28.1 pg (26-34); Mean Corpuscular Volume 87.8 fl (80-100); Mean Platelet Volume 9.2 fl (7.4-10.4); Monocytes Absolute Auto 0.5 K/mm3 (0.1-0.6); Monocytes Percent Auto 8.3 % (2.6-8.5); Neutrophils Absolute Auto 4.6 K/mm3 (1.3-6.7); Neutrophils Percent Auto 71.3 % (45.5-73.1); Platelet Count Result 179 k/mm3 (150-375); Red Blood Count 4.66 M/mm3 (4.2-5.4); Red Cell Distribution Width 13.9 % (11.5-14.5); White Blood Count 6.4 K/mm3 (4.5-10.0)
--- NOTE | 2024-03-11 05:50 | ED.GENADULT ---
HPI - General Adult General Chief complaint: Abdominal Pain Stated complaint: Abd pain Time Seen by Provider: 03/11/24 05:35 History of Present Illness HPI narrative: Patient 78-year-old female who presents emergency department with chief complaint of epigastric discomfort. Patient reports that she has history of ulcers reports she has been seen by Dr. Cortes in the past reports that she is on Carafate and Protonix the patient reports she has been having severe epigastric discomfort radiates to her back patient reports symptoms are not improved by anything patient denies fever. The patient does report she has history of a gastric bypass many years ago Related Data Home Medications Medication Instructions Recorded Confirmed duloxetine 30 mg capsule,delayed 30 mg PO BID 06/28/19 02/14/24 release gabapentin 600 mg tablet 600 mg PO HS 06/28/19 02/14/24 donepezil 10 mg tablet 10 mg PO QHS 05/18/21 02/14/24 cyanocobalamin (vitamin B-12) 1,000 mcg IM MONTHLY 02/02/22 02/14/24 1,000 mcg/mL injection solution divalproex 500 mg tablet,delayed 500 mg PO BID 03/18/22 02/14/24 release escitalopram oxalate 10 mg tablet 10 mg PO DAILY 03/18/22 02/14/24 potassium chloride 20 mEq 20 meq PO DAILY 07/01/22 02/14/24 tablet,extended release(part/cryst) Allergies Allergy/AdvReac Type Severity Reaction Status Date / Time butorphanol Allergy Severe Itching Verified 03/11/24 05:21 oxycodone [Percocet] Allergy Intermediate Dizziness Verified 03/11/24 05:21 Review of Systems Review of Systems: A 10 system review of systems was completed on the patient and is negative except for what is stated in the HPI. Nursing and ancillary documentation was reviewed. [facility] Past Medical History Medical History Acute upper respiratory infections of unspecified site (10/07/16) CKD (chronic kidney disease) stage 3, GFR 30-59 ml/min Cough (10/07/16) Dementia Depression (09/02/15) Dizziness (11/23/16) Dysuria (03/05/16) Essential hypertension GERD (gastroesophageal reflux disease) (09/02/15) HOCM (hypertrophic obstructive cardiomyopathy) Memory loss FLACO on CPAP No longer uses a CPAP machine since she lost weight. Type 2 diabetes mellitus (05/18/16) Surgical History Surgical History History of cholecystectomy History of gastric bypass History of hysterectomy Family History Family History Mother Family history of Alzheimer's disease Carcinoma of colon Diabetes mellitus Hypertension Sibling Carcinoma of colon Father Patient's father is Social History Social History Social History: The patient lives with her granddaughter. She has 3 children. Tamia Valenzuela her daughter is the durable power commercial real estate attorney for healthcare. The patient is retired from bookkeeping/accounting. the patient is a former smoker. The patient does not drink any alcohol routinely but occasionally does if she goes out to eat. She is . She does not use any marijuana or illicit drugs. Code status full code Smoking packs per day: 0.5 Smoking cigarettes per day: 10.0 Years smoked: 15 Smoking pack-years: 7.50 Smoking status: Former smoker Tobacco type: cigarettes Alcohol intake: never Alcohol use details: has not been drinking lately due to abdominal pain Substance use: never Substance use type: does not use Lack of Transportation: No Lack of Food: Never True Current Housing: I Have Housing Concerned About Future Housing: No Difficulty Paying Gas/Electric Bills: No Difficulty Paying for Meds: No Currently Unemployed: No Education: Don't Know Difficulty w/ Childcare or Family Care: No Living arrangements: alone Spiritual care concerns: No
[2024-03-11] MEDS: PANTOPRAZOLE SODIUM IV 40 MG VIAL IV PUSH (05:53)
[2024-03-11] MEDS: SODIUM CHLORIDE 0.9% IV 1,000 ML 999 ML IV CONT (05:53)
[2024-03-11] MEDS: ONDANSETRON INJ 4 MG/2 ML VIAL IV PUSH (05:54)
[2024-03-11] MEDS: FAMOTIDINE 20 MG/2 ML VIAL IV PUSH (05:54)
[2024-03-11 05:59] LABS: Alanine Aminotransferase 10 U/L (6-35); Albumin Level 3.7 g/dL (3.5-5.1); Alkaline Phosphatase 90 U/L (38-126); Anion Gap 9 mmol/L (4-12); Aspartate Amino Transferase 25 U/L (14-36); Bilirubin,Total 0.8 mg/dL (0.2-1.3); Blood Urea Nitrogen 10 mg/dL (7-17); Calcium 8.9 mg/dL (8.4-10.2); Carbon Dioxide 28 mmol/L (22-30); Chloride 98 mmol/L (98-107); Estimated CRCL calculation 51 ml/min; Estimated Glomerular Filt Rate > 60; Glucose 111 mg/dL (65-110); Lipase 45 U/L (23-300); Potassium 3.8 mmol/L (3.4-5.0); Sodium 135 mmol/L (137-145)
[2024-03-11 07:08] VITALS: BP 194/73; PULSE 65; RESP 15; TEMP 36.4; O2SAT 100
[2024-03-11 07:28] VITALS: BP 191/61; PULSE 67; RESP 14; TEMP 36.3; O2SAT 100
== END 2024-03-11 07:30 | disposition home or self-care (01) ==
PROVIDERS: Emergency Provider Emergency Medicine; PCP Family Medicine
DX: K25.9 Gastric ulcer, unspecified as acute or chronic, without hemorrhage or perforation (principal); Z98.84 Bariatric surgery status; N18.30 Chronic kidney disease, stage 3 unspecified; I12.9 Hypertensive chronic kidney disease with stage 1 through stage 4 chronic kidney disease, or unspecified chronic kidney disease; K21.9 Gastro-esophageal reflux disease without esophagitis; G47.33 Obstructive sleep apnea (adult) (pediatric); E11.22 Type 2 diabetes mellitus with diabetic chronic kidney disease; Z87.891 Personal history of nicotine dependence
CPT/HCPCS: 36415; 74177; 80053; 83690; 85025; 96361; 96374; 96375; 99284; J2405; J2470; J7030; Q9967

== ENCOUNTER 2024-08-20 10:03 | Outpatient (CLI) | payer MEDICARE, SELFPAY ==
[2024-08-20 10:26] VITALS: BP 128/70; PULSE 72; RESP 14; TEMP 36.5; O2SAT 98; BMI 20.8
[2024-08-20] MEDS: IRON SUCROSE COMPLEX 200 MG in SODIUM CHLORIDE 0.9% IV 250 ML 250 MG IVPB (10:35)
--- OUTSIDE RECORDS SUMMARY | 2024-08-20 11:17 | XMS_ITS | Clinical Summary ---
Author Organization [facility] Address [address] [place] [address] Care Team Providers Care Freight Brakeman Name Role Phone Davonte Stock MD Primary Care Provide r Allergies Active Allergy Reactions Criticality Noted Date Comments Butorphanol Hallucinations 06/14/2012 Reaction: HALLUCINATIONS, , , Oxycodone-Acetaminophen Itching Reaction: ITCHING Medications cyanocobalamin (Vitamin B-12) 1,000 mcg/mL injection 05/02/2022 Active SUMAtriptan (IMITREX) 100 mg tablet 08/13/2021 Active potassium chloride ER 20 mEq CR tablet 02/21/2022 Activ e donepeziL (ARICEPT) 10 mg tablet 05/02/2022 Active escitalopram (LEXAPRO) 10 mg tablet 05/16/2022 Active gabapentin (NEURONTIN) 600 mg tablet 05/16/2022 Active traZODone (DESYREL) 50 mg tablet 05/16/2022 Active metoprolol XL (TOPROL-XL) 25 mg extended release tablet 04/24/[address] (DEPAKOTE) 500 mg EC tablet 07/31/[address] (CYMBALTA) 30 mg capsule 04/14/2022 Active sucralfate (CARAFATE) 1 gram tablet 04/14/[address] (PROTONIX) 40 mg EC tablet Take 1 tablet (40 mg total) by mouth 2 (two) times a day 60 tablet 11 10/21/2022 Active Active Problems Problem Noted Date Diagnosed Date Hypertension 09/17/2014 Thyroid activity decreased 09/17/2014 Vitamin D deficiency disease 09/17/2014 Anemia 09/17/2014 Medication overuse headache 09/17/2014 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 Obstructive sleep apnea syndrome 09/17/2014 Restless legs 09/17/2014 Migraine headache 09/17/2014 Surgical History Surgery Date Site/Laterality Comments HYSTERECTOMY Hysterectomy GASTRIC BYPASS Gastric Bypass [place] TOTAL ABDOMINAL HYSTERECT W/WO RMVL TUBE OVARY Hysterectomy - (Added by TW Conv) STOMACH SURGERY Gastric Surgery For Morbid Obesity - 2004, repair 2012 (Added by TW Conv) Medical History Medical History Date Comments Hx Other Medical Obesity, Morbid Glaucoma Glaucoma Anemia Anemia Osteoarthritis Osteoarthritis Hx Other Medical Depression, wit h Anxiety Personal history of other en docrine, nutritional and metabolic disease History of diabetes mellitus - (Added by TW Conv) Family History Medical History Relation Name Comments Sudden Father 2 Sudden ; Alzheimer's disease Mother 2 Family h istory of Alzheimer's disease - (Added by TW Conv) Colon cancer Mother 2 Colon cancer - (Added by [employer] Conv) Diabetes Mother 2 Family history of diabetes mellitus - (Added by [employer] Conv) Alzheimer's disease Mother's Brother Fami ly history of Alzheimer's disease - (Added by [employer] Conv) Migraines Other Family history of migraine headaches - Relation: Grandmother (Added by TW Conv) Relation Name Status Comments Father 1 Alive Father 2 Mother 1 Alive Mother 2 Mother's Brother Other Social History Tobacco Use Types Packs/Day Years Used Date Smoking Tobacco: Former Tobacco Cessation:Counseling Given: Not Answered Alcohol Use Standard Drinks/Week Comments Yes 0 (1 standard drink = 0.6 oz pur e alcohol) AUDIT-C Answer Date Recorded Q1: How often do you have a drink containing alcohol? Never 06/29/2022 Q2: How many drinks containi ng alcohol do you have on a typical day when you are drinking? Patient does not drink Q3: How often do you have si x or more drinks on one occasion? Never 06/29/2022 Personal Safety Answer Date Recorded Getting School Help Needed Denies 06/25 Comments Unknown Sex and Gender Information Value Date Recorded Sex Assigned at Not on file Legal Sex Female 10:30 AM COMPLIANCE REPRESENTATIVE DEALER Gender Identity Not on file Sexual Orientation Not on file Obstetrics History Last Filed Vital Signs Vital Sign Reading Time Taken Comments Blood Pressure 157/72 08/23/2022 1:20 PM COMPLIANCE REPRESENTATIVE DEALER Pulse 73 08/23/2022 1:20 PM COMPLIANCE REPRESENTATIVE DEALER Temperature 36.2 C (97.2 F) 06/29/2022 10:29 AM COMPLIANCE REPRESENTATIVE DEALER Respiratory Rate 24 06/29/2022 10:4 9 AM COMPLIANCE REPRESENTATIVE DEALER Oxygen Saturation 100% 06/29/2022 10: 49 AM COMPLIANCE REPRESENTATIVE DEALER Inhaled Oxygen Concentration - - Weight 66.6 kg (146 lb 12.8 oz) 08/23/2022 1:20 PM COMPLIANCE REPRESENTATIVE DEALER Height 165.1 cm (5' 5 ) 08/23/2022 1:20 PM COMPLIANCE REPRESENTATIVE DEALER Body Mass Index 24.43 08/23/2022 1:20 PM COMPLIANCE REPRESENTATIVE DEALER Plan of Treatment Health Maintenance Due Date Last Done Comments Depression Screening 1945 Fall Risk Assessment 1945 Hepatitis C Screening 1945 Osteoporosis Screening-Bone Density Scan 1945 DTaP/Tdap/Td Vaccine (1 - Tdap) 1956 Hepatitis B Screening 1963 Zoster Vaccine (1 of 2) 1995 Well Visit 65+ 2010 Pneumococcal vaccine 65+ (2 of 2 - PCV) 01/03/2016 0 01/02/2015 Influenza Vaccine (#1) [address] [place] [address] T MEDICARE Advance Directives For more information, please contact: [phone] * Full Code (Latest Code Status on File) Date Activated Date Inactivated Comments 06/29/2022 9:11 AM 06/29/2022 3:08 PM Care Teams Freight Brakeman Relationship Specialty Start Date End Date Davonte Stock MD [address] [place] [address] PCP - General Family Medicine 04/27/22
--- OUTSIDE RECORDS SUMMARY | 2024-08-20 11:17 | XMS_ITS | Clinical Summary ---
Author Organization [facility] Administrative Offices Address [address] [place] [address] Care Team Providers Care Clinic Specialist Name Role Phone Davonte Stock MD Primary Care Provider [phone] Allergies Active Allergy Reactions Criticality Noted Date Comments Butorphanol Anxiety,Hallucinatio n Low 02/23/2013 Reaction: HALLUCINATIONS, , , Oxycodone-Acetaminophen Itching Low 08/21/2021 Reaction: ITCHING Medications amoxicillin-clavul anate (AUGMENTIN) 875-125 mg tablet 08/07/2021 A ctive cyanocobalamin (VITAMIN B-12) 1,000 mcg/mL Solution 07/31/2021 Active divalproex (DEPAKOTE) 500 mg delayed release tablet 07/31/2021 Active donepeziL (ARICEPT) 10 mg tablet 08/16/2021 Active DULoxetine (CYMBALTA) 30 mg Capsule, Delayed Release(E.C.) 06/10/2021 Activ e PreviDent 5000 Booster Plus 1.1 % Paste 07/18/2021 Active gabapentin (NEURONTIN) 600 mg tablet 07/31/2021 Active ipratropium bromide (ATROVENT) 21 mcg (0.03 %) [place], Non-Aerosol 08/07/2021 Active levothyroxine 50 mcg tablet 07/31/2021 Active loperamide (IMODIUM) 2 mg capsule 08/04/2021 Active sucralfate (CARAFATE) 1 gram tablet 08/08/2021 Active pantoprazole (PROTONIX) 40 mg Tablet, Delayed Release (E.C.) 07/24/2021 Acti ve metoprolol succinate (TOPROL XL) 25 mg Extended Release 24 hour tablet 07/24/2021 Active SUMAtriptan (IMITREX) 100 mg tablet 08/13/2021 Active Active Problems Problem Noted Date Diagnosed Date Pancytopenia 08/21/2021 Family History Relation Name Status Comments Brother Daughter Alive Father Mother Sister Alive Son 1 Alive Son 2 Alive Social History Tobacco Use Types Packs/Day Years Used Date Smoking Tobacco: Former Smokeless Tobacco: Never Comments:quit 30 years ago Alcohol Use Standard Drinks/Week Comments Not Currently 0 (1 standard drink = 0.6 oz pur e alcohol) occasional Comments Unknown Sex and Gender Information Value Date Recorded Sex Assigned at Not on file Legal Sex Female 5:48 AM PARTS PICKER Gender Identity Not on file Sexual Orientation Not on file Last Filed Vital Signs Vital Sign Reading Time Taken Comments Blood Pressure 122/64 09/04/2021 10:31 AM CDT Pulse 55 09/04/2021 10:31 AM CDT Temperature 36.5 C (97.7 F) 09/04/2021 10:31 AM CDT Respiratory Rate - - Oxygen Saturation 94% 09/04/2021 10:31 AM CDT Inhaled Oxygen Concentration - - Weight 64.1 kg (141 lb 6.4 oz) 09/04/2021 10:31 AM CDT Height 165.1 cm (5' 5 ) 09/04/2021 10:31 AM CDT Body Mass Index 23.53 09/04/2021 10:31 AM CDT Plan of Treatment Health Maintenance Due Date Last Done Comments DIABETES ANNUAL FOOT EXAM 1963 DIABETES ANNUAL RETINAL EXAM 1963 DIABETES HBA1C Q 6 MONTHS 1963 DIABETES MICROALBUMIN ANNUAL SCREEN 1963 LDL CHOLESTEROL ANNUAL 1963 DTAP/TDAP/TD VACCINES (1 - Tdap) 1964 PNEUMOCOCCAL VACCINE 50+ YEARS (1 of 2 - PCV) 06/11/19 64 ZOSTER VACCINE (1 of 2) 1995 OSTEOPOROSIS SCREENING 2010 RSV VACCINE (60+ or ) (1 - 1-dose 75+ series) 2020 INFLUENZA VACCINE (#1) 2024 Insurance [facility] [id number] [place] [address] [facility] [id number] Care Teams Clinic Specialist Relationship Specialty Start Date End Date Davonte Stock MD [address] [place] [address] PCP - General Family Practice 08/21/21
--- OUTSIDE RECORDS SUMMARY | 2024-08-20 11:17 | XMS_ITS | Referral Summary ---
Author Organization [facility] Address [address] [place] [address] Care Team Providers Care Animal Care Provider Name Role Phone Davonte Stock MD Primary [...] 09/17/2014 Restless legs 09/17/2014 Migraine headache 09/17/2014 Social History Tobacco Use Types Packs/Day Years [...] on file Legal Sex Female 10:30 AM TENDER LABOR Gender Identity Not on file Sexual Orientation Not on file Last Filed Vital Signs Vital Sign Reading Time Taken Comments Blood Pressure 157/72 08/23/2022 1:20 PM TENDER LABOR Pulse 73 08/23/2022 1:20 PM TENDER LABOR Temperature 36.2 C (97.2 F) 06/29/2022 10:29 AM TENDER LABOR Respiratory Rate 24 06/29/2022 10:4 9 AM TENDER LABOR Oxygen Saturation 100% 06/29/2022 10: 49 AM TENDER LABOR Inhaled Oxygen Concentration - - Weight 66.6 kg (146 lb 12.8 oz) 08/23/2022 1:20 PM TENDER LABOR Height 165.1 cm (5' 5 ) 08/23/2022 1:20 PM TENDER LABOR Body Mass Index 24.43 08/23/2022 1:20 PM TENDER LABOR Plan of Treatment Not on file Insurance AETNA MEDICARE AET MEDICARE Advance Directives For more information, please contact: [phone] * Full Code (Latest Code Status on File) Date Activated Date Inactivated Comments 06/29/2022 9:11 AM 06/29/2022 3:08 PM Care Teams Animal Care Provider Relationship Specialty Start Date End Date Davonte Stock MD [address] [place] [address] PCP - General Family Medicine 04/27/22
[2024-08-20 11:39] VITALS: BP 126/77; PULSE 68; RESP 14; TEMP 36.4; O2SAT 98
--- NOTE | 2024-08-20 11:41 | PC.NURSE ---
Patient here for Venofer infusion. Education given. Has had Venofer infusions in the past and reports never having problems when getting it. Infusion administered. SEE MAR/patient care notes. Tolerated well
== END 2024-08-20 10:04 | disposition home or self-care (01) ==
PROVIDERS: PCP Family Medicine; Visit Provider Family Medicine
DX: D50.0 Iron deficiency anemia secondary to blood loss (chronic) (principal)
CPT/HCPCS: 96365; J1756; J7050

== ENCOUNTER 2024-09-27 14:08 | Outpatient (CLI) | payer MEDICARE, SELFPAY ==
--- NOTE | ~2024-09-27 | XR_ITS ---
EXAMINATION: XR abdomen obstructive series DATE: 09/27/2024 14:37 INDICATION: Epigastric pain, diarrhea and nausea TECHNIQUE: Supine and upright views of the abdomen. FINDINGS: Supine and upright views of the abdomen The visualized lung parenchyma is normal.. There is a nonobstructive bowel gas pattern. Moderate colo adele fecal loading. Gas and stool are seen throughout the colon to the level of the rectum. There is no free air. Moderate multilevel lumbar spondylosis. There are surgical changes in the abdomen and pe lvis. IMPRESSION: 1. No acute abdominal abnormality. Reviewed, dictated and finalized at location A.
[2024-09-27 14:24] LABS: Basophils Absolute Auto 0.02 K/mm3 (0.00-0.10); Basophils Percent Auto 0.2 % (0.0-1.0); Hematocrit 44.1 % (35.0-42.0); Hemoglobin 13.3 g/dL (11.7-13.8); Immature Granulocyte Absolute 0.03 K/mm3 (0.00-0.00); Immature Granulocyte Percent A 0.3 % (0.0-0.0); Immature Reticulocyte Fraction 12.8 % (2.0-16.52); Lymphocytes Absolute Auto 1.65 K/mm3 (1.10-4.50); Lymphocytes Percent Auto 18.5 % (18.0-42.0); Mean Corpuscular HGB Conc 30.2 g/dL (32-36); Mean Corpuscular Hemoglobin 24.9 pg (27.0-31.0); Mean Corpuscular Volume 82.6 fL (78.0-102.0); Mean Platelet Volume 8.8 fl (9.2-11.8); Monocytes Absolute Auto 0.39 K/mm3 (0.10-0.90); Monocytes Percent Auto 4.4 % (2.0-11.0); Neutrophils Absolute Auto 6.81 K/mm3 (1.70-7.20); Neutrophils Percent Auto 76.6 % (50.0-70.0); Platelet Count Result 353 K/mm3 (150-420); Red Blood Count 5.34 M/mm3 (4.20-5.40); Red Cell Distribution Width 19.5 % (11.6-14.4); Reticulocyte Hemoglobin Conten 29.8 pg (28.0-35.0); Reticulocyte Percent 1.23 % (0.50-1.50); Reticulocytes Absolute 0.07 M/mm3 (0.02-0.10); White Blood Count 8.9 K/mm3 (4.8-10.8)
[2024-09-27 14:34] LABS: Add Urine Microscopic? YES; Appearance Urine Clear (Clear); Bilirubin Urine 2+ (Negative); Blood Urine 1+ (Negative); Color Urine Yellow (Yellow); Glucose Urine UA Negative (Negative); Ketones Urine 1+ (Negative); Leukocyte Esterase Ur Negative (Negative); Nitrate Urine Negative (Negative); Protein Urine 3+ (Negative); Specific Grav Ur 1.025 (1.010-1.020)
[2024-09-27 14:57] LABS: Alanine Aminotransferase 16 U/L (14-59); Albumin Level 3.7 g/dL (3.4-5.0); Alkaline Phosphatase 128 U/L (46-116); Amylase 48 U/L (25-115); Anion Gap 10 mmol/L (4-12); Aspartate Amino Transferase 14 U/L (15-37); Bilirubin,Total 0.9 mg/dL (0.00-1.00); Blood Urea Nitrogen 16 mg/dL (7-18); Calcium 10.2 mg/dL (8.5-10.1); Carbon Dioxide 29 mmol/L (21-32); Chloride 102 mmol/L (98-108); Estimated Glomerular Filt Rate 43; Ferritin 35 ng/mL (8-252); Glucose 142 mg/dL (70-99); Iron 64 ug/dL (50-170); Lipase 26 U/L (16-77); Osmolality Calculated 295 mOsm/kg (285-295); Percent Iron Saturation 18 % (12-57); Potassium 4.4 mmol/L (3.5-5.1); RBC Urine 0-2 /hpf (0-2); Sodium 141 mmol/L (136-145); Total Protein 7.2 g/dL (6.4-8.2)
[2024-09-27 14:58] LABS: Bacteria Urine 1+ /hpf; Squamous Epithelial Cell Urine Moderate /hpf (Few); WBC Urine None seen /hpf (0-3)
== END 2024-09-27 14:09 | disposition home or self-care (01) ==
PROVIDERS: PCP Family Medicine; Visit Provider Family Medicine
DX: R10.13 Epigastric pain (principal); E61.1 Iron deficiency
CPT/HCPCS: 36415; 74019; 80053; 81001; 82150; 82728; 83540; 83550; 83690; 85025; 85046

== ENCOUNTER 2024-09-28 14:02 | Outpatient (CLI) | payer MEDICARE, SELFPAY ==
--- OUTSIDE RECORDS SUMMARY | 2024-09-28 14:05 | XMS_ITS | Referral Summary ---
Author Organization [facility] Address [address] [place] [address] Care Team Providers Care Runner Man Name Role Phone Davonte Stock MD Primary [...] on file Legal Sex Female 10:30 AM SENIOR RADIATION THERAPIST Gender Identity Not on file Sexual Orientation Not on file Last Filed Vital Signs Vital Sign Reading Time Taken Comments Blood Pressure 157/72 08/23/2022 1:20 PM SENIOR RADIATION THERAPIST Pulse 73 08/23/2022 1:20 PM SENIOR RADIATION THERAPIST Temperature 36.2 C (97.2 F) 06/29/2022 10:29 AM SENIOR RADIATION THERAPIST Respiratory Rate 24 06/29/2022 10:4 9 AM SENIOR RADIATION THERAPIST Oxygen Saturation 100% 06/29/2022 10: 49 AM SENIOR RADIATION THERAPIST Inhaled Oxygen Concentration - - Weight 66.6 kg (146 lb 12.8 oz) 08/23/2022 1:20 PM SENIOR RADIATION THERAPIST Height 165.1 cm (5' 5 ) 08/23/2022 1:20 PM SENIOR RADIATION THERAPIST Body Mass Index 24.43 08/23/2022 1:20 PM SENIOR RADIATION THERAPIST Plan of Treatment Not on file Insurance AETNA MEDICARE AET MEDICARE Advance Directives For more information, please contact: [phone] * Full Code (Latest Code Status on File) Date Activated Date Inactivated Comments 06/29/2022 9:11 AM 06/29/2022 3:08 PM Care Teams Runner Man Relationship Specialty Start Date End Date Davonte Stock MD [address] [place] [address] PCP - General Family Medicine 04/27/22
--- OUTSIDE RECORDS SUMMARY | 2024-09-28 14:06 | XMS_ITS | Clinical Summary ---
Author Organization [facility] Administrative Offices Address [address] [place] [address] Care Team Providers Care Day Care Director Name Role Phone Davonte Stock MD Primary Care Provider [phone] Allergies Active Allergy Reactions Criticality Noted Date [...] ipratropium bromide (ATROVENT) 21 mcg (0.03 %) [place], Non-Aerosol 08/07/2021 Active levothyroxine 50 mcg tablet [...] on file Legal Sex Female 5:48 AM SPECIAL SYSTEMS TECHNICIAN Gender Identity Not on file Sexual Orientation [...] series) 2020 INFLUENZA VACCINE (#1) 2024 Insurance [facility] [id number] [place] [address] [facility] [address] Care Teams Day Care Director Relationship Specialty Start Date End Date Davonte Stock MD [address] [place] [address] PCP - General Family Practice 08/21/21
--- OUTSIDE RECORDS SUMMARY | 2024-09-28 14:06 | XMS_ITS | Clinical Summary ---
Author Organization [facility] Address [address] [place] [address] Care Team Providers Care Engineer Chief Name Role Phone Davonte Stock MD Primary [...] Comments HYSTERECTOMY Hysterectomy GASTRIC BYPASS Gastric Bypass [place] TOTAL ABDOMINAL HYSTERECT W/WO RMVL TUBE OVARY [...] Mother 2 Colon cancer - (Added by [employer] Conv) Diabetes Mother 2 Family history of diabetes mellitus - (Added by [employer] Conv) Alzheimer's disease Mother's Brother Fami ly history of Alzheimer's disease - (Added by [employer] Conv) Migraines Other Family history of migraine [...] on file Legal Sex Female 10:30 AM AVIONICS SYSTEMS TECHNICIAN Gender Identity Not on file Sexual Orientation Not on file Obstetrics History Last Filed Vital Signs Vital Sign Reading Time Taken Comments Blood Pressure 157/72 08/23/2022 1:20 PM AVIONICS SYSTEMS TECHNICIAN Pulse 73 08/23/2022 1:20 PM AVIONICS SYSTEMS TECHNICIAN Temperature 36.2 C (97.2 F) 06/29/2022 10:29 AM AVIONICS SYSTEMS TECHNICIAN Respiratory Rate 24 06/29/2022 10:4 9 AM AVIONICS SYSTEMS TECHNICIAN Oxygen Saturation 100% 06/29/2022 10: 49 AM AVIONICS SYSTEMS TECHNICIAN Inhaled Oxygen Concentration - - Weight 66.6 kg (146 lb 12.8 oz) 08/23/2022 1:20 PM AVIONICS SYSTEMS TECHNICIAN Height 165.1 cm (5' 5 ) 08/23/2022 1:20 PM AVIONICS SYSTEMS TECHNICIAN Body Mass Index 24.43 08/23/2022 1:20 PM AVIONICS SYSTEMS TECHNICIAN Plan of Treatment Health Maintenance Due Date Last Done Comments Depression Screening 1945 Hepatitis C Screening 1945 Osteoporosis Screening-Bone Density Scan 1945 DTaP/Tdap/Td Vaccine (1 - Tdap) 1956 Hepatitis B Screening 1963 Zoster Vaccine (1 of 2) 1995 Well Visit 65+ 2010 Pneumococcal vaccine 65+ (2 of 2 - PCV) 01/03/2016 0 01/02/2015 Fall Risk Assessment 06/29/2023 06/29/2022 Influenza Vaccine (Season Ended) 2025 Insurance AET MEDICARE [facility] MEDICARE Address: [facility] [id number] [place] [address] AET MEDICARE Advance Directives For more information, please contact: [phone] * Full Code (Latest Code Status on File) Date Activated Date Inactivated Comments 06/29/2022 9:11 AM 06/29/2022 3:08 PM Care Teams Engineer Chief Relationship Specialty Start Date End Date Davonte Stock MD [address] [place] [address] PCP - General Family Medicine 04/27/22
[2024-09-28 14:28] LABS: Hemoglobin 12.6 g/dL (11.7-13.8); Mean Corpuscular HGB Conc 30.7 g/dL (32-36); Mean Corpuscular Volume 81.2 fL (78.0-102.0); Mean Platelet Volume 9.3 fl (9.2-11.8); Platelet Count Result 336 K/mm3 (150-420); Red Blood Count 5.05 M/mm3 (4.20-5.40); Red Cell Distribution Width 19.5 % (11.6-14.4)
[2024-09-28 14:29] LABS: Add Urine Microscopic? YES; Appearance Urine Clear (Clear); Bilirubin Urine 1+ (Negative); Blood Urine 1+ (Negative); Color Urine Yellow (Yellow); Glucose Urine UA Negative (Negative); Ketones Urine 1+ (Negative); Leukocyte Esterase Ur Negative (Negative); Nitrate Urine Negative (Negative); Protein Urine 2+ (Negative); Specific Grav Ur 1.025 (1.010-1.020)
[2024-09-28 14:39] LABS: Bacteria Urine 2+ /hpf; Squamous Epithelial Cell Urine Moderate /hpf (Few); WBC Urine None seen /hpf (0-3)
[2024-09-28 14:44] LABS: Alanine Aminotransferase 16 U/L (14-59); Albumin Level 3.7 g/dL (3.4-5.0); Alkaline Phosphatase 125 U/L (46-116); Anion Gap 10 mmol/L (4-12); Aspartate Amino Transferase 15 U/L (15-37); Bilirubin,Total 0.8 mg/dL (0.00-1.00); Blood Urea Nitrogen 25 mg/dL (7-18); Carbon Dioxide 29 mmol/L (21-32); Chloride 99 mmol/L (98-108); Estimated Glomerular Filt Rate 54; Glucose 126 mg/dL (70-99); Osmolality Calculated 292 mOsm/kg (285-295); Potassium 3.6 mmol/L (3.5-5.1); Sodium 138 mmol/L (136-145); Total Protein 7.2 g/dL (6.4-8.2)
[2024-09-28 14:50] LABS: Creatinine Urine 285.88 mg/dL (40-278)
[2024-09-28 14:56] LABS: MALB Creatinine Ratio 139.9 mg/g (0-30); Microalbumin Urine Random > 400.0 mg/L
[2024-10-02 10:39] LABS: Ionized Calcium 5.5 mg/dL (4.7-5.5)
== END 2024-09-28 14:03 | disposition home or self-care (01) ==
PROVIDERS: PCP Family Medicine; Visit Provider Family Medicine
DX: R79.9 Abnormal finding of blood chemistry, unspecified (principal)
CPT/HCPCS: 36415; 80053; 81001; 82043; 82330; 85027

== ENCOUNTER 2024-10-05 08:10 | Emergency (ER) | payer MEDICARE, SELFPAY ==
[2024-10-05] VITALS (141 sets, daily range): BP systolic 99–222; BP diastolic 2–140; PULSE 52–94; RESP 9–33; TEMP 36.4–36.8; O2SAT 85–100
--- NOTE | ~2024-10-05 | CT_ITS ---
EXAMINATION: CTA chest abdomen pelvis DATE: 10/05/2024 9:55 CDT INDICATION: Chest and upper abdominal pain. TECHNIQUE: Computed tomographic angiography (CTA) of the chest was performed, along with multiple con tiguous axial images of the abdomen and pelvis with 100 mL Omnipaque-350 intravenous contrast. The do se-length product was 402.51 mGy-cm. Maximum intensity projection 3D-reconstructions of the aorta and other arteries were constructed by the technologist on a separate workstation. COMPARISON: 03/11/2024 and dating back to 02/14/2024 FINDINGS/OBSERVATIONS: PULMONARY ARTERIES: No filling defect is identified within the main or proximal pulmonary artery. The main pulmonary artery is not enlarged. THORACIC AORTA: No aneurysmal dilatation or dissection is present. The great vessels are intact LUNGS: Biapical scarring, right greater than left. Calcified nodules within the bilateral lung martin, consistent with prior granulomatous disease, for which no further follow-up is needed. The remainder of the lungs are clear. MEDIASTINUM: No morphologically suspicious or pathologically enlarged lymph nodes are identified with in the mediastinum or bilateral axilla. BONES OF THE CHEST: No acute fracture. No significant degenerative disease. No lytic or blastic lesions. HEART: The heart is within the upper limits of normal for size, without pericardial effusion. LIVER: The liver enhances homogeneously without pathologic enlargement. GALLBLADDER AND BILIARY SYSTEM: The gallbladder is surgically absent. PANCREAS: The pancreas enhances homogeneously without unexpected ductal dilatation. SPLEEN: The spleen enhances homogeneously and is not enlarged. KIDNEYS: The bilateral kidneys enhance symmetrically without hydronephrosis or renal calculi. ADRENAL GLANDS: Unremarkable. GASTROINTESTINAL TRACT: Findings consistent with prior gastric bypass surgery. The staple line within the gastric pouch extends into the chest as a hiatal hernia, similar in appear ance to 03/11/2024, often causing chest and upper abdominal discomfort. Interval development of mural thickening and edema within the veliz of the hiatal hernia. Multiple loops of fluid-filled mildly distended small bowel loops within the pelvis, an interval zheng ge from 2023 examination with adjacent free fluid in the right lower quadrant. Moderate fecal stasis, without pericecal inflammatory change to suggest the presence of acute appendi citis. APPENDIX: The appendix is not definitively visualized. However, no pericecal inflammatory change is identified suggest the presence of acute appendicitis. VASCULATURE: Calcified atherosclerotic disease. LYMPH NODES: No pathologically enlarged or morphologically suspicious lymph nodes within the retroperitoneum or at the root of the mesentery. PELVIC STRUCTURES: The bladder is only minimally distended, and otherwise unremarkable. The uterus is surgically absent. BODY WALL AND MUSCULOSKELETAL: Age-appropriate degenerative disease within the thoracic and lumbosacral spines. IMPRESSION: No pulmonary embolus. No aortic dissection or aneurysmal dilatation. Hiatal hernia including the staple line of the gastric pouch, with mural thickening and edema, possib ly the source of patient's discomfort. Multiple loops of fluid-filled prominent small bowel within the pelvis with trace free fluid in the r ight paracolic gutter and right hemipelvis without a clear source of inflammation. Reviewed, dictated and finalized at location A. IMPRESSION: No pulmonary embolus. No aortic dissection or aneurysmal dilatation. Hiatal hernia including the staple line of the gastric pouch, with mural thicke alfa and edema, possibly the source of patient's discomfort. Multiple loops of fluid-filled prominent small bowel within the pelvis with tra ce free fluid in the right paracolic gutter and right hemipelvis without a froy r source of inflammation.
--- NOTE | ~2024-10-05 | XR_ITS ---
Portable chest x-ray Comparison: 03/15/2023 Clinical History: Chest pain Findings: There is COPD pattern with calcified granulomas. No acute pulmonary abnormality seen. Car diomediastinal silhouette is stable. Bones and soft tissues are unremarkable. Impression: No acute pulmonary abnormality. COPD. Reviewed, dictated and finalized at location . Impression: No acute pulmonary abnormality. COPD.
--- NOTE | 2024-10-05 08:11 | ECG_ITS ---
Test Date: 2024-10-05 08:21:14 Measurements Intervals [place] Rate: 65 P: 68 MD: 140 QRS: 75 QRSD: 82 T: 60 QT: 428 QTc: 448 Interpretive Statements SINUS RHYTHM LEFT VENTRICULAR HYPERTROPHY AND ST-T CHANGE BORDERLINE ST-T WAVE ABNORMALITY- ANT/HIGH LAT LEADS BORDERLINE ECG Compared to ECG 02/14/2024 12:18:38 NO SIGNIFICANT CHANGE Electronically Signed On 10-05-2024 08:25:23 CDT by Cristi Chao D.O.
--- OUTSIDE RECORDS SUMMARY | 2024-10-05 08:18 | XMS_ITS | Clinical Summary ---
Author Organization [facility] Address [address] [place] [address] Care Team Providers Care Brass And Wind Instrument Repairer Name Role Phone Davonte Stock MD Primary [...] Comments HYSTERECTOMY Hysterectomy GASTRIC BYPASS Gastric Bypass [place] TOTAL ABDOMINAL HYSTERECT W/WO RMVL TUBE OVARY [...] Mother 2 Colon cancer - (Added by [employer] Conv) Diabetes Mother 2 Family history of diabetes mellitus - (Added by [employer] Conv) Alzheimer's disease Mother's Brother Fami ly history of Alzheimer's disease - (Added by [employer] Conv) Migraines Other Family history of migraine [...] on file Legal Sex Female 10:30 AM WELT POCKET MACHINE OPERATOR Gender Identity Not on file Sexual Orientation Not on file Obstetrics History Last Filed Vital Signs Vital Sign Reading Time Taken Comments Blood Pressure 157/72 08/23/2022 1:20 PM WELT POCKET MACHINE OPERATOR Pulse 73 08/23/2022 1:20 PM WELT POCKET MACHINE OPERATOR Temperature 36.2 C (97.2 F) 06/29/2022 10:29 AM WELT POCKET MACHINE OPERATOR Respiratory Rate 24 06/29/2022 10:4 9 AM WELT POCKET MACHINE OPERATOR Oxygen Saturation 100% 06/29/2022 10: 49 AM WELT POCKET MACHINE OPERATOR Inhaled Oxygen Concentration - - Weight 66.6 kg (146 lb 12.8 oz) 08/23/2022 1:20 PM WELT POCKET MACHINE OPERATOR Height 165.1 cm (5' 5 ) 08/23/2022 1:20 PM WELT POCKET MACHINE OPERATOR Body Mass Index 24.43 08/23/2022 1:20 PM WELT POCKET MACHINE OPERATOR Plan of Treatment Health Maintenance Due Date [...] Vaccine (Season Ended) 2025 Insurance AET MEDICARE AET MEDICARE Advance Directives For more information, please contact: [phone] * Full Code (Latest Code Status on File) Date Activated Date Inactivated Comments 06/29/2022 9:11 AM 06/29/2022 3:08 PM Care Teams Brass And Wind Instrument Repairer Relationship Specialty Start Date End Date Davonte Stock MD [address] [place] [address] PCP - General Family Medicine 04/27/22
--- OUTSIDE RECORDS SUMMARY | 2024-10-05 08:18 | XMS_ITS | Clinical Summary ---
Author Organization [facility] Administrative Offices Address [address] [place] [address] Care Team Providers Care Counterperson Name Role Phone Davonte Stock MD Primary Care Provider [phone] Allergies Active Allergy Reactions Criticality Noted Date [...] ipratropium bromide (ATROVENT) 21 mcg (0.03 %) [place], Non-Aerosol 08/07/2021 Active levothyroxine 50 mcg tablet [...] on file Legal Sex Female 5:48 AM COMMANDING OFFICER [employer] SQUAD Gender Identity Not on file Sexual Orientation [...] series) 2020 INFLUENZA VACCINE (#1) [address] [facility] [place] [address] [place] [address] [facility] [place] [address] Care Teams Counterperson Relationship Specialty Start Date End Date Davonte Stock MD [address] [place] [address] PCP - General Family Practice 08/21/21
--- OUTSIDE RECORDS SUMMARY | 2024-10-05 08:18 | XMS_ITS | Referral Summary ---
Author Organization [facility] Address [address] [place] [address] Care Team Providers Care Interpretive Naturalist Name Role Phone Davonte Stock MD Primary [...] on file Legal Sex Female 10:30 AM WREATH AND GARLAND MAKER Gender Identity Not on file Sexual Orientation Not on file Last Filed Vital Signs Vital Sign Reading Time Taken Comments Blood Pressure 157/72 08/23/2022 1:20 PM WREATH AND GARLAND MAKER Pulse 73 08/23/2022 1:20 PM WREATH AND GARLAND MAKER Temperature 36.2 C (97.2 F) 06/29/2022 10:29 AM WREATH AND GARLAND MAKER Respiratory Rate 24 06/29/2022 10:4 9 AM WREATH AND GARLAND MAKER Oxygen Saturation 100% 06/29/2022 10: 49 AM WREATH AND GARLAND MAKER Inhaled Oxygen Concentration - - Weight 66.6 kg (146 lb 12.8 oz) 08/23/2022 1:20 PM WREATH AND GARLAND MAKER Height 165.1 cm (5' 5 ) 08/23/2022 1:20 PM WREATH AND GARLAND MAKER Body Mass Index 24.43 08/23/2022 1:20 PM WREATH AND GARLAND MAKER Plan of Treatment Not on file Insurance [employer] MEDICARE AET MEDICARE Advance Directives For more information, please contact: [phone] * Full Code (Latest Code Status on File) Date Activated Date Inactivated Comments 06/29/2022 9:11 AM 06/29/2022 3:08 PM Care Teams Interpretive Naturalist Relationship Specialty Start Date End Date Davonte Stock MD [address] [place] [address] PCP - General Family Medicine 04/27/22
--- NOTE | 2024-10-05 08:20 | ED_ITS ---
HPI - Chest Pain General Chief Complaint: Chest Pain Stated Complaint: chest pain Time Seen by Provider: 10/05/24 08:20 Source: patient and family Mode of arrival: ambulatory Limitations: no limitations History of Present Illness HPI narrative: 79 years old white female came from home with retrosternal, epigastric heaviness started yesterday morning, and no aggravating or relieving factors, no radiation of pain, patient denied having similar symptoms in the past. She denies any fever, chills, nausea, vomiting on arrival to the ED started having severe nausea. History of CKD, depression, dementia, dizziness, hypertension, GERD, hypertrophic obstructive cardiomyopathy, obstructive sleep apnea on CPAP. , HISTORY OF CHOLECYSTECTOMY AND HYSTERECTOMY Patient did not take her medication today before coming to the emergency room. Related Data Home Medications ?Medication ?Instructions ?Recorded ?Confirmed ?Last Taken ?Type duloxetine 30 mg capsule,delayed 30 mg PO BID 06/28/19 08/20/24 03/17/22 History release gabapentin 600 mg tablet 600 mg PO HS 06/28/19 08/20/24 03/17/22 History donepezil 10 mg tablet 10 mg PO QHS 05/18/21 08/20/24 03/17/22 History cyanocobalamin (vitamin B-12) 1,000 mcg IM MONTHLY 02/02/22 08/20/24 06/28/22 History 1,000 mcg/mL injection solution divalproex 500 mg tablet,delayed 500 mg PO BID 03/18/22 08/20/24 03/17/22 History release escitalopram oxalate 10 mg tablet 10 mg PO DAILY 03/18/22 08/20/24 03/18/22 History potassium chloride 20 mEq 20 meq PO DAILY 07/01/22 08/20/24 Unknown History tablet,extended release(part/cryst) ergocalciferol (vitamin D2) 1,250 1,250 mcg PO WEEKLY 10/05/24 Unknown History mcg (50,000 unit) capsule loperamide 2 mg capsule 4 mg PO .COMPLEX DIARRHEA 10/05/24 Unknown History ondansetron 4 mg disintegrating 8 mg translingual Q8H PRN nausea 10/05/24 Unknown History tablet and vomiting pantoprazole 40 mg tablet,delayed 40 mg PO DAILY 10/05/24 Unknown History release sumatriptan succinate 50 mg tablet 50 mg PO .COMPLEX 10/05/24 Unknown History trazodone 50 mg tablet 50 mg PO HS 10/05/24 Unknown History Allergies Allergy/AdvReac Type Severity Reaction Status Date / Time butorphanol Allergy Severe Itching Verified 10/05/24 09:25 oxycodone (Percocet) Allergy Intermediate Dizziness Verified 10/05/24 09:25 nitrofurantoin (From AdvReac Intermediate Itching Verified 10/05/24 09:25 Macrobid) Review of Systems 2 Review of Systems: All systems reviewed & are unremarkable except as noted in HPI and below PMFSH Past Medical History Medical History Memory loss Dementia HOCM (hypertrophic obstructive cardiomyopathy) Acute upper respiratory infections of unspecified site (10/07/16) CKD (chronic kidney disease) stage 3, GFR 30-59 ml/min Cough (10/07/16) Depression (09/02/15) Dizziness (11/23/16) Dysuria (03/05/16) Essential hypertension GERD (gastroesophageal reflux disease) (09/02/15) FLACO on CPAP No longer uses a CPAP machine since she lost weight. Type 2 diabetes mellitus (05/18/16) Surgical History Surgical History History of cholecystectomy History of hysterectomy History of gastric bypass Family History Family History Mother Family history of Alzheimer's disease Carcinoma of colon Diabetes mellitus Hypertension Sibling Carcinoma of colon Father Patient's father is Social History Social History Social History: The patient lives with her granddaughter. She has 3 children. Tamia Sureshbeni her daughter is the durable power workers compensation defense attorney for healthcare. The patient is retired from bookkeeping/accounting. the patient is a former smoker. The patient does not drink any alcohol routinely but occasionally does if she goes out to eat. She is . She does not use any marijuana or illicit drugs. Code status full code Smoking packs per day: 0.5 Smoking cigarettes per day: 10.0 Years smoked: 15 Smoking pack-years: 7.50 Smoking status: Former smoker Tobacco type: cigarettes Alcohol intake: never Alcohol use details: has not been drinking lately due to abdominal pain Substance use: never Substance use type: does not use Lack of Transportation: No Lack of Food: Never True Current Housing: I Have Housing Concerned About Future Housing: No Difficulty Paying Gas/Electric Bills: No Difficulty Paying for Meds: No Currently Unemployed: No Education: Don't Know Difficulty w/ Childcare or Family Care: No Living arrangements: alone Spiritual care concerns: No Exam 2 Narrative: GENERAL APPEARANCE: WELL-DEVELOPED, WELL-NOURISHED, LOOKSIN HANDS SKIN: PALE HEAD: NORMOCEPHALIC, NONTRAUMATIC EYES: CLEAR CONJUNCTIVA ENT: OROPHARYNX NORMAL, EARS NORMAL, NOSE NORMAL NECK: SUPPLE, NONTENDER CHEST AND RESPIRATORY: AIRWAY PATENT, NO RESPIRATORY DISTRESS, NO ACCESSORY MUSCLE USE HEART: REGULAR RATE/RHYTHM ABDOMEN: SEVERE EPIGASTRIC PAIN, DIFFUSE ABDOMINAL TENDERNESS VASCULAR: NORMAL PERIPHERAL PULSES, NORMAL CAPILLARY REFILL. MUSCULOSKELETAL: NORMAL RANGE OF MOTION, NONTENDER BACK NEUROLOGIC: ALERT AND ORIENTED ?3, PROGRAMMER DEVELOPER IS NORMAL TESTED, NO GROSS MOTOR DEFICIT Course Consultations Consultation #1: DR REYES, HOSPITALIST AT [facility] WHO ACCEPTED PATIE Date: 10/05/24 Time: 12:20 Vital Signs Vital signs: Vital Signs Pulse Rate 68 10/05/24 08:10 Pulse Oximetry 98 10/05/24 08:10 Oxygen Delivery Room Air 10/05/24 08:10 Temperature 36.7 C 10/05/24 16:31 Pulse Rate 72 10/05/24 16:31 Respiratory Rate 16 10/05/24 16:31 Blood Pressure 131/66 10/05/24 16:31 Pulse Oximetry 100 10/05/24 16:31 Oxygen Delivery Room Air 10/05/24 16:31 MDM - Chest Pain MDM Narrative Medical decision making narrative: PATIENT CAME WITH RETROSTERNAL, EPIGASTRIC PAIN FOR THE LAST 24 HOURS VITAL SIGNS SHOWING BLOOD PRESSURE OF 213 / 95, PATIENT DID NOT TAKE HER BLOOD PRESSURE MEDICATION PRIOR TO ARRIVAL. PHYSICAL EXAMINATION SHOWING ILL PATIENT WITH EPIGASTRIC AND GENERALIZED ABDOMINAL TENDERNESS DIFFERENTIAL DIAGNOSIS INCLUDE PANCREATITIS, PEPTIC ULCER DISEASE, DISSECTION, CORONARY ARTERY DISEASE, DIVERTICULITIS, COLITIS, CONSTIPATION LESS LIKELY PULMONARY EMBOLISM. BLOOD WORKUP TODAY INCLUDES CBC, CMP, LIPASE, BNP SHOWEDbnp 764, otherwise insignificant abnormality CHEST X-RAY SHOWED no acute abnormality CTA CHEST ABDOMEN AND PELVIS SHOWED hiatal hernia including the stable line of the gastric pouch, with mural thickening and edema, possibly the source of patient discomfort. Multiple loops of fluid-filled prominent small bowel within the pelvis with trace free fluid in the right paracolic gutter and right hemipelvis without a clear source of inflammation In the ED patient received 5 mg of Lopressor IV time 3, 1 in of nitropaste, no significant improvement of the blood pressure, subsequently 20 mg of hydralazine IV with good response. Currently blood pressure 141/75 compared to 213/92 on arrival to the ED. Patient feeling much better, Transferred to [facility] DISCUSSED WITH DR. REYES Differential Diagnosis Differential diagnosis: Likely other ( ABOVE) Medical Records Data Attestation: I reviewed the patient's medical records. Lab Data Attestation: I reviewed the patient's lab results. 10/05/24 08:30 10/05/24 08:30 Labs: Lab Results 10/05/24 10/05/24 10/05/24 Range/Units 08:30 10:18 11:40 WBC 3.7 L (4.8-10.8) K/mm3 RBC 4.28 (4.20-5.40) M/mm3 Hgb 10.7 L (11.7-13.8) g/dL Hct 35.6 (35.0-42.0) % MCV 83.2 (78.0-102.0) fL MCH 25.0 L (27.0-31.0) pg MCHC 30.1 L (32-36) g/dL RDW 18.6 H (11.6-14.4) % Plt Count 234 (150-420) K/mm3 MPV 9.0 L (9.2-11.8) fl Immature Gran % (Auto) Not Reportable Neut % (Auto) Not Reportable Lymph % (Auto) Not Reportable Garrett % (Auto) Not Reportable Eos % (Auto) Not Reportable Baso % (Auto) Not Reportable Lymph # (Auto) Not Reportable Garrett # (Auto) Not Reportable Eos # (Auto) Not Reportable Baso # (Auto) Not Reportable Abs Immat Gran (auto) Not Reportable Absolute Neuts (auto) Not Reportable Absolute Nucleated RBC Not Reportable Total Counted 100 Neutrophils % (Manual) 72 (46-73) % Band Neutrophils % 0 (0-6) % Lymphocytes % (Manual) 21 (18-44) % Monocytes % (Manual) 5 (3-9) % Eosinophils % (Manual) 2 (1-6) % Nucleated RBC % Not Reportable Abs Neuts (Manual) 2.66 (1.7-7.2) K/mm3 Abs Lymphs (Manual) 0.77 L (1.1-4.5) K/mm3 Abs Monocytes (Manual) 0.18 (0.1-0.90) K/mm3 Absolute Eos (Manual) 0.07 (0.02-0.50) K/mm3 Platelet Estimate Adequate (Adequate) Schistocytes Not Reportable PT 10.7 (9.50-12.1) Seconds INR 1.0 APTT 26.2 (23.9-30.70) Sec Sodium 140 (136-145) mmol/L Potassium 3.6 (3.5-5.1) mmol/L Chloride 104 (98-108) mmol/L Carbon Dioxide 30 (21-32) mmol/L Anion Gap 6 (4-12) mmol/L BUN 14 (7-18) mg/dL Creatinine 0.86 (0.55-1.02) mg/dL Estim Creat Clear Calc 42 ml/min Estimated GFR > 60 (59 - ) Glucose 95 (70-99) mg/dL Calculated Osmolality 290 (285-295) mOsm/kg Calcium 9.8 (8.5-10.1) mg/dL Total Bilirubin 0.5 (0.00-1.00) mg/dL AST 15 (15-37) U/L ALT 11 L (14-59) U/L Alkaline Phosphatase 104 (46-116) U/L Troponin I 17.3 29.5 (0.00-60.4) ng/L NT-Pro-B Natriuret Pep 764 H (0-450) pg/mL Total Protein 6.5 (6.4-8.2) g/dL Albumin 3.0 L (3.4-5.0) g/dL Lipase 28 (16-77) U/L Urine Color Light yellow (Yellow) Urine Appearance Clear (Clear) Urine pH 7.5 (5.0-8.0) Ur Specific [place] 1.010 (1.010-1.020) Urine Protein Negative (Negative) Urine Glucose (UA) Negative (Negative) Urine Ketones Negative (Negative) Ur Blood (Man) Negative (Negative) Urine Nitrate Negative (Negative) Urine Bilirubin Negative (Negative) Urine Urobilinogen 0.2 (0.2-1.0) mg/dL Leukocyte Esterase Rfl 1+ H (Negative) RAFAEL/UL Urine RBC None seen (0-2) /hpf Urine WBC 0-5 (0-3) /hpf Ur Squamous Epith Cells Rare (Few) /hpf Urine Bacteria Rare (None) /hpf Imaging Data Radiologist's impression: Impressions Chest X-Ray 10/05/24 08:45 Impression: No acute pulmonary abnormality. COPD. ECG Data EKG #1: Attestation: I personally reviewed and interpreted this ECG as follows: ECG completion date: 10/05/24 Prior ECG tracings: not available for review Interpretation: normal sinus rhythm at 65 beats per minute, left ventricular hypertrophy and ST-T changes, abnormal EKG Critical Care Time Critical Care Time Critical Care Time: No Discharge Plan Discharge Clinical Impression: Hypertension, uncontrolled, Chest pain, Hernia, hiatal, Anxiety Patient Disposition: Acute Care Hospital Condition: Improved Additional Instructions: TRANSFERRED TO [facility] Patient Language: Syrian Prescriptions: No Action potassium chloride 20 mEq tablet,ER particles/crystals 20 meq PO DAILY loperamide 2 mg capsule 4 mg PO .COMPLEX Rx Instructions: 4 mg orally AFTER 1ST LOOSE STOOL, FOLLOW BY 1 TAB AFTER EACH SUBSEQUEST LOOSE STOOL; trazodone 50 mg tablet 50 mg PO HS sumatriptan succinate 50 mg tablet 50 mg PO .COMPLEX Rx Instructions: 50 mg orally AFTER ONSET OF MIGRAINE MAY REPEAT 2 HRS DO NOT EXCEED4 TABS DAILY; ergocalciferol (vitamin D2) 1,250 mcg (50,000 unit) capsule 1,250 mcg PO WEEKLY ondansetron 4 mg tablet,disintegrating 8 mg translingual Q8H PRN (Reason: nausea and vomiting) pantoprazole 40 mg tablet,delayed release (DR/EC) 40 mg PO DAILY donepezil 10 mg tablet 10 mg PO QHS sucralfate 1 gram tablet 1 g PO ACHS Qty: 120 5RF duloxetine 30 mg capsule,delayed release(DR/EC) 30 mg PO BID gabapentin 600 mg tablet 600 mg PO HS famotidine 20 mg tablet 20 mg PO DAILY Qty: 30 0RF cyanocobalamin (vitamin B-12) 1,000 mcg/mL solution 1,000 mcg IM MONTHLY divalproex 500 mg tablet,delayed release (DR/EC) 500 mg PO BID escitalopram oxalate 10 mg tablet 10 mg PO DAILY metoprolol succinate 25 mg tablet extended release 24 hr See Rx Instructions .ROUTE .COMPLEX Qty: 45 2RF Dose Instruction: TAKE HALF A TABLET BY MOUTH DAILY Rx Instructions: TAKE HALF A TABLET BY MOUTH DAILY Follow-up/Referrals: Davonte Stock MD [Primary Care Provider] -
[2024-10-05] MEDS: ASPIRIN 81 MG CHEWABLE TABLET 324 MG PO (08:33)
[2024-10-05] MEDS: NITROGLYCERIN OINTMENT 1 INCH DOSE TRANSDERM (08:33)
[2024-10-05] MEDS: ONDANSETRON INJ 4 MG/2 ML VIAL IV PUSH (08:33)
[2024-10-05] MEDS: MORPHINE SULFATE (*CRX) 4 MG/ML INJ IV PUSH (08:35)
[2024-10-05 08:36] LABS: Hematocrit 35.6 % (35.0-42.0); Hemoglobin 10.7 g/dL (11.7-13.8); Mean Corpuscular HGB Conc 30.1 g/dL (32-36); Mean Corpuscular Volume 83.2 fL (78.0-102.0); Platelet Count Result 234 K/mm3 (150-420); Red Blood Count 4.28 M/mm3 (4.20-5.40); Red Cell Distribution Width 18.6 % (11.6-14.4); White Blood Count 3.7 K/mm3 (4.8-10.8)
--- OUTSIDE RECORDS SUMMARY | 2024-10-05 08:48 | XMS_ITS | Referral Summary ---
Author Organization [facility] Address [address] [place] [address] Care Team Providers Care Test Department Helper Name Role Phone Davonte Stock MD Primary [...] on file Legal Sex Female 10:30 AM TAX CREDIT LEASING CONSULTANT Gender Identity Not on file Sexual Orientation Not on file Last Filed Vital Signs Vital Sign Reading Time Taken Comments Blood Pressure 157/72 08/23/2022 1:20 PM TAX CREDIT LEASING CONSULTANT Pulse 73 08/23/2022 1:20 PM TAX CREDIT LEASING CONSULTANT Temperature 36.2 C (97.2 F) 06/29/2022 10:29 AM TAX CREDIT LEASING CONSULTANT Respiratory Rate 24 06/29/2022 10:4 9 AM TAX CREDIT LEASING CONSULTANT Oxygen Saturation 100% 06/29/2022 10: 49 AM TAX CREDIT LEASING CONSULTANT Inhaled Oxygen Concentration - - Weight 66.6 kg (146 lb 12.8 oz) 08/23/2022 1:20 PM TAX CREDIT LEASING CONSULTANT Height 165.1 cm (5' 5 ) 08/23/2022 1:20 PM TAX CREDIT LEASING CONSULTANT Body Mass Index 24.43 08/23/2022 1:20 PM TAX CREDIT LEASING CONSULTANT Plan of Treatment Not on file Insurance [employer] MEDICARE AET MEDICARE Advance Directives For more information, please contact: [phone] * Full Code (Latest Code Status on File) Date Activated Date Inactivated Comments 06/29/2022 9:11 AM 06/29/2022 3:08 PM Care Teams Test Department Helper Relationship Specialty Start Date End Date Davonte Stock MD [address] [place] [address] PCP - General Family Medicine 04/27/22
--- OUTSIDE RECORDS SUMMARY | 2024-10-05 08:48 | XMS_ITS | Clinical Summary ---
Author Organization [facility] Address [address] [place] [address] Care Team Providers Care Director Of Student Life Name Role Phone Davonte Stock MD Primary [...] Comments HYSTERECTOMY Hysterectomy GASTRIC BYPASS Gastric Bypass [place] TOTAL ABDOMINAL HYSTERECT W/WO RMVL TUBE OVARY [...] Mother 2 Colon cancer - (Added by [employer] Conv) Diabetes Mother 2 Family history of diabetes mellitus - (Added by [employer] Conv) Alzheimer's disease Mother's Brother Fami ly history of Alzheimer's disease - (Added by [employer] Conv) Migraines Other Family history of migraine [...] on file Legal Sex Female 10:30 AM FACTORY REPRESENTATIVE Gender Identity Not on file Sexual Orientation Not on file Obstetrics History Last Filed Vital Signs Vital Sign Reading Time Taken Comments Blood Pressure 157/72 08/23/2022 1:20 PM FACTORY REPRESENTATIVE Pulse 73 08/23/2022 1:20 PM FACTORY REPRESENTATIVE Temperature 36.2 C (97.2 F) 06/29/2022 10:29 AM FACTORY REPRESENTATIVE Respiratory Rate 24 06/29/2022 10:4 9 AM FACTORY REPRESENTATIVE Oxygen Saturation 100% 06/29/2022 10: 49 AM FACTORY REPRESENTATIVE Inhaled Oxygen Concentration - - Weight 66.6 kg (146 lb 12.8 oz) 08/23/2022 1:20 PM FACTORY REPRESENTATIVE Height 165.1 cm (5' 5 ) 08/23/2022 1:20 PM FACTORY REPRESENTATIVE Body Mass Index 24.43 08/23/2022 1:20 PM FACTORY REPRESENTATIVE Plan of Treatment Health Maintenance Due Date [...] Advance Directives For more information, please contact: [phone] * Full Code (Latest Code Status on File) Date Activated Date Inactivated Comments 06/29/2022 9:11 AM 06/29/2022 3:08 PM Care Teams Director Of Student Life Relationship Specialty Start Date End Date Davonte Stock MD [address] [place] [address] PCP - General Family Medicine 04/27/22
--- OUTSIDE RECORDS SUMMARY | 2024-10-05 08:48 | XMS_ITS | Clinical Summary ---
Author Organization [facility] Address [address] [place] [address] Care Team Providers Care Chief Talent Officer Name Role Phone Davonte Stock MD Primary Care Provider Allergies Active Allergy Reactions Criticality Noted Date [...] ipratropium bromide (ATROVENT) 21 mcg (0.03 %) [place], Non-Aerosol 08/07/2021 Active levothyroxine 50 mcg tablet [...] on file Legal Sex Female 5:48 AM VIDEO INTERN Gender Identity Not on file Sexual Orientation [...] series) 2020 INFLUENZA VACCINE (#1) 2024 Insurance [facility] [id number] [place] [address] [facility] [id number] Care Teams Chief Talent Officer Relationship Specialty Start Date End Date Davonte Stock MD [address] [place] [address] PCP - General Family Practice 08/21/21
[2024-10-05] MEDS: METOPROLOL TARTRATE INJ 5 MG/5 ML VIAL IV PUSH ×3 (08:51→10:29)
[2024-10-05 08:57] LABS: Alanine Aminotransferase 11 U/L (14-59); Alkaline Phosphatase 104 U/L (46-116); Anion Gap 6 mmol/L (4-12); Aspartate Amino Transferase 15 U/L (15-37); Bilirubin,Total 0.5 mg/dL (0.00-1.00); Blood Urea Nitrogen 14 mg/dL (7-18); Calcium 9.8 mg/dL (8.5-10.1); Carbon Dioxide 30 mmol/L (21-32); Chloride 104 mmol/L (98-108); Estimated CRCL calculation 42 ml/min; Estimated Glomerular Filt Rate > 60; Glucose 95 mg/dL (70-99); NT Pro B Type Natriuretic Pept 764 pg/mL (0-450); Osmolality Calculated 290 mOsm/kg (285-295); Potassium 3.6 mmol/L (3.5-5.1); Sodium 140 mmol/L (136-145); Total Protein 6.5 g/dL (6.4-8.2)
[2024-10-05 08:58] LABS: Troponin I 17.3 ng/L (0.00-60.4)
[2024-10-05 08:59] LABS: Lipase 28 U/L (16-77)
[2024-10-05 09:02] LABS: Band Neutrophils Percent 0 % (0-6); Eosinophils Absolute Manual 0.07 K/mm3 (0.02-0.50); Eosinophils Percent Manual 2 % (1-6); Lymphocytes Absolute Manual 0.77 K/mm3 (1.1-4.5); Lymphocytes Percent Manual 21 % (18-44); Monocytes Absolute Manual 0.18 K/mm3 (0.1-0.90); Monocytes Percent Manual 5 % (3-9); Neutrophils Absolute Manual 2.66 K/mm3 (1.7-7.2); Neutrophils Percent Manual 72 % (46-73); Platelet Estimate Adequate (Adequate); Total Cells Counted 100
[2024-10-05 09:10] LABS: Partial Thromboplastin Time 26.2 Sec (23.9-30.70); Prothrombin Time 10.7 Seconds (9.50-12.1)
--- NOTE | 2024-10-05 09:37 | PC.NURSE ---
0910 PT TO XRAY VIA STRETCHER, 9133 PT RETURN TO ROOM
[2024-10-05 10:32] LABS: Add Urine Microscopic? YES; Appearance Urine Clear (Clear); Bilirubin Urine Negative (Negative); Blood Urine Negative (Negative); Color Urine Light Yellow (Yellow); Glucose Urine UA Negative (Negative); Ketones Urine Negative (Negative); Leukocyte Esterase Ur 1+ LEU/UL (Negative); Nitrate Urine Negative (Negative); Protein Urine Negative (Negative); Urobilinogen Urine 0.2 mg/dL (0.2-1.0); pH Urine 7.5 (5.0-8.0)
[2024-10-05 10:41] LABS: Bacteria Urine Rare /hpf; RBC Urine None seen /hpf (0-2); Squamous Epithelial Cell Urine Rare /hpf (Few); WBC Urine 0-5 /hpf (0-3)
[2024-10-05] MEDS: hydrALAZINE HCL 20 MG/ML VIAL IV PUSH (11:06)
[2024-10-05 12:01] LABS: Troponin I 29.5 ng/L (0.00-60.4)
[2024-10-05] MEDS: ACETAMINOPHEN 500 MG TABLET 1000 MG PO (14:15)
--- NOTE | 2024-10-07 12:44 | PC.NURSE ---
preliminary urine culture reviewed. >100,000 gram neg bacilli isolated.
--- NOTE | 2024-10-08 13:16 | PC.NURSE ---
FINAL URINE CULTURE REPORT FAXED TO [facility] @ [phone]
== END 2024-10-05 17:27 | disposition short-term general hospital (02) ==
PROVIDERS: Emergency Provider Emergency Medicine; PCP Family Medicine
DX: I12.9 Hypertensive chronic kidney disease with stage 1 through stage 4 chronic kidney disease, or unspecified chronic kidney disease (principal); E11.22 Type 2 diabetes mellitus with diabetic chronic kidney disease; N18.30 Chronic kidney disease, stage 3 unspecified; K44.9 Diaphragmatic hernia without obstruction or gangrene; F41.9 Anxiety disorder, unspecified; F03.90 Unspecified dementia, unspecified severity, without behavioral disturbance, psychotic disturbance, mood disturbance, and anxiety; Z87.891 Personal history of nicotine dependence; Z79.899 Other long term (current) drug therapy; Z90.49 Acquired absence of other specified parts of digestive tract
CPT/HCPCS: 36415; 71045; 71275; 74174; 80053; 81001; 83690; 83880; 84484; 85025; 85610; 85730; 87086; 87186; 93005; 96374; 96375; 99284; A9270; J0360; J2270; J2405; Q9967

== ENCOUNTER 2024-10-16 11:45 | Emergency (ER) | payer MEDICARE, SELFPAY ==
[2024-10-16] VITALS (8 sets, daily range): BP systolic 141–180; BP diastolic 64–86; PULSE 58–73; RESP 11–20; TEMP 36.8; O2SAT 94–100
--- NOTE | ~2024-10-16 | CT_ITS ---
EXAMINATION: CT abdomen pelvis w con DATE: 10/16/2024 14:25 INDICATION: Epigastric pain TECHNIQUE: Computed tomography (CT) of the abdomen and pelvis was performed with 100 mL Omnipaque-350 intravenous contrast. Automated exposure control and iterative reconstruction technique were employe d. The dose-length product was 224.36 mGy-cm. COMPARISON: 10/05/2024 FINDINGS: Calcified pulmonary nodules at the bilateral lung bases consistent with old granulomatous disease. He art size is normal. Dense mitral annular calcification. No pericardial or pleural effusion. Small sli ding-type hiatal hernia with change of prior Matthias-en-Y gastric bypass procedure. Mild dilation the co mmon bile duct measuring up to 7 mm in maximal diameter and small amount of intrahepatic pneumobilia likely related to prior cholecystectomy. There is dilation of the main pancreatic duct which measures up to 8mm diameter at the head of the pancreas which along with a couple small dystrophic calcificat ions at the head of the pancreas are likely sequela of chronic pancreatitis. Bilateral adrenal glands are normal. Bilateral low-attenuation renal cysts measuring up to 1.3 cm in the left kidney. There a re few small regions of scattered focal cortical atrophy at both kidneys. Scattered colonic diverticu losis without adjacent inflammatory stranding to suggest diverticulitis. No bowel obstruction. The ap pendix is not visualized. No pericecal inflammatory change to suggest acute appendicitis. Bladder is normal. The uterus is not identified and has likely been surgically resected. No free intraperitonea l gas or fluid. No pathologically enlarged abdominal or pelvic lymphadenopathy. Moderate lumbar and l ower thoracic spondylosis. Moderate bilateral hip and sacroiliac osteoarthritis. IMPRESSION: 1. Small sliding-type hiatal hernia and changes of prior Matthias-en-Y gastric bypass procedure. 2. Mild dilation the common bile duct and main pancreatic duct, the former along some pneumobilia lik hamilton sequela of prior cholecystectomy and the latter along with a couple dystrophic calcification is l ikely sequela of chronic pancreatitis. Correlate with liver function tests and if clinically indicate d could consider MRCP for further evaluation. Line 3. Mild diverticulosis. Reviewed, dictated and finalized at location B. IMPRESSION: 1. Small sliding-type hiatal hernia and changes of prior Matthias-en-Y gastric bypa ss procedure. 2. Mild dilation the common bile duct and main pancreatic duct, the former edyta g some pneumobilia likely sequela of prior cholecystectomy and the latter along with a couple dystrophic calcification is likely sequela of chronic pancreatit is. Correlate with liver function tests and if clinically indicated could consi meg MRCP for further evaluation. Line 3. Mild diverticulosis.
--- NOTE | 2024-10-16 11:48 | ECG_ITS ---
Test Date: 2024-10-16 12:02:02 Measurements Intervals [place] Rate: 69 P: 58 [place]: 134 QRS: 49 QRSD: 89 T: 50 QT: 403 QTc: 434 Interpretive Statements SINUS RHYTHM WITH OCCASIONAL VENTRICULAR PREMATURE COMPLEXES WITH ATRIAL COUPLET VOLTAGE CRITERIA FOR LVH BORDERLINE ST-T WAVE ABNORMALITY- ANTEROLAT/INF LEADS BORDERLINE ECG Compared to ECG 10/05/2024 08:21:14 NO SIGNIFICANT CHANGE Electronically Signed On 10-16-2024 12:08:49 CDT by Cristi Chao D.O.
[2024-10-16 12:04] LABS: Basophils Percent Auto 0.5 % (0.2-1.2); Eosinophils Percent Auto 0.7 % (0-4.4); Hemoglobin 10.3 g/dL (12.0-15.0); Immature Granulocyte Absolute 0.02 K/mm3 (0.00-0.031); Immature Granulocyte Percent A 0.4 % (0-0.5); Lymphocytes Absolute Auto 0.94 K/mm3 (0.9-3.2); Lymphocytes Percent Auto 16.8 % (18.3-44.2); Mean Corpuscular HGB Conc 29.4 g/dl (32-36); Mean Corpuscular Hemoglobin 25.6 pg (26-34); Mean Corpuscular Volume 86.8 fl (80-100); Mean Platelet Volume 9.4 fl (7.4-10.4); Monocytes Absolute Auto 0.5 K/mm3 (0.1-0.6); Monocytes Percent Auto 9.1 % (2.6-8.5); Neutrophils Absolute Auto 4.1 K/mm3 (1.3-6.7); Neutrophils Percent Auto 72.5 % (45.5-73.1); Platelet Count Result 210 k/mm3 (150-375); Red Blood Count 4.03 M/mm3 (4.2-5.4); Red Cell Distribution Width 19.1 % (11.5-14.5); White Blood Count 5.6 K/mm3 (4.5-10.0)
[2024-10-16 12:13] LABS: Alanine Aminotransferase 10 U/L (6-35); Alkaline Phosphatase 90 U/L (38-126); Anion Gap 5 mmol/L (4-12); Aspartate Amino Transferase 18 U/L (14-36); Bilirubin,Total 0.4 mg/dL (0.2-1.3); Blood Urea Nitrogen 14 mg/dL (7-17); Calcium 9.1 mg/dL (8.4-10.2); Carbon Dioxide 28 mmol/L (22-30); Chloride 100 mmol/L (98-107); Estimated CRCL calculation 47 ml/min; Estimated Glomerular Filt Rate > 60; Glucose 143 mg/dL (65-110); Lipase 53 U/L (23-300); Sodium 133 mmol/L (137-145)
[2024-10-16 12:30] LABS: Bilirubin Urine Negative (Negative); Blood Urine Negative (Negative); Color Urine Yellow (Yellow); Glucose Urine UA 1+ mg/dL (Negative); Ketones Urine 1+ mg/dL (Negative); Leukocyte Esterase Ur 3+ LEU/UL (Negative); Nitrate Urine Positive (Negative); Protein Urine 1+ mg/dL (Negative); Specific Grav Ur 1.034 (1.001-1.035)
[2024-10-16 12:31] LABS: Add Urine Microscopic? YES; Appearance Urine Cloudy (Clear); Bacteria Urine 4+ /hpf; Need Manual Microscopic Reviewed; Non Pathogenic Casts 0-2; Squamous Epithelial Cell Urine None Seen /hpf (Few); WBC Urine >100 /hpf (0-3)
[2024-10-16 12:41] LABS: Anisocytosis 1+; Burr Cells 1+; Hypochromasia 1+; Platelet Estimate Adequate (Adequate)
[2024-10-16 12:42] LABS: Schistocytes None Seen
--- NOTE | 2024-10-16 13:13 | PC.NURSE ---
MUKESH June at bedside speaking with pt. and family.
[2024-10-16] MEDS: PANTOPRAZOLE SODIUM IV 40 MG VIAL 80 MG IV PUSH (13:15)
--- NOTE | 2024-10-16 13:39 | ED_ITS ---
HPI - Abdominal Pain General Chief Complaint: Abdominal Pain Stated Complaint: Chest pain Time Seen by Provider: 10/16/24 12:32 Source: patient and family Mode of arrival: EMS Limitations: dementia History of Present Illness HPI narrative: This is a 79 year old female that presents to the ER for epigastric pain. Ongoing since yesterday. Reports dark stools. Does report she has been taking pepto bismol daily. Reports history of GI bleeding, peptic ulcers. Denies fever, vomiting. Related Data Home Medications ?Medication ?Instructions ?Recorded ?Confirmed ?Last Taken ?Type duloxetine 30 mg capsule,delayed 30 mg PO BID 06/28/19 08/20/24 03/17/22 History release gabapentin 600 mg tablet 600 mg PO HS 06/28/19 08/20/24 03/17/22 History donepezil 10 mg tablet 10 mg PO QHS 05/18/21 08/20/24 03/17/22 History cyanocobalamin (vitamin B-12) 1,000 mcg IM MONTHLY 02/02/22 08/20/24 06/28/22 History 1,000 mcg/mL injection solution divalproex 500 mg tablet,delayed 500 mg PO BID 03/18/22 08/20/24 03/17/22 History release escitalopram oxalate 10 mg tablet 10 mg PO DAILY 03/18/22 08/20/24 03/18/22 History potassium chloride 20 mEq 20 meq PO DAILY 07/01/22 08/20/24 Unknown History tablet,extended release(part/cryst) ergocalciferol (vitamin D2) 1,250 1,250 mcg PO WEEKLY 10/05/24 Unknown History mcg (50,000 unit) capsule loperamide 2 mg capsule 4 mg PO .COMPLEX DIARRHEA 10/05/24 Unknown History ondansetron 4 mg disintegrating 8 mg translingual Q8H PRN nausea 10/05/24 Unknown History tablet and vomiting pantoprazole 40 mg tablet,delayed 40 mg PO DAILY 10/05/24 Unknown History release sumatriptan succinate 50 mg tablet 50 mg PO .COMPLEX 10/05/24 Unknown History trazodone 50 mg tablet 50 mg PO HS 10/05/24 Unknown History Allergies Allergy/AdvReac Type Severity Reaction Status Date / Time butorphanol Allergy Severe Itching Verified 10/16/24 11:56 oxycodone (Percocet) Allergy Intermediate Dizziness Verified 10/16/24 11:56 nitrofurantoin (From AdvReac Intermediate Itching Verified 10/16/24 11:56 Macrobid) Review of Systems 2 Review of Systems: CONSTITUTIONAL: Denies fever GASTROINTESTINAL: Reports abdominal pain, nausea GENITOURINARY: Denies dysuria All systems reviewed & are unremarkable except as noted in HPI and below PMFSH Past Medical History Medical History Memory loss Dementia HOCM (hypertrophic obstructive cardiomyopathy) Acute upper respiratory infections of unspecified site (10/07/16) CKD (chronic kidney disease) stage 3, GFR 30-59 ml/min Cough (10/07/16) Depression (09/02/15) Dizziness (11/23/16) Dysuria (03/05/16) Essential hypertension GERD (gastroesophageal reflux disease) (09/02/15) FLACO on CPAP No longer uses a CPAP machine since she lost weight. Type 2 diabetes mellitus (05/18/16) Surgical History Surgical History History of cholecystectomy History of hysterectomy History of gastric bypass Family History Family History Mother Family history of Alzheimer's disease Carcinoma of colon Diabetes mellitus Hypertension Sibling Carcinoma of colon Father Patient's father is Social History Social History Social History: The patient lives with her granddaughter. She has 3 children. Tamia Valenzuela her daughter is the durable power business attorney for healthcare. The patient is retired from bookkeeping/accounting. the patient is a former smoker. The patient does not drink any alcohol routinely but occasionally does if she goes out to eat. She is . She does not use any marijuana or illicit drugs. Code status full code Smoking packs per day: 0.5 Smoking cigarettes per day: 10.0 Years smoked: 15 Smoking pack-years: 7.50 Smoking status: Former smoker Tobacco type: cigarettes Alcohol intake: never Alcohol use details: has not been drinking lately due to abdominal pain Substance use: never Substance use type: does not use Lack of Transportation: No Lack of Food: Never True Current Housing: I Have Housing Concerned About Future Housing: No Difficulty Paying Gas/Electric Bills: No Difficulty Paying for Meds: No Currently Unemployed: No Education: Don't Know Difficulty w/ Childcare or Family Care: No Living arrangements: alone Spiritual care concerns: No Exam 2 Narrative: GENERAL: Well-appearing, well-nourished, and in no acute distress. HEAD: Normocephalic, atraumatic. EYES: EOMI. ENT: Nares clear, no rhinorrhea or epistaxis. Mucous membranes moist. Oropharynx without tonsillar hypertrophy exudate or other lesions. CHEST: Clear to auscultation. No respiratory distress. No wheezes rales or rhonchi HEART: Regular rate and rhythm. No murmur heard. Normal peripheral pulses. ABDOMEN: Soft, nondistended, normal active bowel sounds. Tender to palpation in epigastrium, without guarding EXTREMITIES: Normal range of motion. No edema. SKIN: Warm, dry, no rash. NEURO: No focal deficits. Alert and oriented x3. PSYCH: Normal mood and affect RECTAL: Hemoccult negative Course Course Emergency Course: Patient and family updated on workup and agree with plan of care Vital Signs Vital signs: Vital Signs Temperature 98.2 F 10/16/24 11:50 Pulse Rate 62 10/16/24 11:50 Respiratory Rate 16 10/16/24 11:50 Pulse Oximetry 100 10/16/24 11:50 Temperature 98.2 F 10/16/24 11:50 Pulse Rate 64 10/16/24 15:41 Respiratory Rate 18 10/16/24 15:41 Blood Pressure 174/64 H 10/16/24 15:41 Pulse Oximetry 94 10/16/24 15:41 MDM - Abdominal Pain MDM Narrative Medical decision making narrative: Patient presents emergency department with epigastric pain dark stools. She is afebrile and nontoxic appearing. Her vitals are stable. Cbc without leukocytosis. Hemoglobin appears stable. Metabolic panel and lipase without concerning findings. Urine with evidence of infection. This was sent for culture. CT abdomen pelvis shows hiatal hernia, prior gastric bypass. Mild dilation of the common bile duct and main pancreatic duct likely sequela of prior cholecystectomy. Chronic pancreatitis. Correlate with biliary labs. Mild diverticulosis. Patient is Hemoccult negative. Patient and family are updated on workup and agree with plan of care. Will be started on oral antibiotics for UTI. She is tolerating oral intake. Instructed to have follow- up with gastroenterology. She was given warnings to return to the ER Differential Diagnosis Differential diagnosis: Likely pancreatitis and other (Peptic ulcer disease, GERD, esophagitis, GI bleeding, medication side effect) Lab Data Attestation: I reviewed the patient's lab results. 10/16/24 11:57 10/16/24 11:57 Labs: Lab Results 10/16/24 10/16/24 Range/Units 11:57 12:10 WBC 5.6 (4.5-10.0) K/mm3 RBC 4.03 L (4.2-5.4) M/mm3 Hgb 10.3 L (12.0-15.0) g/dL Hct 35.0 L (37.0-47.0) % MCV 86.8 (80-100) fl MCH 25.6 L (26-34) pg MCHC 29.4 L (32-36) g/dl RDW 19.1 H (11.5-14.5) % Plt Count 210 (150-375) k/mm3 MPV 9.4 (7.4-10.4) fl Immature Gran % (Auto) 0.4 (0-0.5) % Neut % (Auto) 72.5 (45.5-73.1) % Lymph % (Auto) 16.8 L (18.3-44.2) % [place] % (Auto) 9.1 H (2.6-8.5) % Eos % (Auto) 0.7 (0-4.4) % Baso % (Auto) 0.5 (0.2-1.2) % Lymph # (Auto) 0.94 (0.9-3.2) K/mm3 [place] # (Auto) 0.5 (0.1-0.6) K/mm3 Eos # (Auto) 0.0 (0-0.3) K/mm3 Baso # (Auto) 0.0 (0.0-0.1) K/mm3 Abs Immat Gran (auto) 0.02 (0.00-0.031) K/mm3 Absolute Neuts (auto) 4.1 (1.3-6.7) K/mm3 Absolute Nucleated RBC 0.000 (0.0-0.012) K/mm3 Band Neutrophils % Not Reportable Nucleated RBC % 0.0 (0.0-0.2) % Platelet Estimate Adequate (Adequate) Hypochromasia 1+ Anisocytosis 1+ Yasmin Cells 1+ Schistocytes None seen Sodium 133 L (137-145) mmol/L Potassium 4.0 (3.4-5.0) mmol/L Chloride 100 (98-107) mmol/L Carbon Dioxide 28 (22-30) mmol/L Anion Gap 5 (4-12) mmol/L BUN 14 (7-17) mg/dL Creatinine 0.75 (0.7-1.0) mg/dL Estim Creat Clear Calc 47 ml/min Estimated GFR > 60 (59 - ) Glucose 143 H (65-110) mg/dL Calcium 9.1 (8.4-10.2) mg/dL Total Bilirubin 0.4 (0.2-1.3) mg/dL AST 18 (14-36) U/L ALT 10 (6-35) U/L Alkaline Phosphatase 90 (38-126) U/L Troponin I < 0.012 (0.000-0.034) ng/mL Total Protein 6.0 L (6.3-8.2) g/dL Albumin 3.0 L (3.5-5.1) g/dL Lipase 53 (23-300) U/L Urine Color Yellow (Yellow) Urine Appearance Cloudy H (Clear) Urine pH 6.0 (5.0-9.0) Ur Specific [place] 1.034 (1.001-1.035) Urine Protein 1+ H (Negative) mg/dL Urine Glucose (UA) 1+ H (Negative) mg/dL Urine Ketones 1+ H (Negative) mg/dL Ur Blood (Man) Negative (Negative) Urine Nitrate Positive H (Negative) Urine Bilirubin Negative (Negative) Urine Urobilinogen 1.0 (<2.0) mg/dL Add Ur Microanalysis Reviewed Leukocyte Esterase Rfl 3+ H (Negative) RAFAEL/UL Urine RBC 6-10 H (0-2) /hpf Urine WBC >100 H (0-3) /hpf Ur Squamous Epith Cells None seen (Few) /hpf Urine Bacteria 4+ H /hpf Urine Casts 0-2 Imaging Data Radiologist's impression: ITS Impressions Abdomen/Pelvis CT 10/16/24 14:39 IMPRESSION: 1. Small sliding-type hiatal hernia and changes of prior Matthias-en-Y gastric bypass procedure. 2. Mild dilation the common bile duct and main pancreatic duct, the former along some pneumobilia likely sequela of prior cholecystectomy and the latter along with a couple dystrophic calcification is likely sequela of chronic pancreatitis. Correlate with liver function tests and if clinically indicated could consider MRCP for further evaluation. Line 3. Mild diverticulosis. Critical Care Time Critical Care Time Critical Care Time: No Discharge Plan Discharge Clinical Impression: Acute UTI, Acute epigastric pain Patient Disposition: Home Condition: Stable Instructions: Urinary Tract Infection in Women (ED), Abdominal Pain (ED) Additional Instructions: Return to the ER if you experience fever, abdominal pain with nausea and vomiting, you are unable to keep down liquids or solids, or any other symptoms that are concerning to you Remain well hydrated. Take oral antibiotic as prescribed Follow up with primary care doctor and gastroenterology Patient Language: Guatemalan Prescriptions: No Action potassium chloride 20 mEq tablet,ER particles/crystals 20 meq PO DAILY loperamide 2 mg capsule 4 mg PO .COMPLEX Rx Instructions: 4 mg orally AFTER 1ST LOOSE STOOL, FOLLOW BY 1 TAB AFTER EACH SUBSEQUEST LOOSE STOOL; trazodone 50 mg tablet 50 mg PO HS sumatriptan succinate 50 mg tablet 50 mg PO .COMPLEX Rx Instructions: 50 mg orally AFTER ONSET OF MIGRAINE MAY REPEAT 2 HRS DO NOT EXCEED4 TABS DAILY; ergocalciferol (vitamin D2) 1,250 mcg (50,000 unit) capsule 1,250 mcg PO WEEKLY ondansetron 4 mg tablet,disintegrating 8 mg translingual Q8H PRN (Reason: nausea and vomiting) pantoprazole 40 mg tablet,delayed release (DR/EC) 40 mg PO DAILY donepezil 10 mg tablet 10 mg PO QHS sucralfate 1 gram tablet 1 g PO ACHS Qty: 120 5RF duloxetine 30 mg capsule,delayed release(DR/EC) 30 mg PO BID gabapentin 600 mg tablet 600 mg PO HS famotidine 20 mg tablet 20 mg PO DAILY Qty: 30 0RF cyanocobalamin (vitamin B-12) 1,000 mcg/mL solution 1,000 mcg IM MONTHLY divalproex 500 mg tablet,delayed release (DR/EC) 500 mg PO BID escitalopram oxalate 10 mg tablet 10 mg PO DAILY metoprolol succinate 25 mg tablet extended release 24 hr See Rx Instructions .ROUTE .COMPLEX Qty: 45 2RF Dose Instruction: TAKE HALF A TABLET BY MOUTH DAILY Rx Instructions: TAKE HALF A TABLET BY MOUTH DAILY Follow-up/Referrals: Soy Franco MD [Physician] - Davonte Stock MD [Primary Care Provider] -
--- OUTSIDE RECORDS SUMMARY | 2024-10-16 13:39 | XMS_ITS | Encounter Summary ---
Author Organization [facility] Address [address] [place] [address] Phone Care Team Providers Care Linux Programmer Name Role Phone Davonte Stock MD Primary Care Provider [phone] Encounter Details Date Type Department Care Team (Late st Contact Info) Description 10/15/2024 Plan of Care Documentation [address] [address] Social History Tobacco Use Types Packs/Day Years Used Date Smoking Tobacco: Never Assessed Comments Unknown Sex and Gender Information Value Date Recorded Sex Assigned at Not on file Legal Sex Female 4:02 PM CDT Gender Identity Not on file Sexual Orientation Not on file documented as of this encounter Plan of Treatment Upcoming Encounters Date Type Department Care Team (Late st Contact Info) Description 10/18/2024 1:00 AM CDT Home Care Visit [address] [address] Priyanka Reynolds CORPORATE COUNSEL [place] 10/22/2024 1:00 AM CDT Home Care Visit [address] [address] Priyanka Reynolds CORPORATE COUNSEL [place] 10/24/2024 1:00 AM CDT Home Care Visit [address] [address] Priyanka Reynolds CORPORATE COUNSEL [place] 10/29/2024 1:00 AM CDT [facility] Visit [facility] [address] [place] [address] Priyanka Reynolds [facility] 10/31/2024 1:00 AM CDT Appointment [facility] [address] [place] [address] Larissa Cameron, PT documented as of this encounter Visit Diagnoses Not on filedocumented in this encounter Care Teams Linux Programmer Relationship Specialty Start Date End Date Davonte Stock MD [address] [place] [address] PCP - General Pediatrics 10/08/24 documented as of this encounter
--- OUTSIDE RECORDS SUMMARY | 2024-10-16 13:39 | XMS_ITS | Clinical Summary ---
Author Organization [facility] Address [address] [place] [address] Phone Care Team Providers Care Mental Health Tech Name Role Phone Davonte Stock MD Primary Care Provider Allergies No known active allergies Medications aspirin EC 81 MG Tablet Delayed Response Take 81 mg by mouth daily. 5 Active losartan (COZAAR) 25 MG Tablet Take 25 mg by mouth daily. 5 Active donepezil (ARICEPT) 10 MG Tablet Take 10 mg by mouth nightly. Active DULoxetine (CYMBALTA) [address] Particles Take 30 mg by mouth 2 times daily. Active gabapentin (NEURONTIN) 600 MG Tablet take 1 capsule by mouth in the morning and 2 capsules by mouth at bedtime Active loperamide (IMODIUM) 2 MG Capsule take 2 capsules by mouth after 1st loose stool, followed by 1 capsule after each subsequent loose stool Active Metoprolol Succinate 25 MG Capsule ER 24 Hour Sprinkle Take 0.5 Tablets by mouth daily. 5 Active Potassium Chloride 10 MEQ Pack take 2 capsules by mouth daily with food Active sucralfate (CARAFATE) 1 GM Tablet Take 1 g by mouth 4 times daily. 1 hour before meals and bedtime Active SUMAtriptan (IMITREX) 50 MG Tablet take 1 tablet by mouth after onset of migraine (may repeat after 2 hours do not exceed 4 tabs daily) Active traZODone (DESYREL) 50 MG Tablet Take 50 mg by mouth nightly. Active acetaminophen (TYLENOL) 500 MG Tablet Take 1,000 mg by mouth every 8 hours as needed for Mild or more severe pain. Active Encounters Date Type Department Care Team Description 10/16/2024 9:45 AM CDT Home Care Visit [address] [address] Meche Arnold OT OT - INITIAL EVALUATION 10/16/2024 Nurse Triage [address] [address] Noreen Orta RN Elevated BP, Chest Pain, Headache 10/16/2024 Home Care Visit [address] [address] Larissa Cameron, PT CARE CONFERENCE 10/15/2024 9:15 AM CDT Home Care Visit [address] [address] Larissa Cameron, PT PT - [place] START OF CARE 10/15/2024 Plan of Care Documentation [address] [address] from Last 3 Months Social History Tobacco Use Types Packs/Day Years Used Date Smoking Tobacco: Never Assessed Comments Unknown Sex and Gender Information Value Date Recorded Sex Assigned at Not on file Legal Sex Female 4:02 PM CDT Gender Identity Not on file Sexual Orientation Not on file Last Filed Vital Signs Vital Sign Reading Time Taken Comments Blood Pressure 180/90 10/16/2024 9:54 AM CDT Pulse 68 10/16/2024 9:54 AM CDT Temperature 35.9 C (96.6 F) 10/16/2024 9:54 AM CDT Respiratory Rate 16 10/15/2024 9:47 AM CDT Oxygen Saturation 98% 10/16/2024 9:54 AM CDT Inhaled Oxygen Concentration - - Weight 53.1 kg (117 lb) 10/16/2024 9:54 AM CDT Height 165.1 cm (5' 5 ) 10/16/2024 9:54 AM CDT Body Mass Index 19.47 10/16/2024 9:54 AM CDT Plan of Treatment Upcoming Encounters Date Type Department Care Team (Late st Contact Info) Description 10/18/2024 1:00 AM CDT Home Care Visit [address] [address] Priyanka Reynolds, DIRECTOR [employer]USE[employer] [place] 10/22/2024 1:00 AM CDT Home Care Visit [address] [address] Priyanka Reynolds, DIRECTOR [employer] [place] 10/24/2024 1:00 AM CDT Home Care Visit [address] [address] Priyanka Reynolds, DIRECTOR [employer]USE[employer] [place] 10/29/2024 1:00 AM CDT Home Care Visit [address] [address] Priyanka Reynolds, DIRECTOR [employer]USE[employer] [place] 10/31/2024 1:00 AM CDT Appointment [address] [address] Larissa Cameron, PT Health Maintenance Due Date Last Done Comments DEXA Bone Density 1945 Hepatitis C Virus (HCV) Screening 1945 Zoster Immunization (1 of 2) 1995 SARS-COV-2 Immunization ( season) 2024 03/02/2024, 06/08/2023, 04/05/2022, Additional history exists Pneumococcal Immunization (50+ years) Completed 04/16/2021, 11/27/2019, 01/02/2015 TdaP Immunization Completed 02/01/2022, , 11/28/2009 Influenza Immunization Completed , 02/28/2023, 04/05/2022, Additional history exists Respiratory Syncytial Virus (RSV) Immunization (Adult) Completed 08/31/2024 Hepatitis B Immunization Aged Out No longer eligible based on patient's age to complete this topic Meningococcal Immunization (ACWY) Aged Out No longer eligible based on patient's age to complete this topic Rotavirus Immunization Aged Out No lo nger eligible based on patient's age to complete this topic Insurance MEDICARE C AETNA Advance Directives * Full Code (Latest Code Status on File) Date Activated Date Inactivated Comments 10/15/2024 10:34 PM Care Teams Mental Health Tech Relationship Specialty Start Date End Date Davonte Stock MD [address] [place] [address] PCP - General Pediatrics 10/08/24
--- OUTSIDE RECORDS SUMMARY | 2024-10-16 13:39 | XMS_ITS | Encounter Summary ---
Author Organization [facility] Address [address] [place] [address] Phone Care Team Providers Care Electric Locomotive Crane Operator Name Role Phone Davonte Stock MD Primary Care Provider [phone] Reason for Visit * Auth/Cert (Routine) Specialty Diagnoses / Procedures Referred By Beka t Referred To Contact Referral ID Status Reason Start Date Expiration Date Visits Re quested Visits Authorized [id number] 1 1 Encounter Details Date Type Department Care Team (Late st Contact Info) Description 10/15/2024 9:15 AM CDT Home Care Visit [facility] [address] [place] [address] Larissa Cameron, PT PT - [facility] START OF CARE Social History Tobacco Use Types Packs/Day Years Used Date Smoking Tobacco: Never Assessed Comments Unknown Sex and Gender Information Value Date Recorded Sex Assigned at Not on file Legal Sex Female 4:02 PM CDT Gender Identity Not on file Sexual Orientation Not on file documented as of this encounter Last Filed Vital Signs Vital Sign Reading Time Taken Comments Blood Pressure 156/96 10/15/2024 9:47 AM CDT Pulse 67 10/15/2024 9:47 AM CDT Temperature 36.5 C (97.7 F) 10/15/2024 9:47 AM CDT Respiratory Rate 16 10/15/2024 9:47 AM CDT Oxygen Saturation 97% 10/15/2024 9:47 AM CDT Inhaled Oxygen Concentration - - Weight 55.6 kg (122 lb 9.6 oz) 10/15/2024 9:47 A M CDT Height 165.1 cm (5' 5 ) 10/15/2024 9:47 AM CDT Body Mass Index 20.4 10/15/2024 9:47 AM CDT documented in this encounter Plan of Treatment Upcoming Encounters Date Type Department Care Team (Late st Contact Info) Description 10/18/2024 1:00 AM CDT Home Care Visit [address] [address] Priyanka Reynolds, WEB CONTENT & SOCIAL MEDIA MANAGER [place] 10/22/2024 1:00 AM CDT Home Care Visit [address] [address] Priyanka Reynolds, WEB CONTENT & SOCIAL MEDIA MANAGER [place] 10/24/2024 1:00 AM CDT Home Care Visit [address] [address] Priyanka Reynolds, WEB CONTENT & SOCIAL MEDIA MANAGER [place] 10/29/2024 1:00 AM CDT Home Care Visit [address] [address] Priyanka Reynolds, WEB CONTENT & SOCIAL MEDIA MANAGER [place] 10/31/2024 1:00 AM CDT Appointment [address] [address] Larissa Cameron, PT documented as of this encounter Visit Diagnoses Not on filedocumented in this encounter Care Teams Electric Locomotive Crane Operator Relationship Specialty Start Date End Date Davonte Stock MD [address] [place] [address] PCP - General Pediatrics 10/08/24 documented as of this encounter
--- OUTSIDE RECORDS SUMMARY | 2024-10-16 13:39 | XMS_ITS | Referral Summary ---
Author Organization [facility] Address [address] [place] [address] Care Team Providers Care Engineering Faculty Name Role Phone Davonte Stock MD Primary [...] on file Legal Sex Female 10:30 AM HAND I BLOCKER Gender Identity Not on file Sexual Orientation Not on file Last Filed Vital Signs Vital Sign Reading Time Taken Comments Blood Pressure 157/72 08/23/2022 1:20 PM HAND I BLOCKER Pulse 73 08/23/2022 1:20 PM HAND I BLOCKER Temperature 36.2 C (97.2 F) 06/29/2022 10:29 AM HAND I BLOCKER Respiratory Rate 24 06/29/2022 10:4 9 AM HAND I BLOCKER Oxygen Saturation 100% 06/29/2022 10: 49 AM HAND I BLOCKER Inhaled Oxygen Concentration - - Weight 66.6 kg (146 lb 12.8 oz) 08/23/2022 1:20 PM HAND I BLOCKER Height 165.1 cm (5' 5 ) 08/23/2022 1:20 PM HAND I BLOCKER Body Mass Index 24.43 08/23/2022 1:20 PM HAND I BLOCKER Plan of Treatment Not on file Insurance AETNA MEDICARE AET MEDICARE Advance Directives For more information, please contact: [phone] * Full Code (Latest Code Status on File) Date Activated Date Inactivated Comments 06/29/2022 9:11 AM 06/29/2022 3:08 PM Care Teams Engineering Faculty Relationship Specialty Start Date End Date Davonte Stock MD [address] [place] [address] PCP - General Family Medicine 04/27/22
--- OUTSIDE RECORDS SUMMARY | 2024-10-16 13:39 | XMS_ITS | Encounter Summary ---
Author Organization [facility] Address [address] [place] [address] Phone Care Team Providers Care Manager Digital Ad Operations Name Role Phone Davonte Stock MD Primary Care Provider [phone] Reason for Visit * Reason Onset Date Comments Elevated BP, Chest Pain, Headache 10/16/2024 Encounter Details Date Type Department Care Team (Late st Contact Info) Description 10/16/2024 [facility] [address] [place] [address] Noreen Orta RN [place] Elevated BP, Chest Pain, Headache Social History Tobacco Use Types Packs/Day Years Used Date Smoking Tobacco: Never Assessed Comments Unknown Sex and Gender Information Value Date Recorded Sex Assigned at Not on file Legal Sex Female 4:02 PM CDT Gender Identity Not on file Sexual Orientation Not on file documented as of this encounter Miscellaneous Notes * Telephone Encounter - Noreen Orta RN - 10/16/2024 10:15 AM CDT SITUATION: Elevated BP, Headache, Nausea, Dry Heaves, Chest Pain BACKGROUND: Pt forgetful. Took morning meds which include BP meds and GI meds. Pt feels hot, diaphoretic HISTORY: Hypertensive Urgency See care advice and disposition for Guideline. ASSESSMENT & RECOMMENDATION: CINDY Gates is [place] with advice to call 911 or take to ED. Caller agreeable to 911 disposition. Call placed to 911 by CINDY Gates. and Caller agreeable to self-care (home care) advice, self-care (home care) provided. First positive answer recorded, all responses to prior questions were negative. If symptoms increase, change or if new symptoms develop, call your HCP or call back. Recommendations were based on caller information and is not a diagnosis. Verified and reviewed all triage information with caller. Teach-back method utilized. Please reply to the following Home Care Pool with further orders or responses: [facility] [place] Reason for Disposition [1] Systolic BP >= 160 OR Diastolic >= 100 AND [2] cardiac (e.g., breathing difficulty, chestpain) or neurologic symptoms (e.g., new-onset blurred or double vision, unsteady gait) Answer Assessment - Initial Assessment Questions 1. BLOOD PRESSURE: What is your blood pressure? Did you take at least two measurements 5 minutesapart? 180/90, 178/100-8 minutes apart 2. ONSET: When did you take your blood pressure? Prior to this call and after 8 minutes 3. HOW: How did you take your blood pressure? (e.g., automatic home BP monitor, visiting nurse) OT checked BP 4. HISTORY: Do you have a history of high blood pressure? yes 5. MEDICINES: Are you taking any medicines for blood pressure? Have you missed any doses recently? Took am meds prior to this call. Losartan and metoprolol 6. OTHER SYMPTOMS: Do you have any symptoms? (e.g., blurred vision, chest pain, difficulty breathing, headache, weakness) Chest pain, headache, nausea with intermittent dry heaves x 2 days, history of migraines. 7. : Is there any chance you are ? When was your last menstrual period? NA Protocols used: Blood Pressure - High-A-AH documented in this encounter Plan of Treatment Upcoming Encounters Date Type Department Care Team (Late st Contact Info) Description 10/18/2024 1:00 AM CDT [facility] [address] [place] [address] Priyanka Reynolds [facility] 10/22/2024 1:00 AM CDT [facility] [address] [place] [address] Priyanka Reynolds, BODY ART TECHNICIAN MA 10/24/2024 1:00 AM CDT [facility] [address] [place] [address] Priyanka Reynolds, BODY ART TECHNICIAN [place] 10/29/2024 1:00 AM CDT Home Care Visit [address] [address] Priyanka Reynolds, BODY ART TECHNICIAN [place] 10/31/2024 1:00 AM CDT Appointment [address] [address] Larissa Cameron, PT documented as of this encounter Visit Diagnoses Not on filedocumented in this encounter Care Teams Manager Digital Ad Operations Relationship Specialty Start Date End Date Davonte Stock MD [address] [place] [address] PCP - General Pediatrics 10/08/24 documented as of this encounter
--- OUTSIDE RECORDS SUMMARY | 2024-10-16 13:39 | XMS_ITS | Encounter Summary ---
Author Organization [facility] Address [address] [place] [address] Phone Care Team Providers Care Professor Of Geology Name Role Phone Davonte Stock MD Primary Care Provider [phone] Reason for Visit * Auth/Cert (Routine) Specialty Diagnoses / Procedures Referred By Beka t Referred To Contact Referral ID Status Reason Start Date Expiration Date Visits Re quested Visits Authorized [id number] 1 1 Encounter Details Date Type Department Care Team (Late st Contact Info) Description 10/16/2024 [facility] [address] [place] [address] Larissa Cameron, PT CARE CONFERENCE Social History Tobacco Use Types Packs/Day Years [...] 10/18/2024 1:00 AM CDT [facility] [address] [place] [address] Priyanka Reynolds PTA [place] 10/22/2024 1:00 AM CDT [facility] [address] [place] [address] Priyanka Reynolds PTA [place] 10/24/2024 1:00 AM CDT [facility] Visit [facility] [address] [place] [address] Priyanka Reynolds PTA [place] 10/29/2024 1:00 AM CDT [facility] Visit [facility] [address] [place] [address] Priyanka Reynolds PTA [place] 10/31/2024 1:00 AM CDT [facility] [address] [place] [address] Larissa Cameron, PT documented as of this encounter Visit Diagnoses Not on filedocumented in this encounter Care Teams Professor Of Geology Relationship Specialty Start Date End Date Davonte Stock MD [address] [place] [address] PCP - General Pediatrics 10/08/24 documented as of this encounter
--- OUTSIDE RECORDS SUMMARY | 2024-10-16 13:39 | XMS_ITS | Clinical Summary ---
Author Organization [facility] Administrative Offices Address [address] [place] [address] Care Team Providers Care Commercial Lending Relationship Manager Name Role Phone Davonte Stock MD Primary Care Provider [phone] Allergies Active Allergy Reactions Criticality Noted Date Comments Butorphanol Anxiety,Hallucination Low 02/23/2013 Reaction: HALLUCINATIONS, , , Oxycodone Itching Low 10/05/2024 Medications cyanocobalami n (VITAMIN B-12) 1,000 mcg/mL Solution 07/31/19 22 Active divalproex (DEPAKOTE) 500 mg delayed release tablet Take 500 mg by mouth 2 times daily. 07/31/19 22 Active donepeziL (ARICEPT) 10 mg tablet Take 10 mg by mouth daily at bedtime. 08/16/19 22 Active DULoxetine (CYMBALTA) 30 mg Capsule, Delayed Release(E.C.) Take 30 mg by mouth 2 times daily. 06/10/20 21 Active PreviDent 5000 Booster Plus 1.1 % Paste 07/18/19 22 Active gabapentin (NEURONTIN) 600 mg tablet Take 300 mg by mouth see administration instructions. TAKE 1 CAPSULE IN THE MORNING AND TWO CAPSULES AT BEDTIME 07/31/19 22 Active ipratropium bromide (ATROVENT) 21 mcg (0.03 %) [place], Non-Aerosol 08/07/19 22 Active levothyroxine 50 mcg tablet 07/31/19 22 Active loperamide (IMODIUM) 2 mg capsule 08/04/19 22 Active sucralfate (CARAFATE) 1 gram tablet Take 1 Gram by mouth 4 times daily before meals and at bedtime. 08/08/19 Active pantoprazole (PROTONIX) 40 mg Tablet, Delayed Release (E.C.) Take 40 mg by mouth 2 times daily. 07/24/19 Active SUMAtriptan (IMITREX) 100 mg tablet Take 100 mg by mouth see administration instructions. TAKE 1 TABLET BY MOUTH NEEDED FOR MIGRAINE, MAY REPEAT IN 2 HOURS, NO MORE THAN 4 TIMES DAILY 08/13/19 Active escitalopram oxalate (LEXAPRO) 10 mg tablet Take 10 mg by mouth daily. 05/16/20 Active potassium CHLORIDE (K-TAB) 20 mEq Extended Release tablet Take 10 mEq by mouth 2 times daily with meals. Active traZODone (DESYREL) 50 mg tablet Take 50 mg by mouth daily at bedtime. 05/16/20 Active acetaminophen (TYLENOL) 500 mg tablet Take 1,000 mg by mouth every 8 hours as needed. 01/24/20 Active metoprolol succinate (TOPROL XL) 25 mg Extended Release 24 hour tablet Starting 10/09: Take 0.5 Tablet (12.5 mg) by mouth daily. 30 Tablet 1 5 2:10 PM CDT 10/10/19 25 Active aspirin (ECOTRIN EC) 81 mg Tablet, Delayed Release (E.C.) Starting 10/09: Take 1 Tablet (81 mg) by mouth daily. 30 Tablet 1 5 2:10 PM CDT 10/10/19 25 Active losartan (COZAAR) 25 mg tablet Starting 10/09: Take 1 Tablet (25 mg) by mouth daily. 30 Tablet 1 5 2:10 PM CDT 10/10/19 25 Active metoprolol succinate (TOPROL XL) 25 mg Extended Release 24 hour tablet Take 12.5 mg by mouth daily. 07/24/19 22 2024 Discontinued Active Problems Problem Noted Date Diagnosed Date Recurrent major depressive disorder, in remissio n 10/05/2024 Other chest pain 10/05/2024 Hypertensive urgency 10/05/2024 Memory loss or impairment 10/05/2024 Anastomotic ulcer S/P gastric bypass 10/05/2024 Overview (10/05/2024): Morbid obesity, status post gastric bypass in 2002. Anastomotic stricture with large peptic ulcer, status post revision of gastric bypass, 2012. Female stress incontinence 10/05/2024 S/P cholecystectomy 10/05/2024 S/P total hysterectomy 10/05/2024 Chronic recurrent pancreatitis 10/05/2024 Osteoarthritis 10/05/2024 Former heavy tobacco smoker 10/05/2024 Nontoxic goiter 04/03/2015 Medication overuse headache 09/17/2014 Migraine headache 09/17/2014 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 Thyroid activity decreased 09/17/2014 Vitamin D deficiency disease 09/17/2014 Anemia 09/17/2014 Gastric ulcer without hemorrhage or perforation 02/23/2013 Obstructive sleep apnea syndrome 02/23/2013 Carpal tunnel syndrome 02/23/2013 Type 2 diabetes mellitus without complications 0 02/23/2013 Overview (10/05/2024): IMO 09/19/2024 Essential (primary) hypertension 06/14/2012 Generalized anxiety disorder 06/14/2012 Hyperlipidemia 06/14/2012 Restless legs 06/14/2012 Resolved Problems Problem Noted Date Diagnosed Date Resolved Date Epigastric pain 01/18/2024 10/05/2024 Pancytopenia 08/21/2021 10/05/2024 Hypoglycemia 04/03/2015 10/05/2024 Major depressive disorder, single episode 02/23/2013 10/05/2024 Abnormal weight loss 02/23/2013 025 Severe episode of recurrent major depressive disorder 06/14/2012 10/05/2024 Encounters Date Type Department Care Team Description 10/09/2024 External Device Data [facility] ABSTRACTION Provider, Abstract 10/09/2024 External Device Data [facility]STRACTION Provider, Abstract 10/09/2024 External Device Data [facility]STRACTION Provider, Abstract 10/05/2024 6:44 PM CDT - 10/08/2024 3:39 PM CDT Hospital Encounter [facility] [address] [place] [address] Pham Reyes MD Bucci, Timothy, MD Rakhra, Varundeep, DO Zhang, Qin, MD Other chest pain Discharge Disposition: Home Health Care Svc from Last 3 Months Family History Medical History Relation Name Comments Cancer Mother colon cancer Diabetes Mother Type 1 Hypertension Mother Other Mother ALZHEIMER'S Hypertension Sister Relation Name Status Comments Brother Daughter Alive Father Mother Sister Alive Son 1 Alive Son 2 Alive Social History Tobacco Use Types Packs/Day Years Used Date Smoking Tobacco: Former Cigarettes Q uit: 1970 Smokeless Tobacco: Never Tobacco Cessation:Counseling Given: Not Answered Comments:quit 30 years ago Alcohol Use Standard Drinks/Week Comments Not Currently 0 (1 standard drink = 0.6 oz pur e alcohol) occasional Feeling Safe Answer Date Recorded Are you in a relationship wi th someone who hurts you emotionally and/or physically? 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 Gender Identity Not on file Sexual Orientation Not on file Last Filed Vital Signs Vital Sign Reading Time Taken Comments Blood Pressure 133/74 10/08/2024 12:06 PM CDT Pulse 101 10/08/2024 12:06 PM CDT Temperature 36.3 C (97.3 F) 10/08/2024 12:06 PM CDT Respiratory Rate 15 10/08/2024 12:0 6 PM CDT Oxygen Saturation 100% 10/08/2024 12: 06 PM CDT Inhaled Oxygen Concentration - - Weight 56.7 kg (124 lb 14.4 oz) 10/08/2024 5:28 AM CDT Height 165.1 cm (5' 5 ) 10/05/2024 6:55 PM CDT Body Mass Index 20.78 10/05/2024 6:55 PM CDT Plan of Treatment Upcoming Encounters Date Type Department Care Team (Late st Contact Info) Description 11/27/2024 1:00 PM CDT Office Visit [facility] [place] [address] [facility] [facility] [address] [place] [address] Tejas Rizzo MD [address] [place] [address] [address] [place] [id number] Health Maintenance Due Date Last Done Comments DIABETES ANNUAL FOOT EXAM 1963 DIABETES ANNUAL RETINAL EXAM 1963 DIABETES MICROALBUMIN ANNUAL SCREEN 1963 DTAP/TDAP/TD VACCINES (1 - Tdap) 1964 PNEUMOCOCCAL VACCINE 50+ YEA RS (1 of 2 - PCV) 1964 ZOSTER VACCINE (1 of 2) 1995 OSTEOPOROSIS SCREENING 2010 RSV VACCINE (60+ or ) (1 - 1-dose 75+ series) 2020 INFLUENZA VACCINE (#1) 2024 DIABETES HBA1C Q 6 MONTHS 04/06/2025 10/05/2024, 06/2023 LDL CHOLESTEROL ANNUAL 10/05/2025 10/05/2024 Procedures Procedure Name Priority Date/Time Associated Diagnosis Comments TELEMETRY REPORT 10/12/2024 1:43 PM CDT EKG 12-LEAD Routine 10/07/2024 4:01 PM CDT BASIC METABOLIC PANEL Routine 10/07/2024 1:27 AM CDT CBC WITHOUT DIFFERENTIAL Routine 10/07/2024 1:27 AM CDT ECHOCARDIOGRAM W/ CONTRAST AGENT Routine 10/06/2024 3:58 PM CDT HM EJECTION FRACTION Routine 10/06/2024 11:03 AM CDT NM MYOCARD PERF IMAG SPECT MULT Routine 10/06/2024 11:03 AM CDT NM PHARMACOLOGICAL STRESS TEST Routine 10/06/2024 9:07 AM CDT CBC WITHOUT DIFFERENTIAL Routine 10/06/2024 1:20 AM CDT LIPASE Routine 10/06/2024 1:19 AM CDT HEPATIC FUNCTION PANEL Routine 1:19 AM CDT TROPONIN 6 HR, 5TH GEN Timed Study 1:19 AM CDT VITAMIN B12 AND FOLATE Routine 1:19 AM CDT BASIC METABOLIC PANEL Routine 10/06/2024 1:19 AM CDT EKG 12-LEAD Routine 10/05/2024 9:08 PM CDT FERRITIN Routine 10/05/2024 8:18 PM CDT IRON, TIBC, AND PERCENT SATURATION Routine 10/05/2024 8:18 PM CDT BRAIN NATRIURETIC PEPTIDE, BNP OR PROBNP Routine 10/05/2024 8:18 PM CDT LIPID PANEL Routine 10/05/2024 8:18 PM CDT TSH REFLEXIVE Routine 10/05/2024 8:18 PM CDT HEMOGLOBIN A1C Routine 10/05/2024 8:18 PM CDT PROTIME-INR Routine 10/05/2024 8:18 PM CDT PTT Routine 10/05/2024 8:18 PM CDT CBC WITHOUT DIFFERENTIAL Routine 10/05/2024 8:18 PM CDT BASIC METABOLIC PANEL Routine 10/05/2024 8:18 PM CDT TROPONIN BASELINE, 5TH GEN Stat 10/05/2024 8:18 PM CDT from Last 3 Months Results * TELEMETRY REPORT (10/12/2024 1:43 PM CDT) us Provider Scanning ECG ORDERABLES Final Result * EKG 12-LEAD (10/07/2024 4:01 PM CDT) Only the most recent of2 resultswithin the time period is included. 10/07/2024 4:01 PM CDT Narrative INTERFACE SYSTEM - 10/07/2024 9:27 PM CDT [facility] [address] [place] [address] Test Date: 2024-10-07 Pat Name: ANTHONY PAINTER Department: 61 Room: [facility] 1 Gender: Female Fashion Designer: Ascenciondayan : 1945 Requested By: PHAM REYES Order Number: [id number] Reading MD: Alan Briggs Measurements Intervals [place] Rate: 98 P: 58 AK: 127 QRS: 32 QRSD: 81 T: 117 QT: 336 QTc: 430 Interpretive Statements SINUS RHYTHM WITH MARKED SINUS ARRHYTHMIA LEFT VENTRICULAR HYPERTROPHY AND ST-T CHANGE [VOLTAGE CRITERIA PLUS ST/T ABNORMALITY] Electronically Signed On 10-07-2024 21:27:50 CDT by Alan Briggs Procedure Note Alan Briggs MD - 10/07/2024 [facility] [address] [place] [address] Test Date: 2024-10-07 Pat Name: ANTHONY PAINTER Department: 61 Room: [facility] 1 Gender: Female Fashion Designer: Ascenciondayan : 1945 Requested By: PHAM REYES Order Number: [id number] Reading : Alan Briggs Measurements Intervals [place] Rate: 98 P: 58 AK: 127 QRS: 32 QRSD: 81 T: 117 QT: 336 QTc: 430 Interpretive Statements SINUS RHYTHM WITH MARKED SINUS ARRHYTHMIA LEFT VENTRICULAR HYPERTROPHY AND ST-T CHANGE [VOLTAGE CRITERIA PLUS ST/T ABNORMALITY] Electronically Signed On 10-07-2024 21:27:50 CDT by Alan Briggs us Varundangely Pinto DO ECG ORDERABLES Final Result INTERFACE SYSTEM Refer to clinic/hospital department * (ABNORMAL) CBC WITHOUT DIFFERENTIAL (10/07/2024 1:27 AM CDT) Only the most recent of3 resultswithin the time period is included. WBC 3.4(L) 4.0 - 9.8 K/uL 10/07/2024 2:04 AM T [facility] - [facility] RBC 3.94 3.90 - 4.90 M/uL 10/07/2024 2:04 AM T [facility] [employer] [facility] - [facility] HEMOGLOBIN 10.1(L) 11.8 - 14.8 g/dL 10/07/2024 2:04 AM T [facility] [employer] [facility] - [facility] HEMATOCRIT 33.2(L) 35.5 - 44.0 % 10/07/2024 2:04 AM T [facility] [employer] [facility] - [facility] MCV 84.3 82.0 - 99.0 fL 10/07/2024 2:04 AM T [facility] [employer] [facility] - [facility] MCH 25.6(L) 27.2 - 32.6 pg 10/07/2024 2:04 AM T [facility] [employer] [facility] MCHC 30.4(L) 31.5 - 35.5 g/dL 10/07/2024 2:04 AM CDT [facility] [employer] [facility] - [facility] PLATELETS 226 140 - 350 K/uL 10/07/2024 2:04 AM T [facility] [employer] [facility] - [facility] MPV 10.2 9.3 - 12.4 fL 10/07/2024 2:04 AM T [facility] [employer] [facility] - [facility] RDW 19.0(H) 11.5 - 14.5 % 10/07/2024 2:04 AM T [facility] - [facility] RDW-STDEV 58.1(H) 37.1 - 48.7 fL 10/07/2024 2:04 AM T [facility] [employer] [facility] Blood Venipuncture / Unknown 10/07/2024 1:27 AM CDT 10/07/2024 1:49 AM CDT us Adriana Moore NP HEMATOLOGY ORDERABLES Final Re sult [facility]# [id number] [address] [place] [address] * (ABNORMAL) BASIC METABOLIC PANEL (10/07/2024 1:27 AM CDT) Only the most recent of3 resultswithin the time period is included. Pathologist [facility] SODIUM 139 136 - 145 mmol/L 10/07/2024 2:37 AM [facility] [employer] LABORATORY SERVICES - [facility] POTASSIUM 4.4 3.5 - 5.0 mmol/L 10/07/2024 2:37 AM [facility] [employer] LABORATORY SERVICES - [facility] CHLORIDE 105 98 - 107 mmol/L 10/07/2024 2:37 AM [facility] [employer] LABORATORY SERVICES - . [facility] CO2 27 22 - 29 mmol/L 10/07/2024 2:37 AM [facility] CALCIUM 9.1 8.6 - 10.2 mg/dL 10/07/2024 2:37 AM [facility] BUN 13 8 - 23 mg/dL 10/07/2024 2:37 AM [facility] CREATININE 0.86 0.51 - 0.95 mg/dL 10/07/2024 2:37 AM [facility] Comment:The GFR result is no t clinically significant on patients <18 or >70 years of age. GLUCOSE 89 74 - 99 mg/dL 10/07/2024 2:37 AM [facility] GFR >60 mL/min/1.7 3 sq meter 10/07/2024 2:37 AM [facility] Comment:eGFR calculated with 2020 CKD-EPI equation. Vegetarian diet, extremely high or low muscle mass, and may affect results. Cystatin C with Glomerular Filtration Rate is a suitable alternative for these patients. ANION GAP 7(L) 8 - 16 mmol/L 10/07/2024 2:37 AM [facility] Blood Venipuncture / Unknown 10/07/2024 1:27 AM CDT 10/07/2024 1:49 AM CDT us Adriana Moore FIRE FIGHTERS DISPATCHER CHEMISTRY ORDERABLES Final Res ult [facility]# [id number] 5 [facility] S[facility]ERS [facility]141 * ECHOCARDIOGRAM W/ CONTRAST AGENT (10/06/2024 3:58 PM CDT) EJECTION FRACTION 75 INTERFACE SYSTEM 10/06/2024 1:31 PM CDT Narrative INTERFACE SYSTEM - 10/06/2024 4:27 PM CDT [facility] [address] [place] [address] [email or web address] Transthoracic Echocardiogram Patient: Anthony Painter Study ID: ECHO COMPLETE - Gender: F : 1945 Age: 79 Race: HUONG Height 165.1cm Study Date: 10/06/2024 Weight: 56.9kg Access. #: [id number] BP: *Referring Physician:Adriana Pritchard Abdul-Rahman *Ordering Physician:Adriana Pritchard [facility] shift lead: Nurse: Indications: Chest pain. Murmur. STUDY CONCLUSIONS: SUMMARY: - Left ventricle: The cavity size was normal. Wall thickness was increased. There is asymmetric septal hypertrophy with IVSd of 1.8cm and PWd of 1.0cm. Outflow tract turbulence is observed on color flow doppler but no significant dynamic gradient / LVOT obstruction is measured. There is no visible ANIA or significant posteriorly directed MR. Consider HCM; consider CMR to better evaluate. Global systolic function is hyperdynamic. The estimated ejection fraction is 70-75%. For Epic reporting: the left ventricular ejection fraction is 75% . Left ventricular diastolic function is indeterminate. Left ventricular diastolic function cannot be assessed due to significant MAC. - Right ventricle: The cavity size is normal. Systolic function is normal. - Aortic valve: Trileaflet. The leaflets are mildly calcified. Mild regurgitation. Sclerosis without stenosis. Peak systolic velocity is 2.2 m/s. - Left atrium: The atrium is normal in size. - Mitral valve: The annulus is calcified. Mild regurgitation. - Tricuspid valve: Mild regurgitation. - Pulmonary arteries: The peak systolic pressure is 36mm Hg. Cardiac Anatomy: LEFT VENTRICLE: The cavity size was normal. Wall thickness was increased. There is asymmetric septal hypertrophy with IVSd of 1.8cm and PWd of 1.0cm. Outflow tract turbulence is observed on color flow doppler but no significant dynamic gradient / LVOT obstruction is measured. There is no visible ANIA or significant posteriorly directed MR. Global systolic function is hyperdynamic. The estimated ejection fraction is 70-75%. For Epic reporting: the left ventricular ejection fraction is 75% . Wall motion is normal; there are no regional wall motion abnormalities. Global longitudinal strain was -12.1% (GLS is abnormal if greater than -16, i.e. -15). Left ventricular diastolic function is indeterminate. Left ventricular diastolic function cannot be assessed due to significant MAC. AORTIC VALVE: Trileaflet. The leaflets are mildly calcified. Mild regurgitation. Sclerosis without stenosis. Peak systolic velocity is 2.2 m/s. The mean systolic gradient is 8mm Hg. The peak systolic gradient is 13mm Hg. The LVOT to aortic valve VTI ratio is 1.47. The valve area is 4.2cm^2. The ratio of LVOT to aortic valve peak velocity is 1.23. AORTA: Aortic root: The root is normal-sized. MITRAL VALVE: The annulus is calcified. Mild regurgitation. The mean diastolic gradient is 2mm Hg. The peak diastolic gradient is 4mm Hg. LEFT ATRIUM: The atrium is normal in size. RIGHT VENTRICLE: The cavity size is normal. Systolic function is normal. PULMONIC VALVE: Structurally normal valve. No significant regurgitation. TRICUSPID VALVE: Structurally normal valve. Mild regurgitation. RIGHT ATRIUM: The atrium was normal in size. SYSTEMIC VEINS: Inferior vena cava: The IVC is normal-sized. PERICARDIUM: There is no pericardial effusion. Measurements Left ventricle Value Ref GLS, 2D -12.1 % --------- IVS, ED, LAX (H) 1.8 cm 0.6 - 0.9 ZOILA, LAX (L) 2.3 cm 3.8 - 5.2 ZOILA/bsa, LAX (L) 1.4 cm/m^2 2.3 - 3.1 ZOILA, LAX chord (L) 3.1 cm 3.8 - 5.2 ESD, LAX chord (N) 2.3 cm 2.2 - 3.5 ZOILA/bsa, LAX chord (L) 1.9 cm/m^2 2.3 - 3.1 ESD/bsa, LAX chord (N) 1.4 cm/m^2 1.3 - 2.1 FS, LAX chord (N) 28 % 27 - 45 IVS, ED (H) 1.8 cm 0.6 - 0.9 PW, ED (H) 1.0 cm 0.6 - 0.9 EDV, 2-p (N) 76 ml 46 - 106 ESV, 2-p (L) 12 ml 14 - 42 EF, 2-p (H) 85 % 54 - 74 SV, 2-p 64 ml --------- SV/bsa, 2-p 39.8 ml/m^2 --------- E', lat [place], TDI (L) 8.1 cm/sec >=10.0 E/e', lat [place], TDI (N) 7 <=13 E', med [place], TDI (L) 5.7 cm/sec >=7.0 E/e', med [place], TDI 10 --------- E', avg, TDI 6.9 cm/sec --------- E/e', avg, TDI (N) 8 <=14 LVOT Value Ref Diam, S 1.9 cm --------- Area 2.8 cm^2 --------- Peak ray, S 2.24 m/sec --------- VTI, S 44.0 cm --------- Peak grad, S 20 mm Hg --------- Right ventricle Value Ref ZOILA minor ax, A4C base (N) 3.3 cm 2.5 - 4.1 ZOILA minor ax, A4C mid (N) 3.0 cm 1.9 - 3.5 ZOILA major ax, A4C (N) 7.1 cm 5.9 - 8.3 TAPSE, MM (N) 2.1 cm >=1.7 Pressure, S 33 mm Hg --------- S' lateral (N) 18.0 cm/sec >=9.5 Left atrium Value Ref AP dim, ES (N) 2.8 cm 2.7 - 3.8 AP dim index, ES (N) 1.7 cm/m^2 1.5 - 2.3 SI dim, A4C 5.4 cm --------- Area ES, A4C (N) 16 cm^2 <=20 Area/bsa ES, A4C 10.12 cm^2/m^2 --------- LA/Ao root ratio 0.8 --------- Right atrium Value Ref SI dim, ES, A4C (N) 4.6 cm 3.4 - 5.3 SI dim/bsa, ES, A4C (N) 2.8 cm/m^2 1.9 - 3.1 Area, ES, A4C (N) 14 cm^2 10 - 18 Vol, ES, 1-p A4C 34 ml --------- Vol/bsa, ES, 1-p A4C (N) 21 ml/m^2 9 - 33 Aortic valve Value Ref Peak v, S 1.8 m/sec --------- Mean v, S 1.28 m/sec --------- VTI, S 30.0 cm --------- Mean grad, S 8 mm Hg --------- Peak grad, S 13 mm Hg --------- LVOT/AV, VTI ratio 1.47 --------- SHALOM, VTI 4.2 cm^2 --------- SHALOM/bsa, VTI 2.57 cm^2/m^2 --------- LVOT/AV, Vpeak ratio 1.23 --------- SHALOM, Vmax 3.5 cm^2 --------- SHALOM/bsa, Vmax 2.16 cm^2/m^2 --------- Mitral valve Value Ref Mean v, D 0.59 m/sec --------- Peak E 0.56 m/sec --------- Peak A 0.89 m/sec --------- Decel time 310 ms --------- PHT 93 ms --------- Mean grad, D 2 mm Hg --------- Peak grad, D 4 mm Hg --------- Peak E/A ratio 0.6 --------- A-VTI 22.4 cm --------- MVA, PHT 2.4 cm^2 --------- MVA/bsa, PHT 1.46 cm^2/m^2 --------- Pulmonic valve Value Ref Peak v, S 1.08 m/sec --------- Tricuspid valve Value Ref TR peak v (N) 2.5 m/sec <=2.8 Peak RV-RA grad, S 28 mm Hg --------- Aortic root Value Ref Root diam, 3.5 cm --------- Ascending aorta Value Ref AAo AP diam, S 3.2 cm --------- AAo AP diam/bsa, S 2.0 cm/m^2 --------- Pulmonary artery Value Ref Pressure, S 36 mm Hg --------- Systemic veins Value Ref Estimated RA pressure 5 mm Hg --------- Legend: (L) and (H) luis values outside specified reference range. (N) lund values inside specified reference range. Procedure data: Procedure information: A transthoracic echocardiogram was performed. Scanning was performed from the parasternal, apical, and subcostal acoustic windows. Intravenous contrast (Definity) was administered. Transthoracic echocardiogram. Complete 2D, complete spectral Doppler, and color Doppler. Birthdate: Patient birthdate: 1945. Age: Patient is 79year(s) old. Sex: gender: female. Height: 165.1cm. 65in. Weight: 56.9kg. 125.5lb. Body mass index: 20.9kg/m^2. Body surface area: 1.62m^2. Study date: Study date: 10/06/2024. Study time: 01:31 PM. Prepared and Electronically Authenticated Carlos A Rodriguez [id number] Procedure Note Carlos A Rodriguez MD - 10/06/2024 [place] [address] [email or web address] Transthoracic Echocardiogram Patient: Anthony Painter Study ID: ECHO COMPLETE - Gender: F : 1945 Age: 79 Race: [facility] Height 165.1cm Study Date: 10/06/2024 Weight: 56.9kg Access. #: [id number] BP: *Referring Physician:Adriana Pritchard Abdul-Rahman *Ordering Physician:Adriana Pritchard [facility] shift lead: Nurse: Indications: Chest pain. Murmur. STUDY CONCLUSIONS: SUMMARY: - Left ventricle: The cavity size was normal. Wall thickness wasincreased. There is asymmetric septal hypertrophy with IVSd of 1.8cm and PWd of1.0cm. Outflow tract turbulence is observed on color flow doppler but no significant dynamic gradient / LVOT obstruction is measured. There isno visible ANIA or significant posteriorly directed MR. Consider HCM;consider CMR to better evaluate. Global systolic function is hyperdynamic. The estimated ejection fraction is 70-75%. For Epic reporting: the left ventricular ejection fraction is 75% . Left ventricular diastolicfunction is indeterminate. Left ventricular diastolic function cannot be assesseddue to significant MAC. - Right ventricle: The cavity size is normal. Systolic function isnormal. - Aortic valve: Trileaflet. The leaflets are mildly calcified. Mild regurgitation. Sclerosis without stenosis. Peak systolic velocity is2.2 m/s. - Left atrium: The atrium is normal in size. - Mitral valve: The annulus is calcified. Mild regurgitation. - Tricuspid valve: Mild regurgitation. - Pulmonary arteries: The peak systolic pressure is 36mm Hg. Cardiac Anatomy: LEFT VENTRICLE: The cavity size was normal. Wall thickness wasincreased. There is asymmetric septal hypertrophy with IVSd of 1.8cm and PWd of1.0cm. Outflow tract turbulence is observed on color flow doppler but nosignificant dynamic gradient / LVOT obstruction is measured. There is no visible SAMor significant posteriorly directed MR. Global systolic function ishyperdynamic. The estimated ejection fraction is 70-75%. For Epic reporting: the left ventricular ejection fraction is 75% . Wall motion is normal; there areno regional wall motion abnormalities. Global longitudinal strain was -12.1%(GLS is abnormal if greater than -16, i.e. -15). Left ventricular diastolic function is indeterminate. Left ventricular diastolic function cannot be assessed due to significant MAC. AORTIC VALVE: Trileaflet. The leaflets are mildly calcified. Mild regurgitation. Sclerosis without stenosis. Peak systolic velocity is 2.2m/s. The mean systolic gradient is 8mm Hg. The peak systolic gradient is 13mmHg. The LVOT to aortic valve VTI ratio is 1.47. The valve area is 4.2cm^2.The ratio of LVOT to aortic valve peak velocity is 1.23. AORTA: Aortic root: The root is normal-sized. MITRAL VALVE: The annulus is calcified. Mild regurgitation. The mean diastolic gradient is 2mm Hg. The peak diastolic gradient is 4mm Hg. LEFT ATRIUM: The atrium is normal in size. RIGHT VENTRICLE: The cavity size is normal. Systolic function isnormal. PULMONIC VALVE: Structurally normal valve. No significantregurgitation. TRICUSPID VALVE: Structurally normal valve. Mild regurgitation. RIGHT ATRIUM: The atrium was normal in size. SYSTEMIC VEINS: Inferior vena cava: The IVC is normal-sized. PERICARDIUM: There is no pericardial effusion. Measurements Left ventricle Value Ref GLS, 2D -12.1 % --------- IVS, ED, LAX (H) 1.8 cm 0.6 - 0.9 ZOILA, LAX (L) 2.3 cm 3.8 - 5.2 ZOILA/bsa, LAX (L) 1.4 cm/m^2 2.3 - 3.1 ZOILA, LAX chord (L) 3.1 cm 3.8 - 5.2 ESD, LAX chord (N) 2.3 cm 2.2 - 3.5 ZOILA/bsa, LAX chord (L) 1.9 cm/m^2 2.3 - 3.1 ESD/bsa, LAX chord (N) 1.4 cm/m^2 1.3 - 2.1 FS, LAX chord (N) 28 % 27 - 45 IVS, ED (H) 1.8 cm 0.6 - 0.9 PW, ED (H) 1.0 cm 0.6 - 0.9 EDV, 2-p (N) 76 ml 46 - 106 ESV, 2-p (L) 12 ml 14 - 42 EF, 2-p (H) 85 % 54 - 74 SV, 2-p 64 ml --------- SV/bsa, 2-p 39.8 ml/m^2 --------- E', lat syd[place], TDI (L) 8.1 cm/sec >=10.0 E/e', lat sy[place], TDI (N) 7 <=13 E', med [place], TDI (L) 5.7 cm/sec >=7.0 E/e', med syndey, TDI 10 --------- E', avg, TDI 6.9 cm/sec --------- E/e', avg, TDI (N) 8 <=14 LVOT Value Ref Diam, S 1.9 cm --------- Area 2.8 cm^2 --------- Peak ray, S 2.24 m/sec --------- VTI, S 44.0 cm --------- Peak grad, S 20 mm Hg --------- Right ventricle Value Ref ZOILA minor ax, A4C base (N) 3.3 cm 2.5 - 4.1 ZOILA minor ax, A4C mid (N) 3.0 cm 1.9 - 3.5 ZOILA major ax, A4C (N) 7.1 cm 5.9 - 8.3 TAPSE, MM (N) 2.1 cm >=1.7 Pressure, S 33 mm Hg --------- S' lateral (N) 18.0 cm/sec >=9.5 Left atrium Value Ref AP dim, ES (N) 2.8 cm 2.7 - 3.8 AP dim index, ES (N) 1.7 cm/m^2 1.5 - 2.3 SI dim, A4C 5.4 cm --------- Area ES, A4C (N) 16 cm^2 <=20 Area/bsa ES, A4C 10.12 cm^2/m^2 --------- LA/Ao root ratio 0.8 --------- Right atrium Value Ref SI dim, ES, A4C (N) 4.6 cm 3.4 - 5.3 SI dim/bsa, ES, A4C (N) 2.8 cm/m^2 1.9 - 3.1 Area, ES, A4C (N) 14 cm^2 10 - 18 Vol, ES, 1-p A4C 34 ml --------- Vol/bsa, ES, 1-p A4C (N) 21 ml/m^2 9 - 33 Aortic valve Value Ref Peak v, S 1.8 m/sec --------- Mean v, S 1.28 m/sec --------- VTI, S 30.0 cm --------- Mean grad, S 8 mm Hg --------- Peak grad, S 13 mm Hg --------- LVOT/AV, VTI ratio 1.47 --------- SHALOM, VTI 4.2 cm^2 --------- SHALOM/bsa, VTI 2.57 cm^2/m^2 --------- LVOT/AV, Vpeak ratio 1.23 --------- SHALOM, Vmax 3.5 cm^2 --------- SHALOM/bsa, Vmax 2.16 cm^2/m^2 --------- Mitral valve Value Ref Mean v, D 0.59 m/sec --------- Peak E 0.56 m/sec --------- Peak A 0.89 m/sec --------- Decel time 310 ms --------- PHT 93 ms --------- Mean grad, D 2 mm Hg --------- Peak grad, D 4 mm Hg --------- Peak E/A ratio 0.6 --------- A-VTI 22.4 cm --------- MVA, PHT 2.4 cm^2 --------- MVA/bsa, PHT 1.46 cm^2/m^2 --------- Pulmonic valve Value Ref Peak v, S 1.08 m/sec --------- Tricuspid valve Value Ref TR peak v (N) 2.5 m/sec <=2.8 Peak RV-RA grad, S 28 mm Hg --------- Aortic root Value Ref Root diam, 3.5 cm --------- Ascending aorta Value Ref AAo AP diam, S 3.2 cm --------- AAo AP diam/bsa, S 2.0 cm/m^2 --------- Pulmonary artery Value Ref Pressure, S 36 mm Hg --------- Systemic veins Value Ref Estimated RA pressure 5 mm Hg --------- Legend: (L) and (H) luis values outside specified reference range. (N) lund values inside specified reference range. Procedure data: Procedure information: A transthoracic echocardiogram was performed.Scanning was performed from the parasternal, apical, and subcostal acousticwindows. Intravenous contrast (Definity) was administered. Transthoracic echocardiogram. Complete 2D, complete spectral Doppler, and colorDoppler. Birthdate: Patient birthdate: 1945. Age: Patient is 79year(s)old. Sex: gender: female. Height: 165.1cm. 65in. Weight: 56.9kg. 125.5lb. Body mass index: 20.9kg/m^2. Body surface area: 1.62m^2.Study date: Study date: 10/06/2024. Study time: 01:31 PM. Prepared and Electronically Authenticated Carlos A Rodriguez [id number] us Adriana Moore NP US ORDERABLES Final Result INTERFACE SYSTEM Refer to clinic/hospital department * (ABNORMAL) HM EJECTION FRACTION (10/06/2024 11:03 AM CDT) EJECTION FRACTION 69(A) 50 - 65 % us Historical Provider HEALTH MAINTENANCE Final Res ult * NM MYOCARD PERF IMAG SPECT MULT (10/06/2024 11:03 AM CDT) 10/06/2024 11:0 4 AM CDT Impressions INTERFACE SYSTEM - 10/06/2024 12:13 PM CDT IMPRESSION: 1) Stress EKG response was indeterminate for ischemia due to left ventricular hypertrophy with baseline repolarization abnormality. 2) The overall quality of the study is good. 3) The myocardial perfusion scan is normal. There is no evidence of ischemia or infarction. 4) Left ventricular size is normal with normal left ventricular systolic function, and a calculated ejection fraction of 69%. 5) No previous study was available for comparison. Recommendations: Clinical correlation is recommended. Narrative INTERFACE SYSTEM - 10/06/2024 12:13 PM CDT Procedure Type: One Day Myoview Regadenoson Pharmacologic Stress Test Date of Procedure: 10/06/2024 11:03 AM Clinical Indication: This 79 years old Female with a clinical history of unspecified memory impairment, migraines, hypertension, hyperlipidemia, obstructive sleep apnea, type 2 diabetes, recurrent pancreatitis, GERD, peptic ulcer disease, status post gastric bypass with revision, former tobacco use is undergoing an evaluation for coronary artery disease via a pharmacologic stress test due to chest pain. Height: 5 feet 5 inches; Weight: 125 pounds Medications:See List Pharmacologic Stress Procedure: The patient performed a pharmacologic stress test using 0.4 mg regadenoson IVP over 10 seconds without low level exercise. The heart rate was 66 bpm at baseline and increased to 107 bpm. The blood pressure was 140/77 mmHg at baseline and 171/82 mmHg during infusion, demonstrating a normal response to regadenoson. The patient felt 2 out of 10 chest pain during recovery and nausea during the procedure. EKG: The baseline electrocardiogram showed sinus rhythm with premature atrial complexes and left ventricular hypertrophy with repolarization abnormality. The stress electrocardiogram is indeterminate for ischemia due to left ventricular hypertrophy with repolarization abnormality. Following infusion there was submillimeter worsening of baseline ST depressions in the anterolateral leads which do not meet criteria for ischemia and lack specificity due to baseline ST abnormality. Nuclear Imaging Protocol: Myocardial perfusion imaging was performed at rest approximately 30 minutes following the intravenous injection of 6.658 mCi TC99m Myoview. Immediately after regadenoson infusion, the patient was injected intravenously with 18.557 mCi TC99m Myoview. Gated post - stress tomographic imaging was performed approximately 60 minutes later in same manner. SPECT reconstruction was performed in the short, vertical long and horizontal axis views in both resting and gated image sets. Findings: The overall quality of the study is good. Rotating planar images reveal no motion artifact. The left ventricular size is normal. Post-stress SPECT myocardial perfusion images reveals normal perfusion in all regions. The rest images reveal no reversibility. Gated SPECT imaging demonstrates normal wall motion in all regions, and a calculated left ventricular ejection fraction estimated to be 69%. There is no transient ischemic dilation. Procedure Note Carlos A Rodriguez MD - 10/06/2024 Procedure Type: One Day Myoview Regadenoson Pharmacologic Stress Test Date of Procedure: 10/06/2024 11:03 AM Clinical Indication: This 79 years old Female with a clinical history of unspecified memory impairment, migraines, hypertension, hyperlipidemia, obstructive sleep apnea, type 2 diabetes, recurrent pancreatitis, GERD, peptic ulcer disease, status post gastric bypass with revision, former tobacco use is undergoing an evaluation for coronary artery disease via a pharmacologic stress test due to chest pain. Height: 5 feet 5 inches; Weight: 125 pounds Medications:See List Pharmacologic Stress Procedure: The patient performed a pharmacologic stress test using 0.4 mg regadenoson IVP over 10 seconds without low level exercise. The heart rate was 66 bpm at baseline and increased to 107 bpm. The blood pressure was 140/77 mmHg at baseline and 171/82 mmHg during infusion, demonstrating a normal response to regadenoson. The patient felt 2 out of 10 chest pain during recovery and nausea during the procedure. EKG: The baseline electrocardiogram showed sinus rhythm with premature atrial complexes and left ventricular hypertrophy with repolarization abnormality. The stress electrocardiogram is indeterminate for ischemia due to left ventricular hypertrophy with repolarization abnormality. Following infusion there was submillimeter worsening of baseline ST depressions in the anterolateral leads which do not meet criteria for ischemia and lack specificity due to baseline ST abnormality. Nuclear Imaging Protocol: Myocardial perfusion imaging was performed at rest approximately 30 minutes following the intravenous injection of 6.658 mCi TC99m Myoview. Immediately after regadenoson infusion, the patient was injected intravenously with 18.557 mCi TC99m Myoview. Gated post - stress tomographic imaging was performed approximately 60 minutes later in same manner. SPECT reconstruction was performed in the short, vertical long and horizontal axis views in both resting and gated image sets. Findings: The overall quality of the study is good. Rotating planar images reveal no motion artifact. The left ventricular size is normal. Post-stress SPECT myocardial perfusion images reveals normal perfusion in all regions. The rest images reveal no reversibility. Gated SPECT imaging demonstrates normal wall motion in all regions, and a calculated left ventricular ejection fraction estimated to be 69%. There is no transient ischemic dilation. IMPRESSION: 1) Stress EKG response was indeterminate for ischemia due to left ventricular hypertrophy with baseline repolarization abnormality. 2) The overall quality of the study is good. 3) The myocardial perfusion scan is normal. There is no evidence of ischemia or infarction. 4) Left ventricular size is normal with normal left ventricular systolic function, and a calculated ejection fraction of 69%. 5) No previous study was available for comparison. Recommendations: Clinical correlation is recommended. Adriana Moore NP DC ORDERABLES Final Result INTERFACE SYSTEM Refer to clinic/hospital department * NM PHARMACOLOGICAL STRESS TEST (10/06/2024 9:07 AM CDT) Narrative 10/06/2024 9:07 AM CDT Order information only. Exam was auto-finalized. us Adriana Moore NP DC ORDERABLES Final Result * (ABNORMAL) TROPONIN 6 HR, 5TH GEN (10/06/2024 1:19 AM CDT) TROPONIN T, 6 HR 5TH GEN 13(H) <11 ng/L 10/06/2024 2:50 AM CDT [employer] [facility] DELTA 6HR TROPONIN T -2 See Interp. 10/06/2024 2:50 AM CDT [facility] Blood Venipuncture / Unknown 10/06/2024 1:19 AM CDT 10/06/2024 1:59 AM CDT Narrative [facility] - 10/06/2024 2:50 AM CDT Troponin elevated. Delta indeterminate. Delay in collection of timed specimen beyond recommended collection interval. Results must be interpreted in clinical context. Adriana Moore FIRE FIGHTERS DISPATCHER CHEMISTRY ORDERABLES Final Res ult Performing Organization Address [facility] Co de Phone Number [facility] CLIA# [id number] [address] [place] [address] * VITAMIN B12 AND FOLATE (10/06/2024 1:19 AM CDT) VITAMIN B12 658 232 - 1,245 pg/mL 10/06/2024 3:02 AM CDT [facility] Comment:It has been reported that between 5 to 10% of patients with values between 200 and 400 pg/mL may experience neuropsychiatric and hematologic abnormalities due to occult B12 deficiency. Less than 1% of patients with values above 400 pg/mL will have symptoms. FOLATE, SERUM 10.8 >4.5 ng/mL 10/06/2024 3:02 AM CDT [facility] Blood Venipuncture / Unknown 10/06/2024 1:19 AM CDT 10/06/2024 1:59 AM CDT Adriana Moore FI[employer]HTER[employer] DISPATCHER CHEMISTRY ORDERABLES Final Res ult Performing Organization Address [facility] Co de Phone Number [facility] CLIA# [id number] [address] [place] [address] * LIPASE (10/06/2024 1:19 AM CDT) LIPASE 27 13 - 60 U/L 10/06/2024 2:50 AM CDT [facility] Blood Venipuncture / Unknown 10/06/2024 1:19 AM CDT 10/06/2024 1:59 AM CDT Harish Lord MD CHEMISTRY ORDERABLES Final Resu lt [facility] CLIA# [id number] [address] [place] [id number] * (ABNORMAL) HEPATIC FUNCTION PANEL (10/06/2024 1:19 AM CDT) Pathologist [facility] TOTAL PROTEIN 5.5(L) 6.7 - 8.6 g/dL 10/06/2024 2:50 AM CDT [facility] ALBUMIN 3.3(L) 3.5 - 5.2 g/dL 10/06/2024 2:50 AM CDT [facility] BILIRUBIN TOTAL 0.5 0.2 - 1.1 mg/dL 10/06/2024 2:50 AM CDT [facility] BILIRUBIN DIRECT 0.3 <0.4 mg/dL 10/07/19 2:50 AM CDT [facility] ALKALINE PHOSPHATASE 89 35 - 104 U/L 10/06/2024 2:50 AM CDT [facility] AST 20 <33 U/L 10/06/2024 2:50 AM CDT [facility] ALT 8 <34 U/L 10/06/2024 2:50 AM T [facility] Blood Venipuncture / Unknown 10/06/2024 1:19 AM CDT 10/06/2024 1:59 AM CDT [facility] - [facility] - 10/06/2024 2:50 AM CDT Samples containing indocyanine green cause interferences on Total and/or Direct Bilirubin and must not be measured. us Adriana Moore NP CHEMISTRY ORDERABLES Final Res ult [facility] CLIA# [id number] [address] [place] [address] * (ABNORMAL) TROPONIN BASELINE, 5TH GEN (10/05/2024 8:18 PM CDT) Pathologist [facility] TROPONIN T, BASELINE 5TH GEN 15(H) <=10 ng/L 10/05/2024 10:04 PM CDT [facility] Blood Venipuncture / Unknown 10/05/2024 8:18 PM CDT 10/05/2024 9:05 PM CDT Narrative [facility] - 10/05/2024 10:04 PM CDT Troponin elevated. Adriana Moore FI[employer]HTERS DISPATCHER CHEMISTRY ORDERABLES Final Res ult Performing Organization Address City/[facility]/ZIP Co de Phone Number [facility] CLIA# [id number] [address] [place] [address] * TSH REFLEXIVE (10/05/2024 8:18 PM CDT) Pathologist [facility] TSH 3.40 0.27 - 4.20 uIU/mL 10/05/2024 10:04 PM CDT [facility] Blood Venipuncture / Unknown 10/05/2024 8:18 PM CDT 10/05/2024 9:05 PM CDT Adriana Moore FIRE FIGHTERS DISPATCHER CHEMISTRY ORDERABLES Final Res ult Performing Organization Address City/[facility]/ZIP Co de Phone Number [facility] CLSC# [id number] [address] [place] [address] * IRON, TIBC, AND PERCENT SATURATION (10/05/2024 8:18 PM CDT) Pathologist [facility] IRON 57 37 - 145 ug/dL 10/06/2024 12:14 AM CDT [facility] TIBC 318 250 - 450 ug/dL 10/06/2024 12:14 AM CDT [facility] IRON % SATURATION 18 15 - 50 % 10/06/2024 12:14 AM CDT [facility] TRANSFERRIN 250 200 - 360 mg/dL 10/06/2024 12:14 AM CDT [facility] [employer] [facility] Blood Venipuncture / Unknown 10/05/2024 8:18 PM CDT 10/05/2024 9:05 PM CDT Adriana Moore FIRE FIGHTERS DISPATCHER CHEMISTRY ORDERABLES Final Res ult [facility] [employer] [facility]# [id number] [address] [place] [address] * PTT (10/05/2024 8:18 PM CDT) PTT 29.6 24.4 - 36.4 seconds 10/05/2024 9:31 PM CDT [facility] [employer] [facility] Comment: PTT Therapeutic Range: Heparin Level PTT (seconds) <0.10 units/mL <55.8 0.10 - 0.30 units/mL 55.8 - 74.3 0.30 - 0.70 units/mL* 74.3 - 111.2* 0.70 - 1.00 units/mL 111.2 - 138.9 *corresponds to therapeutic range for unfractionated heparin Blood Venipuncture / Unknown 10/05/2024 8:18 PM CDT 10/05/2024 9:05 PM CDT Adriana Moore FI[employer]HTER[employer] DISPATCHER HEMATOLOGY ORDERABLES Final Re sult [facility] [employer] [facility]# [id number] [address] [place] [address] * PROTIME-INR (10/05/2024 8:18 PM CDT) PROTIME 14.0 12.7 - 15.1 Seconds 10/05/2024 9:31 PM CDT [facility] [employer] [facility] INR 1.1 0.9 - 1.1 10/05/2024 9:31 PM CDT [facility] [employer] [facility] Blood Venipuncture / Unknown 10/05/2024 8:18 PM CDT 10/05/2024 9:05 PM CDT Narrative [facility] - 10/05/2024 9:31 PM CDT INR Therapeutic Range: Adult: 2.0 - 3.0 for pulmonary embolism or prophylaxis against venous thrombosis or systemic embolization. 2.0 - 3.0 for patients with tissue heart valves. 2.5 - 3.5 for patients with mechanical heart valves or post IL. Pediatric (12 years and under): 1.5 - 3.0 Although the target range in children is not well established, INR values of 1.5 - 3.0 are recommended for most patients. Higher values have been used in children with prosthetic cardiac valves and hereditary clotting disorders. (<3 days) therapeutic ranges have not been established. us Adriana Moore NP HEMATOLOGY ORDERABLES Final Re sult [facility]# [id number] [address] [facility] [place] [address] * (ABNORMAL) BRAIN NATRIURETIC PEPTIDE, BNP OR PROBNP (10/05/2024 8:18 PM CDT) PROBNP, N TERMINAL 1,364(H) <449 pg/mL 10/05/2024 10:04 PM CDT [facility] Comment: INTERPRETIVE COMMENT based on diagnosis: Diagnostic NT pro-BNP cutoffs for Heart Failure in the absence of renal failure is suggested for the following ranges <75 years: <125 pg/mL >=75 years: <450 pg/mL Exclusionary rule out cut-point for Acute Decompensated Heart Failure(ADHF) All ages: <300 pg/mL Diagnostic NT pro-BNP cutoffs for Acute Decompensated Heart Failure(ADHF) in the absence of renal failure is suggested for the following ages <50 years: > 450 pg/mL 50-75 years: > 900 pg/mL >75 years: >1800 pg/mL Blood Venipuncture / Unknown 10/05/2024 8:18 PM CDT 10/05/2024 9:05 PM CDT Adriana Moore FIRE FIGHTERS DISPATCHER CHEMISTRY ORDERABLES Final Res ult Performing Organization Address City/[facility]/ZIP Co de Phone Number [facility] [employer] [facility]# [id number] [address] [place] [address] * HEMOGLOBIN A1C (10/05/2024 8:18 PM CDT) HEMOGLOBIN A1C 5.1 <5.7 % 10/05/2024 9:50 PM CDT [facility] [employer] [facility] EST. AVG GLUCOSE, A1C 100 mg/dL 10/05/2024 9:50 PM CDT [facility] [employer] [facility] Blood Venipuncture / Unknown 10/05/2024 8:18 PM CDT 10/05/2024 9:05 PM CDT Narrative [facility] - 10/05/2024 9:50 PM CDT HGB A1C INTERPRETATION NORMAL: <5.7% PRE-DIABETES: 5.7 - 6.4% DIABETES: 6.5% OR GREATER Adriana Moore FIRE FIGHTERS DISPATCHER CHEMISTRY ORDERABLES Final Res ult Performing Organization Address [facility] Co de Phone Number [facility] [employer] [facility]# [id number] [address] [place] [address] * FERRITIN (10/05/2024 8:18 PM CDT) FERRITIN 23.3 13.0 - 150.0 ng/mL 10/06/2024 12:14 AM CDT [facility] [employer] [facility] Blood Venipuncture / Unknown 10/05/2024 8:18 PM CDT 10/05/2024 9:05 PM CDT Adriana Moore FIRE FIGHTERS DISPATCHER CHEMISTRY ORDERABLES Final Res ult [facility] [employer] [facility]# [id number] [address] [place] [address] * LIPID PANEL (10/05/2024 8:18 PM CDT) [facility] Signature CHOLESTEROL 133 <200 mg/dL 10/05/2024 10:03 PM CDT [facility] TRIGLYCERIDE 82 <150 mg/dL 10/05/2024 10:03 PM T [facility] HDL 40 40 - 59 mg/dL 10/05/2024 10:03 PM CDT [facility] LDL CALCULATED 77 <100 mg/dL 10/05/2024 10:03 PM T [facility] NON-HDL CHOLESTEROL 93 <130 mg/dL 10/05/2024 10:03 PM [facility] Blood Venipuncture / Unknown 10/05/2024 8:18 PM CDT 10/05/2024 9:05 PM CDT Narrative [facility] - 10/05/2024 10:03 PM CDT TOTAL CHOLESTEROL mg/dL Desirable <200 Borderline high 200-239 High >=240 TRIGLYCERIDES mg/dL Normal <150 Borderline high 150-199 High 200-499 Very high >=500 HDL CHOLESTEROL mg/dL Low <40 Normal 40-59 Desirable >=60 NON HDL CHOLESTEROL mg/dL Optimal <130 Near Optimal 130-159 Borderline High 160-189 Very High >=190 CALCULATED LDL mg/dL LDL <70, OPTIMAL if have Atherosclerotic cardiovascular disease (ASCVD) or intermediate or higher (>7.5%) 10 year risk of ASCVD including most adults with diabetes. LDL <100, Optimal in adult patients with low (<7.5%) 10 year ASCVD risk LDL 100-160, Suboptimal LDL >160, High LDL >190, Very high LDL calculated using the Friedewald equation. ATPIII Guidelines Reference Ranges for Lipid Panels (NCEP/AMA) . us Adriana Moore NP CHEMISTRY ORDERABLES Final Res ult [facility] [employer] [facility] CLIA# [id number] [address] [place] [address] from Last 3 Months Insurance A[employer]NA PPO [facility] RX AETNA Medicare Part D RX [employer] (INTERNAL) [facility] [place] [address] Advance Directives For more information, please contact: [phone] * Full Code (Latest Code Status on File) Date Activated Date Inactivated Comments 10/05/2024 9:03 PM 10/08/2024 5:49 PM Care Teams [employer] Relationship Manager Relationship Specialty Start Date End Date Davonte Stock MD [address] [place] [address] PCP - General Family Practice 08/21/21
--- OUTSIDE RECORDS SUMMARY | 2024-10-16 13:39 | XMS_ITS | Encounter Summary ---
Author Organization [facility] Address [address] [place] [address] Phone Care Team Providers Care Supervisor [employer] Name Role Phone Davonte Stock MD Primary Care Provider [phone] Reason for Visit * Auth/Cert (Routine) Specialty Diagnoses / Procedures Referred By Beka t Referred To Contact Referral ID Status Reason Start Date Expiration Date Visits Re quested Visits Authorized [id number] 1 1 Encounter Details Date Type Department Care Team (Late st Contact Info) Description 10/16/2024 9:45 AM CDT Home Care Visit [facility] [address] [place] [address] Meche Arnold OT OT - INITIAL EVALUATION Social History Tobacco Use Types Packs/Day Years [...] F) 10/16/2024 9:54 AM CDT Respiratory Rate - - Oxygen Saturation 98% 10/16/2024 9:54 AM CDT Inhaled Oxygen Concentration - - Weight 53.1 kg (117 lb) 10/16/2024 9:54 AM CDT Height 165.1 cm (5' 5 ) 10/16/2024 9:54 AM CDT Body Mass Index 19.47 10/16/2024 9:54 AM CDT documented in this encounter Plan of Treatment Upcoming Encounters Date Type Department Care Team (Late st Contact Info) Description 10/18/2024 1:00 AM CDT Home Care Visit [address] [address] Priyanka Reynolds, ASSISTED LIVING EXECUTIVE DIRECTOR DE 10/22/2024 1:00 AM CDT Home Care Visit [address] [address] BrJaron durbinet K, ASSISTED LIVING EXECUTIVE DIRECTOR [place] 10/24/2024 1:00 AM CDT Home Care Visit [address] [address] Priyanka Reynolds K, ASSISTED LIVING EXECUTIVE DIRECTOR DE 10/29/2024 1:00 AM CDT Home Care Visit [address] [address] Priyanka Reynolds K, ASSISTED LIVING EXECUTIVE DIRECTOR DE 10/31/2024 1:00 AM CDT Appointment [address] [address] Larissa Cameron, PT documented as of this encounter Visit Diagnoses Not on filedocumented in this encounter Home Health Visit - Care Plan Visit Details Visit Type -OT - INITIAL MARI LUATION Discipline -Occupational Therapy Problems Problem Description Start Date Status Goals Interve ntions OCCUPATIONAL THERAPY EVALUATION ORDER (O) Disciplines: Occupational Therapy Occupational Therapy General Order 10/16/2024 Active 1 goal linked to scheduled/documen estrella intervention 1 goal intervention scheduled/document ed in this visit OT COMPREHENSIVE Disciplines: Occupational Therapy 10/16/2024 Active 1 goal linked to scheduled/documen estrella intervention 1 goal intervention scheduled/document ed in this visit Goals Goal Associated Problem Outcome Goal Met? Visit Notes Occupational Therapy Evaluation Description: After assessing the patient and discussing the patient's goals the following were identified. Patient Centered Detention Goal: to be safe and independent with ADLs Target date: 11/09/24 OCCUPATIONAL THERAPY EVALUATION ORDER (O) No OT Transfers Description: Short Term Goal: Patient will complete toilet transfer with adaptive equipment of grab bar or riser as needed with independence and good in order to safely perform ADLs. To be met by 11/09/24. Pelletizer Operator Goal: Patient will complete shower transfer with adaptive equipment of seat and grab bar as needed with independence and good in order to safely perform ADLs. To be met by 11/09/24. OT COMPREHENSIVE No Interventions Intervention Associated Problem/Goal Status Variance Visit Notes OT Evaluation (Order Only) Description: 79 y/o female admitted to hospital on 10/05/24 for chest pain that woke her up. Pt. was transferred to [facility] where workup was benign and pt. discharged home on 10/08/24 PMH: unspecified memory impairment, migraines, HTN, HLD, FLACO, DMT2, recurrent acute pancreatitis, GERD, anastomotic stricture with large peptic ulcer, s/p gastric bypass in 2002, MDD, GERBER, RLS At OT eval, pt. was CGA for mobility. She was not feeling well (nausea, high blood pressure, abdominal and chest pain). Pt. reports black tarry stool yesterday. OT contacted triage to report symptoms. Triage nurse recommended pt. be evaluated in ED. OT called 911 per granddaughter's request. OT will see pt. for ADLs, bathroom transfers, kitchen mobility/meal prep, and overall safety recommendations. Patient and Davonte Stock MD are in agreement with plan of care. Perform pulse oximetry PRN for intermittent assessment and/ or respiratory distress. Problem:OCCUPATIONAL THERAPY EVALUATION ORDER (O) Goal:Occupational Therapy Evaluation Completed OT Transfers Description: Instruct on transfer techniques and safety. Equipment as needed. Problem:OT COMPREHENSIVE Goal:OT Transfers Completed Pt. was CGA for mobility this date without a device. Pt. had limited mobility due to nausea, high blood pressure, and diophoresis. documented in this encounter Care Teams Supervisor [employer] Relationship Specialty Start Date End Date Davonte Stock MD [address] [place] [address] PCP - General Pediatrics 10/08/24 documented as of this encounter
--- OUTSIDE RECORDS SUMMARY | 2024-10-16 13:39 | XMS_ITS | Clinical Summary ---
Author Organization [facility] Address [address] [place] [address] Care Team Providers Care Egg Packer Name Role Phone Davonte Stock MD Primary [...] Comments HYSTERECTOMY Hysterectomy GASTRIC BYPASS Gastric Bypass [place] TOTAL ABDOMINAL HYSTERECT W/WO RMVL TUBE OVARY [...] Mother 2 Colon cancer - (Added by webme Conv) Diabetes Mother 2 Family history of diabetes mellitus - (Added by webme Conv) Alzheimer's disease Mother's Brother Fami ly history of Alzheimer's disease - (Added by webme Conv) Migraines Other Family history of migraine [...] on file Legal Sex Female 10:30 AM 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 Gender Identity Not on file Sexual Orientation Not on file Obstetrics History Last Filed Vital Signs Vital Sign Reading Time Taken Comments Blood Pressure 157/72 08/23/2022 1:20 PM 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 Pulse 73 08/23/2022 1:20 PM 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 Temperature 36.2 C (97.2 F) 06/29/2022 10:29 AM 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 Respiratory Rate 24 06/29/2022 10:4 9 AM 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 Oxygen Saturation 100% 06/29/2022 10: 49 AM 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 Inhaled Oxygen Concentration - - Weight 66.6 kg (146 lb 12.8 oz) 08/23/2022 1:20 PM 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 Height 165.1 cm (5' 5 ) 08/23/2022 1:20 PM 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 Body Mass Index 24.43 08/23/2022 1:20 PM 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 Plan of Treatment Health Maintenance Due Date [...] Advance Directives For more information, please contact: [phone] * Full Code (Latest Code Status on File) Date Activated Date Inactivated Comments 06/29/2022 9:11 AM 06/29/2022 3:08 PM Care Teams Egg Packer Relationship Specialty Start Date End Date Davonte Stock MD [address] [place] [address] PCP - General Family Medicine 04/27/22
[2024-10-16 14:11] LABS: Troponin I < 0.012 ng/mL (0.000-0.034)
[2024-10-16] MEDS: ACETAMINOPHEN 500 MG TABLET 1000 MG PO (15:53)
== END 2024-10-16 17:22 | disposition home or self-care (01) ==
PROVIDERS: Emergency Medicine; Emergency Provider Physician Assistant; PCP Family Medicine
DX: N39.0 Urinary tract infection, site not specified (principal); R10.13 Epigastric pain; F03.90 Unspecified dementia, unspecified severity, without behavioral disturbance, psychotic disturbance, mood disturbance, and anxiety; I12.9 Hypertensive chronic kidney disease with stage 1 through stage 4 chronic kidney disease, or unspecified chronic kidney disease; E11.22 Type 2 diabetes mellitus with diabetic chronic kidney disease; N18.30 Chronic kidney disease, stage 3 unspecified; K21.9 Gastro-esophageal reflux disease without esophagitis; G47.30 Sleep apnea, unspecified; F32.A Depression, unspecified
CPT/HCPCS: 36415; 74177; 80053; 81001; 83690; 84484; 85025; 87077; 87086; 87186; 93005; 96374; 99284; A9270; J2470; Q9967

== ENCOUNTER 2024-12-10 07:56 | Outpatient (CLI) | payer MEDICARE, SELFPAY ==
--- NOTE | 2024-12-10 08:03 | ECHO_ITS ---
Patient Info Name: Catie Painter Age: 79 years : 1945 Gender: Female Ht: 65 in Wt: 121 lbs BSA: 1.58 m2 HR: 58 bpm BP: 139 / 69 mmHg Technical Quality: Good Exam Date: 12/10/2024 8:20 AM Patient Status: O Admit Date: 12/10/2024 Exam Type: CA echo doppler color flow Complete two-dimensional, color flow and Doppler transthoracic echocardiogram is performed. Strain analysis performed. Tour Actor: Eneida Freed Attending Provider: Cristi Chao DO Summary 1. Complete two-dimensional, color flow and Doppler transthoracic echocardiogram is performed. 2. Left ventricular chamber dimension is normal. 3. Left ventricular systolic function is normal, estimated at 60-65. 4. There is moderate asymmetric septal increased left ventricular wall thickness suggestive of hypertrophic cardiomyopathy. No resting LVOT gradient. 5. The left ventricular diastolic function is abnormal. 6. Global longitudinal strain is abnormal at -15.9%. 7. E/e' 10 is mildly elevated. 8. Left atrial chamber dimension is moderately enlarged. 9. There is mild aortic valve sclerosis. 10. There is mild aortic valve regurgitation. 11. The mitral valve has a moderately calcified annulus. 12. There is trace tricuspid valve regurgitation. 13. No pulmonary hypertension, estimated pulmonary arterial systolic pressure is 36 mmHg. Left Ventricle E/e' 10 is mildly elevated. Left ventricular chamber dimension is normal. Left ventricular systolic function is normal, estimated at 60-65. There is moderate asymmetric septal increased left ventricular wall thickness suggestive of hypertrophic cardiomyopathy. No resting LVOT gradient. The left ventricular diastolic function is abnormal. Global longitudinal strain is abnormal at -15.9%. Right Ventricle Right ventricular chamber dimension is normal. Right ventricular systolic function is normal and with normal TAPSE 1.8 cm. Left Atria Left atrial chamber dimension is moderately enlarged. Right Atria Right atrial chamber dimension is normal. Aortic Valve The aortic valve is trileaflet. There is mild aortic valve sclerosis. There is no aortic valve stenosis. There is mild aortic valve regurgitation. Pulmonic Valve There is no pulmonic regurgitation. Mitral Valve The mitral valve has a moderately calcified annulus. There is no mitral valve stenosis. There is no mitral valve regurgitation. Tricuspid Valve There is trace tricuspid valve regurgitation. No pulmonary hypertension, estimated pulmonary arterial systolic pressure is 36 mmHg. Pericardium/Pleural There is no pericardial effusion. Inferior Vena Cava Normal inferior vena cava with >50% collapse upon inspiration consistent with normal right atrial pressure, 5 mmHg. Aorta The aortic root size at the sinus of Valsalva is normal. Left Ventricular Outflow Tract Name Value Normal LVOT 2D LVOT Diameter 1.9 cm LVOT Doppler LVOT Peak Velocity 130 cm/s LVOT Peak Gradient 7 mmHg LVOT Mean Gradient 4 mmHg LVOT VTI 29 cm LVOT VTI/AV VTI Ratio 0.9 LVOT Stroke Volume 85 ml LVOT CO 4.7 l/min LVOT CI 3.0 l/min/m2 Pulmonic Valve Name Value Normal RVOT Doppler RVOT Peak Velocity 69 cm/s RVOT Peak Gradient 2 mmHg PV Doppler PV Peak Velocity 94 cm/s PV Peak Gradient 4 mmHg Mitral Valve Name Value Normal MV Diastolic Function MV E Peak Velocity 72 cm/s MV A Peak Velocity 65 cm/s MV E/A 1.1 MV Decel Time (PW) 258 ms Tricuspid Valve Name Value Normal TV Regurgitation Doppler TR Peak Velocity 278 cm/s TR Peak Gradient 25 mmHg Estimated PAP/RSVP RA Pressure 5 mmHg <=5 PA Systolic Pressure 36 mmHg <36 RV Systolic Pressure 36 mmHg <36 TV Annular TDI TV Lateral Fang s' Velocity 12.9 cm/s >=9.5 Aorta Name Value Normal Ascending Aorta Ao Root Diameter (MM) 3.1 cm Ao Root Diam Index (MM) 1.9 cm/m2 Aortic Valve Name Value Normal AV Doppler AV Peak Velocity 138 cm/s AV Peak Gradient 8 mmHg AV Mean Gradient 5 mmHg AV VTI 32 cm AV Area (Cont Eq VTI) 2.6 cm2 >=3.0 AV Area (Cont Eq Beau) 2.8 cm2 AV DI (Beau) 0.94 AV Regurgitation 2D LVOT Area 2.9 cm2 Ventricles Name Value Normal LV Dimensions 2D/MM IVS Diastolic Thickness (2D) 1.4 cm 0.6-1.0 LVID Diastole (2D) 4.0 cm 3.8-5.2 LVIW Diastolic Thickness (2D) 1.0 cm 0.6-0.9 LVID Systole (2D) 2.6 cm 2.2-3.5 LVOT Diameter 1.9 cm LV Mass (2D Cubed) 163.36 g 67.00-162.00 LV Mass Index (2D Cubed) 103 g/m2 43-95 Relative Wall Thickness (2D) 0.50 <=0.42 LV Fractional Shortening/Ejection Fraction 2D/MM LV Fractional Shortening (2D) 34 % 27-45 LV EF (2D Teichholz) 64 % LV Diastolic Volume (4C MOD) 40 ml LV EF (4C MOD) 53 % LV Diastolic Volume (2C MOD) 46 ml LV EF (2C MOD) 64 % LV Diastolic Volume (BP MOD) 43 ml 46-106 LV Diastolic Volume Index (BP MOD) 27 ml/m2 29-61 LV Systolic Volume (BP MOD) 18 ml 14-42 LV Systolic Volume Index (BP MOD) 12 ml/m2 8-24 LV EF (BP MOD) 58 % 54-74 LV Diastolic Length (4C) 7.5 cm LV Systolic Length (4C) 6.3 cm LV Stroke Volume (4C MOD) 21 ml Atria Name Value Normal LA Dimensions LA Dimension (MM) 4.1 cm 2.7-3.8 LA Volume (4C A-L) 72 ml LA Volume (BP A-L) 74 ml RA Dimensions RA Systolic Major [place] Length (4C) 4.3 cm 2.2-2.8 RA Area (4C) 14.3 cm2 <=18.0 EchoPAC Name Value Normal AutoEF LVCO_BiP_Q (Vayh0DJS) 2.7 l/min LVEF_BiP_Q (Opwd2RNW) 63 % LVSV_BiP_Q (Ovtx2AGX) 49 ml LVVED_BiP_Q (Nbet8IRZ) 78 ml LVVES_BiP_Q (Upxz3WBL) 29 ml HR_4Ch_Q (Jyqe7GMS) 56 bpm LVCO_4Ch_Q (Nzmm0SFW) 2.7 l/min LVEF_4Ch_Q (Qhzr2ERO) 64 % LVLd_4Ch_Q (Bzur9IJM) 7.4 cm LVLs_4Ch_Q (Mbqw3OAH) 6.2 cm LVSV_4Ch_Q (Cjwi2EBP) 49 ml LVVED_4Ch_Q (Qsex9LKI) 78 ml LVVES_4Ch_Q (Wyia9IMY) 28 ml HR_2Ch_Q (Swas5DRL) 55 bpm LVCO_2Ch_Q (Mutp9GWN) 2.7 l/min LVEF_2Ch_Q (Dlap1BAZ) 61 % LVLd_2Ch_Q (Eheq1UQA) 7.9 cm LVLs_2Ch_Q (Bfqp7WUD) 6.6 cm LVSV_2Ch_Q (Bmyb0OUA) 49 ml LVVED_2Ch_Q (Nmau5SPF) 79 ml LVVES_2Ch_Q (Xmyl5EBP) 31 ml DAVID LV Apical Anterior Longitudinal Strain (DAVID) -11.2 % LV Apical Anteroseptal Longitudinal Strain (DAVID) -18.4 % LV Apical Inferior Longitudinal Strain (DAVID) -20.1 % LV Apical Lateral Longitudinal Strain (DAVID) -9.4 % LV Apical Posterior Longitudinal Strain (DAVID) -4.1 % LV Apical Septal Longitudinal Strain (DAVID) -20.3 % AV Closure (DAVID) 427 ms LV Basal Anterior Longitudinal Strain (DAVID) -21.3 % LV Basal Anteroseptal Longitudinal Strain (DAVID) -18.8 % LV Basal Inferior Longitudinal Strain (DAVID) -17.3 % LV Basal Anterolateral Longitudinal Strain (DAVID) -15.3 % LV Basal Inferolateral Longitudinal Strain (DAVID) -11.5 % LV Basal Inferoseptal Longitudinal Strain (DAVID) -19.5 % LV Global Longitudinal Strain (2C DAVID) -17.4 % LV Global Longitudinal Strain (4C DAVID) -15.8 % LV Global Longitudinal Strain (APLAX DAVID) -14.7 % LV Global Longitudinal Strain (DAVID) -16.0 % LV Mid Anterior Longitudinal Strain (DAVID) -17.0 % LV Mid Anteroseptal Longitudinal Strain (DAVID) -23.9 % LV Mid Inferior Longitudinal Strain (DAVID) -20.8 % LV Mid Anterolateral Longitudinal Strain (DAVID) -14.5 % LV Mid Inferolateral Longitudinal Strain (DAVID) -15.3 % LV Mid Inferoseptal Longitudinal Strain (DAVID) -23.5 % Report Signatures
== END 2024-12-10 07:57 | disposition home or self-care (01) ==
PROVIDERS: PCP Family Medicine; Visit Provider Internal Medicine Cardiovascular Disease
DX: I42.1 Obstructive hypertrophic cardiomyopathy (principal); I35.8 Other nonrheumatic aortic valve disorders; I34.81 Nonrheumatic mitral (valve) annulus calcification; R93.1 Abnormal findings on diagnostic imaging of heart and coronary circulation
CPT/HCPCS: 93306

== ENCOUNTER 2025-05-22 11:04 | Outpatient (CLI) | payer MEDICARE, SELFPAY ==
--- NOTE | ~2025-05-22 | XR_ITS ---
EXAMINATION: XR knee RT 3V, 05/22/2025 11:15 PARTS SALES COUNTERPERSON HISTORY: PAIN IN LEFT ANKLE AND JOINTS OF LEFT FOOT, COMPARISON: No comparisons available. Findings: No acute fracture or malalignment. Moderate to severe tricompartmental degenerative changes with small effusion Soft tissues unremarkable. Impression: No acute fracture or malalignment. Reviewed, dictated and finalized at location P. S SALES COUNTERPERSON Impression: No acute fracture or malalignment.
--- NOTE | ~2025-05-22 | XR_ITS ---
EXAMINATION: XR ankle LT min 3V, 05/22/2025 11:15 MATERIAL PLANNING ANALYST HISTORY: PAIN IN LEFT ANKLE AND JOINTS OF LEFT FOOT COMPARISON: No comparisons available. Findings: No acute fracture or malalignment. Moderate degenerative changes Soft tissues unremarkable. Impression: No acute fracture or malalignment. Reviewed, dictated and finalized at location P. RIAL PLANNING ANALYST Impression: No acute fracture or malalignment.
--- OUTSIDE RECORDS SUMMARY | 2025-05-22 12:44 | XMS_ITS | Clinical Summary ---
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 Gender Identity Not on file Sexual Orientation Not on file Last Filed Vital Signs Vital Sign Reading Time Taken Comments Blood Pressure 157/72 08/23/2022 1:20 PM FIELD CROP II FARMWORKER Pulse 73 08/23/2022 1:20 PM FIELD CROP II FARMWORKER Temperature 36.2 C (97.2 F) 06/29/2022 10:29 AM FIELD CROP II FARMWORKER Respiratory Rate 24 06/29/2022 10:4 9 AM FIELD CROP II FARMWORKER Oxygen Saturation 100% 06/29/2022 10: 49 AM FIELD CROP II FARMWORKER Inhaled Oxygen Concentration - - Weight 66.6 kg (146 lb 12.8 oz) 08/23/2022 1:20 PM FIELD CROP II FARMWORKER Height 165.1 cm (5' 5) 08/23/2022 1:20 PM FIELD CROP II FARMWORKER Body Mass Index 24.43 08/23/2022 1:20 PM FIELD CROP II FARMWORKER Plan of Treatment Health Maintenance Due Date Last Done Comments Depression Screening 1945 Hepatitis C Screening 1945 Osteoporosis Screening-Bone Density Scan 1945 DTaP/Tdap/Td Vaccine (1 - Tdap) 1956 Hepatitis B Screening 1963 Zoster Vaccine (1 of 2) 1995 Well Visit 65+ 2010 Pneumococcal vaccine 65+ (2 of 2 - PCV) 01/03/2016 0 01/02/2015 Fall Risk Assessment 06/29/2023 06/29/2022 Influenza Vaccine (#1) 2025 Insurance AETNA MEDICARE AET MEDICARE Advance Directives For more information, please contact: [phone] * Full Code (Latest Code Status on File) Date Activated Date Inactivated Comments 06/29/2022 9:11 AM 06/29/2022 3:08 PM Care Teams Digital Print Operator Relationship Specialty Start Date End Date Davonte Stock MD [address] [place] [address] PCP - General Family Medicine 04/27/22
--- OUTSIDE RECORDS SUMMARY | 2025-05-22 12:44 | XMS_ITS | Clinical Summary ---
Author Organization [facility] Address [address] [place] [address] Phone Care Team Providers Care Medical Receptionist Medical Assistant Name Role Phone Davonte Stock MD Primary [...] for Mild or more severe pain. Active Social History Tobacco Use Types Packs/Day Years Used Date Smoking Tobacco: Never Assessed Comments Unknown Sex and Gender Information Value Date Recorded Sex Assigned at Not on file Legal Sex Female 4:02 PM CDT Gender Identity Not on file Sexual Orientation Not on file Last Filed Vital Signs Vital Sign Reading Time Taken Comments Blood Pressure 160/70 11/08/2024 11:46 AM CDT Pulse 48 11/08/2024 11:46 AM CDT Temperature 36.3 C (97.3 F) 11/08/2024 11:46 AM CDT Respiratory Rate 18 11/08/2024 11:46 AM CDT Oxygen Saturation 98% 11/08/2024 11:46 AM CDT Inhaled Oxygen Concentration - - Weight 54 kg (119 lb) 11/08/2024 11:46 AM CDT Height 165.1 cm (5' 5) 10/16/2024 9:54 AM CDT Body Mass Index 19.8 10/16/2024 9:54 AM CDT Plan of Treatment Health Maintenance Due Date Last Done Comments DEXA Bone Density 1945 Hepatitis C Virus (HCV) Screening 1945 Zoster Immunization (1 of 2) 1995 Medicare Initial AWV [id number] 06/20/2024 Influenza Immunization (#1) 02/18/202502/18, 02/28/2023, 04/05/2022, Additional history exists SARS-COV-2 Immunization ( season) 2025 03/02/2024, 06/08/2023, 04/05/2022, Additional history exists Pneumococcal Immunization (50+ years) Completed 04/16/2021, 11/27/2019, 01/02/2015 TdaP Immunization Completed 02/01/2022, , 11/28/2009 Respiratory Syncytial Virus (RSV) Immunization (Adult) Completed 08/31/2024 Hepatitis B Immunization Aged Out No longer eligible based on patient's age to complete this topic Human Papillomavirus (HPV) Immunization Aged Out No longer eligible based [...] Inactivated Comments 10/15/2024 10:34 PM Care Teams Medical Receptionist Medical Assistant Relationship Specialty Start Date End Date Davonte Stock MD [address] [place] [address] PCP - General Pediatrics 10/08/24
--- OUTSIDE RECORDS SUMMARY | 2025-05-22 12:44 | XMS_ITS | Clinical Summary ---
Author Organization [facility] Administrative Offices Address [address] [place] [address] Care Team Providers Care Director Of Curriculum And Instruction Name Role Phone Davonte Stock MD Primary Care Provider Allergies Active Allergy Reactions Criticality Noted Date Comments Butorphanol Anxiety,Hallucination Low 02/23/2013 Reaction: HALLUCINATIONS, , , Oxycodone Itching Low 10/05/2024 Medications cyanocobalamin (VITAMIN B-12) 1,000 mcg/mL Solution 2 Active divalproex (DEPAKOTE) 500 mg delayed release tablet Take 500 mg by mouth 2 times daily. 2 Active donepeziL (ARICEPT) 10 mg tablet Take 10 mg by mouth daily at bedtime. 2 Active DULoxetine (CYMBALTA) 30 mg Capsule, Delayed Release(E.C.) Take 30 mg by mouth 2 times daily. 1 Active PreviDent 5000 Booster Plus 1.1 % Paste 2 Active gabapentin (NEURONTIN) 600 mg tablet Take 300 mg by mouth see administration instructions. TAKE 1 CAPSULE IN THE MORNING AND TWO CAPSULES AT BEDTIME 2 Active ipratropium bromide (ATROVENT) 21 mcg (0.03 %) [place], Non-Aerosol 2 Active levothyroxine 50 mcg tablet 2 Active loperamide (IMODIUM) 2 mg capsule 2 Active sucralfate (CARAFATE) 1 gram tablet Take 1 Gram by mouth 4 times daily before meals and at bedtime. 2 Active pantoprazole (PROTONIX) 40 mg Tablet, Delayed Release (E.C.) Take 40 mg by mouth 2 times daily. 2 Active SUMAtriptan (IMITREX) 100 mg tablet Take 100 mg by mouth see administration instructions. TAKE 1 TABLET BY MOUTH NEEDED FOR MIGRAINE, MAY REPEAT IN 2 HOURS, NO MORE THAN 4 TIMES DAILY 2 Active escitalopram oxalate (LEXAPRO) 10 mg tablet Take 10 mg by mouth daily. 2 Active potassium CHLORIDE (K-TAB) 20 mEq Extended Release tablet Take 10 mEq by mouth 2 times daily with meals. Active traZODone (DESYREL) 50 mg tablet Take 50 mg by mouth daily at bedtime. 2 Active acetaminophen (TYLENOL) 500 mg tablet Take 1,000 mg by mouth every 8 hours as needed. 4 Active metoprolol succinate (TOPROL XL) 25 mg Extended Release 24 hour tablet Starting 10/09: Take 0.5 Tablet (12.5 mg) by mouth daily. 30 Tablet 1 10/08/2024 2:10 PM CDT 5 Active aspirin (ECOTRIN EC) 81 mg Tablet, Delayed Release (E.C.) Starting 10/09: Take 1 Tablet (81 mg) by mouth daily. 30 Tablet 1 10/08/2024 2:10 PM CDT 5 Active losartan (COZAAR) 25 mg tablet Starting 10/09: Take 1 Tablet (25 mg) by mouth daily. 30 Tablet 1 10/08/2024 2:10 PM CDT 5 Active Active Problems Problem Noted Date Diagnosed [...] of recurrent major depressive disorder 06/14/2012 10/05/2024 Family History Medical History Relation Name Comments Cancer Mother colon cancer Diabetes Mother Type 1 Hypertension Mother Other Mother ALZHEIMER'S Hypertension Sister Relation Name Status Comments Brother Daughter Alive Father Mother Sister Alive Son 1 Alive Son 2 Alive Social History Tobacco Use Types Packs/Day Years Used Date Smoking Tobacco: Former Cigarettes 0 Q uit: 1970 Smokeless Tobacco: Never Tobacco [...] on file Legal Sex Female 5:48 AM [employer] Gender Identity Not on file Sexual Orientation [...] 5:28 AM CDT Height 165.1 cm (5' 5) 10/05/2024 6:55 PM CDT Body Mass Index 20.78 10/05/2024 6:55 PM CDT Plan of Treatment Health Maintenance Due [...] 1-dose 75+ series) 2020 INFLUENZA VACCINE (#1) 2025 DIABETES HBA1C Q 6 MONTHS 04/06/2025 10/05/2024, 06/2023 LDL CHOLESTEROL ANNUAL 10/05/2025 10/05/2024 Procedures Procedure Name Priority Date/Time Associated Diagnosis Comments LIPID PANEL Routine 10/05/2024 8:18 PM CDT HEMOGLOBIN A1C Routine 10/05/2024 8:18 PM CDT from Last 3 Months or Most Recently Relevant to Health Maintenance Results * HEMOGLOBIN A1C (10/05/2024 8:18 PM CDT) HEMOGLOBIN A1C 5.1 <5.7 % 10/05/2024 9:50 PM CDT [facility] EST. AVG GLUCOSE, A1C 100 mg/dL 10/05/2024 9:50 PM CDT [facility] Blood Venipuncture / Unknown 10/05/2024 8:18 PM CDT 10/05/2024 9:05 PM CDT [facility] - 10/05/2024 9:50 PM CDT HGB A1C INTERPRETATION NORMAL: <5.7% PRE-DIABETES: 5.7 - 6.4% DIABETES: 6.5% OR GREATER us Adriana Moore CLINICAL DATA SPECIALIST CHEMISTRY ORDERABLES Final Res ult [facility]# [id number] [address] [place] [address] * LIPID PANEL (10/05/2024 8:18 PM CDT) [facility] CHOLESTEROL 133 <200 mg/dL 10/05/2024 10:03 PM CDT [facility] TRIGLYCERIDE 82 <150 mg/dL 10/05/2024 10:03 PM CDT [facility] HDL 40 40 - 59 mg/dL 10/05/2024 10:03 PM CDT [facility] LDL CALCULATED 77 <100 mg/dL 10/05/2024 10:03 PM CDT [facility] [employer] [facility] NON-HDL CHOLESTEROL 93 <130 mg/dL 10/05/2024 10:03 PM CDT [facility] Blood Venipuncture / Unknown 10/05/2024 8:18 PM CDT 10/05/2024 9:05 PM CDT [facility] - 10/05/2024 10:03 PM [...] Moore NP CHEMISTRY ORDERABLES Final Res ult [facility]# [id number] [address] [place] [address] from Last 3 Months or Most Recently Relevant to Health [place] [address] [employer] [facility] [place] [id number] RX [employer] Medicare Part D RX [employer] (INTERNAL) [facility] Advance Directives For more information, please contact: [phone] * Full Code (Latest Code Status on File) Date Activated Date Inactivated Comments 10/05/2024 9:03 PM 10/08/2024 5:49 PM Care Teams Director Of Curriculum And Instruction Relationship Specialty Start Date End Date Davonte Stock MD [address] [place] [address] PCP - General Family Practice 08/21/21
== END 2025-05-22 11:05 | disposition home or self-care (01) ==
LOC: CHSLAB 11:06
PROVIDERS: PCP Family Medicine; Visit Provider Family Medicine
DX: R55 Syncope and collapse (principal); M25.572 Pain in left ankle and joints of left foot; M25.561 Pain in right knee
CPT/HCPCS: 73562; 73610